=== PATIENT | male | born 1945 | race Caucasian/White ===

== ENCOUNTER → 2016-09-25 | Outpatient (CLI) | payer OTHER ==
[2016-09-25 09:52] LABS: Basophils # (A) 0.1 k/uL (0-0.2); Basophils % (A) 1 %; CH 31.7; CHCM 34.5; Eosinophils # (A) 0.3 k/uL (0-0.7); Eosinophils % (A) 3 %; HCT 48.5 % (39.0-53.0); HDW 2.46; HGB 15.9 gm/dL (13.0-17.5); Luc # (Auto) 0.17; Luc % (Auto) 2; Lymphocytes # (A) 1.8 k/uL (1.0-4.8); Lymphocytes % (A) 19 %; MCH 30.2 pg (25.0-35.0); MCHC 32.8 g/dL (31.0-37.0); MCV 92.1 fL (80.0-100.0); Mean Platelet Volume 7.5; Monocytes # (A) 0.6 k/uL (0-1.0); Monocytes % (A) 6 %; Neutrophils # (A) 6.3 k/uL (1.3-7.7); Neutrophils % (A) 69 %; RBC 5.27 m/uL (4.30-5.90); RDW 13.2 % (11.5-15.5); WBC 9.1 k/uL (3.8-10.6); WBC (Perox) 8.67
[2016-09-25 12:16] LABS: Hemoglobin A1C 6.9 % (4.2-6.1)
== END | disposition home or self-care (01) ==
LOC: LABWHC1 09:22
PROVIDERS: ATTEND Ophthalmology
DX: H20.9 Unspecified iridocyclitis (principal)
CPT/HCPCS: 36415; 83036; 85025

== ENCOUNTER 2018-03-26 14:45 | Inpatient (IN) | payer OTHER, MEDICARE ==
[2018-03-26] MEDS ORDERED: ALPRAZolam 0.5 MG TAB PO PRN (15:12)
[2018-03-26] MEDS ORDERED: ALPRAZolam 0.25 MG TAB PO PRN (15:12)
[2018-03-26] MEDS ORDERED: NITROGLYCERIN SL TABS 0.4 MG TAB SUBLINGUAL PRN ×2 (15:12→15:48)
[2018-03-26] MEDS ORDERED: NITROGLYCERIN OINT 1 INCH/GM PACKET TOPICAL STA (15:31)
--- NOTE | 2018-03-26 15:40 | CONS ---
CONSULTATION Mr. Jeffers is a 72-year-old male with known history of coronary artery disease, who is followed on a regular basis by Dr. Trevor Lemons, who presented to [facility] with symptoms of chest discomfort. The patient has underwent multiple stenting, most recently in 1996. He has done well and has been active. This morning while in [place], had an episode of chest discomfort that persisted. Took nitroglycerin without significant change. Because of the persistent symptoms, he drove back to [place] and went to [facility] and subsequently transferred to [facility]. At the time of my evaluation, he is pain free. The patient denies any change in his breathing. Denies any dizziness or palpitation. No syncope. No PND, orthopnea. Nor peripheral edema. His coronary risk factors are remarkable for hypertension, hyperlipidemia. He is a smoker about a pack a day. Nondiabetic according to him. REVIEW OF SYSTEMS: Respiratory system: He has cough and occasional wheezing. GI system: No recent GI bleed. No peptic ulcer disease. system: No dysuria or hematuria. Nervous system: No history of stroke or seizure. PHYSICAL EXAMINATION: He is a 72-year-old male, alert, oriented, in no apparent distress. Heart rate in the 60s. Blood pressure 130/70. HEAD: Normocephalic. Eyes: Sclerae anicteric. Neck good upstroke. No bruit. No jugular venous distention. Lungs with decreased air exchange. Heart: Regular rate and rhythm S1, S2. No S3. No rub. ABDOMEN: Soft, nontender. Positive bowel sounds. No megaly. EXTREMITIES: No edema. Intact distal pulses. EKG reveals sinus mechanism with evidence of inferior myocardial infarction that appears to be old with initial EKG in [place] revealed ST-segment depression laterally that resolved on the subsequent EKG done here. LAB DATA: From [place] revealed a BUN and creatinine 16, 1.1 potassium 4.9. CK of 121. NT proBNP of 60. Hemoglobin of 14.5. IMPRESSION: 1. Symptoms of chest discomfort with evidence of acute coronary syndrome with ST- segment depression laterally. 2. History of coronary artery disease status post percutaneous revascularization. 3. History of chronic tobacco use. 4. History of hypertension. RECOMMENDATIONS: I would recommend to initiate treatment with IV heparin. The patient will undergo cardiac catheterization by Dr. Trevor Lemons. The rationale behind the procedures risks and complications were discussed with the patient who is in full understanding and agreement. We will continue on aspirin, beta wang, and statin. If he has any further pain, then that the cardiac catheterization will be done today. Otherwise, it will be done tomorrow. Thank you for this consult. We will follow with you. PAT / HERBIEN: [id number] /
[2018-03-26] MEDS ORDERED: HEPARIN SODIUM,PORCINE 5,000 UNIT/ML 1 ML VIAL IV PRN (15:48)
--- NOTE | 2018-03-26 15:53 | ED ---
Chest Pain HPI - General Chief Complaint: Chest Pain Stated Complaint: Poss stemi Time Seen by Provider: 03/26/18 14:48 Source: patient, EMS, RN notes reviewed, old records reviewed Mode of arrival: EMS Limitations: no limitations - History of Present Illness Initial Comments: This is a 72-year-old male the ER for evaluation, patient is accepted in transfer for evaluation of elevated troponin. A presented with chest pain. Acute coronary syndrome. Patient is accepted in transfer. This hospital. Patient currently is chest pain-free MD Complaint: chest pain (Now resolved) -: hour(s) Onset: during rest Pain Location: left chest Pain Radiation: none Severity: mild Quality: tightness, heaviness Consistency: now resolved Improves With: nitroglycerin Worsens With: nothing Anginal Symptoms: diaphoresis Other Symptoms: palpitations Treatments Prior to Arrival: none - Related Data Home Medications Medication Instructions Recorded Confirmed Atenolol [Tenormin] 25 mg PO DAILY 03/26/18 03/26/18 Atorvastatin [Lipitor] 80 mg PO DAILY 03/26/18 03/26/18 Lisinopril [Zestril] 10 mg PO BID 03/26/18 03/26/18 Tiotropium [place] [Spiriva] 1 cap INHALATION RT-DAILY 03/26/18 03/26/18 metFORMIN HCL 1,000 mg PO BID 03/26/18 03/26/18 Allergies Allergy/AdvReac Type Severity Reaction Status Date / Time codeine Allergy Rash/Hives Verified 03/26/18 16:35 acetaminophen [From [place]] AdvReac Hallucinati Verified 03/26/18 16:35 ons hydrocodone [From [place]] AdvReac Hallucinati Verified 03/26/18 16:35 ons Review of Systems ROS Statement: Those systems with pertinent positive or pertinent negative responses have been documented in the HPI. ROS Other: All systems not noted in ROS Statement are negative. Past Medical History Past Medical History: COPD, Diabetes Mellitus, Hypertension History of Any Multi-Drug Resistant Organisms: None Reported Past Surgical History: Cholecystectomy, Heart Catheterization With Stent, Orthopedic Surgery Additional Past Surgical History / Comment(s): rt knee Past Psychological History: No Psychological Hx Reported Smoking Status: Never smoker Past Alcohol Use History: None Reported Past Drug Use History: None Reported General Exam Limitations: no limitations General appearance: alert, in no apparent distress Head exam: Present: atraumatic, normocephalic, normal inspection Eye exam: Present: normal appearance, PERRL, EOMI. Absent: scleral icterus, conjunctival injection, periorbital swelling ENT exam: Present: normal exam, mucous membranes moist Neck exam: Present: normal inspection. Absent: tenderness, meningismus, lymphadenopathy Respiratory exam: Present: normal lung sounds bilaterally. Absent: respiratory distress, wheezes, rales, rhonchi, stridor Cardiovascular Exam: Present: regular rate, normal rhythm, normal heart sounds. Absent: systolic murmur, diastolic murmur, rubs, gallop, clicks GI/Abdominal exam: Present: soft, normal bowel sounds. Absent: distended, tenderness, guarding, rebound, rigid Extremities exam: Present: normal inspection, full ROM, normal capillary refill. Absent: tenderness, pedal edema, joint swelling, calf tenderness Back exam: Present: normal inspection Neurological exam: Present: alert, oriented X3, CN II-XII intact Psychiatric exam: Present: normal affect, normal mood Skin exam: Present: warm, dry, intact, normal color. Absent: rash Course Vital Signs 03/26/18 14:52 Temperature 98.3 F Pulse Rate 50 L Respiratory 21 Rate Blood Pressure 146/64 O2 Sat by Pulse 96 Oximetry - Reevaluation(s) Reevaluation #1: Transfer paperwork is reviewed Dr. Pal was paged and came to evaluate patient in ER upon arrival Patient continues to be without chest pain Chest Pain MDM - MDM 72 male the ER for evaluation, patient does have positive chest pain positive troponin, will admit for anticoagulation and continued cardiology cardiopulmonary monitoring, evaluation and treatment Disposition Clinical Impression: Chest pain, ACS (acute coronary syndrome), NSTEMI (non-ST elevated myocardial infarction) Disposition: ADMITTED IP TO THIS HOSP Condition: Fair Is patient prescribed a controlled substance at d/c from ED?: No
[2018-03-26] MEDS ORDERED: HEPARIN SOD,PORK IN 0.45% NACL 25,000 UNIT in 0.45% NACL 1 250ML.BAG IV SCH (16:00)
[2018-03-26] MEDS: SODIUM CHLORIDE 0.9% 1,000 ML IV SCH (16:46)
[2018-03-26 16:59] LABS: Basophils # (A) 0.1 k/uL (0-0.2); Basophils % (A) 0 %; Eosinophils # (A) 0.4 k/uL (0-0.7); Eosinophils % (A) 3 %; HGB 14.4 gm/dL (13.0-17.5); Lymphocytes # (A) 2.1 k/uL (1.0-4.8); Lymphocytes % (A) 16 %; MCH 30.2 pg (25.0-35.0); MCHC 33.5 g/dL (31.0-37.0); MCV 90.1 fL (80.0-100.0); Mean Platelet Volume 6.2; Monocytes # (A) 0.6 k/uL (0-1.0); Monocytes % (A) 5 %; Neutrophils # (A) 9.3 k/uL (1.3-7.7); Neutrophils % (A) 74 %; Platelet Count 233 k/uL (150-450); RBC 4.77 m/uL (4.30-5.90); RDW 12.8 % (11.5-15.5); WBC 12.6 k/uL (3.8-10.6)
[2018-03-26 17:06] LABS: INR 0.9 (<1.2)
[2018-03-26 17:07] LABS: ALT 56 U/L (21-72); AST 87 U/L (17-59); Albumin 4.4 g/dL (3.5-5.0); Alkaline Phosphatase 70 U/L (38-126); Anion Gap 9 mmol/L; Blood Urea Nitrogen 14 mg/dL (9-20); Calcium 9.4 mg/dL (8.4-10.2); Carbon Dioxide 23 mmol/L (22-30); Chloride 105 mmol/L (98-107); Glucose 107 mg/dL (74-99); Magnesium 1.9 mg/dL (1.6-2.3); Potassium 4.4 mmol/L (3.5-5.1); Sodium 137 mmol/L (137-145); Total Bilirubin 0.7 mg/dL (0.2-1.3)
--- NOTE | 2018-03-26 17:12 | P.HPIM ---
History of Present Illness 72-year-old pleasant gentleman with known history of coronary artery disease and stents in the past follows with Dr. LEBRON per week as an outpatient came in with complaints of chest pressure like sensation which started today when he was driving from [place] which resolved associated blurry vision lightheadedness denied any diaphoresis his chest pain is severe 7/10 in severity radiating to the left arm and the jaw area pressure-like sensation not associated with food or deep breathing. Patient denied any short of breath associated with that patient had a cough. Patient did grow from [place] to to home with on and off symptoms and at home his symptoms are worse and went to the local ER subsequently transferred to [facility] found to have some new ST-T wave changes in the lateral leads along with mildly elevated troponin of 0.4 patient of the has elevated white blood cell count of 12.6 patient can use to smoke trying to quit smoking. Patient is being admitted for non-ST elevation microinfarction patient is on IV heparin, beta blockers statin. Review of Systems REVIEW OF SYSTEMS: CONSTITUTIONAL: No fever, no malaise, no fatigue. HEENT: No recent visual problems or hearing problems. Denied any sore throat. CARDIOVASCULAR: No orthopnea, PND, no palpitations, no syncope. PULMONARY: No shortness of breath, no cough, no hemoptysis. GASTROINTESTINAL: No diarrhea, no nausea, no vomiting, no abdominal pain. NEUROLOGICAL: No headaches, no weakness, no numbness. HEMATOLOGICAL: Denies any bleeding or petechiae. GENITOURINARY: Denies any burning micturition, frequency, or urgency. MUSCULOSKELETAL/RHEUMATOLOGICAL: Denies any joint pain, swelling, or any muscle pain. ENDOCRINE: Denies any polyuria or polydipsia. The rest of the 14-point review of systems is negative. Past Medical History Past Medical History: COPD, Diabetes Mellitus, Hypertension History of Any Multi-Drug Resistant Organisms: None Reported Past Surgical History: Cholecystectomy, Heart Catheterization With Stent, Orthopedic Surgery Additional Past Surgical History / Comment(s): rt knee Past Psychological History: No Psychological Hx Reported Smoking Status: Never smoker Past Alcohol Use History: None Reported Past Drug Use History: None Reported Medications and Allergies Home Medications Medication Instructions Recorded Confirmed Type Atenolol [Tenormin] 25 mg PO DAILY 03/26/18 03/26/18 History Atorvastatin [Lipitor] 80 mg PO DAILY 03/26/18 03/26/18 History Lisinopril [Zestril] 10 mg PO BID 03/26/18 03/26/18 History Tiotropium [place] [Spiriva] 1 cap INHALATION RT-DAILY 03/26/18 03/26/18 History metFORMIN HCL 1,000 mg PO BID 03/26/18 03/26/18 History Allergies Allergy/AdvReac Type Severity Reaction Status Date / Time codeine Allergy Rash/Hives Verified 03/26/18 16:35 acetaminophen [From [place]] AdvReac Hallucinati Verified 03/26/18 16:35 ons hydrocodone [From [place]] AdvReac Hallucinati Verified 03/26/18 16:35 ons Physical Exam Vitals: Vital Signs Temp Pulse Resp BP Pulse Ox 03/26/18 14:52 98.3 F 50 L 21 146/64 96 Intake and Output 03/26/18 03/26/18 03/26/18 06:59 14:59 22:59 Other: Weight 94.347 kg PHYSICAL EXAMINATION: GENERAL: The patient is alert and oriented x3, not in any acute distress. Well developed, well nourished. HEENT: Pupils are round and equally reacting to light. EOMI. No scleral icterus. No conjunctival pallor. Normocephalic, atraumatic. No pharyngeal erythema. No thyromegaly. CARDIOVASCULAR: S1 and S2 present. No murmurs, rubs, or gallops. PULMONARY: Chest is clear to auscultation, no wheezing or crackles. ABDOMEN: Soft, nontender, nondistended, normoactive bowel sounds. No palpable organomegaly. MUSCULOSKELETAL: No joint swelling or deformity. EXTREMITIES: No cyanosis, clubbing, or pedal edema. NEUROLOGICAL: Gross neurological examination did not reveal any focal deficits. SKIN: No rashes. Results CBC & Chem 7: 03/26/18 16:34 Labs: Abnormal Lab Results - Last 24 Hours (Table) 03/26/18 03/26/18 Range/Units 16:34 16:34 WBC 12.6 H (3.8-10.6) k/uL Neutrophils # 9.3 H (1.3-7.7) k/uL APTT 36.0 H (22.0-30.0) sec Assessment and Plan Plan: -Possible non-ST elevation myocardial infarction: Patient will be continued on IV heparin beta wang, statin and aspirin. Patient will undergo carotid catheterization tomorrow morning. Echo cardiac exam will be obtained -Hyperlipidemia -Hypertension -Previous history of coronary artery disease -Type 2 diabetes mellitus: 1 hold off metformin's sliding scale insulin will be started -COPD without any acute exacerbation -Leukocytosis reactive secondary to myocardial infarction
[2018-03-26 17:25] LABS: Creatine Kinase MB 56.3 ng/mL (0.0-2.4)
[2018-03-26 17:39] LABS: Troponin I 6.6 ng/mL (0.000-0.034)
[2018-03-26 19:21] LABS: Glucose,Whole Blood 160 mg/dL (75-99)
--- NOTE | 2018-03-26 19:38 | P.CNPUL ---
History of Present Illness Consult date: 03/26/18 Reason for consult: chest pain History of present illness: 72-year-old male patient with known history of coronary artery disease was undergone previous cardiac interventions and stenting, who experienced a sudden onset chest pain while driving from [place] back to [employer]. The pain was on and off, sternal, sometimes as bad as 7 out of 10 in severity with some radiation to the jaw and the left upper extremity. In addition the patient was having some increased shortness of breath. Noted the patient has known history of COPD and addition vitamin D on a combination of Spiriva and Proventil rescue inhaler on as needed basis. He initially presented himself to [facility] with the troponin was mildly elevated at 0.4. The patient was suspected of an acute non-ST segment elevation myocardial infarction. He was started on IV heparin and he was transferred to [facility]. Subsequent troponins were up to 6.6. The patient was seen by cardiology and the tentative plan is to proceed with a cardiac catheterization tomorrow. Currently free of any chest pain. He is on aspirin. He is on IV heparin. He is on metoprolol. He is also on nitroglycerin patch. The EKG showing sinus bradycardia. An old inferior wall infarction. No significant ST segment elevation or depressions. Review of Systems CONSTITUTIONAL: No fever, no malaise, no fatigue. HEENT: No recent visual problems or hearing problems. Denied any sore throat. CARDIOVASCULAR: No orthopnea, PND, no palpitations, no syncope. The patient is having increased chest pain. No palpitations. No syncope. PULMONARY: No shortness of breath, no cough, no hemoptysis. GASTROINTESTINAL: No diarrhea, no nausea, no vomiting, no abdominal pain. NEUROLOGICAL: No headaches, no weakness, no numbness. HEMATOLOGICAL: Denies any bleeding or petechiae. GENITOURINARY: Denies any burning micturition, frequency, or urgency. MUSCULOSKELETAL/RHEUMATOLOGICAL: Denies any joint pain, swelling, or any muscle pain. ENDOCRINE: Denies any polyuria or polydipsia. Past Medical History Past Medical History: COPD, Diabetes Mellitus, Hypertension Additional Past Medical History / Comment(s): Known history of coronary artery disease with previous cardiac intervention and stenting back in the , COPD , diabetes mellitus, hypertension, chronic smoker History of Any Multi-Drug Resistant Organisms: None Reported Past Surgical History: Cholecystectomy, Heart Catheterization With Stent, Orthopedic Surgery Additional Past Surgical History / Comment(s): rt knee Past Psychological History: No Psychological Hx Reported Smoking Status: Never smoker Past Alcohol Use History: None Reported Past Drug Use History: None Reported Medications and Allergies Home Medications Medication Instructions Recorded Confirmed Type Aspirin [Adult Low Dose Aspirin EC] 81 mg PO DAILY 03/26/18 03/26/18 History Atenolol [Tenormin] 25 mg PO DAILY 03/26/18 03/26/18 History Atorvastatin [Lipitor] 80 mg PO DAILY 03/26/18 03/26/18 History Lisinopril [Zestril] 10 mg PO BID 03/26/18 03/26/18 History Tiotropium [place] [Spiriva] 1 cap INHALATION RT-DAILY 03/26/18 03/26/18 History metFORMIN HCL 1,000 mg PO BID 03/26/18 03/26/18 History Allergies Allergy/AdvReac Type Severity Reaction Status Date / Time codeine Allergy Rash/Hives Verified 03/26/18 16:35 acetaminophen [From [place]] AdvReac Hallucinati Verified 03/26/18 16:35 ons hydrocodone [From [place]] AdvReac Hallucinati Verified 03/26/18 16:35 ons Physical Exam Vitals: Vital Signs Temp Pulse Resp BP Pulse Ox 03/26/18 18:16 97.5 F L 56 L 18 148/72 98 03/26/18 17:00 54 L 18 161/81 98 03/26/18 16:00 66 18 159/83 99 03/26/18 15:10 58 L 16 168/88 03/26/18 14:52 98.3 F 50 L 21 146/64 96 Intake and Output 03/26/18 03/26/18 03/26/18 06:59 14:59 22:59 Other: Weight 94.347 kg The patient appeared well nourished and normally developed. Vital signs as documented. Head exam is unremarkable. No scleral icterus or corneal arcus noted. Neck is without jugular venous distension, thyromegaly, or carotid bruits. Carotid upstrokes are brisk bilaterally. Lungs are mesh breath sounds along with scattered expiratory wheezes throughout the lung his bilaterally. There is also prolongation of the expiratory phase of breathing. Cardiac exam reveals the PMI to be normally sized and situated. Rhythm is regular. First and second heart sounds normal. No murmurs, rubs or gallops. Abdominal exam reveals normal bowel sounds, no masses, no organomegaly and no aortic enlargement. Extremities are nonedematous and both femoral and pedal pulses are normal. Neurologically awake and alert and there is no focal neurological deficits.Examination of the skin revealed no evidence of significant rashes, suspicious appearing nevi or other concerning lesions. Psychiatric no anxiety or depression. Results - Laboratory Findings CBC and BMP: 03/26/18 16:34 03/26/18 16:34 PT/INR, D-dimer PT 10.0 sec (9.0-12.0) 03/26/18 16:34 INR 0.9 (<1.2) 03/26/18 16:34 Abnormal lab findings: Abnormal Labs 03/26/18 03/26/18 03/26/18 16:34 16:34 16:34 WBC 12.6 H Neutrophils # 9.3 H APTT Glucose 107 H POC Glucose (mg/dL) AST 87 H Total Creatine Kinase 723 H CK-MB (CK-2) 56.3 H Troponin I 6.600 H* 03/26/18 03/26/18 16:34 19:09 WBC Neutrophils # APTT 36.0 H Glucose POC Glucose (mg/dL) 160 H AST Total Creatine Kinase CK-MB (CK-2) Troponin I Assessment and Plan Plan: Impression 1 acute non-ST segment elevation myocardial infarction 2 chest pain secondary to above 3 known history of coronary artery disease with previous coronary intervention and stenting 4 COPD currently inactive in stable 5 diabetes mellitus type 2 6 hypertension 7 hyperlipidemia 8 smoker Plan Continue aspirin. Continue IV heparin. Continue metoprolol. Continue statins. Monitor hemodynamics. Consider nitroglycerin drip if the patient starts having chest pain. Tentative plan is to proceed with a cardiac catheterization by cardiology first thing in the morning to assess the patient' s coronary anatomy. We'll continue to follow and keep the patient ICU for now.
[2018-03-26] MEDS ORDERED: INSULIN ASPART 100 UNIT/ML 1 ML 10 ML VIAL SQ SCH (21:00)
[2018-03-26] MEDS ORDERED: NITROGLYCERIN-D5W PMX 50 MG in DEXTROSE/WATER 1 250ML.BAG IV SCH (21:15)
[2018-03-26] MEDS: INSULIN ASPART 100 UNIT/ML 1 ML 10 ML VIAL SQ SCH (21:19)
[2018-03-26 21:21] LABS: Glucose,Whole Blood 106 mg/dL (75-99)
[2018-03-26] MEDS: METOPROLOL TARTRATE 25 MG TAB PO SCH (21:21)
[2018-03-26] MEDS: FAMOTIDINE 20 MG TAB PO SCH (21:22)
[2018-03-26] MEDS: LISINOPRIL 5 MG TAB PO SCH (21:22)
[2018-03-26] MEDS: IPRATROPIUM-ALBUTEROL 3 ML NEB INHALATION PRN (21:50)
[2018-03-26 23:30] LABS: Troponin I 24.1 ng/mL (0.000-0.034)
[2018-03-27] MEDS ORDERED: NITROGLYCERIN OINT 1 INCH/GM PACKET TOPICAL SCH
[2018-03-27] MEDS: SODIUM CHLORIDE 0.9% 1,000 ML IV SCH ×3 (02:12→20:18)
[2018-03-27] MEDS: INSULIN ASPART 100 UNIT/ML 1 ML 10 ML VIAL SQ SCH ×4 (05:06→20:07)
[2018-03-27 05:28] LABS: Anion Gap 4 mmol/L; Blood Urea Nitrogen 14 mg/dL (9-20); Calcium 8.8 mg/dL (8.4-10.2); Carbon Dioxide 22 mmol/L (22-30); Chloride 114 mmol/L (98-107); Cholesterol 89 mg/dL (<200); Glucose 126 mg/dL (74-99); HDL Cholesterol 38 mg/dL (40-60); LDL Cholesterol,Calculated 39 mg/dL (0-99); Sodium 140 mmol/L (137-145); Triglycerides 60 mg/dL (<150)
[2018-03-27 05:37] LABS: Potassium 4.9 mmol/L (3.5-5.1)
[2018-03-27 05:39] LABS: Creatine Kinase MB 93.4 ng/mL (0.0-2.4)
[2018-03-27 05:45] LABS: Troponin I 32.3 ng/mL (0.000-0.034)
[2018-03-27 05:49] LABS: HCT 38.1 % (39.0-53.0); HGB 12.2 gm/dL (13.0-17.5); MCH 30.1 pg (25.0-35.0); MCHC 32.1 g/dL (31.0-37.0); MCV 93.8 fL (80.0-100.0); Mean Platelet Volume 6.6; Platelet Count 196 k/uL (150-450); RBC 4.06 m/uL (4.30-5.90); RDW 12.9 % (11.5-15.5); WBC 9.1 k/uL (3.8-10.6)
[2018-03-27] MEDS ORDERED: ATORVASTATIN 80 MG TAB PO ONE (06:00)
[2018-03-27] MEDS ORDERED: ASPIRIN 325 MG TAB PO ONE (06:00)
[2018-03-27] MEDS: IPRATROPIUM-ALBUTEROL 3 ML NEB INHALATION PRN ×2 (07:30→23:31)
[2018-03-27] MEDS ORDERED: fentaNYL (PF) 50 MCG/ML 2 ML AMP ONE (08:22)
[2018-03-27] MEDS ORDERED: LIDOCAINE 1% INJ 10MG/ML (20 ML MDV) ONE (08:22)
[2018-03-27] MEDS ORDERED: fentaNYL (PF) 50 MCG/ML 2 ML AMP IVP ONE (08:31)
[2018-03-27] MEDS ORDERED: IV FLUID CONTINUATION 250 ML IV ONE (08:31)
[2018-03-27] MEDS: MIDAZOLAM 2 MG/2 ML VIAL IVP ONE ×2 (08:31→08:42)
[2018-03-27] MEDS ORDERED: LIDOCAINE 1% (PF) 10 MG/ML (30 ML SDV) SQ ONE (08:35)
[2018-03-27] MEDS ORDERED: IOPAMIDOL-370 100ML BTL INJ ONE ×4 (08:58→10:47)
[2018-03-27] MEDS ORDERED: TICAGRELOR 90 MG TAB ONE (09:12)
[2018-03-27] MEDS ORDERED: TICAGRELOR 90 MG TAB PO ONE (09:15)
[2018-03-27] MEDS ORDERED: BIVALIRUDIN BOLUS 250 MG/50 ML IV ONE (09:18)
[2018-03-27] MEDS ORDERED: BIVALIRUDIN 250 MG in SODIUM CHLORIDE 0.9% 37 ML IV ONE (09:18)
[2018-03-27] MEDS ORDERED: NITROGLYCERIN 1000MCG/10ML SYRINGE INTRACORON ONE (09:25)
--- NOTE | 2018-03-27 09:38 | CC ---
CARDIAC CATHETERIZATION REPORT Mr. Jeffers is a 72-year-old gentleman who came with symptoms of non ST-segment elevation myocardial infarction. The patient has a past history of multiple stent to the right coronary artery with a history of old inferior wall myocardial infarction. In view of the non ST-segment elevation myocardial infarction, patient was recommended to have a cardiac catheterization for definitive diagnosis. PROCEDURE: The right groin was prepped and draped in the usual manner and the right femoral artery was entered using Seldinger technique and micropuncture needle. Subsequently, right coronary angiography was performed and the left ventricular pressures were obtained. Patient tolerated the procedure well. HEMODYNAMICS: Left ventricular end-diastolic pressure is 24 mmHg prior to angiography. No gradient is noted across the aortic valve. SELECTIVE CORONARY ANGIOGRAPHY: Left main coronary artery is normal and patent. LAD is a good caliber blood vessel. There is a diffuse disease in the mid and distal LAD is noted with nonobstructive disease. Circumflex coronary artery is small and non dominant. The ostium of the circumflex coronary artery has a 40% to 50% stenosis. Obtuse marginal branch is mildly diseased. The right coronary artery is a large caliber blood vessel. In its proximal portion, it is an eccentric 95% stenosis. There is evidence of in-stent restenosis and the distal RCA prior to bifurcation has about 70% to 80% stenosis. FINAL IMPRESSION: 1. This study reveals a 90% stenosis in proximal RCA with 80% to 90% in-stent restenosis in proximal RCA. 2. The distal RCA another lesion of about 70% to 80%. 3. The LAD is diffusely diseased with evidence of nonobstructive disease. 4. The ostium of the circumflex coronary artery has a 40% to 50% stenosis. RECOMMENDATIONS: We will review the film with Dr. Chu and consider stent to the RCA. MMODL / IJN: [id number] /
[2018-03-27] MEDS ORDERED: MIDAZOLAM 2 MG/2 ML VIAL IVP ONE (10:11)
[2018-03-27] MEDS ORDERED: BIVALIRUDIN 250 MG in SODIUM CHLORIDE 0.9% 50 ML IV ONE (10:14)
[2018-03-27] MEDS ORDERED: ZOLPIDEM 5 MG TAB PO PRN (10:36)
[2018-03-27] MEDS ORDERED: MAG HYDROX/AL HYDROX/SIMETH 30 ML CUP PO PRN (10:36)
[2018-03-27] MEDS ORDERED: RX INFO: IV CONTRAST WAS GIVEN 1 EACH MISC MISCELLANE PRN (10:36)
[2018-03-27] MEDS ORDERED: NITROGLYCERIN SL TABS 0.4 MG TAB SUBLINGUAL PRN (10:36)
[2018-03-27] MEDS ORDERED: ATROPINE SULFATE 0.1 MG/ML 10ML SYRINGE IV PRN (10:36)
--- NOTE | 2018-03-27 10:42 | ECHOF ---
Referral Reason:cad MEASUREMENTS -------- HEIGHT: 182.9 cm WEIGHT: 94.3 kg BP: 142/79 RVIDd: 3.4 cm (< 3.3) IVSd: 1.1 cm (0.6 - 1.1) LVIDd: 4.6 cm (3.9 - 5.3) LVPWd: 1.1 cm (0.6 - 1.1) IVSs: 1.3 cm LVIDs: 3.6 cm LVPWs: 1.3 cm LAESV Index (A-L): 17.02 ml/m Ao Diam: 3.8 cm (2.0 - 3.7) AV Cusp: 2.0 cm (1.5 - 2.6) LA Diam: 2.5 cm (2.7 - 3.8) MV EXCURSION: 21.757 mm (> 18.000) MV EF SLOPE: 97 mm/s (70 - 150) EPSS: 1.1 cm MV E Kirill: 0.64 m/s MV DecT: 268 ms MV A Kirill: 0.75 m/s MV E/A Ratio: 0.86 RAP: 5.00 mmHg RVSP: 31.21 mmHg FINDINGS -------- Resting bradycardia (HR<60bpm). This was a technically adequate study. The left ventricular size is normal. There is borderline concentric left ventricular hypertrophy. Overall left ventricular systolic function is mild-moderately impaired with, an EF between 40 - 45 % . Infero septal Hypokinesis Inferior Hypokinesis The right ventricle is mildly enlarged. Normal LA size by volume 22+/-6 ml/m2. The right atrium is normal in size. There is mild aortic valve sclerosis. There is no evidence of aortic regurgitation. There is no e vidence of aortic stenosis. The mitral valve leaflets are mildly thickened. There is trace to mild mitral regurgitation. Trace tricuspid regurgitation present. Right ventricular systolic pressure is normal at < 35 mmHg. There is no evidence of pulmonary hypertension. The pulmonic valve was not well visualized. The aortic root size is normal. Normal inferior vena cava with normal inspiratory collapse consistent with estimated right atrial pre ssure of 5 mmHg. There is no pericardial effusion. CONCLUSIONS -------- 1. Resting bradycardia (HR<60bpm). 2. This was a technically adequate study. 3. The left ventricular size is normal. 4. There is borderline concentric left ventricular hypertrophy. 5. Overall left ventricular systolic function is mild-moderately impaired with, an EF between 40 - 45 %. 6. Inferoseptal Hypokinesis 7. Inferior Hypokinesis 8. The right ventricle is mildly enlarged. 9. Normal LA size by volume 22+/-6 ml/m2. 10. There is mild aortic valve sclerosis. 11. The mitral valve leaflets are mildly thickened. 12. There is trace to mild mitral regurgitation. 13. Trace tricuspid regurgitation present. 14. Right ventricular systolic pressure is normal at < 35 mmHg. 15. There is no evidence of pulmonary hypertension. 16. The pulmonic valve was not well visualized. 17. The aortic root size is normal. 18. There is no pericardial effusion. CHILD CARE EDUCATION COORDINATOR: Omer Strauss RDCS
[2018-03-27] MEDS ORDERED: SODIUM CHLORIDE 0.9% 1,000 ML IV SCH (10:45)
--- NOTE | 2018-03-27 11:17 | PTCA ---
PERCUTANEOUSTRANS CORORONARY ANGIOGRAPHY Mr. Jeffers is a 72-year-old male with a known history of coronary artery disease, status post multiple stenting of the right coronary artery, most recently in 2003, who presented with symptoms of chest discomfort and non ST-segment elevation myocardial infarction. In view of that, he underwent cardiac catheterization by Dr. Lemons and was found to have long segment of diffuse severe disease involving the right coronary artery up to 99%. In view of that, recommendation was made regarding angioplasty and stenting. The procedure as well as the risks and the complications were discussed with the patient who is in full understanding and agreement. PROCEDURE: A 6-Syriac FR4 guiding catheter introduced in the system after cannulating the right coronary ostium a 0.014 balanced medium weight J-wire was advanced across the lesion and positioned distally. Then a 2.5 x 15 mm Trek balloon was advanced and multiple inflations were done at a maximum of 10 atmospheres. Following that, the balloon was removed and attempt to advance a. 2.75 x 23 mm Xience Funmi stent were unsuccessful. At that point, the stent was removed and another 0.014 balanced medium weight J- wire was introduced into system in a jerica fashion, positioned distally. Following that, the stent was advanced to the mid segment, it was deployed and postdilated at 16 atmospheres. Following that the balloon was removed and the second balanced medium weight J-wire was reintroduced and positioned distally. After dilating the mid lesion with a 2.75 x 12 mm NC Trek at a maximum of 12 atmospheres, a 2.75 x 15 mm Xience Funmi stent was deployed in distal segment, postdilated at 16 atmosphere. That balloon was removed and proximal to it, a 2.75 x 15 mm Xience Funmi stent was deployed postdilated at 16 atmospheres. After removing the balloon, another 2.75 x 18 mm Xience Funmi stent was deployed postdilated at 16 atmospheres and after removing that balloon, a 2.75 x 8 mm Xience Funmi was deployed and postdilated at 16 atmospheres in the overlapping segment. After that, a 2.75 x 20 mm NC Trek balloon was advanced and multiple inflations in the stented segment were done at a maximum of 14 atmospheres. Following that, the balloon was removed and a 3.0 x 15 mm Xience Funmi stent was deployed proximally and postdilated at 16 atmospheres. Following that the balloon was removed and a 3.25 x 15 mm NC Trek balloon was balloon was advanced and one inflation at 14 atmospheres was done. After the last inflation, after appropriate wait, the balloon and guidewire were withdrawn back in the guiding catheter. Images were obtained, repeated. Those images revealed stable successful stenting. At that point, the guiding catheter, the balloon and the guidewire were removed. The sheath was sutured in place. There was no immediate complication. The patient was returned to his room in stable condition. Of note, the patient had no chest discomfort or significant EKG changes with the inflations. He received Angiomax per protocol as well as oral loading dose of Brilinta. RESULTS: Successful stenting of a long segment of the right coronary artery extending from the proximal to the distal segment with reduction of stenosis from 99% to less than 5%. RECOMMENDATION: Patient will be continued on aspirin, Brilinta, beta wang, BUD inhibitor and statin. The importance of dual antiplatelet treatment as well as smoking cessation was discussed with the patient who is in full understanding and agreement. Duration of procedure is 76 minutes. MMODL / IJN: [id number] / CJ
[2018-03-27 11:46] LABS: Glucose,Whole Blood 99 mg/dL (75-99)
[2018-03-27] MEDS: FAMOTIDINE 20 MG TAB PO SCH ×3 (11:54→20:16)
[2018-03-27] MEDS: METOPROLOL TARTRATE 25 MG TAB PO SCH ×3 (11:54→20:16)
[2018-03-27] MEDS: LISINOPRIL 5 MG TAB PO SCH ×3 (11:54→20:16)
[2018-03-27 13:44] LABS: Hemoglobin A1C 6.6 % (4.0-6.0)
[2018-03-27 13:53] VITALS: BMI 26.3
--- NOTE | 2018-03-27 14:32 | P.PN ---
Subjective 72-year-old admitted with a non-ST elevation myocardial infarction patient is found to have stenosis of RCA proximal to distal received multiple stents to RCA and patient's EF is around 45% is not in CHF exacerbation patient is chest pain-free doing well at this time. Constitutional: Denied any fatigue denied any fever. Cardio vascular: denied any chest pain, palpitations Gastrointestinal denied any nausea vomiting Pulmonary: Denied any shortness of breath cough Neurologic denied any new focal deficits All inpatient medications were reviewed and appropriate changes in these medications as dictated in the interval history and assessment and plan. Objective - Vital Signs Vital signs: Vital Signs Temp 98.1 F 03/27/18 12:00 Pulse 67 03/27/18 14:21 Resp 12 03/27/18 14:21 BP 148/66 03/27/18 14:21 Pulse Ox 97 03/27/18 14:21 Intake & Output 03/26/18 03/27/18 03/27/18 18:59 06:59 18:59 Intake Total 100 1270.167 897 Output Total 0 900 Balance 100 1270.167 -3 Weight 94.347 kg 88.1 kg 88.1 kg Intake: IV 100 1200 797 Sodium Chloride 0.9% 1, 100 1200 500 000 ml @ 100 mls/hr IV . Q10H [facility] Rx#:[id number] Intake, IV Titration 70.167 Amount Heparin Sod,Pork in 0.45% 70.167 NaCl 25,000 unit In 0.45 % NaCl 1 250ml.bag @ 10.6 UNITS/KG/HR 10 mls/hr IV .Q24H [facility] Rx#:[id number] Oral 100 Output: Urine 0 900 Other: Voiding Method Toilet Urinal # Voids 1 1 - Exam PHYSICAL EXAMINATION: GENERAL: The patient is alert and oriented x3, not in any acute distress. Well developed, well nourished. HEENT: Pupils are round and equally reacting to light. EOMI. No scleral icterus. No conjunctival pallor. Normocephalic, atraumatic. No pharyngeal erythema. No thyromegaly. CARDIOVASCULAR: S1 and S2 present. No murmurs, rubs, or gallops. PULMONARY: Chest is clear to auscultation, no wheezing or crackles. ABDOMEN: Soft, nontender, nondistended, normoactive bowel sounds. No palpable organomegaly. MUSCULOSKELETAL: No joint swelling or deformity. EXTREMITIES: No cyanosis, clubbing, or pedal edema. NEUROLOGICAL: Gross neurological examination did not reveal any focal deficits. SKIN: No rashes. - Labs CBC & Chem 7: 03/27/18 04:28 03/27/18 04:27 Labs: Abnormal Lab Results - Last 24 Hours (Table) 03/26/18 03/26/18 03/26/18 Range/Units 16:34 16:34 16:34 WBC 12.6 H (3.8-10.6) k/uL RBC (4.30-5.90) m/uL Hgb (13.0-17.5) gm/dL Hct (39.0-53.0) % Neutrophils # 9.3 H (1.3-7.7) k/uL APTT (22.0-30.0) sec Chloride (98-107) mmol/L Glucose 107 H (74-99) mg/dL POC Glucose (mg/dL) (75-99) mg/dL Hemoglobin A1c (4.0-6.0) % AST 87 H (17-59) U/L Total Creatine Kinase 723 H (55-170) U/L CK-MB (CK-2) 56.3 H (0.0-2.4) ng/mL Troponin I 6.600 H* (0.000-0.034) ng/mL HDL Cholesterol (40-60) mg/dL 03/26/18 03/26/18 03/26/18 Range/Units 16:34 19:09 21:10 WBC (3.8-10.6) k/uL RBC (4.30-5.90) m/uL Hgb (13.0-17.5) gm/dL Hct (39.0-53.0) % Neutrophils # (1.3-7.7) k/uL APTT 36.0 H (22.0-30.0) sec Chloride (98-107) mmol/L Glucose (74-99) mg/dL POC Glucose (mg/dL) 160 H 106 H (75-99) mg/dL Hemoglobin A1c (4.0-6.0) % AST (17-59) U/L Total Creatine Kinase (55-170) U/L CK-MB (CK-2) (0.0-2.4) ng/mL Troponin I (0.000-0.034) ng/mL HDL Cholesterol (40-60) mg/dL 03/26/18 03/26/18 03/26/18 Range/Units 22:18 22:18 22:18 WBC (3.8-10.6) k/uL RBC (4.30-5.90) m/uL Hgb (13.0-17.5) gm/dL Hct (39.0-53.0) % Neutrophils # (1.3-7.7) k/uL APTT 40.6 H (22.0-30.0) sec Chloride (98-107) mmol/L Glucose (74-99) mg/dL POC Glucose (mg/dL) (75-99) mg/dL Hemoglobin A1c 6.6 H (4.0-6.0) % AST (17-59) U/L Total Creatine Kinase 1161 H* (55-170) U/L CK-MB (CK-2) 100.0 H (0.0-2.4) ng/mL Troponin I 24.100 H* (0.000-0.034) ng/mL HDL Cholesterol (40-60) mg/dL 03/27/18 03/27/18 03/27/18 Range/Units 04:27 04:27 04:28 WBC (3.8-10.6) k/uL RBC 4.06 L (4.30-5.90) m/uL Hgb 12.2 L (13.0-17.5) gm/dL Hct 38.1 L (39.0-53.0) % Neutrophils # (1.3-7.7) k/uL APTT (22.0-30.0) sec Chloride 114 H (98-107) mmol/L Glucose 126 H (74-99) mg/dL POC Glucose (mg/dL) (75-99) mg/dL Hemoglobin A1c (4.0-6.0) % AST (17-59) U/L Total Creatine Kinase 1236 H* (55-170) U/L CK-MB (CK-2) 93.4 H (0.0-2.4) ng/mL Troponin I 32.300 H* (0.000-0.034) ng/mL HDL Cholesterol 38 L (40-60) mg/dL 03/27/18 Range/Units 04:28 WBC (3.8-10.6) k/uL RBC (4.30-5.90) m/uL Hgb (13.0-17.5) gm/dL Hct (39.0-53.0) % Neutrophils # (1.3-7.7) k/uL APTT 71.5 H (22.0-30.0) sec Chloride (98-107) mmol/L Glucose (74-99) mg/dL POC Glucose (mg/dL) (75-99) mg/dL Hemoglobin A1c (4.0-6.0) % AST (17-59) U/L Total Creatine Kinase (55-170) U/L CK-MB (CK-2) (0.0-2.4) ng/mL Troponin I (0.000-0.034) ng/mL HDL Cholesterol (40-60) mg/dL Assessment and Plan Plan: -non-ST elevation myocardial infarction patient is status post stenting of RCA multiple stents to RCA because of long segment stenosis. Patient is on 9 dual antiplatelet therapy beta wang and statin and lisinopril -Congestive heart failure probably acute systolic dysfunction from acute myocardial infarction doesn't have any pulmonary edema not in acute exacerbation. EF is expected to improve -Hyperlipidemia -Hypertension -Previous history of coronary artery disease -Type 2 diabetes mellitus: 1 hold off metformin's sliding scale insulin will be started -COPD without any acute exacerbation -Leukocytosis reactive secondary to myocardial infarction
[2018-03-27 17:03] LABS: Glucose,Whole Blood 129 mg/dL (75-99)
--- NOTE | 2018-03-27 17:50 | P.PN ---
Subjective Progress Note Date: 03/27/18 This morning, this 72-year-old male patient is chest pain-free. Note that he was admitted yesterday for an acute non-ST segment elevation myocardial infarction. Cardiac a physician was done earlier this morning by cardiology and the patient was found to have a long segment of diffuse severe disease involving the right coronary artery of 99% occlusion. Based on this, the patient underwent angioplasty and stenting of the RCA. The patient had good angiographic results. The patient was kept on a combination of aspirin, Brillinta, beta wang and BUD inhibitor and statins. The patient is currently back to the intensive care unit. The patient is hemodynamically stable. No chest pain. No fever or chills. No significant cough or sputum production. No other significant events such as cardiac arrhythmias. His echocardiogram showed an ejection fraction of 45%. No signs of any overt heart failure. The patient has mild aortic sclerosis. Right ventricular systolic pressure is normal. No other significant abnormalities as noted in the echocardiogram other than some inferior wall hypokinesis which is consistent with RCA disease. Objective - Vital Signs Vital signs: Vital Signs Temp 98.1 F 03/27/18 16:00 Pulse 72 03/27/18 17:00 Resp 22 03/27/18 17:00 BP 141/68 03/27/18 17:00 Pulse Ox 96 03/27/18 17:00 Intake & Output 03/26/18 03/27/18 03/27/18 18:59 06:59 18:59 Intake Total 100 5459.657 1952 Output Total 0 1400 Balance 100 1270.167 -203 Weight 94.347 kg 88.1 kg 88.1 kg Intake: IV 100 1200 1097 Sodium Chloride 0.9% 1, 100 1200 800 000 ml @ 100 mls/hr IV . Q10H [facility] Rx#:[id number] Intake, IV Titration 70.167 Amount Heparin Sod,Pork in 0.45% 70.167 NaCl 25,000 unit In 0.45 % NaCl 1 250ml.bag @ 10.6 UNITS/KG/HR 10 mls/hr IV .Q24H [facility] Rx#:[id number] Oral 100 Output: Urine 0 1400 Other: Voiding Method Toilet Urinal # Voids 1 1 - Exam The patient appeared well nourished and normally developed. Vital signs as documented. Head exam is unremarkable. No scleral icterus or corneal arcus noted. Neck is without jugular venous distension, thyromegaly, or carotid bruits. Carotid upstrokes are brisk bilaterally. Lungs are mesh breath sounds along with scattered expiratory wheezes throughout the lung his bilaterally. There is also prolongation of the expiratory phase of breathing. Cardiac exam reveals the PMI to be normally sized and situated. Rhythm is regular. First and second heart sounds normal. No murmurs, rubs or gallops. Abdominal exam reveals normal bowel sounds, no masses, no organomegaly and no aortic enlargement. Extremities are nonedematous and both femoral and pedal pulses are normal. Neurologically awake and alert and there is no focal neurological deficits.Examination of the skin revealed no evidence of significant rashes, suspicious appearing nevi or other concerning lesions. Psychiatric no anxiety or depression. - Labs CBC & Chem 7: 03/27/18 04:28 03/27/18 04:27 Labs: Abnormal Lab Results - Last 24 Hours (Table) 03/26/18 03/26/18 03/26/18 Range/Units 19:09 21:10 22:18 RBC (4.30-5.90) m/uL Hgb (13.0-17.5) gm/dL Hct (39.0-53.0) % APTT 40.6 H (22.0-30.0) sec Chloride (98-107) mmol/L Glucose (74-99) mg/dL POC Glucose (mg/dL) 160 H 106 H (75-99) mg/dL Hemoglobin A1c (4.0-6.0) % Total Creatine Kinase (55-170) U/L CK-MB (CK-2) (0.0-2.4) ng/mL Troponin I (0.000-0.034) ng/mL HDL Cholesterol (40-60) mg/dL 03/26/18 03/26/18 03/27/18 Range/Units 22:18 22:18 04:27 RBC (4.30-5.90) m/uL Hgb (13.0-17.5) gm/dL Hct (39.0-53.0) % APTT (22.0-30.0) sec Chloride (98-107) mmol/L Glucose (74-99) mg/dL POC Glucose (mg/dL) (75-99) mg/dL Hemoglobin A1c 6.6 H (4.0-6.0) % Total Creatine Kinase 1161 H* 1236 H* (55-170) U/L CK-MB (CK-2) 100.0 H 93.4 H (0.0-2.4) ng/mL Troponin I 24.100 H* 32.300 H* (0.000-0.034) ng/mL HDL Cholesterol (40-60) mg/dL 03/27/18 03/27/18 03/27/18 Range/Units 04:27 04:28 04:28 RBC 4.06 L (4.30-5.90) m/uL Hgb 12.2 L (13.0-17.5) gm/dL Hct 38.1 L (39.0-53.0) % APTT 71.5 H (22.0-30.0) sec Chloride 114 H (98-107) mmol/L Glucose 126 H (74-99) mg/dL POC Glucose (mg/dL) (75-99) mg/dL Hemoglobin A1c (4.0-6.0) % Total Creatine Kinase (55-170) U/L CK-MB (CK-2) (0.0-2.4) ng/mL Troponin I (0.000-0.034) ng/mL HDL Cholesterol 38 L (40-60) mg/dL 03/27/18 Range/Units 16:38 RBC (4.30-5.90) m/uL Hgb (13.0-17.5) gm/dL Hct (39.0-53.0) % APTT (22.0-30.0) sec Chloride (98-107) mmol/L Glucose (74-99) mg/dL POC Glucose (mg/dL) 129 H (75-99) mg/dL Hemoglobin A1c (4.0-6.0) % Total Creatine Kinase (55-170) U/L CK-MB (CK-2) (0.0-2.4) ng/mL Troponin I (0.000-0.034) ng/mL HDL Cholesterol (40-60) mg/dL Assessment and Plan Plan: Impression 1 acute non-ST segment elevation myocardial infarction, status post cardiac catheterization and RCA disease was found which was diffuse and the patient underwent and depressed and stenting of the RCA with successful angiographic results. Currently free of any chest pain. Echocardiogram shows an ejection fraction of 40-45%. There is inferior wall hypokinesis. The rest of the cardiac structures and the valves are all within normal limits. 2 chest pain secondary to above 3 known history of coronary artery disease with previous coronary intervention and stenting 4 COPD currently inactive in stable 5 diabetes mellitus type 2 6 hypertension 7 hyperlipidemia 8 smoker Plan Continue aspirin and Brillinta. Continue metoprolol. Continue Zestril. Continue IV fluids. Keep the patient ICU for another 24 hours for monitoring. We'll continue to follow.
[2018-03-27 20:08] LABS: Glucose,Whole Blood 130 mg/dL (75-99)
[2018-03-27] MEDS: TICAGRELOR 90 MG TAB PO SCH (20:16)
[2018-03-28 06:03] LABS: Glucose,Whole Blood 114 mg/dL (75-99)
[2018-03-28 07:43] LABS: HCT 38.1 % (39.0-53.0); HGB 12.2 gm/dL (13.0-17.5); MCH 29.8 pg (25.0-35.0); MCHC 32.1 g/dL (31.0-37.0); MCV 92.8 fL (80.0-100.0); Mean Platelet Volume 7.2; Platelet Count 184 k/uL (150-450); RBC 4.11 m/uL (4.30-5.90); RDW 13.2 % (11.5-15.5); WBC 7.9 k/uL (3.8-10.6)
[2018-03-28] MEDS: SODIUM CHLORIDE 0.9% 1,000 ML IV SCH ×2 (07:53→20:28)
[2018-03-28] MEDS: INSULIN ASPART 100 UNIT/ML 1 ML 10 ML VIAL SQ SCH ×4 (07:53→20:27)
[2018-03-28 08:12] LABS: Anion Gap 6 mmol/L; Blood Urea Nitrogen 11 mg/dL (9-20); Calcium 9.1 mg/dL (8.4-10.2); Carbon Dioxide 23 mmol/L (22-30); Chloride 111 mmol/L (98-107); Glucose 110 mg/dL (74-99); Potassium 4.3 mmol/L (3.5-5.1); Sodium 140 mmol/L (137-145)
[2018-03-28] MEDS: METOPROLOL TARTRATE 25 MG TAB PO SCH ×2 (08:37→21:05)
[2018-03-28] MEDS: ASPIRIN 81 MG PO SCH (08:37)
[2018-03-28] MEDS: ATORVASTATIN 80 MG TAB PO SCH (08:37)
[2018-03-28] MEDS: TICAGRELOR 90 MG TAB PO SCH ×2 (08:37→21:05)
[2018-03-28] MEDS: FAMOTIDINE 20 MG TAB PO SCH ×2 (08:37→21:05)
[2018-03-28] MEDS: LISINOPRIL 5 MG TAB PO SCH (08:37)
[2018-03-28] MEDS ORDERED: ASPIRIN 81 MG PO SCH (09:00)
[2018-03-28] MEDS ORDERED: ASPIRIN 325 MG TAB PO SCH (09:00)
--- NOTE | 2018-03-28 09:03 | PN ---
PROGRESS NOTE Mr. Jeffers is a 72-year-old male with a history of coronary artery disease who presented with non ST-segment elevation myocardial infarction, underwent cardiac catheterization and stenting of a long segment of the right coronary artery. He is doing well this morning. He denies symptoms of chest pain. He denies any dizziness, palpitation. He denies any nausea. He continues to be on aspirin once a day, Lipitor 80 mg daily, lisinopril 5 mg twice a day, metoprolol tartrate 25 mg twice a day, and Brilinta 90 mg twice a day. PHYSICAL EXAMINATION: Blood pressure 147/69 with a heart rate in the 60s. LUNGS: Clear. HEART: Regular rate and rhythm, S1, S2. No S3. No rub appreciated. Abdomen with a systolic murmur. ABDOMEN: Soft, nontender. EXTREMITIES: No edema, right groin no hematoma. LAB DATA: Revealed BUN and creatinine of 11 and 0.89, potassium of 12.2. He had an echocardiogram on presentation that revealed an ejection fraction of 40% to 45%. with inferior wall hypokinesis. IMPRESSION: 1. Status post non STEMI in the inferior wall. 2. History of coronary artery disease with prior stenting of the right coronary artery. 3. Hypertension. 4. Hyperlipidemia. 5. Chronic tobacco use. RECOMMENDATION: From the cardiac standpoint, I will increase the dose of the lisinopril, continue the rest of his medical regimen. He should be able to be discharged home tomorrow and follow up with Dr. Lemons. The importance of smoking cessation was discussed with him. MMODL / IJN: [id number] /
[2018-03-28] MEDS: LISINOPRIL 10 MG TAB PO SCH ×2 (10:38→21:05)
[2018-03-28] MEDS ORDERED: LISINOPRIL 5 MG TAB PO STA (10:39)
[2018-03-28 11:39] LABS: Glucose,Whole Blood 77 mg/dL (75-99)
--- NOTE | 2018-03-28 12:21 | P.PN ---
Subjective Progress Note Date: 03/28/18 Hospital course:72-year-old admitted with a non-ST elevation myocardial infarction patient is found to have stenosis of RCA proximal to distal received multiple stents to RCA and patient's EF is around 45% is not in CHF exacerbation patient is chest pain-free doing well at this time. 03/28/2018 ambulating in hallway, tolerating exertion well. Denies lightheadedness dizziness or any focal deficits. Good diet intake. Constitutional: Denied any fatigue denied any fever. Cardio vascular: denied any chest pain, palpitations Gastrointestinal denied any nausea vomiting Pulmonary: Denied any shortness of breath cough Neurologic denied any new focal deficits All inpatient medications were reviewed and appropriate changes in these medications as dictated in the interval history and assessment and plan. Objective - Vital Signs Vital signs: Vital Signs Temp 98 F 03/28/18 08:30 Pulse 72 03/28/18 08:30 Resp 16 03/28/18 08:30 BP 146/66 03/28/18 08:30 Pulse Ox 96 03/28/18 08:30 Intake & Output 03/27/18 03/28/18 03/28/18 18:59 06:59 18:59 Intake Total 1497 100 360 Output Total 2300 650 Balance -803 -550 360 Weight 88.1 kg 89.4 kg Intake: IV 1397 100 Sodium Chloride 0.9% 1, 1100 100 000 ml @ 100 mls/hr IV . Q10H [facility] Rx#:[id number] Oral 100 360 Output: Urine 2300 650 Other: Voiding Method Urinal Urinal Urinal # Voids 1 1 1 # Bowel Movements 0 - Exam EXAMINATION: GENERAL: The patient is alert and oriented x3, not in any acute distress. Well developed, well nourished. HEENT: Pupils are round and equally reacting to light. EOMI. No scleral icterus. No conjunctival pallor. Normocephalic, atraumatic. No pharyngeal erythema. No thyromegaly. CARDIOVASCULAR: S1 and S2 present. No murmurs, rubs, or gallops. PULMONARY: Chest is clear to auscultation, no wheezing or crackles. ABDOMEN: Soft, nontender, nondistended, normoactive bowel sounds. No palpable organomegaly. MUSCULOSKELETAL: No joint swelling or deformity. EXTREMITIES: No cyanosis, clubbing, or pedal edema. NEUROLOGICAL: Gross neurological examination did not reveal any focal deficits. SKIN: No rashes. - Labs CBC & Chem 7: 03/28/18 06:46 03/28/18 06:46 Labs: Abnormal Lab Results - Last 24 Hours (Table) 03/26/18 03/27/18 03/27/18 Range/Units 22:18 16:38 20:05 RBC (4.30-5.90) m/uL Hgb (13.0-17.5) gm/dL Hct (39.0-53.0) % Chloride (98-107) mmol/L Glucose (74-99) mg/dL POC Glucose (mg/dL) 129 H 130 H (75-99) mg/dL Hemoglobin A1c 6.6 H (4.0-6.0) % 03/28/18 03/28/18 03/28/18 Range/Units 06:02 06:46 06:46 RBC 4.11 L (4.30-5.90) m/uL Hgb 12.2 L (13.0-17.5) gm/dL Hct 38.1 L (39.0-53.0) % Chloride 111 H (98-107) mmol/L Glucose 110 H (74-99) mg/dL POC Glucose (mg/dL) 114 H (75-99) mg/dL Hemoglobin A1c (4.0-6.0) % Assessment and Plan Assessment: -non-ST elevation myocardial infarction patient is status post stenting of RCA multiple stents to RCA because of long segment stenosis. Patient is on 9 dual antiplatelet therapy beta wang and statin and lisinopril -Congestive heart failure probably acute systolic dysfunction, EF 40-45% with inferior wall hypokinesis, from acute myocardial infarction, no pulmonary edema not in acute exacerbation. EF is expected to improve. -Hyperlipidemia -Hypertension -Previous history of coronary artery disease -Type 2 diabetes mellitus: 1 hold off metformin's sliding scale insulin will be started -COPD without any acute exacerbation -Leukocytosis reactive secondary to myocardial infarction -Nicotine dependence Plan: Continue on current medication regime ,monitoring and symptomatic treatment. Continue on Dual antiplatelet therapy, beta wang, increased BUD inhibitor, statin. Smoking cessation readdressed. Increase ambulation as tolerated. Close monitoring of renal function, electrolytes, with repeat labs ordered for a.m. Discharge planning in progress for tomorrow pending cardiology clearance. The impression and plan of care has been dictated as directed. : I performed a history and examination of this patient, discussed the same with the dictator. I agree with the dictator's note ,documented as a scribe. Any additional findings or plans will be noted.
--- NOTE | 2018-03-28 16:12 | P.PN ---
Subjective Progress Note Date: 03/28/18 Principal diagnosis: Acute non-ST elevated [place], status post PCI and stenting to the RCA This morning, this 72-year-old male patient is chest pain-free. Note that he was admitted yesterday for an acute non-ST segment elevation myocardial infarction. Cardiac a physician was done earlier this morning by cardiology and the patient was found to have a long segment of diffuse severe disease involving the right coronary artery of 99% occlusion. Based on this, the patient underwent angioplasty and stenting of the RCA. The patient had good angiographic results. The patient was kept on a combination of aspirin, Brillinta, beta wang and BUD inhibitor and statins. The patient is currently back to the intensive care unit. The patient is hemodynamically stable. No chest pain. No fever or chills. No significant cough or sputum production. No other significant events such as cardiac arrhythmias. His echocardiogram showed an ejection fraction of 45%. No signs of any overt heart failure. The patient has mild aortic sclerosis. Right ventricular systolic pressure is normal. No other significant abnormalities as noted in the echocardiogram other than some inferior wall hypokinesis which is consistent with RCA disease. On 03/28/2018 patient seen in follow-up on selective care unit, he is resting comfortably in bed, no acute distress, pulse ox is 97%, patient is afebrile, no complaints of dyspnea or chest pain. Patient has been periodically asking for some breathing treatments. Lung sounds are positive for some scattered wheezes , no significant chest congestion. No fever or chills. Patient has been tolerating ambulation. Today's labs have been noted, white blood cell count is 7.9, hemoglobin is 12.2, sodium is 140, potassium is 4.3, chloride is 111, BUN is 11 and creatinine 0.89. Objective - Vital Signs Vital signs: Vital Signs Temp 98 F 03/28/18 08:30 Pulse 60 03/28/18 12:20 Resp 16 03/28/18 12:20 BP 152/70 03/28/18 12:20 Pulse Ox 97 03/28/18 12:20 Intake & Output 03/27/18 03/28/18 03/28/18 18:59 06:59 18:59 Intake Total 1497 100 360 Output Total 2300 650 Balance -803 -550 360 Weight 88.1 kg 89.4 kg Intake: IV 1397 100 Sodium Chloride 0.9% 1, 1100 100 000 ml @ 100 mls/hr IV . Q10H [facility] Rx#:[id number] Oral 100 360 Output: Urine 2300 650 Other: Voiding Method Urinal Urinal Urinal # Voids 1 1 1 # Bowel Movements 0 - Exam GENERAL EXAM: Alert, pleasant, 72-year-old white male comfortable in no apparent distress. HEAD: Normocephalic/atraumatic. EYES: Normal reaction of pupils, equal size. Conjunctiva pink, sclera white. NOSE: Clear with pink turbinates. THROAT: No erythema or exudates. NECK: No masses, no JVD, no thyroid enlargement, no adenopathy. CHEST: No chest wall deformity. Symmetrical expansion. LUNGS: Equal air entry with scattered wheezes CVS: Regular rate and rhythm, normal S1 and S2, no gallops, no murmurs, no rubs ABDOMEN: Soft, nontender. No hepatosplenomegaly, normal bowel sounds, no guarding or rigidity. EXTREMITIES: No clubbing, no edema, no cyanosis, 2+ pulses and upper and lower extremities. MUSCULOSKELETAL: Muscle strength and tone normal. SPINE: No scoliosis or deformity SKIN: No rashes CENTRAL NERVOUS SYSTEM: Alert and oriented -3. No focal deficits, tone is normal in all 4 extremities. PSYCHIATRIC: Alert and oriented -3. Appropriate affect. Intact judgment and insight. - Labs CBC & Chem 7: 03/28/18 06:46 03/28/18 06:46 Labs: Abnormal Lab Results - Last 24 Hours (Table) 03/27/18 03/27/18 03/28/18 Range/Units 16:38 20:05 06:02 RBC (4.30-5.90) m/uL Hgb (13.0-17.5) gm/dL Hct (39.0-53.0) % Chloride (98-107) mmol/L Glucose (74-99) mg/dL POC Glucose (mg/dL) 129 H 130 H 114 H (75-99) mg/dL 03/28/18 03/28/18 Range/Units 06:46 06:46 RBC 4.11 L (4.30-5.90) m/uL Hgb 12.2 L (13.0-17.5) gm/dL Hct 38.1 L (39.0-53.0) % Chloride 111 H (98-107) mmol/L Glucose 110 H (74-99) mg/dL POC Glucose (mg/dL) (75-99) mg/dL Assessment and Plan Plan: Assessment: 1 acute non-ST segment elevation myocardial infarction, status post cardiac catheterization and RCA disease was found which was diffuse and the patient underwent and depressed and stenting of the RCA with successful angiographic results. Currently free of any chest pain. Echocardiogram shows an ejection fraction of 40-45%. There is inferior wall hypokinesis. The rest of the cardiac structures and the valves are all within normal limits. 2 chest pain secondary to above 3 known history of coronary artery disease with previous coronary intervention and stenting 4 COPD currently inactive in stable 5 diabetes mellitus type 2 6 hypertension 7 hyperlipidemia 8 smoker Plan: Continue breathing treatments on an as-needed basis. No complaints of chest pain, palpitations, no worsening dyspnea. Vital signs are stable. Patient is doing well, anticipate discharge in another 24 hours. Patient is not interested in outpatient follow-up in the pulmonary clinic. We will continue on as-needed basis. I performed a history & physical examination of the patient and discussed their management with my nurse practitioner, Kristina Macias. I reviewed the nurse practitioner's note and agree with the documented findings and plan of care. Lung sounds are positive for scattered wheezes. The findings and the impression was discussed with the patient. I attest to the documentation by the nurse practitioner. Time with Patient: Less than 30
[2018-03-28 17:12] LABS: Glucose,Whole Blood 127 mg/dL (75-99)
[2018-03-28 20:20] LABS: Glucose,Whole Blood 104 mg/dL (75-99)
[2018-03-28] MEDS: IPRATROPIUM-ALBUTEROL 3 ML NEB INHALATION PRN (20:53)
[2018-03-29] MEDS: SODIUM CHLORIDE 0.9% 1,000 ML IV SCH (05:42)
[2018-03-29 05:45] VITALS: TEMP 97.2
[2018-03-29 06:06] LABS: Glucose,Whole Blood 121 mg/dL (75-99)
[2018-03-29 06:40] LABS: HCT 39.2 % (39.0-53.0); HGB 12.7 gm/dL (13.0-17.5); MCH 29.7 pg (25.0-35.0); MCHC 32.4 g/dL (31.0-37.0); MCV 91.5 fL (80.0-100.0); Mean Platelet Volume 6.1; Platelet Count 219 k/uL (150-450); RBC 4.28 m/uL (4.30-5.90); RDW 12.8 % (11.5-15.5); WBC 9.2 k/uL (3.8-10.6)
[2018-03-29] MEDS: INSULIN ASPART 100 UNIT/ML 1 ML 10 ML VIAL SQ SCH ×2 (06:41→11:07)
[2018-03-29] MEDS: ASPIRIN 81 MG PO SCH (09:16)
[2018-03-29] MEDS: METOPROLOL TARTRATE 25 MG TAB PO SCH (09:16)
[2018-03-29] MEDS: FAMOTIDINE 20 MG TAB PO SCH (09:16)
[2018-03-29] MEDS: ATORVASTATIN 80 MG TAB PO SCH (09:16)
[2018-03-29] MEDS: LISINOPRIL 10 MG TAB PO SCH (09:16)
[2018-03-29] MEDS: TICAGRELOR 90 MG TAB PO SCH (09:16)
--- NOTE | 2018-03-29 10:16 | PN ---
PROGRESS NOTE Mr. Jeffers is a 72-year-old male with known history of coronary artery disease who presented with non ST-segment elevation myocardial infarction, underwent a cardiac catheterization and stenting of the right coronary artery in a long segment. He is doing well this morning, ambulating without difficulty. Denying any chest pain or tightness. Denies any dizziness or palpitation. Denies any nausea. He continues on aspirin 81 mg daily, Lipitor 80 mg daily, lisinopril 10 mg twice a day, metoprolol tartrate 25 mg twice a day, Brilinta 90 mg twice a day. PHYSICAL EXAMINATION: Blood pressure 147/60 with a heart rate in the 70s. LUNGS: Clear. HEART: Regular rate and rhythm, S1, S2. No S3. No rub. ABDOMEN: Soft, nontender. EXTREMITIES: No edema. LAB DATA: Revealed a hemoglobin of 12.7. IMPRESSION: 1. Status post non ST-segment elevation myocardial infarction. 2. Status post stenting of the right coronary artery. 3. Chronic tobacco use. 4. Hyperlipidemia. 5. Diabetes mellitus. RECOMMENDATION: Patient should be able to be discharged home today and followed as an outpatient. MMODL / HERBIEN: [id number] /
[2018-03-29 11:04] LABS: Glucose,Whole Blood 104 mg/dL (75-99)
[2018-03-29 11:49] VITALS: BP 158/74; PULSE 52; RESP 16
--- NOTE | 2018-03-29 19:59 | P.DS ---
Providers Date of admission: 03/26/18 15:48 Expected date of discharge: 03/29/18 Attending physician: Yunier Lobato Consults: 03/26/18 15:48 Consult Physician Urgent Consulting Provider: Modesto Chu Consult Reason/Comments: nstemi Do you want consulting provider notified?: Yes 03/26/18 16:06 Consult Physician Urgent Consulting Provider: Amauri Dominguez Consult Reason/Comments: icu Do you want consulting provider notified?: Yes 03/27/18 10:36 Consult Physician Routine Consulting Provider: [facility] Consult Reason/Comments: Post Interventional patient Do you want consulting provider notified?: Already Contacted [facility] Course: Final Diagnoses: -non-ST elevation myocardial infarction patient is status post stenting of RCA multiple stents to RCA because of long segment stenosis. -Congestive heart failure systolic dysfunction, EF 40-45% with inferior wall hypokinesis, from acute myocardial infarction, no pulmonary edema not in acute exacerbation. EF is expected to improve. -Hyperlipidemia -Hypertension -Previous history of coronary artery disease -Type 2 diabetes mellitus: 1 hold off metformin's sliding scale insulin will be started -COPD without any acute exacerbation -Leukocytosis reactive secondary to myocardial infarction -Nicotine dependence Hospital course: This is a 72-year-old admitted with a non-ST elevation myocardial infarction patient is found to have stenosis of RCA proximal to distal received multiple stents to RCA and patient's EF is around 45% is not in CHF exacerbation patient is chest pain-free. Significant clinical improvement. Cleared by pulmonary and cardiology. Patient is being discharged home in a stable condition with guarded prognosis. EXAMINATION: GENERAL: The patient is alert and oriented x3, not in any acute distress. Well developed, well nourished. CARDIOVASCULAR: S1 and S2 present. No murmurs, rubs, or gallops. PULMONARY: Chest is clear to auscultation, occasional scattered fine expiratory wheezing ABDOMEN: Soft, nontender, nondistended, normoactive bowel sounds. No palpable organomegaly. NEUROLOGICAL: Gross neurological examination did not reveal any focal deficits. The impression and plan of care has been dictated as directed. : I performed a history and examination of this patient, discussed the same with the dictator. I agree with the dictator's note ,documented as a scribe. Any additional findings or plans will be noted. Time taken: 35 minutes Patient Condition at Discharge: Stable Plan - Discharge Summary Discharge Rx Participant: Yes New Discharge Prescriptions: New Metoprolol Tartrate [Lopressor] 25 mg PO BID #60 tab Nitroglycerin Sl Tabs [Nitrostat] 0.4 mg SUBLINGUAL Q5M PRN #25 tab PRN Reason: Chest Pain Ticagrelor [Brilinta] 90 mg PO BID #60 tab Continue Lisinopril [Zestril] 10 mg PO BID Tiotropium [place] [Spiriva] 1 cap INHALATION RT-DAILY Atorvastatin [Lipitor] 80 mg PO DAILY Aspirin [Adult Low Dose Aspirin EC] 81 mg PO DAILY metFORMIN HCL 1,000 mg PO BID #0 Discontinued Atenolol [Tenormin] 25 mg PO DAILY Discharge Medication List Aspirin [Adult Low Dose Aspirin EC] 81 mg PO DAILY 03/26/18 [History] Atorvastatin [Lipitor] 80 mg PO DAILY 03/26/18 [History] Lisinopril [Zestril] 10 mg PO BID 03/26/18 [History] Tiotropium [place] [Spiriva] 1 cap INHALATION RT-DAILY 03/26/18 [History] Metoprolol Tartrate [Lopressor] 25 mg PO BID #60 tab 03/28/18 [Rx] Nitroglycerin Sl Tabs [Nitrostat] 0.4 mg SUBLINGUAL Q5M PRN #25 tab 03/28/18 [Rx ] Ticagrelor [Brilinta] 90 mg PO BID #60 tab 03/28/18 [Rx] metFORMIN HCL 1,000 mg PO BID #0 03/28/18 [Rx] Follow up Appointment(s)/Referral(s): Jemima Yusuf NPC [Primary Care Provider] - 04/04/18 10:00 am () Wendy Lemons MD [Family Provider] - 04/02/18 9:45 am (Sunday) Ambulatory/Diagnostic Orders: Complete Blood Count w/diff [LAB.AMB] Time Frame: 3 Days, Location: None Selected Patient Instructions/Handouts: *Surgery [facility] - After Heart Catheterization - Residential Door Installer Instructions Discharge Disposition: HOME SELF-CARE
== END 2018-03-29 14:37 | disposition home or self-care (01) | DRG 246 ==
LOC: EC 14:45 → 2SICU 15:48 → 3SCARD 03-27 21:28
PROVIDERS: ADMIT Hospitalist; ATTEND Hospitalist
PROC: B2111ZZ Fluoroscopy of Multiple Coronary Arteries using Low Osmolar Contrast (ICD-10-PCS; 2018-03-27)
PROC: 027037Z Dilation of Coronary Artery, One Artery with Four or More Drug-eluting Intraluminal Devices, Percutaneous Approach (ICD-10-PCS; principal; 2018-03-27 07:30)
PROC: 4A023N7 Measurement of Cardiac Sampling and Pressure, Left Heart, Percutaneous Approach (ICD-10-PCS; 2018-03-27 07:30)
DX: I21.4 Non-ST elevation (NSTEMI) myocardial infarction (principal); I50.22 Chronic systolic (congestive) heart failure; T82.855A Stenosis of coronary artery stent, initial encounter; I11.0 Hypertensive heart disease with heart failure; J44.9 Chronic obstructive pulmonary disease, unspecified; R00.1 Bradycardia, unspecified; E11.9 Type 2 diabetes mellitus without complications; D72.829 Elevated white blood cell count, unspecified; E78.5 Hyperlipidemia, unspecified; F17.210 Nicotine dependence, cigarettes, uncomplicated; I25.10 Atherosclerotic heart disease of native coronary artery without angina pectoris; I70.0 Atherosclerosis of aorta; Z79.84 Long term (current) use of oral hypoglycemic drugs; Z79.899 Other long term (current) drug therapy; Z90.49 Acquired absence of other specified parts of digestive tract; Z88.6 Allergy status to analgesic agent; Z88.5 Allergy status to narcotic agent; Y83.1 Surgical operation with implant of artificial internal device as the cause of abnormal reaction of the patient, or of later complication, without mention of misadventure at the time of the procedure
CPT/HCPCS: 80048; 80053; 80061; 82550; 82553; 83036; 83735; 84484; 85025; 85027; 85049; 85610; 85730; 93005; 93306; 93458; 94640; 94760; 96365; 99285; C1874

== ENCOUNTER → 2018-04-25 | Outpatient (CLI) | payer OTHER, MEDICARE | END | disposition home or self-care (01) | LOC: LABWHC1 10:31 | PROVIDERS: ATTEND Internal Medicine Cardiovascular Disease | DX: I25.10 Atherosclerotic heart disease of native coronary artery without angina pectoris (principal) | CPT/HCPCS: 36415; 83704 ==

== ENCOUNTER 2019-06-30 18:47 | Inpatient (IN) | payer MEDICARE, OTHER ==
[2019-06-30] MEDS ORDERED: PNEUMONIA PROTOCOL UTILIZED 1 EACH MISC PO PRN (19:01)
--- NOTE | 2019-06-30 19:01 | ED ---
General Adult HPI - General Chief complaint: Upper Respiratory Infection Stated complaint: rule out covid Time Seen by Provider: 06/30/19 18:50 Source: patient, EMS, RN notes reviewed Mode of arrival: EMS Limitations: no limitations - History of Present Illness Initial comments: This is a 73-year-old male with a history of COPD history of heart disease who presented to [facility] complains of fever cough with phlegm production for several days he was found have a right lower lobe infiltrate he was tested for covid 2 days ago with the results are pending. He was treated and sent here for further evaluation. He did have a mildly elevated troponin 0.034 BMP was 700. - Related Data Home Medications Medication Instructions Recorded Confirmed Aspirin [Adult Low Dose Aspirin EC] 81 mg PO DAILY 03/26/18 03/26/18 Atorvastatin [Lipitor] 80 mg PO DAILY 03/26/18 03/26/18 Lisinopril [Zestril] 10 mg PO BID 03/26/18 03/26/18 Tiotropium [place] [Spiriva] 1 cap INHALATION RT-DAILY 03/26/18 03/26/18 Previous Rx's Medication Instructions Recorded Metoprolol Tartrate [Lopressor] 25 mg PO BID #60 tab 03/28/18 Nitroglycerin Sl Tabs [Nitrostat] 0.4 mg SUBLINGUAL Q5M PRN #25 tab 03/28/18 Ticagrelor [Brilinta] 90 mg PO BID #60 tab 03/28/18 metFORMIN HCL 1,000 mg PO BID #0 03/28/18 Allergies Allergy/AdvReac Type Severity Reaction Status Date / Time codeine Allergy Rash/Hives Verified 03/26/18 16:35 acetaminophen [From [place]] AdvReac Hallucinati Verified 03/26/18 16:35 ons hydrocodone [From [place]] AdvReac Hallucinati Verified 03/26/18 16:35 ons Review of Systems ROS Statement: Those systems with pertinent positive or pertinent negative responses have been documented in the HPI. ROS Other: All systems not noted in ROS Statement are negative. Past Medical History Past Medical History: COPD, Diabetes Mellitus, Hypertension Additional Past Medical History / Comment(s): Known history of coronary artery disease with previous cardiac intervention and stenting back in the , COPD, diabetes mellitus, hypertension, chronic smoker History of Any Multi-Drug Resistant Organisms: None Reported Past Surgical History: Cholecystectomy, Heart Catheterization With Stent, Orthopedic Surgery Additional Past Surgical History / Comment(s): rt knee Past Anesthesia/Blood Transfusion Reactions: No Reported Reaction Date of Last Stent Placement:: 1996 Past Psychological History: No Psychological Hx Reported Smoking Status: Never smoker Past Alcohol Use History: None Reported Past Drug Use History: None Reported - Past Family History Mother Family Medical History: Coronary Artery Disease (CAD), Diabetes Mellitus, Myocardial Infarction ([place]) General Exam - General Exam Comments Initial Comments: This is a well-developed well-nourished awake alert oriented 3 male Limitations: no limitations General appearance: alert, in no apparent distress Head exam: Present: atraumatic, normocephalic, normal inspection Eye exam: Present: normal appearance, PERRL, EOMI. Absent: scleral icterus, conjunctival injection, periorbital swelling ENT exam: Present: normal exam, mucous membranes moist Neck exam: Present: normal inspection. Absent: tenderness, meningismus, lymphadenopathy Respiratory exam: Present: decreased breath sounds. Absent: respiratory distress, wheezes, rales, rhonchi (Right lower lobe), stridor Cardiovascular Exam: Present: regular rate, normal rhythm, normal heart sounds. Absent: systolic murmur, diastolic murmur, rubs, gallop, clicks GI/Abdominal exam: Present: soft, normal bowel sounds. Absent: distended, tenderness, guarding, rebound, rigid Extremities exam: Present: normal inspection, full ROM, normal capillary refill. Absent: tenderness, pedal edema, joint swelling, calf tenderness Back exam: Present: normal inspection Neurological exam: Present: alert, oriented X3, CN II-XII intact Psychiatric exam: Present: normal affect, normal mood Skin exam: Present: warm, dry, intact, normal color. Absent: rash Course Vital Signs 06/30/19 18:50 Temperature 98.9 F Pulse Rate 69 Respiratory 18 Rate Blood Pressure 162/74 O2 Sat by Pulse 97 Oximetry Medical Decision Making - Medical Decision Making I did review the materials presented with the patient. Patient will be admitted case is discussed with Dr. Rodriguez's group. Disposition Clinical Impression: Right lower lobe pneumonia, COPD (chronic obstructive pulmonary disease) Disposition: ADMITTED IP TO THIS [facility] Condition: Fair Referrals: Jono Burciaga MD [Primary Care Provider] - 1-2 days
[2019-06-30] MEDS ORDERED: NITROGLYCERIN SL TABS 0.4 MG TAB SUBLINGUAL PRN (19:03)
[2019-06-30] MEDS ORDERED: IPRATROPIUM-ALBUTEROL 3 ML NEB INHALATION SCH (20:00)
[2019-06-30] MEDS ORDERED: IPRATROPIUM-ALBUTEROL 3 ML NEB INHALATION PRN (20:47)
[2019-06-30] MEDS ORDERED: TICAGRELOR 90 MG TAB PO SCH (21:00)
[2019-06-30] MEDS: LISINOPRIL 10 MG TAB PO SCH (21:39)
[2019-06-30] MEDS: AZITHROMYCIN 500 MG TAB PO SCH (21:39)
[2019-06-30] MEDS: METOPROLOL TARTRATE 25 MG TAB PO SCH (21:39)
[2019-06-30] MEDS: INSULIN ASPART (NovoLOG) 100 UNIT/ML VIAL SQ SCH (21:41)
[2019-06-30 21:42] LABS: Glucose,Whole Blood 340 mg/dL (75-99)
[2019-07-01 06:10] LABS: Glucose,Whole Blood 203 mg/dL (75-99)
[2019-07-01] MEDS: INSULIN ASPART (NovoLOG) 100 UNIT/ML VIAL SQ SCH ×4 (06:15→21:02)
[2019-07-01] MEDS: metFORMIN 500 MG TAB PO SCH ×2 (06:20→16:43)
[2019-07-01 06:40] LABS: HCT 36.5 % (39.0-53.0); HGB 12.3 gm/dL (13.0-17.5); MCH 30.5 pg (25.0-35.0); MCHC 33.7 g/dL (31.0-37.0); MCV 90.4 fL (80.0-100.0); Mean Platelet Volume 8.1; Platelet Count 214 k/uL (150-450); RBC 4.04 m/uL (4.30-5.90); RDW 12.4 % (11.5-15.5); WBC 10.9 k/uL (3.8-10.6)
[2019-07-01 06:52] LABS: African American GFR (CKD) >90 (>60 ml/min/1.73 sqM); Anion Gap 12 mmol/L; Blood Urea Nitrogen 20 mg/dL (9-20); Calcium 9.1 mg/dL (8.4-10.2); Carbon Dioxide 22 mmol/L (22-30); Chloride 104 mmol/L (98-107); Glucose 208 mg/dL (74-99); Non-African American GFR(CKD) 87 (>60 ml/min/1.73 sqM); Potassium 3.9 mmol/L (3.5-5.1); Sodium 138 mmol/L (137-145)
[2019-07-01] MEDS ORDERED: NON FORMULARY DRUG (Tiotropium Bromide [Spiriva] 1 CAP) INHALATION SCH (08:00)
[2019-07-01] MEDS: IPRATROPIUM-ALBUTEROL 3 ML NEB INHALATION SCH ×3 (08:03→21:13)
--- NOTE | 2019-07-01 08:17 | XR ---
EXAMINATION TYPE: XR chest 1V portable DATE OF EXAM: 07/01/2019 CLINICAL HISTORY: Pneumonia progress study. TECHNIQUE: Single AP portable upright view of the chest is obtained. COMPARISON: Outside Chest x-ray from one day earlier and March 26, 2018. Low-dose lung screening CT July 21, 2015 FINDINGS: Background chronic emphysematous change with persistent patchy right greater than left bib asilar opacities. No pleural effusion or pneumothorax seen bilaterally. Cardiac silhouette size stabl e and upper limits of normal with atherosclerotic change in the aortic knob. Osseous structures are i ntact. IMPRESSION: Persistent right greater than left bibasilar acute infiltrates. No significant change fro m one day earlier.
[2019-07-01] MEDS: LISINOPRIL 10 MG TAB PO SCH ×2 (10:15→21:08)
[2019-07-01] MEDS: METOPROLOL TARTRATE 25 MG TAB PO SCH ×2 (10:15→21:08)
[2019-07-01] MEDS: ATORVASTATIN 80 MG TAB PO SCH (10:15)
[2019-07-01] MEDS: ASPIRIN 81 MG PO SCH (10:15)
[2019-07-01 11:47] LABS: Glucose,Whole Blood 177 mg/dL (75-99)
--- NOTE | 2019-07-01 14:20 | P.CNPUL ---
History of Present Illness Consult date: 07/01/19 Reason for consult: pneumonia History of present illness: A 71-year-old male patient with known history of COPD, chronic smoker also with known history of coronary artery disease, came into the hospital as a direct transfer from [facility] because of fever and cough and sputum production. He tested negative for COVID 19, his chest x-ray showed limited right lower lobe pulmonary infiltration and for that reason the patient was started on Rocephin and Zithromax admitted to the floor for further treatment. He is currently on room air oxygen with a pulse ox of 94%. He is on no oxygen at home. Utilizes Spiriva 1 ablation today on a regular basis regarding his COPD. He also has Benadryl rescue inhaler uses it when necessary. No significant leukocytosis. Currently is afebrile. No previous hospitalization for COPD exacerbation. No recurrent bouts of pneumonias. No aspiration. No pleurisy. No hemoptysis. Chest x-ray from today is showing some improvement in the right lower lobe pulmonary infiltration. Review of Systems Constitutional: Reports fatigue, Reports fever Eyes: denies as per HPI, denies blurred vision, denies bulging eye, denies decreased vision, denies diplopia, denies discharge, denies dry eye, denies irritation, denies itching, denies pain, denies photophobia, denies loss of peripheral vision, denies loss of vision, denies tunnel vision/blind spots Ears: deny: decreased hearing, ear discharge, earache, tinnitus Ears, nose, mouth and throat: Reports as per HPI Breasts: absent: as per HPI, gynecomastia Cardiovascular: Reports as per HPI Respiratory: Reports congestion, Reports cough Genitourinary: Reports as per HPI Musculoskeletal: Reports as per HPI Musculoskeletal: absent: ankle pain, ankle stiffness, ankle swelling Integumentary: Denies pruritus, Denies rash Neurological: Reports as per HPI Psychiatric: Reports as per HPI Endocrine: Reports as per HPI Hematologic/Lymphatic: Reports as per HPI Allergic/Immunologic: Reports as per HPI Past Medical History Past Medical History: COPD, Diabetes Mellitus, Hypertension Additional Past Medical History / Comment(s): Known history of coronary artery disease with previous cardiac intervention and stenting back in the , COPD, diabetes mellitus, hypertension, chronic smoker History of Any Multi-Drug Resistant Organisms: None Reported Past Surgical History: Cholecystectomy, Heart Catheterization With Stent, Orthopedic Surgery Additional Past Surgical History / Comment(s): rt knee Past Anesthesia/Blood Transfusion Reactions: No Reported Reaction Date of Last Stent Placement:: 1996 Past Psychological History: No Psychological Hx Reported Smoking Status: Never smoker Past Alcohol Use History: None Reported Additional Past Alcohol Use History / Comment(s): once a week sometimes and sometimes once a month Past Drug Use History: None Reported - Past Family History Mother Family Medical History: Coronary Artery Disease (CAD), Diabetes Mellitus, M yocardial Infarction ([place]) Medications and Allergies Home Medications Medication Instructions Recorded Confirmed Type Aspirin [Adult Low Dose Aspirin EC] 81 mg PO DAILY 03/26/18 06/30/19 History Atorvastatin [Lipitor] 80 mg PO HS 03/26/18 06/30/19 History Metoprolol Tartrate [Lopressor] 25 mg PO BID #60 tab 03/28/18 06/30/19 Rx Nitroglycerin Sl Tabs [Nitrostat] 0.4 mg SUBLINGUAL Q5M PRN #25 tab 03/28/18 06/30/19 Rx metFORMIN HCL 1,000 mg PO BID #0 03/28/18 06/30/19 Rx Albuterol Inhaler [Ventolin Hfa 2 puff INHALATION RT-Q6H PRN 06/30/19 06/30/19 History Inhaler] Ezetimibe [Zetia] 10 mg PO DAILY 06/30/19 06/30/19 History Lisinopril 10 mg PO BID 06/30/19 06/30/19 History Allergies Allergy/AdvReac Type Severity Reaction Status Date / Time codeine Allergy Rash/Hives Verified 06/30/19 19:31 acetaminophen [From [place]] AdvReac Hallucinati Verified 06/30/19 19:31 ons hydrocodone [From [place]] AdvReac Hallucinati Verified 06/30/19 19:31 ons Physical Exam Vitals: Vital Signs Temp Pulse Pulse Resp BP BP Pulse Ox 07/01/19 11:55 98 F 60 20 136/64 96 07/01/19 11:36 72 07/01/19 11:23 68 07/01/19 08:15 72 07/01/19 08:03 72 07/01/19 08:00 97.5 F L 68 20 157/67 97 07/01/19 04:00 97.6 F 57 L 17 142/66 97 07/01/19 00:00 67 16 142/61 98 06/30/19 21:15 97.5 F L 67 16 149/73 97 06/30/19 20:48 66 99 06/30/19 20:00 97.5 F L 69 16 149/73 97 06/30/19 18:50 98.9 F 69 18 162/74 97 Intake and Output 06/30/19 07/01/19 07/01/19 22:59 06:59 14:59 Intake Total 720 Output Total 360 Balance -360 720 Intake: Oral 720 Output: Urine 360 Other: # Voids 1 2 Weight 97.069 kg 90.6 kg l signs as documented. Head exam is unremarkable. No scleral icterus or corneal arcus noted. Neck is without jugular venous distension, thyromegaly, or carotid bruits. Carotid upstrokes are brisk bilaterally. Lungs are mesh breath sounds along with scattered expiratory wheezes throughout the lung his bilaterally. There is also prolongation of the expiratory phase of breathing. Cardiac exam reveals the PMI to be normally sized and situated. Rhythm is regular. First and second heart sounds normal. No murmurs, rubs or gallops. Abdominal exam reveals normal bowel sounds, no masses, no organomegaly and no aortic enlargement. Extremities are nonedematous and both femoral and pedal pulses are normal. Neurologically awake and alert and there is no focal neurological deficits.Examination of the skin revealed no evidence of significant rashes, suspicious appearing nevi or other concerning lesions. Psychiatric no anxiety or depression. Results - Laboratory Findings CBC and BMP: 07/01/19 05:39 07/01/19 05:39 Abnormal lab findings: Abnormal Labs 06/30/19 07/01/19 07/01/19 21:40 05:39 05:39 WBC 10.9 H RBC 4.04 L Hgb 12.3 L Hct 36.5 L Glucose 208 H POC Glucose (mg/dL) 340 H 07/01/19 07/01/19 06:09 11:26 WBC RBC Hgb Hct Glucose POC Glucose (mg/dL) 203 H 177 H - Diagnostic Findings Chest x-ray: image reviewed Assessment and Plan Plan: 1 community-acquired right lower lobe pneumonia with limited pulmonary infiltration the right lung base 2 COPD maintained on Spiriva and Ventolin rescue inhaler less than basis 3 coronary artery disease with previous non-STEMI requiring coronary interventi on and stenting 4 diabetes mellitus type 2 5 hypertension 6 hyperlipidemia 7 smoker Plan Patient is seen and evaluated. Condition is stable. Cultures of been sent. Currently is on room air oxygen. Continue Rocephin and Zithromax. Chest x-ray is improving. Smoking cessation counseling was done. This is essentially a soft admission. Outpatient medication will be resumed. Possible discharge within next 24 hours.
[2019-07-01 16:47] LABS: Hemoglobin A1C 6.4 % (4.0-6.0)
[2019-07-01 17:08] LABS: Glucose,Whole Blood 257 mg/dL (75-99)
[2019-07-01 20:48] LABS: Glucose,Whole Blood 131 mg/dL (75-99)
[2019-07-01] MEDS: AZITHROMYCIN 500 MG TAB PO SCH (21:08)
--- NOTE | 2019-07-01 22:04 | P.HPIM ---
History of Present Illness H&P Date: 07/01/19 Chief Complaint: Shortness of breath Patient is [id number] male with a known history of hypertension, diabetes type 2, COPD presents to [facility] initially with the complaints of shortness of breath, cough with sputum production for the past few days. Patient was afebrile on admission. Blood pressure was 162/75 and was oxygenating upper 90s on 2 L nasal cannula. Chest x-ray showed right lower lobe pulmonary infiltrate Repeat chest x-ray today showed persistent right greater than left bibasilar acute infiltrates. No significant change from 1 day earlier. COVID-19 test was negative. Patient was eventually sent to her [facility] for further management and pulmonary evaluation. Patient was also found to have mildly elevated troponin level 0.034 and BNP was 700. Patient denied any complaints of chest pain. No nausea vomiting or diarrhea or abdominal pain. No dysuria or hematuria. Review of Systems Constitutional: Patient denies any fever or chills . No generalized weakness or weight loss. Abdomen: Patient denied nausea vomiting and diarrhea and abdominal pain. Cardiovascular: Patient denies any chest pain . +r short of breath no palpitations. Respiratory: patient denied any cough is from production. + shortness of breath Neurologic: Patient denied any numbness or tingling.. Musculoskeletal: Patient denies any complaints of joint swelling or deformity. Skin: Negative Psychiatric: Negative Endocrine: No heat or cold intolerance. No recent weight gain. Genitourinary: No dysuria or hematuria. All other 14 point ROS negative except the above Past Medical History Past Medical History: COPD, Diabetes Mellitus, Hypertension Additional Past Medical History / Comment(s): Known history of coronary artery d isease with previous cardiac intervention and stenting back in the , COPD, diabetes mellitus, hypertension, chronic smoker History of Any Multi-Drug Resistant Organisms: None Reported Past Surgical History: Cholecystectomy, Heart Catheterization With Stent, Orthopedic Surgery Additional Past Surgical History / Comment(s): rt knee Past Anesthesia/Blood Transfusion Reactions: No Reported Reaction Date of Last Stent Placement:: 1996 Past Psychological History: No Psychological Hx Reported Smoking Status: Never smoker Past Alcohol Use History: None Reported Additional Past Alcohol Use History / Comment(s): once a week sometimes and sometimes once a month Past Drug Use History: None Reported - Past Family History Mother Family Medical History: Coronary Artery Disease (CAD), Diabetes Mellitus, Myocardial Infarction (UT) Medications and Allergies Home Medications Medication Instructions Recorded Confirmed Type Aspirin [Adult Low Dose Aspirin EC] 81 mg PO DAILY 03/26/18 06/30/19 History Atorvastatin [Lipitor] 80 mg PO HS 03/26/18 06/30/19 History Metoprolol Tartrate [Lopressor] 25 mg PO BID #60 tab 03/28/18 06/30/19 Rx Nitroglycerin Sl Tabs [Nitrostat] 0.4 mg SUBLINGUAL Q5M PRN #25 tab 03/28/18 06/30/19 Rx metFORMIN HCL 1,000 mg PO BID #0 03/28/18 06/30/19 Rx Albuterol Inhaler [Ventolin Hfa 2 puff INHALATION RT-Q6H PRN 06/30/19 06/30/19 History Inhaler] Ezetimibe [Zetia] 10 mg PO DAILY 06/30/19 06/30/19 History Lisinopril 10 mg PO BID 06/30/19 06/30/19 History Allergies Allergy/AdvReac Type Severity Reaction Status Date / Time codeine Allergy Rash/Hives Verified 06/30/19 19:31 acetaminophen [From [place]] AdvReac Hallucinati Verified 06/30/19 19:31 ons hydrocodone [From [place]] AdvReac Hallucinati Verified 06/30/19 19:31 ons Physical Exam Vitals: Vital Signs Temp Pulse Pulse Resp BP BP Pulse Ox 07/01/19 08:15 72 07/01/19 08:03 72 07/01/19 08:00 97.5 F L 68 20 157/67 97 07/01/19 04:00 97.6 F 57 L 17 142/66 97 07/01/19 00:00 67 16 142/61 98 06/30/19 21:15 97.5 F L 67 16 149/73 97 06/30/19 20:48 66 99 06/30/19 20:00 97.5 F L 69 16 149/73 97 06/30/19 18:50 98.9 F 69 18 162/74 97 Intake and Output 06/30/19 07/01/19 07/01/19 22:59 06:59 14:59 Intake Total 480 Output Total 360 Balance -360 480 Intake: Oral 480 Output: Urine 360 Other: # Voids 1 Weight 97.069 kg 90.6 kg PHYSICAL EXAMINATION: Patient is lying in the bed comfortably, no acute distress, awake alert and oriented.. HEENT: Normocephalic. Neck is supple. Pupils reactive. Nostrils clear. Oral cavity is moist. Ears reveal no drainage. Neck reveals no JVD, carotid bruits, or thyromegaly. CHEST EXAMINATION: Trachea is central. Symmetrical expansion. Bilateral prolonged expiration and scattered rhonchi and minimal wheezing. Nonlabored breathing. CARDIAC: Normal S1, S2 with no gallops. No murmurs ABDOMEN: Soft. Bowel sounds normal. No organomegaly. No abdominal bruits. Extremities: reveal no edema. No clubbing or cyanosis Neurologically awake, alert, oriented x3 with well-coordinated movements. No focal deficits noted Skin: No rash or skin lesions. Psychiatric: Coperative. Nonsuicidal Musculoskeletal: No joint swelling or deformity. Normal range of motion. Results CBC & Chem 7: 07/01/19 05:39 07/01/19 05:39 Labs: Abnormal Lab Results - Last 24 Hours (Table) 06/30/19 07/01/19 07/01/19 Range/Units 21:40 05:39 05:39 WBC 10.9 H (3.8-10.6) k/uL RBC 4.04 L (4.30-5.90) m/uL Hgb 12.3 L (13.0-17.5) gm/dL Hct 36.5 L (39.0-53.0) % Glucose 208 H (74-99) mg/dL POC Glucose (mg/dL) 340 H (75-99) mg/dL 07/01/19 Range/Units 06:09 WBC (3.8-10.6) k/uL RBC (4.30-5.90) m/uL Hgb (13.0-17.5) gm/dL Hct (39.0-53.0) % Glucose (74-99) mg/dL POC Glucose (mg/dL) 203 H (75-99) mg/dL Thrombosis Risk Factor Assmnt - Choose All That Apply Each Factor Represents 1 point: Abnormal pulmonary function (COPD) Each Risk Factor Represents 2 Points: Age 61-74 years Other congenital or acquired thrombophilia - If yes, enter type in comment: No Thrombosis Risk Factor Assessment Total Risk Factor Score: 3 Thrombosis Risk Factor Assessment Level: Moderate Risk Assessment and Plan Assessment: Shortness of breath secondary to right lower lobe pneumonia. COVID-19 negative. COPD not in exacerbation Diabetes type 2 [id number] Hypertension Hyperlipidemia Coronary artery disease previous history of stent several years ago. Last stent placement in 1996 Mildly elevated troponin level at [facility]. Previous history of smoking DVT prophylaxis with heparin subcu Plan: Patient will be continued on antibiotics in the form of ceftriaxone and azithrom ycin. Continue with breathing treatments. Current with insulin dosing and home blood pressure medications. Follow-up serial troponins and telemetry monitoring. Pulmonary is on board. Further recommendations based on the clinical course.
[2019-07-02 06:06] LABS: Glucose,Whole Blood 150 mg/dL (75-99)
[2019-07-02] MEDS: INSULIN ASPART (NovoLOG) 100 UNIT/ML VIAL SQ SCH ×4 (06:21→19:34)
[2019-07-02 06:24] LABS: Basophils % (A) 0 %; Eosinophils % (A) 0 %; HCT 33.8 % (39.0-53.0); Lymphocytes # (A) 0.9 k/uL (1.0-4.8); Lymphocytes % (A) 10 %; MCH 29.6 pg (25.0-35.0); MCHC 32.4 g/dL (31.0-37.0); MCV 91.2 fL (80.0-100.0); Mean Platelet Volume 7.6; Monocytes # (A) 0.8 k/uL (0-1.0); Monocytes % (A) 9 %; Neutrophils # (A) 7.5 k/uL (1.3-7.7); Neutrophils % (A) 78 %; Platelet Count 188 k/uL (150-450); RBC 3.71 m/uL (4.30-5.90); RDW 12.4 % (11.5-15.5); WBC 9.6 k/uL (3.8-10.6)
[2019-07-02] MEDS: metFORMIN 500 MG TAB PO SCH ×2 (06:28→17:17)
[2019-07-02 06:40] LABS: African American GFR (CKD) >90 (>60 ml/min/1.73 sqM); Anion Gap 9 mmol/L; Blood Urea Nitrogen 22 mg/dL (9-20); Calcium 8.6 mg/dL (8.4-10.2); Carbon Dioxide 23 mmol/L (22-30); Chloride 103 mmol/L (98-107); Glucose 150 mg/dL (74-99); Non-African American GFR(CKD) 80 (>60 ml/min/1.73 sqM); Potassium 4.3 mmol/L (3.5-5.1); Sodium 135 mmol/L (137-145)
[2019-07-02] MEDS: IPRATROPIUM-ALBUTEROL 3 ML NEB INHALATION SCH ×3 (07:25→20:11)
[2019-07-02] MEDS ORDERED: ACETAMINOPHEN TAB 325 MG TAB PO PRN (07:53)
[2019-07-02] MEDS: METOPROLOL TARTRATE 25 MG TAB PO SCH ×2 (08:07→19:33)
[2019-07-02] MEDS: LISINOPRIL 10 MG TAB PO SCH ×2 (08:08→19:33)
[2019-07-02] MEDS: ATORVASTATIN 80 MG TAB PO SCH (08:08)
[2019-07-02] MEDS: ASPIRIN 81 MG PO SCH (08:08)
[2019-07-02] MEDS ORDERED: guaiFENesin SYRUP 100MG/5ML 200 MG/10 ML CUP PO PRN (08:09)
[2019-07-02 11:26] LABS: Glucose,Whole Blood 151 mg/dL (75-99)
--- NOTE | 2019-07-02 12:44 | P.PN ---
Subjective Progress Note Date: 07/02/19 Principal diagnosis: Community-acquired right lower lobe pneumonia with limited pulmonary infiltration of the right lung base A 71-year-old male patient with known history of COPD, chronic smoker also with known history of coronary artery disease, came into the hospital as a direct transfer from [facility] because of fever and cough and sputum production. He tested negative for COVID 19, his chest x-ray showed limited right lower lobe pulmonary infiltration and for that reason the patient was started on Rocephin and Zithromax admitted to the floor for further treatment. He is currently on room air oxygen with a pulse ox of 94%. He is on no oxygen at home. Utilizes Spiriva 1 ablation today on a regular basis regarding his COPD. He also has Benadryl rescue inhaler uses it when necessary. No significant leukocytosis. Currently is afebrile. No previous hospitalization for COPD exacerbation. No recurrent bouts of pneumonias. No aspiration. No pleurisy. No hemoptysis. Chest x-ray from today is showing some improvement in the right lower lobe pulmonary infiltration. On 07/02/2019 patient seen in follow-up on selective care unit, he stated he had a lot of coughing spells last night, had a headache this morning, and shivering. He remains on accommodation of Rocephin and Zithromax for community-acquired pneumonia, his been afebrile, lung sounds reveal some basilar crackles at bilateral bases, no major rhonchi or wheezing, no major congestion, room air pulse ox is 97%, hemodynamically stable, no altered mentation. His lites have been reviewed showing white blood cell, 9.6, hemoglobin of 11.0, electrolytes and renal profile were unremarkable. Troponin was negative at less than 0.012. Vitals are stable. We'll continue current medical treatments, patient is given cough syrup on as-needed basis, he remains on nebulized bronchodilators, T monitoring for another 24 hours. Follow-up chest x-ray in the morning Objective - Vital Signs Vital signs: Vital Signs Temp 98.2 F 07/02/19 07:57 Pulse 72 07/02/19 11:09 Resp 24 07/02/19 08:00 BP 167/74 07/02/19 07:57 Pulse Ox 97 07/02/19 07:57 Intake & Output 0507/02/19 07/02/19 18:59 06:59 18:59 Intake Total 1460 240 Balance 1460 240 Weight 90.5 kg Intake: Oral 1460 240 Other: # Voids 2 1 - Exam GENERAL EXAM: Alert, very pleasant 73-year-old on room air, with a pulse ox of 97% comfortable in no apparent distress. HEAD: Normocephalic/atraumatic. EYES: Normal reaction of pupils, equal size. Conjunctiva pink, sclera white. NOSE: Clear with pink turbinates. THROAT: No erythema or exudates. NECK: No masses, no JVD, no thyroid enlargement, no adenopathy. CHEST: No chest wall deformity. Symmetrical expansion. LUNGS: Equal air entry with bibasilar crackles, wheeze, rhonchi or dullness. CVS: Regular rate and rhythm, normal S1 and S2, no gallops, no murmurs, no rubs ABDOMEN: Soft, nontender. No hepatosplenomegaly, normal bowel sounds, no guarding or rigidity. EXTREMITIES: No clubbing, no edema, no cyanosis, 2+ pulses and upper and lower extremities. MUSCULOSKELETAL: Muscle strength and tone normal. SPINE: No scoliosis or deformity SKIN: No rashes CENTRAL NERVOUS SYSTEM: Alert and oriented -3. No focal deficits, tone is normal in all 4 extremities. PSYCHIATRIC: Alert and oriented -3. Appropriate affect. Intact judgment and insight. - Labs CBC & Chem 7: 07/02/19 05:23 07/02/19 05:23 Labs: Abnormal Lab Results - Last 24 Hours (Table) 07/01/19 07/01/19 07/01/19 Range/Units 05:39 16:57 20:47 RBC (4.30-5.90) m/uL Hgb (13.0-17.5) gm/dL Hct (39.0-53.0) % Lymphocytes # (1.0-4.8) k/uL Sodium (137-145) mmol/L BUN (9-20) mg/dL Glucose (74-99) mg/dL POC Glucose (mg/dL) 257 H 131 H (75-99) mg/dL Hemoglobin A1c 6.4 H (4.0-6.0) % 07/02/19 07/02/19 07/02/19 Range/Units 05:23 05:23 06:05 RBC 3.71 L (4.30-5.90) m/uL Hgb 11.0 L (13.0-17.5) gm/dL Hct 33.8 L (39.0-53.0) % Lymphocytes # 0.9 L (1.0-4.8) k/uL Sodium 135 L (137-145) mmol/L BUN 22 H (9-20) mg/dL Glucose 150 H (74-99) mg/dL POC Glucose (mg/dL) 150 H (75-99) mg/dL Hemoglobin A1c (4.0-6.0) % 07/02/19 Range/Units 11:25 RBC (4.30-5.90) m/uL Hgb (13.0-17.5) gm/dL Hct (39.0-53.0) % Lymphocytes # (1.0-4.8) k/uL Sodium (137-145) mmol/L BUN (9-20) mg/dL Glucose (74-99) mg/dL POC Glucose (mg/dL) 151 H (75-99) mg/dL Hemoglobin A1c (4.0-6.0) % Microbiology - Last 24 Hours (Table) 06/30/19 22:13 Blood Culture - Preliminary Blood No Growth after 24 hours 06/30/19 22:06 Blood Culture - Preliminary Blood No Growth after 24 hours Assessment and Plan Plan: Assessment: 1 community-acquired right lower lobe pneumonia with limited pulmonary infiltration the right lung base 2 COPD maintained on Spiriva and Ventolin rescue inhaler less than basis 3 coronary artery disease with previous non-STEMI requiring coronary intervention and stenting 4 diabetes mellitus type 2 5 hypertension 6 hyperlipidemia 7 smoker Plan: Follow-up chest x-ray in the morning, she has not been able to produce a sputum specimen for us, continues on a combination of Rocephin and Zithromax, patient has been afebrile, she is on room air, we'll continue monitoring for another 24 hours, possible discharge in next 24 hours. I performed a history & physical examination of the patient and discussed their management with my nurse practitioner, Kristina Macias. I reviewed the nurse practitioner's note and agree with the documented findings and plan of care. Lung sounds are positive for left basilar crackles. The findings and the impression was discussed with the patient. I attest to the documentation by the nurse practitioner. Time with Patient: Less than 30
[2019-07-02 16:22] LABS: Glucose,Whole Blood 140 mg/dL (75-99)
[2019-07-02] MEDS: AZITHROMYCIN 500 MG TAB PO SCH (19:33)
[2019-07-02 21:10] LABS: Glucose,Whole Blood 119 mg/dL (75-99)
[2019-07-02 23:31] VITALS: RESP 18
[2019-07-03 06:16] LABS: Glucose,Whole Blood 127 mg/dL (75-99)
[2019-07-03] MEDS: INSULIN ASPART (NovoLOG) 100 UNIT/ML VIAL SQ SCH ×2 (06:16→12:18)
[2019-07-03] MEDS: metFORMIN 500 MG TAB PO SCH (06:33)
[2019-07-03] MEDS: IPRATROPIUM-ALBUTEROL 3 ML NEB INHALATION SCH ×2 (07:37→13:18)
[2019-07-03] MEDS: LISINOPRIL 10 MG TAB PO SCH (08:48)
[2019-07-03] MEDS: ASPIRIN 81 MG PO SCH (08:48)
[2019-07-03] MEDS: ATORVASTATIN 80 MG TAB PO SCH (08:48)
[2019-07-03] MEDS: METOPROLOL TARTRATE 25 MG TAB PO SCH (08:49)
--- NOTE | 2019-07-03 09:42 | P.PN ---
Subjective Progress Note Date: 07/02/19 Principal diagnosis: right lower lobe pneumonia Patient is [id number] male with a known history of hypertension, diabetes type 2, COPD presents to [facility] initially with the complaints of shortness of breath, cough with sputum production for the past few days. Kassandra lui was afebrile on admission. Blood pressure was 162/75 and was oxygenating upper 90s on 2 L nasal cannula. Chest x-ray showed right lower lobe pulmonary infiltrate Repeat chest x-ray today showed persistent right greater than left bibasilar acute infiltrates. No significant change from 1 day earlier. COVID-19 test was negative. Patient was eventually sent to her [facility] for further management and pulmonary evaluation. Patient was also found to have mildly elevated troponin level 0.034 and BNP was 700. Patient denied any complaints of chest pain. No nausea vomiting or diarrhea or abdominal pain. No dysuria or hematuria. 07/02/2019 Patient is currently lying in the bed comfortably. Patient has been afebrile. Current antibiotics in the form of ceftriaxone and azithromycin for Commit acquired pneumonia. Pulse ox is 97% on room air. Mentation is much improved today. The RBC 9.6 and hemoglobin 11.0. Patient does have some exertional short of breath but improving. Pulmonary is following. Patient has been afebrile. Current medications reviewed. Objective - Vital Signs Vital signs: Vital Signs Temp 98.8 F 07/02/19 20:00 Pulse 74 07/02/19 20:19 Resp 22 07/02/19 20:00 BP 183/76 07/02/19 20:00 Pulse Ox 95 07/02/19 20:00 Intake & Output 07/02/19 07/02/19 07/03/19 06:59 18:59 06:59 Intake Total 960 Balance 960 Weight 90.5 kg Intake: Oral 960 Other: # Voids 1 3 - Exam PHYSICAL EXAMINATION: Patient is lying in the bed comfortably, no acute distress, awake alert and oriented.. HEENT: Normocephalic. Neck is supple. Pupils reactive. Nostrils clear. Oral cavity is moist. Ears reveal no drainage. Neck reveals no JVD, carotid bruits, or thyromegaly. CHEST EXAMINATION: Trachea is central. Symmetrical expansion. bibasilar minimal crackles. no wheezing or rhonchi. Nonlabored breathing. CARDIAC: Normal S1, S2 with no gallops. No murmurs ABDOMEN: Soft. Bowel sounds normal. No organomegaly. No abdominal bruits. Extremities: reveal no edema. No clubbing or cyanosis Neurologically awake, alert, oriented x3 with well-coordinated movements. No focal deficits noted Skin: No rash or skin lesions. Psychiatric: Coperative. Nonsuicidal Musculoskeletal: No joint swelling or deformity. Normal range of motion. - Labs CBC & Chem 7: 07/02/19 05:23 07/02/19 05:23 Labs: Abnormal Lab Results - Last 24 Hours (Table) 07/02/19 07/02/19 07/02/19 Range/Units 05:23 05:23 06:05 RBC 3.71 L (4.30-5.90) m/uL Hgb 11.0 L (13.0-17.5) gm/dL Hct 33.8 L (39.0-53.0) % Lymphocytes # 0.9 L (1.0-4.8) k/uL Sodium 135 L (137-145) mmol/L BUN 22 H (9-20) mg/dL Glucose 150 H (74-99) mg/dL POC Glucose (mg/dL) 150 H (75-99) mg/dL 07/02/19 07/02/19 07/02/19 Range/Units 11:25 16:17 21:08 RBC (4.30-5.90) m/uL Hgb (13.0-17.5) gm/dL Hct (39.0-53.0) % Lymphocytes # (1.0-4.8) k/uL Sodium (137-145) mmol/L BUN (9-20) mg/dL Glucose (74-99) mg/dL POC Glucose (mg/dL) 151 H 140 H 119 H (75-99) mg/dL Microbiology - Last 24 Hours (Table) 06/30/19 22:13 Blood Culture - Preliminary Blood No Growth after 24 hours 06/30/19 22:06 Blood Culture - Preliminary Blood No Growth after 24 hours Assessment and Plan Assessment: Shortness of breath secondary to right lower lobe pneumonia. COVID-19 negative. COPD not in exacerbation Diabetes type 2 cod-[id number] Hypertension Hyperlipidemia Coronary artery disease previous history of stent several years ago. Last stent placement in 1996 Mildly elevated troponin level at [facility]. Previous history of smoking DVT prophylaxis with heparin subcu Plan: Patient will be continued on antibiotics in the form of ceftriaxone and azithromycin. Continue with breathing treatments. Current with insulin dosing and home blood pressure medications. Follow-up serial troponins and telemetry monitoring. Pulmonary is on board. Further recommendations based on the clinical course. Time with Patient: Greater than 30
--- NOTE | 2019-07-03 11:14 | P.PN ---
Subjective Progress Note Date: 07/03/19 Principal diagnosis: Community-acquired right lower lobe pneumonia with limited pulmonary infiltration of the right lung base A 71-year-old male patient with known history of COPD, chronic smoker also with known history of coronary artery disease, came into the hospital as a direct transfer from [facility] because of fever and cough and sputum production. He tested negative for COVID 19, his chest x-ray showed limited right lower lobe pulmonary infiltration and for that reason the patient was started on Rocephin and Zithromax admitted to the floor for further treatment. He is currently on room air oxygen with a pulse ox of 94%. He is on no oxygen at home. Utilizes Spiriva 1 ablation today on a regular basis regarding his COPD. He also has Benadryl rescue inhaler uses it when necessary. No significant leukocytosis. Currently is afebrile. No previous hospitalization for COPD exacerbation. No recurrent bouts of pneumonias. No aspiration. No pleurisy. No hemoptysis. Chest x-ray from today is showing some improvement in the right lower lobe pulmonary infiltration. On 07/02/2019 patient seen in follow-up on selective care unit, he stated he had a lot of coughing spells last night, had a headache this morning, and shivering. He remains on accommodation of Rocephin and Zithromax for community-acquired pneumonia, his been afebrile, lung sounds reveal some basilar crackles at bilateral bases, no major rhonchi or wheezing, no major congestion, room air pulse ox is 97%, hemodynamically stable, no altered mentation. His lites have been reviewed showing white blood cell, 9.6, hemoglobin of 11.0, electrolytes and renal profile were unremarkable. Troponin was negative at less than 0.012. Vitals are stable. We'll continue current medical treatments, patient is given cough syrup on as-needed basis, he remains on nebulized bronchodilators, T monitoring for another 24 hours. Follow-up chest x-ray in the morning On 07/03/2019 patient seen in follow-up on selective care unit, he is awake and alert, in no acute distress. He is feeling much better today, the cough has subsided, patient had a restful night last night, she is on room air, lung sounds reveal only minimal crackles at bilateral bases, no significant rhonchi or wheezing, vital signs are stable, patient is afebrile, his blood cultures have been negative. Patient has been treated with combination of Zithromax and Rocephin, breathing treatments, cough syrup and responded well to treatments, he is being considered for discharge home today Objective - Vital Signs Vital signs: Vital Signs Temp 98.3 F 07/03/19 08:45 Pulse 80 07/03/19 08:45 Resp 18 07/03/19 08:45 BP 159/80 07/03/19 08:45 Pulse Ox 92 L 07/03/19 08:45 Intake & Output 07/02/19 07/03/19 07/03/19 18:59 06:59 18:59 Intake Total 960 120 Balance 960 120 Weight 90.5 kg Intake: Oral 960 120 Other: # Voids 3 3 2 - Exam GENERAL EXAM: Alert, very pleasant 73-year-old on room air, with a pulse ox of 92% comfortable in no apparent distress. HEAD: Normocephalic/atraumatic. EYES: Normal reaction of pupils, equal size. Conjunctiva pink, sclera white. NOSE: Clear with pink turbinates. THROAT: No erythema or exudates. NECK: No masses, no JVD, no thyroid enlargement, no adenopathy. CHEST: No chest wall deformity. Symmetrical expansion. LUNGS: Equal air entry with bibasilar crackles, wheeze, rhonchi or dullness. CVS: Regular rate and rhythm, normal S1 and S2, no gallops, no murmurs, no rubs ABDOMEN: Soft, nontender. No hepatosplenomegaly, normal bowel sounds, no guarding or rigidity. EXTREMITIES: No clubbing, no edema, no cyanosis, 2+ pulses and upper and lower extremities. MUSCULOSKELETAL: Muscle strength and tone normal. SPINE: No scoliosis or deformity SKIN: No rashes CENTRAL NERVOUS SYSTEM: Alert and oriented -3. No focal deficits, tone is normal in all 4 extremities. PSYCHIATRIC: Alert and oriented -3. Appropriate affect. Intact judgment and insight. - Labs CBC & Chem 7: 07/02/19 05:23 07/02/19 05:23 Labs: Abnormal Lab Results - Last 24 Hours (Table) 07/02/19 07/02/19 07/02/19 Range/Units 11:25 16:17 21:08 POC Glucose (mg/dL) 151 H 140 H 119 H (75-99) mg/dL 07/03/19 Range/Units 06:14 POC Glucose (mg/dL) 127 H (75-99) mg/dL Microbiology - Last 24 Hours (Table) 06/30/19 22:13 Blood Culture - Preliminary Blood No Growth after 48 hours 06/30/19 22:06 Blood Culture - Preliminary Blood No Growth after 48 hours Assessment and Plan Plan: Assessment: 1 community-acquired right lower lobe pneumonia with limited pulmonary infiltration the right lung base 2 COPD maintained on Spiriva and Ventolin rescue inhaler less than basis 3 coronary artery disease with previous non-STEMI requiring coronary intervention and stenting 4 diabetes mellitus type 2 5 hypertension 6 hyperlipidemia 7 smoker Plan: Vital signs are stable, patient is improving, no acute events overnight, the coughing has subsided, no complaints of chest pain, no significant congestion, increase activity as tolerated, patient is stable for discharge home from pulmonary perspective, he can follow up with Dr. Dominguez in the office in 2 weeks I performed a history & physical examination of the patient and discussed their management with my nurse practitioner, Kristina Macias. I reviewed the nurse practitioner's note and agree with the documented findings and plan of care. Lung sounds are positive for left basilar crackles. The findings and the impr ession was discussed with the patient. I attest to the documentation by the nurse practitioner. Time with Patient: Less than 30
[2019-07-03 11:34] LABS: Glucose,Whole Blood 91 mg/dL (75-99)
[2019-07-03 15:38] VITALS: BP 177/78; PULSE 69; TEMP 98.2
--- NOTE | 2019-07-03 23:10 | DS ---
DISCHARGE SUMMARY DATE OF ADMISSION: 06/30/2019 DATE OF DISCHARGE: 07/03/2019 FINAL DIAGNOSES: 1. Right lower lobe pneumonia. Suspect Gram-negative organism, POA. 2. Acute chronic obstructive pulmonary disease exacerbation. 3. Coronary artery disease with a prior history of coronary stent. 4. Diabetes mellitus, type 2. 5. Essential hypertension. 6. Hyperlipidemia. HOSPITAL COURSE: This pleasant 73-year-old patient initially presented to [facility] complaining of fever, cough, phlegm production, and was found to have right lobe pneumonia. The patient's COVID-19 PCR test came back negative. Chest x-ray done here did show infiltrates. The patient was treated with ceftriaxone and azithromycin, to which he responded well. Today -- patient doing much better. Tolerating a diet. Very keen to go home. Only has a very slight cough. CONSULTATION: Dr. Dominguez from Pulmonary. PHYSICAL EXAMINATION: Temperature 98.2, pulse 69, respiration 16, blood pressure 159/80, pulse ox 92% on room air. LUNGS: Decreased breath sounds. CARDIOVASCULAR: First and second sounds normal. No edema. INVESTIGATIONS: White count 9.6, hemoglobin 11, potassium 4.3, creatinine 0.95. DISCHARGE MEDICATIONS: 1. Aspirin 81 mg a day. 2. Lipitor 80 mg at bedtime. 3. Lopressor 25 mg b.i.d. 4. Nitrostat 0.4 sublingually q.5 p.r.n. 5. Metformin 1000 mg b.i.d. 6. Ventolin HFA 2 puffs q.6 p.r.n. 7. Zetia 10 mg p.o. daily. 8. Lisinopril 10 mg p.o. b.i.d. 9. Ceftin 500 mg b.i.d. for 3 days. FOLLOWUP: Follow up with Dr. Burciaga on 07/07/2019. Follow up with Dr. Dominguez on 07/15/2019. MMODL / IJN: [id number] /
== END 2019-07-03 15:31 | disposition home or self-care (01) | DRG 178 ==
LOC: EC 18:47 → SUPCPDRO 18:47 → 3SCARD 19:01
PROVIDERS: ADMIT Hospitalist; ATTEND Hospitalist
DX: J15.6 Pneumonia due to other Gram-negative bacteria (principal); J44.0 Chronic obstructive pulmonary disease with (acute) lower respiratory infection; J44.1 Chronic obstructive pulmonary disease with (acute) exacerbation; E11.9 Type 2 diabetes mellitus without complications; E78.5 Hyperlipidemia, unspecified; F17.200 Nicotine dependence, unspecified, uncomplicated; I10 Essential (primary) hypertension; I25.10 Atherosclerotic heart disease of native coronary artery without angina pectoris; I25.2 Old myocardial infarction; Z20.828 Contact with and (suspected) exposure to other viral communicable diseases; Z79.02 Long term (current) use of antithrombotics/antiplatelets; Z79.82 Long term (current) use of aspirin; Z79.84 Long term (current) use of oral hypoglycemic drugs; Z79.899 Other long term (current) drug therapy; Z95.5 Presence of coronary angioplasty implant and graft; Z90.49 Acquired absence of other specified parts of digestive tract; Z88.6 Allergy status to analgesic agent; Z88.5 Allergy status to narcotic agent; Z82.49 Family history of ischemic heart disease and other diseases of the circulatory system; Z83.3 Family history of diabetes mellitus
CPT/HCPCS: 71045; 80048; 83036; 84484; 85025; 85027; 87040; 87635; 94640; 99284

== ENCOUNTER 2021-03-31 05:53 | Day surgery (SDC) | payer MEDICARE ==
[2021-03-29 11:37] VITALS: BMI 29.7
[2021-03-31] MEDS ORDERED: ASPIRIN 325 MG TAB PO STA (05:59)
[2021-03-31] MEDS ORDERED: ATORVASTATIN 80 MG TAB PO STA (05:59)
[2021-03-31] MEDS ORDERED: HEPARIN SODIUM,PORCINE 10,000 UNIT in SODIUM CHLORIDE 0.9% 1,000 ML IRRIGATION PRN (05:59)
[2021-03-31] MEDS ORDERED: SODIUM CHLORIDE 0.9% 1,000 ML in EMPTY BAG 1 BAG IV SCH (05:59)
[2021-03-31] MEDS ORDERED: ALPRAZolam 0.25 MG TAB PO PRN (05:59)
[2021-03-31] MEDS ORDERED: ALPRAZolam 0.5 MG TAB PO PRN (05:59)
[2021-03-31] MEDS ORDERED: NITROGLYCERIN SL TABS 0.4 MG TAB SUBLINGUAL PRN ×2 (05:59→08:08)
[2021-03-31] MEDS ORDERED: HEPARIN SODIUM,PORCINE 2,500 UNIT in SODIUM CHLORIDE 0.9% 250 ML IRRIGATION PRN (05:59)
[2021-03-31 06:23] LABS: Glucose,Whole Blood 134 mg/dL (75-99)
[2021-03-31 06:34] VITALS: TEMP 97.6
[2021-03-31] MEDS ORDERED: LIDOCAINE 1% INJ 10MG/ML (20 ML MDV) ONE (07:16)
[2021-03-31] MEDS ORDERED: VERAPAMIL 2.5 MG/ML 2 ML AMP ONE (07:16)
[2021-03-31] MEDS ORDERED: fentaNYL (PF) 50 MCG/ML 2 ML AMP ONE (07:28)
[2021-03-31] MEDS ORDERED: HEPARIN SODIUM 1,000 UN/ML (10ML VL) ONE (07:29)
[2021-03-31] MEDS ORDERED: fentaNYL (PF) 50 MCG/ML 2 ML AMP IVP ONE (07:35)
[2021-03-31] MEDS ORDERED: LIDOCAINE 1% INJ 10MG/ML (20 ML MDV) SQ ONE (07:37)
[2021-03-31] MEDS ORDERED: MIDAZOLAM 2 MG/2 ML VIAL IVP ONE (07:37)
[2021-03-31] MEDS ORDERED: VERAPAMIL SYRINGE (5 MG/10 ML) INTRAARTER ONE (07:39)
[2021-03-31] MEDS ORDERED: HEPARIN SODIUM 1,000 UN/ML (10ML VL) IV ONE (07:45)
[2021-03-31] MEDS ORDERED: IOPAMIDOL-370 125ML BTL INJ ONE (07:56)
[2021-03-31] MEDS ORDERED: RX INFO: IV CONTRAST WAS GIVEN 1 EACH MISC MISCELLANE PRN (08:07)
[2021-03-31] MEDS ORDERED: SODIUM CHLORIDE 0.9% 1,000 ML IV SCH (08:15)
--- NOTE | 2021-03-31 08:16 | P.CARDCATH ---
Date of Procedure: 03/31/21 Description of Procedure: Cardiac Catheterization: The patient is a 75-year-old male with a known history of CAD, stenting of the RCA in 2003 and 2019 was been complaining of progressive dyspnea on exertion. He underwent an MPI that showed a drop ejection fraction with an inferior wall defect. The patient has a history of hypertension, hyperlipidemia, diabetes mellitus and chronic tobacco use. Recommendations were made regarding cardiac catheterization, the risks and the complications were discussed with the patient who is in full understanding and agreement. Procedure Description: Patient was brought to labor commissioner in fasting semi-sedated state after receiving Fentanyl and Benadryl achieiving moderate conscious sedated state. Using Xylocaine Anesthesia and Seldinger technique, a 6-[place] sheath was introduced in the right radial artery . Subsequently, selective coronary angiography performed using a 5-[place] feet 3.5 bend Natalie catheter. Multiple views of the coronary artery including hemiaxial views were obtained. The 5-[place] Pigtail catheter was used to cross the aortic valve and left ventriculogram was performed, LVEDP was calculated. Following that, catheter and sheath were removed. Hemostasis was obtained with deployment of TR band . There was no immediate complication. Patient was returned to room in stable condition. Of note, the patient received a total of 5000 units of intravenous heparin as well as intra-arterial verapamil. There was no immediate complications. Findings: Fluoroscopy there is severe calcification involving the LAD and left circumflex Left main: This is a large-size vessel, bifurcating into LAD and left circumflex, left main has no evidence of high-grade stenosis LAD: This is a large-size vessel, reaching the apex, heavily calcified, giving rise to 2 diagonal branch. The proximal LAD has 20-30% by the mid LAD has areas of stenosis up to 70% at the takeoff the back branch Left circumflex: This is a nondominant vessel, has a 70-80% stenosis at the ostium and gives rise to one obtuse marginal branch of moderate caliber. RCA: This is a dominant vessel, the right coronary artery has multiple stents throughout its course. Its 99 percents stenosis proximally and another 99% closure in the mid segment there is minimal antegrade flow in the distal segment. Collaterals: There is collaterals from the left system to the PDA and the PLV [Left] Ventriculogram: There is evidence of inferior wall hypokinesis, ejection fraction is 45% Hemodynamics: There was no gradient across the aortic valve, LVEDP 16-20 mmHg Conclusion: 1. Calcified coronary arteries 2. Totally occluded RCA with diffuse in-stent restenosis 3. Severe stenosis in the mid LAD 4. Severe stenosis in the proximal ostial left circumflex 5. Mildly impaired systolic function Recommendations: In view of the anatomy, the multiple procedures on the RCA, and the progression of disease in the LAD and left circumflex as well as the history of diabetes I have recommended to proceed with evaluation for coronary artery bypass grafting. The findings were discussed with the patient and his family. They are in full agreement and understanding. Duration of sedation is 21 minutes.
[2021-03-31] MEDS ORDERED: EZETIMIBE 10 MG TAB PO SCH (09:00)
--- NOTE | 2021-03-31 09:10 | P.GSCN ---
History of Present Illness Consult date: 03/31/21 Reason for Consult: Triple-vessel coronary artery disease Requesting physician: Modesto Chu History of present illness: This is a 75-year-old active gentleman who follows on an outpatient basis with nurse practitioner Jemima Yusuf for primary care and Dr. Chu for cardiology. He has a previous medical history of coronary artery disease with previous myocardial infarction and multiple stents to the right coronary artery, hypertension, hyperlipidemia, [id number]-[id number] diabetes, ischemic cardiomyopathy, and current tobacco dependence. He presented to Dr. Chu with complaints of increasing dyspnea on exertion and paroxysmal nocturnal dyspnea. He denies any chest pain. According to the patient and his for approximately the last year and a half he has noticed increasing shortness of breath mostly at night requiring him to get out of bed and sit up in a recliner to sleep. The gentleman underwent stress testing in January 2021 demonstrating a fixed inferior and inferior lateral defect with minimal cheryl-infarct ischemia and reduced ejection fraction. There was concern for progression of his coronary artery disease and he was recommended to undergo heart catheterization which was completed today and which demonstrated 100% stenosis to the right coronary artery, circumflex stenosis 85%, mid LAD stenosis 75%. Due to these findings consultation was placed to cardiothoracic surgery for revascularization recommendations. Review of Systems Review of systems was completed and was negative except as noted - Cardiovascular Reports as per HPI, Reports dyspnea on exertion, Reports paroxysmal nocturnal dyspnea - Respiratory Reports cough Past Medical History Past Medical History: Coronary Artery Disease (CAD), COPD, Diabetes Mellitus, Hyperlipidemia, Hypertension, Myocardial Infarction ([place]) Additional Past Medical History / Comment(s): Known history of coronary artery disease with previous multiple stents to the RCA; ischemic cardiomyopathy Last Myocardial Infarction Date:: unknown History of Any Multi-Drug Resistant Organisms: None Reported Past Surgical History: Cholecystectomy, Heart Catheterization With Stent, Orthopedic Surgery Additional Past Surgical History / Comment(s): rt knee, Past Anesthesia/Blood Transfusion Reactions: No Reported Reaction Date of Last Stent Placement:: 2018 Past Psychological History: No Psychological Hx Reported Smoking Status: Current every day smoker Past Alcohol Use History: None Reported Past Drug Use History: None Reported Additional History: Reports down to 5 cigarettes a day, previously smoked up to 2 packs a day, has smoked for 61 years - Past Family History Mother Family Medical History: Coronary Artery Disease (CAD), Diabetes Mellitus, Myocardial Infarction ([place]) Father Additional Family Medical History / Comment(s): Multiple sclerosis Medications and Allergies Home Medications Medication Instructions Recorded Confirmed Type Aspirin [Adult Low Dose Aspirin EC] 81 mg PO DAILY 03/26/18 03/31/21 History Atorvastatin [Lipitor] 80 mg PO HS 03/26/18 03/31/21 History Metoprolol Tartrate [Lopressor] 25 mg PO BID #60 tab 03/28/18 03/31/21 Rx Nitroglycerin Sl Tabs [Nitrostat] 0.4 mg SUBLINGUAL Q5M PRN #25 tab 03/28/18 03/29/21 Rx metFORMIN HCL [Glucophage] 1,000 mg PO BID #0 03/28/18 03/31/21 Rx Albuterol Inhaler [Ventolin Hfa 2 puff INHALATION RT-Q6H PRN 06/30/19 03/31/21 History Inhaler] Ezetimibe [Zetia] 10 mg PO DAILY 06/30/19 03/31/21 History lisinopriL 20 mg PO BID 06/30/19 03/31/21 History Ipratropium Nebulized [Atrovent 0.5 mg INHALATION QID 03/29/21 03/31/21 History Nebulized 0.2 MG/ML] Allergies Allergy/AdvReac Type Severity Reaction Status Date / Time codeine Allergy Rash/Hives Verified 03/29/21 11:11 hydrocodone [From [place]] AdvReac Hallucinati Verified 03/29/21 11:11 ons Surgical - Exam Vital Signs Temp Pulse Resp BP 97.6 F 55 L 16 191/89 03/31/21 06:23 03/31/21 06:23 03/31/21 06:23 03/31/21 06:23 CONSTITUTIONAL: Awake and alert, appears comfortable, cooperative, well- developed, well-nourished, no pain, no acute distress EYES: Pupils equal, round, reactive to light, normal ocular movement ENT: Moist mucous membranes without oral lesions present NECK: No masses, no bruits, trachea midline RESPIRATORY: Lungs sounds clear to auscultation bilaterally. Respirations even, nonlabored. Currently on room air. Strong cough. No chest wall deformities. No clubbing or cyanosis present CARDIOVASCULAR: S1, S2 present. Regular rate and rhythm, sinus rhythm on telemetry. Palpable peripheral pulses bilaterally. No edema present. No calf pain or tenderness noted. No significant lower extremity varicosities noted. GASTROINTESTINAL: Abdomen soft, nontender, nondistended without masses or organomegaly noted. There is no rebound or guarding present. Active bowel sounds present 4 quadrants. GENITOURINARY: Deferred INTEGUMENTARY: Skin is warm and dry with evidence of good perfusion. Right radial heart catheterization site without drainage, T Band in place NEUROLOGIC: Cranial nerves II through XII intact, normal coordination, no obvious motor or sensory deficits, speech is normal MUSKULOSKELETAL: Able to move all extremities, strength equal bilaterally, normal posture PSYCHIATRIC: Alert and oriented to person place and time, appropriate affect, intact judgment and insight Results - Labs Abnormal Lab Results - Last 24 Hours (Table) 03/31/21 Range/Units 06:20 POC Glucose (mg/dL) 134 H (75-99) mg/dL - Imaging Additional studies: Heart catheterization films reviewed Assessment and Plan Assessment: 1. Triple vessel coronary artery disease with previous myocardial infarction and multiple stents to the right coronary artery 2. Hypertension 3. Hyperlipidemia 4. Rbz-xhoyuhj-eblgwppql diabetes 5. Ischemic cardiomyopathy 6. Current tobacco dependence Plan: The patient was seen and examined in the extended stay area with his present. Chart/diagnostics were reviewed. The case will be discussed in detail with Dr. Valdes. The usual perioperative course of open heart surgery was discussed in detail with the patient and his , risks and benefits were reviewed, all questions were answered. The patient does consent to surgery. Preoperative testing initiated. Recommend to continue with aspirin, statin, beta wang therapy. Patient was counseled to quit smoking as he has been counseled by Dr. Chu several times in the past. Once all testing has been completed we will calculate STS risk score and discuss with the patient. Will make further recommendations regarding timing of surgery. Thank you Dr. Chu for this consult. Time with Patient: Greater than 30
--- NOTE | 2021-03-31 09:45 | XR ---
EXAMINATION TYPE: XR chest 2V DATE OF EXAM: 03/31/2021 COMPARISON: Chest x-ray 07/01/2019 HISTORY: Preop coronary artery bypass graft TECHNIQUE: Frontal and lateral views of the chest are obtained. FINDINGS: There is no focal air space opacity, pleural effusion, or pneumothorax seen. The cardiac silhouette size is within normal limits, stable. There are coronary artery calcifications. Surgical clips are present in the upper abdomen. The osseous structures are intact. There are overlying leads . Patient is rotated. IMPRESSION: No acute cardiopulmonary process. Coronary artery disease.
[2021-03-31 10:24] LABS: Appearance,Urine Clear (Clear); Bilirubin,Urine Negative (Negative); Blood,Urine Negative (Negative); Color,Urine Light Yellow; Glucose,Urine (UA) 1+ (Negative); Ketones,Urine Negative (Negative); Leukocyte Esterase,Urine Negative (Negative); Nitrite,Urine Negative (Negative); Protein,Urine Negative (Negative); Specific Gravity,Urine 1.043 (1.001-1.035); Urobilinogen,Urine <2.0 mg/dL (<2.0)
--- NOTE | 2021-03-31 10:57 | US ---
EXAMINATION TYPE: US carotid duplex BILAT DATE OF EXAM: 03/31/2021 COMPARISON: NONE CLINICAL HISTORY: preop cardiac surgery. EXAM MEASUREMENTS: RIGHT: Peak Systolic Velocity (PSV) cm/sec ----- Right CCA: 66.8 ----- Right ICA: 112.0 ----- Right ECA: 133.0 ICA/CCA ratio: 1.7 RIGHT: End Diastole cm/sec ----- Right CCA: 14.5 ----- Right ICA: 11.6 ----- Right ECA: 0.0 LEFT: Peak Systolic Velocity (PSV) cm/sec ----- Left CCA: 66.0 ----- Left ICA: 113.0 ----- Left ECA: 166.0 ICA/CCA ratio: 1.7 LEFT: End Diastole cm/sec ----- Left CCA: 13.5 ----- Left ICA: 20.2 ----- Left ECA: 8.7 VERTEBRALS (direction of flow): Right Vertebral: Antegrade Left Vertebral: Antegrade Rhythm: Normal Moderate peripheral plaque bilateral carotid bulb levels. Velocity measurements and ratios remain wit hin normal limits in both internal carotid arteries. IMPRESSION: Moderate atherosclerotic changes without hemodynamically significant stenosis clearly seen bilaterally. Criteria for Assigning % of Stenosis / Diameter reduction (Estimation based on the indirect measurements of the internal carotid artery velocities (ICA PSV). 1. Normal (no stenosis)=ICA PSV < 125 cm/s: ratio < 2.0: ICA EDV<40 cm/s. 2. Less than 50% stenosis=ICA PSV < 125 cm/s: ratio < 2.0: ICA EDV<40 cm/s. 3. 50 to 69% stenosis=ICA PSV of 125 to 230 cm/s: ration 2.0 ? 4.0: ICA EDV 40-100 cm/s. 4. Greater than 70% stenosis to near occlusion= ICA PSV > 230 cm/s: ratio > 4.0: ICA EDV > 100 cm/s. 5. Near occlusion= ICA PSV velocities may be low or undetectable: variable ratio and ICA EDV. 6. Total occlusion=unable to detect flow.
[2021-03-31 12:04] VITALS: BP 163/77; PULSE 54; RESP 16
[2021-03-31] MEDS ORDERED: lisinopriL 20 MG TAB PO SCH (21:00)
[2021-03-31] MEDS ORDERED: ATORVASTATIN 80 MG TAB PO SCH (21:00)
[2021-03-31] MEDS ORDERED: METOPROLOL TARTRATE 25 MG TAB PO SCH (21:00)
[2021-04-01] MEDS ORDERED: ASPIRIN 81 MG PO SCH (09:00)
== END 2021-03-31 11:30 | disposition home or self-care (01) ==
LOC: CATHCVL 05:53
PROVIDERS: ATTEND Internal Medicine Interventional Cardiology
DX: I25.10 Atherosclerotic heart disease of native coronary artery without angina pectoris (principal); T82.855A Stenosis of coronary artery stent, initial encounter; I25.84 Coronary atherosclerosis due to calcified coronary lesion; I25.82 Chronic total occlusion of coronary artery; I10 Essential (primary) hypertension; I25.5 Ischemic cardiomyopathy; I07.1 Rheumatic tricuspid insufficiency; I25.2 Old myocardial infarction; I27.20 Pulmonary hypertension, unspecified; Z20.822 Contact with and (suspected) exposure to COVID-19; Z88.5 Allergy status to narcotic agent; E11.9 Type 2 diabetes mellitus without complications; E78.2 Mixed hyperlipidemia; R94.39 Abnormal result of other cardiovascular function study; E78.00 Pure hypercholesterolemia, unspecified; F17.200 Nicotine dependence, unspecified, uncomplicated; Z79.84 Long term (current) use of oral hypoglycemic drugs; Z79.82 Long term (current) use of aspirin; Z79.899 Other long term (current) drug therapy
CPT/HCPCS: 94150; 93458; 81003; 87635; 71046; 93931; 93970; 93880; C1894; C1769; J2250; J2001; J3010; J1644; Q9967

== ENCOUNTER 2021-04-07 05:35 | Inpatient (IN) | payer MEDICARE ==
[2021-03-31 11:12] LABS: Basophils % (A) 0 %; Eosinophils # (A) 0.3 k/uL (0-0.7); Eosinophils % (A) 5 %; HCT 40.4 % (39.0-53.0); HGB 13.6 gm/dL (13.0-17.5); Lymphocytes # (A) 1.5 k/uL (1.0-4.8); Lymphocytes % (A) 25 %; MCHC 33.7 g/dL (31.0-37.0); MCV 91.9 fL (80.0-100.0); Mean Platelet Volume 7.1; Monocytes # (A) 0.4 k/uL (0-1.0); Monocytes % (A) 6 %; Neutrophils # (A) 3.7 k/uL (1.3-7.7); Neutrophils % (A) 62 %; Platelet Count 193 k/uL (150-450); RDW 12.7 % (11.5-15.5)
[2021-03-31 11:27] LABS: ALT 35 U/L (4-49); AST 23 U/L (17-59); African American GFR (CKD) 85 (>60 ml/min/1.73 sqM); Albumin 3.8 g/dL (3.5-5.0); Alkaline Phosphatase 58 U/L (38-126); Anion Gap 9 mmol/L; Blood Urea Nitrogen 12 mg/dL (9-20); Calcium 9.3 mg/dL (8.4-10.2); Carbon Dioxide 25 mmol/L (22-30); Chloride 107 mmol/L (98-107); Glucose 135 mg/dL (74-99); Non-African American GFR(CKD) 73 (>60 ml/min/1.73 sqM); Potassium 4.4 mmol/L (3.5-5.1); Sodium 141 mmol/L (137-145); Total Bilirubin 0.5 mg/dL (0.2-1.3); Total Protein 6.2 g/dL (6.3-8.2)
[2021-03-31 11:29] LABS: INR 0.9 (<1.2); Partial Thromboplastin Time 29.5 sec (22.0-30.0); Prothrombin Time 10.3 sec (9.0-12.0)
[2021-04-01 00:07] LABS: Hepatitis A Antibody IgM Nonreactive (Nonreactive); Hepatitis B Core IgM Nonreactive (Nonreactive); Hepatitis B Surface Antigen Nonreactive (Nonreactive); Hepatitis C IgG Antibody Nonreactive (Nonreactive)
[2021-04-01 03:42] LABS: Chol/HDL Ratio 2.29 Ratio; LDL Cholesterol,Calculated 33.4 mg/dL (0.0-131.0)
[~2021-04-07 05:35] MED LIST: ALBUMIN HUMAN 25% 50 ML IV ONE; ALBUMIN HUMAN 5% 500 ML IVPB ONE; ASPIRIN 325 MG TAB PO ONE; ATORVASTATIN 10 MG TAB PO ONE; CALCIUM CHLORIDE 100 MG/ML 10 ML SYRINGE IV ONE; CHLORHEXIDINE GLUCONATE 15 ML CUP MUCOUS MEM ONE; CLEVIDIPINE BUTYRATE 25 MG in EMPTY BAG 1 BAG IV ONE; DILTIAZEM 125 MG in SODIUM CHLORIDE 0.9% 100 ML IV ONE; ELECTROLYTE-A SOLUTION 1,000 ML with POTASSIUM CHLORIDE 100 MEQ, MAGNESIUM SULFATE 16 M... IV ONE; ELECTROLYTE-A SOLUTION 1,000 ML with POTASSIUM CHLORIDE 40 MEQ, MAGNESIUM SULFATE 16 ME... IV ONE; HEPARIN SODIUM 1,000 UN/ML (10ML VL) IV ONE; HEPARIN SODIUM,PORCINE 5,000 UNIT in SODIUM CHLORIDE 0.9% 500 ML 500 ML IV ONE; INSULIN REGULAR 100 UNIT in SODIUM CHLORIDE 0.9% 100 ML IV ONE; LACTATED RINGERS 1,000 ML IV ONE; MAGNESIUM SULFATE 16.24 MEQ in EMPTY SYRINGE 1 SYR IV ONE; MANNITOL 25% 12.5 GM/50 ML VIAL IV ONE; METOPROLOL TARTRATE 12.5 MG TAB PO ONE; NITROGLYCERIN SL TABS 0.4 MG TAB SUBLINGUAL ONE; NITROGLYCERIN-D5W PMX 25 MG/250 ML BTL IV ONE; NITROGLYCERIN-D5W PMX 50 MG in DEXTROSE/WATER 1 250ML.BAG IV ONE; NOREPINEPHRINE 4 MG in SODIUM CHLORIDE 0.9% 250 ML IV ONE; PAPAVERINE 360 MG in SODIUM CHLORIDE 0.9% 90 ML IV ONE; PHENYLEPHRINE 10 MG/ML VIAL IV ONE; PHENYLEPHRINE 40 MG in SODIUM CHLORIDE 0.9% 250 ML IV ONE; PROTAMINE SULFATE 10 MG/ML 25 ML VIAL IV ONE; PROTAMINE SULFATE 250 MG in EMPTY BAG 1 BAG IV ONE; SODIUM BICARB 8.4% 50 ML SYR (1 MEQ/ML) IV ONE; SODIUM CHLORIDE 0.9% 1,000 ML IV ONE; TRANEXAMIC ACID 2,000 MG in SODIUM CHLORIDE 0.9% 80 ML IV ONE; ceFAZolin 1,000 MG in SODIUM CHLORIDE 0.9% IRRIGATIO 1,000 ML IRRIGATION ONE; propofoL 1,000 MG/100 ML VIAL IV ONE
[2021-04-07] MEDS ORDERED: hydrALAZINE HCL 20 MG/ML 1 ML VIAL IVP STA (06:36)
[2021-04-07 06:44] LABS: Glucose,Whole Blood 130 mg/dL (75-99)
[2021-04-07] MEDS ORDERED: METOPROLOL TARTRATE 12.5 MG TAB PO ONE (07:00)
--- NOTE | 2021-04-07 07:10 | P.PN ---
Progress Note - Text Progress Note Date: 04/07/21 5 meter walk completed without difficulty: #1 4.07 sec #2 4.38 sec #3 4.23 sec
[2021-04-07] MEDS ORDERED: VECURONIUM 10 MG VIAL IV ONE (07:40)
[2021-04-07] MEDS ORDERED: HEPARIN SODIUM,PORCINE 10,000 UNIT/ML 1 ML VIAL ONE (07:40)
[2021-04-07] MEDS ORDERED: PROTAMINE SULFATE 10 MG/ML 5 ML VIAL IV ONE (07:40)
[2021-04-07] MEDS ORDERED: MIDAZOLAM 2 MG/2 ML VIAL ONE (07:40)
[2021-04-07] MEDS ORDERED: ALBUMIN HUMAN 5% (12.5gm) 250 ML BOTTLE IVPB ONE (07:40)
[2021-04-07] MEDS ORDERED: CALCIUM CHLORIDE 100 MG/ML 10 ML SYRINGE ONE (07:40)
[2021-04-07] MEDS ORDERED: PHENYLEPHRINE-0.9% NACL SYG 1,000 MCG/10 ML SYRINGE ONE (07:40)
[2021-04-07] MEDS ORDERED: fentaNYL (PF) 50 MCG/ML 50 ML VIAL ONE (07:40)
[2021-04-07] MEDS ORDERED: PROTAMINE SULFATE 10 MG/ML 25 ML VIAL IV ONE (07:40)
[2021-04-07] MEDS ORDERED: TRANEXAMIC ACID 1,000 MG/10 ML VIAL ONE (07:40)
[2021-04-07] MEDS ORDERED: MAGNESIUM SULFATE 4 MEQ/ML 10ML VIAL ONE (07:40)
[2021-04-07] MEDS ORDERED: SODIUM CHLORIDE 0.9% IRRIG 1,000 ML BTL IRRIGATION ONE (07:40)
[2021-04-07] MEDS ORDERED: NITROGLYCERIN-D5W PMX 50 MG/250 ML BOTTLE IV ONE (07:40)
[2021-04-07] MEDS ORDERED: SODIUM CHLORIDE 0.9% 250 ML BAG ONE (07:40)
[2021-04-07] MEDS ORDERED: LIDOCAINE 2% SYG (PF) 100 MG/5 ML ONE (07:40)
[2021-04-07] MEDS ORDERED: ELECTROLYTE-R (PH 7.4) 1,000 ML IV.SOLN IV ONE (07:40)
[2021-04-07 08:47] LABS: ABG Base Excess -0.1 mmol/L; ABG Glucose Whole Blood 115 mg/dL (75-99); ABG HCO3 27 mmol/L (21-25); ABG Hematocrit 36 % (34.0-46.0); ABG Ionized Calcium 5.1 mg/dL (4.5-5.3); ABG Lactic Acid Whole Blood 1.5 mmol/L (0.5-1.6); ABG Oxygen Saturation 99.5 % (94-97); ABG PCO2 53 mmHg (35-45); ABG PH 7.31 (7.35-7.45); ABG PO2 198 mmHg (83-108); ABG Potassium Whole Blood 4.6 mmol/L (3.4-4.5); ABG Sodium Whole Blood 140 mmol/L (135-146); ABG TCO2 29 mmol/L (19-24)
[2021-04-07 09:53] LABS: ABG Base Excess -0.6 mmol/L; ABG Glucose Whole Blood 128 mg/dL (75-99); ABG HCO3 26 mmol/L (21-25); ABG Hematocrit 36 % (34.0-46.0); ABG Lactic Acid Whole Blood 1.4 mmol/L (0.5-1.6); ABG Oxygen Saturation 99.3 % (94-97); ABG PCO2 53 mmHg (35-45); ABG PH 7.31 (7.35-7.45); ABG PO2 176 mmHg (83-108); ABG Potassium Whole Blood 4.8 mmol/L (3.4-4.5); ABG Sodium Whole Blood 140 mmol/L (135-146); ABG TCO2 28 mmol/L (19-24)
[2021-04-07 10:49] LABS: ABG Base Excess 0.1 mmol/L; ABG Glucose Whole Blood 123 mg/dL (75-99); ABG HCO3 26 mmol/L (21-25); ABG Hematocrit 26 % (34.0-46.0); ABG Ionized Calcium 4.3 mg/dL (4.5-5.3); ABG Lactic Acid Whole Blood 1.6 mmol/L (0.5-1.6); ABG PCO2 45 mmHg (35-45); ABG PH 7.37 (7.35-7.45); ABG PO2 320 mmHg (83-108); ABG Potassium Whole Blood 5.6 mmol/L (3.4-4.5); ABG Sodium Whole Blood 135 mmol/L (135-146); ABG TCO2 27 mmol/L (19-24)
[2021-04-07 11:24] LABS: ABG Base Excess -0.3 mmol/L; ABG Glucose Whole Blood 135 mg/dL (75-99); ABG HCO3 25 mmol/L (21-25); ABG Hematocrit 27 % (34.0-46.0); ABG Ionized Calcium 4.4 mg/dL (4.5-5.3); ABG Oxygen Saturation 99.9 % (94-97); ABG PCO2 45 mmHg (35-45); ABG PH 7.36 (7.35-7.45); ABG PO2 301 mmHg (83-108); ABG Potassium Whole Blood 5.9 mmol/L (3.4-4.5); ABG Sodium Whole Blood 137 mmol/L (135-146); ABG TCO2 27 mmol/L (19-24)
[2021-04-07 11:59] LABS: ABG Base Excess -0.7 mmol/L; ABG Glucose Whole Blood 144 mg/dL (75-99); ABG HCO3 25 mmol/L (21-25); ABG Hematocrit 26 % (34.0-46.0); ABG Ionized Calcium 4.4 mg/dL (4.5-5.3); ABG Oxygen Saturation 99.8 % (94-97); ABG PCO2 47 mmHg (35-45); ABG PH 7.34 (7.35-7.45); ABG PO2 284 mmHg (83-108); ABG Potassium Whole Blood 5.6 mmol/L (3.4-4.5); ABG Sodium Whole Blood 137 mmol/L (135-146); ABG TCO2 27 mmol/L (19-24)
[2021-04-07] MEDS ORDERED: CLEVIDIPINE BUTYRATE 25 MG in EMPTY BAG 1 BAG IV SCH (13:09)
[2021-04-07] MEDS ORDERED: CALCIUM GLUCONATE 2 GM in SODIUM CHLORIDE 0.9% 100 ML IVPB PRN (13:09)
[2021-04-07] MEDS ORDERED: BENZOCAINE/MENTHOL LOZENG 1 EACH LOZENGE MUCOUS MEM PRN (13:09)
[2021-04-07] MEDS ORDERED: Magnesium Replacement Protocol 1 EACH MISC MISCELLANE PRN (13:09)
[2021-04-07] MEDS ORDERED: AMIODARONE 360 MG in DEXTROSE 5% IN WATER 200 ML IV PRN ×2 (13:09)
[2021-04-07] MEDS ORDERED: IPRATROPIUM-ALBUTEROL 3 ML NEB INHALATION PRN (13:09)
[2021-04-07] MEDS ORDERED: hydrALAZINE HCL 20 MG/ML 1 ML VIAL IVP PRN (13:09)
[2021-04-07] MEDS ORDERED: Phosphorus Replacement Protoco 1 EACH MISC MISCELLANE PRN (13:09)
[2021-04-07] MEDS ORDERED: Potassium Replacement Protocol 1 EACH MISC MISCELLANE PRN (13:09)
[2021-04-07] MEDS ORDERED: METOCLOPRAMIDE 5 MG/ML 2 ML VIAL IVP PRN (13:09)
[2021-04-07] MEDS ORDERED: DEXMEDETOMIDINE/0.9% NACL(PMX) 400 MCG in EMPTY BAG 1 BAG IV SCH (13:09)
[2021-04-07] MEDS ORDERED: DEXTROSE 5% IN WATER 100 ML with AMIODARONE 150 MG IV PRN (13:09)
[2021-04-07] MEDS ORDERED: AMIODARONE 450 MG in DEXTROSE 5% IN WATER 250 ML IV PRN ×2 (13:09)
[2021-04-07] MEDS ORDERED: NITROGLYCERIN-D5W PMX 50 MG in DEXTROSE/WATER 1 250ML.BAG IV SCH (13:09)
[2021-04-07] MEDS ORDERED: MILRINONE-D5W PMX 20 MG in DEXTROSE/WATER 1 100ML.BAG IV SCH ×2 (13:15→22:30)
[2021-04-07] MEDS ORDERED: ALBUMIN HUMAN 5% 250 ML IVPB ONE (13:20)
[2021-04-07 13:24] LABS: ABG Lactic Acid Whole Blood 2.1 mmol/L (0.5-1.6)
[2021-04-07 13:24] LABS: ABG Lactic Acid Whole Blood 2.4 mmol/L (0.5-1.6)
[2021-04-07 14:03] LABS: Glucose,Whole Blood 158 mg/dL (75-99)
[2021-04-07 14:06] LABS: Basophils % (A) 0 %; Eosinophils # (A) 0.1 k/uL (0-0.7); Eosinophils % (A) 2 %; HCT 28.5 % (39.0-53.0); Lymphocytes % (A) 11 %; MCH 31.8 pg (25.0-35.0); MCHC 34.2 g/dL (31.0-37.0); MCV 92.8 fL (80.0-100.0); Mean Platelet Volume 9.5; Monocytes # (A) 0.8 k/uL (0-1.0); Monocytes % (A) 9 %; Neutrophils % (A) 78 %; Platelet Count 121 k/uL (150-450); RBC 3.07 m/uL (4.30-5.90); RDW 12.4 % (11.5-15.5)
[2021-04-07] MEDS: LACTATED RINGERS 1,000 ML IV SCH (14:06)
--- NOTE | 2021-04-07 14:09 | P.CNPUL ---
History of Present Illness Consult date: 04/07/21 Requesting physician: Elmo Valdes Reason for consult: other Chief complaint: ICU management of ventilator. History of present illness: Pulmonary consult dated 04/07/2021. This is a 75-year-old male who was recently evaluated by cardiology, with a known history of coronary disease, previous myocardial infarction, and multiple stents of the right coronary artery. In addition, the patient has a history of hypertension, hyperlipidemia, diabetes, ischemic cardiomyopathy, and ongoing tobacco use. The patient was evaluated by cardiology, and was found have significant coronary disease on catheterization. Today, he underwent a three- vessel bypass grafting. The surgery was done by Dr. Valdes. The patient had a ALFORD to LAD bypass, saphenous vein graft to OM, and saphenous vein graft to PDA. In addition, the patient had intraoperative transesophageal echocardiogram, and ligation of atrial appendage. The patient is seen here in the ICU, and we are seeing the patient postoperatively. The patient's currently on the ventilator, with vent settings of volume assist control, rate of 14, tidal volume 500, FiO2 100%, and PEEP of 5. Blood gases are currently pending. Chest x-ray has not y et been done. The patient's on norepinephrine at 0.02 mcg/kg/m, Primacor 0.3 mcg/kg/m, propofol at 20 g kilogram per minute, and nitroglycerin at 5 mcg/m. Most recent laboratory data shows a blood gas with a pO2 of 284, pCO2 47, pH is 7.34. The blood glucose was 144. Review of Systems REVIEW OF SYSTEMS: No review of systems could be obtained from this patient as the patient's currently on the ventilator, having just gotten back from the operating room. CONSTITUTIONAL: [Negative.] NEUROLOGIC: [ Negative.] HEENT: [ Negative.] CARDIAC: [Negative.] PULMONARY: [Negative.] GI: [Negative.] : [Negative.] RHEUMATOLOGIC: [ Negative.] IMMUNOLOGIC: [ Negative.] ENDOCRINE: [Negative. ] DERMATOLOGIC: [Negative.] Past Medical History Past Medical History: Coronary Artery Disease (CAD), COPD, Diabetes Mellitus, Hyperlipidemia, Hypertension, Myocardial Infarction ([place]) Additional Past Medical History / Comment(s): Known history of coronary artery disease with previous multiple stents to the RCA; ischemic cardiomyopathy Last Myocardial Infarction Date:: unknown History of Any Multi-Drug Resistant Organisms: None Reported Past Surgical History: Cholecystectomy, Heart Catheterization With Stent, Orthopedic Surgery Additional Past Surgical History / Comment(s): rt knee, recent cardiac cath. Past Anesthesia/Blood Transfusion Reactions: No Reported Reaction Date of Last Stent Placement:: 2018 Smoking Status: Former smoker - Past Family History Mother Family Medical History: Coronary Artery Disease (CAD), Diabetes Mellitus, Myocardial Infarction ([place]) Father Additional Family Medical History / Comment(s): Multiple sclerosis Medications and Allergies Home Medications Medication Instructions Recorded Confirmed Type Aspirin [Adult Low Dose Aspirin EC] 81 mg PO DAILY 03/26/18 04/07/21 History Atorvastatin [Lipitor] 80 mg PO HS 03/26/18 04/07/21 History Metoprolol Tartrate [Lopressor] 25 mg PO BID #60 tab 03/28/18 04/07/21 Rx Nitroglycerin Sl Tabs [Nitrostat] 0.4 mg SUBLINGUAL Q5M PRN #25 tab 03/28/18 04/07/21 Rx metFORMIN HCL [Glucophage] 1,000 mg PO BID #0 03/28/18 04/07/21 Rx Albuterol Inhaler [Ventolin Hfa 2 puff INHALATION RT-Q6H PRN 06/30/19 04/07/21 History Inhaler] Ezetimibe [Zetia] 10 mg PO DAILY 06/30/19 04/07/21 History lisinopriL 20 mg PO BID 06/30/19 04/07/21 History Ipratropium Nebulized [Atrovent 0.5 mg INHALATION QID 03/29/21 04/07/21 History Nebulized 0.2 MG/ML] Mupirocin [Mupirocin 2%] 1 applic NASAL BID #1 tub 03/31/21 04/07/21 Rx Allergies Allergy/AdvReac Type Severity Reaction Status Date / Time codeine Allergy Rash/Hives Verified 04/07/21 06:14 hydrocodone [From [place]] AdvReac Hallucinati Verified 04/07/21 06:14 ons Physical Exam Osteopathic Statement: *. No significant issues noted on an osteopathic structural exam other than those noted in the History and Physical/Consult. Vitals: Vital Signs Temp Pulse Resp BP Pulse Ox 04/07/21 07:00 191/81 04/07/21 06:17 97.7 F 63 17 218/63 96 Intake and Output 04/06/21 04/07/21 04/07/21 22:59 06:59 14:59 Intake Total 200 102 Output Total 1650 Balance 200 -1548 Intake: IV 200 102 Output: Urine 750 Estimated Blood Loss 900 Other: Weight 95.1 kg No acute distress, sedated, currently with an orally placed endotracheal tube. HEENT examination is grossly unremarkable. Neck supple. Full range of motion. No adenopathy thyromegaly or neck vein distention. Cardiovascular examination reveals regular rhythm rate. S1-S2 normal. No S3 or S4. No discernible murmur noted. Heart rate 92 bpm. Lungs reveal clear breath sounds. Breath sounds are equal bilaterally. No adventitious lung sounds including wheezes rhonchi or crackles. Abdomen is soft, without bowel sounds. Extremities are intact. No cyanosis clubbing or edema. Skin is without rash or lesion. Neurologic examination cannot be evaluated as the patient is under the effects of anesthesia, and sedated with propofol. Results - Laboratory Findings CBC and BMP: 03/31/21 10:25 03/31/21 10:25 ABG ABG pH 7.34 (7.35-7.45) L 04/07/21 11:59 ABG pCO2 47 mmHg (35-45) H 04/07/21 11:59 ABG pO2 284 mmHg (83-108) H 04/07/21 11:59 ABG O2 Saturation 99.8 % (94-97) H 04/07/21 11:59 PT/INR, D-dimer PT 10.3 sec (9.0-12.0) 03/31/21 10:25 INR 0.9 (<1.2) 03/31/21 10:25 Abnormal lab findings: Abnormal Labs 03/31/21 03/31/21 04/07/21 10:25 10:25 06:43 ABG pH ABG pCO2 ABG pO2 ABG HCO3 ABG Total CO2 ABG O2 Saturation ABG Hematocrit ABG Potassium ABG Ionized Calcium ABG Glucose ABG Lactic Acid Hemoglobin Glucose 135 H POC Glucose (mg/dL) 130 H Total Protein 6.2 L Arterial Blood Potassium Arterial Blood Glucose Crossmatch See Detail 04/07/21 04/07/21 04/07/21 08:47 09:35 10:49 ABG pH 7.31 L 7.31 L ABG pCO2 53 H 53 H ABG pO2 198 H 176 H 320 H ABG HCO3 27 H 26 H 26 H ABG Total CO2 29 H 28 H 27 H ABG O2 Saturation 99.5 H 99.3 H 100.0 H ABG Hematocrit 26 L ABG Potassium 4.6 H 4.8 H 5.6 H ABG Ionized Calcium 4.3 L ABG Glucose 115 H 128 H 123 H ABG Lactic Acid Hemoglobin 11.6 L 11.6 L 8.4 L Glucose POC Glucose (mg/dL) Total Protein Arterial Blood Potassium 4.6 H 4.8 H 5.6 H Arterial Blood Glucose 115 H 128 H 123 H Crossmatch 04/07/21 04/07/21 11:24 11:59 ABG pH 7.34 L ABG pCO2 47 H ABG pO2 301 H 284 H ABG HCO3 ABG Total CO2 27 H 27 H ABG O2 Saturation 99.9 H 99.8 H ABG Hematocrit 27 L 26 L ABG Potassium 5.9 H 5.6 H ABG Ionized Calcium 4.4 L 4.4 L ABG Glucose 135 H 144 H ABG Lactic Acid 2.1 H 2.4 H* Hemoglobin 8.7 L 8.3 L Glucose POC Glucose (mg/dL) Total Protein Arterial Blood Potassium 5.9 H 5.6 H Arterial Blood Glucose 135 H 144 H Crossmatch Assessment and Plan Assessment: Postop day #0, status post three-vessel bypass grafting, ALFORD to LAD, SVG to OM, and SVG to PDA. In addition, the patient had a ligation of atrial appendage, and intraoperative transesophageal echocardiogram. Routine postoperative ventilator management. Prior history of myocardial infarction. History of CAD, with previous multiple stents. History of hypertension. History of hyperlipidemia. History of [id number]-[id number] diabetes mellitus. History of ischemic cardiomyopathy. History of ongoing tobacco use with nicotine addiction. Plan: Plan dated 04/07/2021. Chest x-ray in the blood gas. That changes will be made. In addition, we will attempt to wean the patient and extubate the patient from the ventilator, as quickly and as safely as possible. Finally, we will continue to follow the patient along his hospitalization and make sure that his lungs remain healthy, and that he does not have a complication such as pneumonia, atelectasis, lobar collapse, pleural effusion. We'll recommend deep breathing, coughing, clearing of secretions, and hourly use of the incentive spirometer. Additional recommendations and suggestions are forthcoming. Time with Patient: Greater than 30
[2021-04-07 14:14] LABS: INR 1.1 (<1.2)
[2021-04-07 14:15] LABS: Partial Thromboplastin Time 25.4 sec (22.0-30.0); Prothrombin Time 11.9 sec (9.0-12.0)
[2021-04-07 14:16] LABS: Ionized Calcium 5.2 mg/dL (4.5-5.3)
[2021-04-07 14:25] LABS: ALT 21 U/L (4-49); AST 33 U/L (17-59); African American GFR (CKD) >90 (>60 ml/min/1.73 sqM); Albumin 2.4 g/dL (3.5-5.0); Alkaline Phosphatase 25 U/L (38-126); Anion Gap 3 mmol/L; Blood Urea Nitrogen 13 mg/dL (9-20); Calcium 8.3 mg/dL (8.4-10.2); Carbon Dioxide 24 mmol/L (22-30); Chloride 109 mmol/L (98-107); Glucose 142 mg/dL (74-99); Magnesium 2.2 mg/dL (1.6-2.3); Non-African American GFR(CKD) 83 (>60 ml/min/1.73 sqM); Potassium 4.7 mmol/L (3.5-5.1); Sodium 136 mmol/L (137-145); Total Bilirubin 0.6 mg/dL (0.2-1.3); Total Protein 4.2 g/dL (6.3-8.2)
[2021-04-07] MEDS: INSULIN REGULAR 100 UNIT in SODIUM CHLORIDE 0.9% 100 ML IV SCH (14:25)
[2021-04-07 14:30] LABS: HGB 9.8 gm/dL (13.0-17.5)
[2021-04-07 14:37] LABS: ABG Base Excess -1.1 mmol/L; ABG HCO3 26 mmol/L (21-25); ABG PCO2 57 mmHg (35-45); ABG PH 7.27 (7.35-7.45); ABG PO2 312 mmHg (83-108); ABG TCO2 28 mmol/L (19-24)
[2021-04-07 14:39] LABS: Allen Test Performed? no
--- NOTE | 2021-04-07 14:42 | XR ---
EXAMINATION TYPE: XR chest 1V portable DATE OF EXAM: 04/07/2021 Comparison: 03/31/2021 Clinical History: 75-year-old male Post Operative Cardiac Surgery Findings: ET and NG tubes are satisfactory. Mediastinal drain. Median sternotomy wires and post-CABG clips in t he mediastinum. Left sided chest tube in place. No appreciable pneumothorax. Right IJ [place] tip at the distal right main pulmonary artery. Interstitial prominence. No pleural effusion seen. Heart upper limits of normal in size. Impression: 1. Borderline heart size and increased interstitial density. Correlate for mild pulmonary vascular co ngestion. 2. Right IJ [place] catheter tip at the distal right main pulmonary artery.
[2021-04-07] MEDS: ALBUMIN HUMAN 5% 250 ML in EMPTY BAG 1 BAG IVPB PRN ×2 (14:50→19:09)
[2021-04-07] MEDS: NOREPINEPHRINE 4 MG in SODIUM CHLORIDE 0.9% 250 ML IV SCH (14:55)
[2021-04-07 15:15] LABS: Glucose,Whole Blood 171 mg/dL (75-99)
[2021-04-07] MEDS ORDERED: MUPIROCIN 2% OINT 22 GM TUBE NASAL ONE (16:00)
[2021-04-07] MEDS ORDERED: IPRATROPIUM-ALBUTEROL 3 ML NEB INHALATION SCH (16:00)
[2021-04-07 16:06] LABS: Glucose,Whole Blood 173 mg/dL (75-99)
[2021-04-07] MEDS: HEPARIN SODIUM,PORCINE/PF 5,000 UNIT/0.5 ML SYRINGE SQ SCH ×2 (16:20→23:37)
[2021-04-07] MEDS: KETOROLAC 30 MG/ML 1 ML VIAL IVP SCH ×2 (16:56→23:36)
[2021-04-07] MEDS: ACETAMINOPHEN IV (For NPO) 1,000 MG in EMPTY BAG 1 BAG IVPB SCH ×2 (16:56→23:38)
[2021-04-07 16:59] LABS: Basophils % (A) 0 %; Eosinophils % (A) 0 %; HCT 29.6 % (39.0-53.0); HGB 10.1 gm/dL (13.0-17.5); Lymphocytes # (A) 0.8 k/uL (1.0-4.8); Lymphocytes % (A) 9 %; MCH 31.7 pg (25.0-35.0); MCHC 34.2 g/dL (31.0-37.0); MCV 92.8 fL (80.0-100.0); Mean Platelet Volume 9.1; Monocytes # (A) 0.6 k/uL (0-1.0); Monocytes % (A) 7 %; Neutrophils # (A) 7.1 k/uL (1.3-7.7); Neutrophils % (A) 82 %; Platelet Count 126 k/uL (150-450); RBC 3.19 m/uL (4.30-5.90); RDW 12.4 % (11.5-15.5); WBC 8.6 k/uL (3.8-10.6)
[2021-04-07 17:22] LABS: Glucose,Whole Blood 167 mg/dL (75-99)
[2021-04-07 18:14] LABS: Glucose,Whole Blood 166 mg/dL (75-99)
[2021-04-07 18:48] LABS: Glucose,Whole Blood 155 mg/dL (75-99)
--- NOTE | 2021-04-07 19:15 | OP ---
OPERATIVE REPORT DATE OF SURGERY: 04/07/2021 PREOPERATIVE DIAGNOSIS: Coronary artery disease. POSTOPERATIVE DIAGNOSIS: Coronary artery disease. PROCEDURES: 1. Coronary artery bypass grafting x3 vessels (left internal mammary artery to left anterior descending artery, saphenous vein graft to obtuse marginal artery, saphenous vein graft to posterior descending artery). 2. Endoscopic harvest of right greater saphenous vein. 3. Ligation of left atrial appendage using a 35 mm AtriClip. 4. Epiaortic ultrasound. 5. Transesophageal echocardiogram. SURGEON: Elmo Valdes M.D. ASSISTANTS: 1. BAMBI gandhi. 2. JOSE Waddell. ANESTHESIA: General. SPECIMEN: None. COMPLICATIONS: None. INDICATION: The patient is a 75-year-old male with a past medical history significant for coronary artery disease, status post multiple coronary stents, COPD, diabetes mellitus, hyperlipidemia, hypertension and tobacco use who reports increasing dyspnea on exertion and paroxysmal nocturnal dyspnea. Workup revealed multivessel coronary artery disease, including in-stent restenosis of the stents in his right coronary artery. Coronary artery bypass was recommended. Risks, benefits and alternatives of the procedure were discussed with the patient. All of his questions were answered. Consent was obtained. FINDINGS: The left internal mammary artery was good conduit with brisk flow. The saphenous vein was a good conduit. The LAD was heavily calcified throughout its course and measured 1.3 mm in diameter. The obtuse marginal artery contained significant calcium and measured 1.3 mm. The posterior descending artery measured 1.3 mm. PROCEDURE IN DETAIL: The patient was taken to the operating room and placed supine on the operating table. After induction of general anesthesia, he was prepped and draped in the usual sterile fashion. Preoperative transesophageal echocardiogram revealed an ejection fraction of approximately 35% to 40% with mild mitral regurgitation. His pulmonary artery pressures upon arrival in the operating room were systolic in the high 50s. A median sternotomy was performed. The left internal mammary artery was harvested in standard fashion, taking care to clip all branches. Intravenous heparin was administered and the vessel was transected distally revealing brisk flow. Simultaneously the greater saphenous vein was harvested from the right lower extremity using endoscopic technique. All branches were tied. Both the mammary artery and saphenous vein were good conduits. A pericardial cradle was created. The ascending aorta was palpated. There was no significant calcific plaque noted. Epiaortic ultrasound was then performed on the ascending aorta. Again no calcific plaque or atheromatous disease was identified. An arterial cannula was placed in the distal ascending aorta. A venous cannula was placed through the right atrial appendage directed into the IVC. Both antegrade and retrograde catheters were placed as well. The patient was then placed on cardiopulmonary bypass with good decompression of the heart. The aortic cross-clamp was applied. Cold blood potassium cardioplegia was delivered in both antegrade and retrograde fashion to achieve arrest of the heart. Of note, cardioplegia was delivered every 15 to 20 minutes with the patient under crossclamp. I began by identifying the left atrial appendage. A 35 mm AtriClip was placed across its base to ensure ligation. Next, attention was turned to the inferior wall. The distal right coronary artery contained a full metal jacket with stents. The posterior descending artery was identified. Proximally it contained heavy calcific disease. Distally I did find a soft spot amenable for bypass. A small arteriotomy was created. This vessel accepted a 1.0 mm probe. Using saphenous vein in reverse fashion, an end- to-side anastomosis was created. This was performed using running 7-0 Prolene suture. The graft was hemostatic and had great flow. Next attention was turned to the . Obtuse marginal was identified. It too contained diffuse calcific disease. A soft spot amenable for bypass was noted. A small arteriotomy was created. This vessel accepted a 1.0 mm probe. Using the saphenous vein in a reverse fashion, an end-to-side anastomosis was created. This was performed using running a 7-0 Prolene suture. The graft was hemostatic and had great flow. Finally attention was turned to the anterior wall. The LAD was identified. Heavy palpable calcific disease was noted throughout its course. A relative soft spot was found in its mid portion. A small arteriotomy was created. This vessel accepted a 1.0 mm probe distally. Using the left internal mammary artery, an end-to-side anastomosis was created. This was performed using a running 8-0 Prolene suture. The graft was hemostatic. The mammary pedicle was then tacked down to the anterior surface of the heart. Attention was then turned to the proximal anastomoses. These were both performed in end-to-side fashion using running 6-0 Prolene suture. One liter of warm blood was delivered in retrograde fashion. Both lidocaine and magnesium were administered as well. Then the crossclamp was removed. The vein grafts were de-aired in the standard fashion. Distal anastomoses were inspected and appeared to be hemostatic. Temporary atrial and ventricular pacing wires were placed and brought through the skin. The patient was then weaned off cardiopulmonary bypass. He with addition of low- dose milrinone and low-dose Levophed. Follow-up transesophageal echocardiogram confirmed no wall motion abnormalities, with an overall ejection fraction of about 45% to 50%. Protamine was administered. There were no adverse reactions. The remaining cannulas were removed. The was copiously irrigated with warm saline solution. Again all surgical sites were inspected and appeared to be hemostatic. Soft tissues were reapproximated over the ascending aorta as well as over the apex of the heart. Chest tubes were placed in both the left pleural space and the mediastinum. These were both secured to the skin using sutures. The sternum was then reapproximated using the [place] cable system. The cables were placed in a [id number] fashion. At the completion of the closure, the sternum was well aligned. The remainder of the wound was closed in layers. A sterile dressing was applied. The patient appeared to tolerate the procedure well. There were no immediate complications. He returned to the ICU in critical but stable condition. Of note, he did not receive any intraoperative blood products. It should be noted that the PA assisted in harvesting vein, opening and closing the chest, cannulation, and performing all anastomoses. The PA was required to expedite the overall procedure and minimize the time that the patient was under anesthesia. PAT / HERBIEN: [id number] /
[2021-04-07 19:30] LABS: Basophils % (A) 0 %; Eosinophils % (A) 0 %; HCT 29.1 % (39.0-53.0); HGB 9.9 gm/dL (13.0-17.5); Lymphocytes # (A) 0.5 k/uL (1.0-4.8); Lymphocytes % (A) 6 %; MCH 31.4 pg (25.0-35.0); MCHC 33.9 g/dL (31.0-37.0); MCV 92.5 fL (80.0-100.0); Mean Platelet Volume 8.7; Monocytes # (A) 0.6 k/uL (0-1.0); Monocytes % (A) 7 %; Neutrophils % (A) 86 %; Platelet Count 128 k/uL (150-450); RBC 3.15 m/uL (4.30-5.90); RDW 12.4 % (11.5-15.5); WBC 8.2 k/uL (3.8-10.6)
[2021-04-07 20:20] LABS: Glucose,Whole Blood 149 mg/dL (75-99)
[2021-04-07 21:05] LABS: Glucose,Whole Blood 134 mg/dL (75-99)
[2021-04-07 22:09] LABS: Glucose,Whole Blood 124 mg/dL (75-99)
[2021-04-07] MEDS: ATORVASTATIN 80 MG TAB PO SCH (22:27)
[2021-04-07 23:07] LABS: Glucose,Whole Blood 116 mg/dL (75-99)
[2021-04-07] MEDS: IPRATROPIUM-ALBUTEROL 3 ML NEB INHALATION SCH (23:30)
[2021-04-08 00:05] LABS: Glucose,Whole Blood 109 mg/dL (75-99)
[2021-04-08 00:19] LABS: ABG HCO3 24 mmol/L (21-25); ABG Oxygen Saturation 98.7 % (94-97); ABG PCO2 48 mmHg (35-45); ABG PO2 160 mmHg (83-108); ABG TCO2 25 mmol/L (19-24)
[2021-04-08 00:36] LABS: Allen Test Performed? no
[2021-04-08 01:03] LABS: Glucose,Whole Blood 142 mg/dL (75-99)
[2021-04-08 02:20] LABS: Glucose,Whole Blood 139 mg/dL (75-99)
[2021-04-08 03:08] LABS: Glucose,Whole Blood 129 mg/dL (75-99)
[2021-04-08 04:11] LABS: Glucose,Whole Blood 113 mg/dL (75-99)
[2021-04-08 04:17] LABS: Basophils % (A) 0 %; Eosinophils % (A) 0 %; HCT 27.4 % (39.0-53.0); HGB 9.3 gm/dL (13.0-17.5); Lymphocytes % (A) 12 %; MCH 31.3 pg (25.0-35.0); MCHC 34.1 g/dL (31.0-37.0); MCV 91.9 fL (80.0-100.0); Mean Platelet Volume 8.7; Monocytes # (A) 0.8 k/uL (0-1.0); Monocytes % (A) 9 %; Neutrophils # (A) 6.7 k/uL (1.3-7.7); Neutrophils % (A) 77 %; Platelet Count 136 k/uL (150-450); RBC 2.98 m/uL (4.30-5.90); RDW 12.3 % (11.5-15.5); WBC 8.7 k/uL (3.8-10.6)
[2021-04-08 04:30] LABS: Albumin 2.7 g/dL (3.5-5.0); Calcium 8.2 mg/dL (8.4-10.2); Magnesium 2.1 mg/dL (1.6-2.3); Potassium 4.3 mmol/L (3.5-5.1); Total Bilirubin 0.5 mg/dL (0.2-1.3); Total Protein 4.6 g/dL (6.3-8.2)
[2021-04-08 05:10] LABS: Glucose,Whole Blood 127 mg/dL (75-99)
[2021-04-08] MEDS: KETOROLAC 30 MG/ML 1 ML VIAL IVP SCH ×4 (05:21→22:54)
[2021-04-08] MEDS: traMADol 50 MG TAB PO PRN ×4 (05:23→20:58)
[2021-04-08] MEDS: ONDANSETRON 4 MG/2 ML VIAL IVP PRN ×2 (05:24→17:20)
[2021-04-08 06:16] LABS: Glucose,Whole Blood 157 mg/dL (75-99)
[2021-04-08] MEDS: ALBUMIN HUMAN 5% 250 ML in EMPTY BAG 1 BAG IVPB PRN (06:28)
[2021-04-08 07:09] LABS: Glucose,Whole Blood 161 mg/dL (75-99)
[2021-04-08] MEDS: IPRATROPIUM-ALBUTEROL 3 ML NEB INHALATION SCH ×4 (07:46→20:47)
[2021-04-08] MEDS: NOREPINEPHRINE 4 MG in SODIUM CHLORIDE 0.9% 250 ML IV SCH (07:48)
[2021-04-08 08:04] LABS: Glucose,Whole Blood 145 mg/dL (75-99)
[2021-04-08] MEDS: EZETIMIBE 10 MG TAB PO SCH (08:07)
[2021-04-08] MEDS: CLOPIDOGREL 75 MG TAB PO SCH (08:07)
[2021-04-08] MEDS: ASPIRIN 325 MG TAB PO SCH (08:07)
[2021-04-08] MEDS: HEPARIN SODIUM,PORCINE/PF 5,000 UNIT/0.5 ML SYRINGE SQ SCH ×2 (08:07→16:27)
--- NOTE | 2021-04-08 08:17 | P.PN ---
Subjective Progress Note Date: 04/08/21 Principal diagnosis: Coronary artery disease. Previous medical history of coronary artery disease with previous myocardial infarction and stenting, hypertension, hyperlipidemia, yqa-leybuqc-zeboizkof diabetes, ischemic cardiomyopathy, moderate COPD, and current tobacco dependence. Vaccinated and boosted against Covid POD #1 coronary artery bypass grafting 3 vessels, left internal mammary artery to the left anterior descending artery, reverse saphenous vein graft to the ob tuse marginal artery, reverse saphenous vein graft to posterior descending artery, endoscopic harvesting of the right greater saphenous vein, ligation of the left atrial appendage using a 35 mm AtriClip, epi-aortic ultrasound and intraoperative transesophageal echocardiogram Postoperative acute blood loss anemia and thrombocytopenia, expected given cardiopulmonary bypass pump and hemodilution The patient was seen and examined this morning sitting up in a recliner in the intensive care unit in no acute distress. He was successfully extubated this morning at 1:28 AM. Had an uneventful night. Remains in sinus rhythm, hemodynamically stable on low-dose Primacor. Does complain of post surgical chest discomfort, denies shortness of breath. Right internal jugular [place]/Cordis, right radial arterial line, mediastinal/left pleural chest tubes all remaining present. No new concerns. Objective - Vital Signs Vital signs: Vital Signs Temp 97.7 F 04/07/21 06:17 Pulse 83 04/08/21 07:00 Resp 26 H 04/08/21 07:00 BP 125/81 04/08/21 07:00 Pulse Ox 96 04/08/21 07:00 Intake & Output 04/07/21 04/08/21 04/08/21 18:59 06:59 18:59 Intake Total 113.915 6790.884 3.064 Output Total 2435 1144 Balance -1540.917 527.884 3.064 Weight 97.6 kg Intake: IV 812 1457.9 .9 NS pressure bag 60 102 ACETAMINOPHEN IV (For NPO 100 100 ) 1,000 mg In Empty Bag 1 bag @ 400 mls/hr IVPB Q6HR [facility] Rx#:[id number] Albumin Human 5% 250 ml 250 250 In Empty Bag 1 bag @ 250 mls/hr IVPB Q1HR PRN Rx#: [id number] CO/CI injectate. 340 Lactated Ringers 1,000 ml 250 600 @ 50 mls/hr IV .Q20H [facility] Rx#:[id number] Nitroglycerine 15.9 ceFAZolin 2 gm In Sodium 50 50 Chloride 0.9% 50 ml @ 100 mls/hr IVPB Q8HR [facility] Rx# :[id number] Intake, IV Titration 82.083 213.984 3.064 Amount Clevidipine Butyrate 25 19.134 mg In Empty Bag 1 bag @ 1 MG/HR 2 mls/hr IV .Q24H [facility] Rx#:[id number] Dexmedetomidine/0.9% NaCl 6.498 61.421 (Pmx) 400 mcg In Empty Bag 1 bag @ Titrate IV . Q0M [facility] Rx#:[id number] Insulin Regular 100 unit 12.044 36.597 3.064 In Sodium Chloride 0.9% 100 ml @ Per Protocol IV .Q0M [facility] Rx#:[id number] Milrinone-D5w Pmx 20 mg 62.338 In Dextrose/Water 1 100ml .bag @ 0.3 MCG/KG/MIN 8. 559 mls/hr IV .[id number] [facility] Rx#:[id number] Norepinephrine 4 mg In 8.696 53.628 Sodium Chloride 0.9% 250 ml @ 0.05 MCG/KG/MIN 18. 117 mls/hr IV .Q14H2M [facility] Rx#:[id number] propofoL 1,000 mg In 35.711 Empty Bag 1 bag @ Titrate IV .Q0M [facility] Rx#: [id number] Output: Chest Tube Drainage 190 400 Left Pleural/Mediastinal 190 400 Gastric Drainage 150 Urine 1345 594 Estimated Blood Loss 900 Other: Voiding Method Indwelling Catheter Indwelling Catheter ABP, PAP, CO, CI - Last Documented Arterial Blood Pressure 139/42 Pulmonary Artery Pressure 38/10 Cardiac Output 7.3 Cardiac Index 3.4 - Exam CONSTITUTIONAL: Appears comfortable, cooperative, no acute distress RESPIRATORY: Lungs sounds diminished bilaterally. Respirations even, nonlabored. Currently on 6 L nasal cannula with oxygen saturation 96%. Able to achieve 750-1000 mL on incentive spirometry. Strong cough. CARDIOVASCULAR: S1, S2 present. Regular rate and rhythm, sinus rhythm on telemetry. Sternum stable. Palpable peripheral pulses bilaterally. Trace bilateral lower extremity edema present. No calf pain or tenderness noted. Heart hugger in place with patient demonstrating appropriate use. Antiembolism stockings, SCDs present. GASTROINTESTINAL: Abdomen soft, nontender, nondistended. Hypoactive bowel sounds present 4 quadrants. Tolerating ice chips. Positive belching, negative flatus GENITOURINARY: Bundy present draining clear, yellow urine. Output overnight 15-90 mL per hour INTEGUMENTARY: Skin is warm and dry with evidence of good perfusion. Anterior chest incision well approximated and covered with dry intact dressing. Right lower extremity EVH site well approximated without redness or drainage. NEUROLOGIC: Cranial nerves II through XII intact MUSKULOSKELETAL: Able to move all extremities, strength equal bilaterally PSYCHIATRIC: Alert and oriented to person place and time, appropriate affect, intact judgment and insight INVASIVE LINES AND TUBES: Mediastinal/left pleural chest tubes present and connected to wall suction, no air leaks present, 300 mL serosanguineous drainage overnight, 600 mL since surgery. A/V epicardial pacemaker wires present, connected to generator, DDD mode with backup rate 50 bpm. Right internal jugular [place]/Cordis, right radial arterial line present. Last CO/CI 7.3/3.4, PA 39/11, CVP 6. - Allied health notes Allied health notes reviewed: nursing - Labs CBC & Chem 7: 04/08/21 04:10 04/08/21 04:10 Labs: Abnormal Lab Results - Last 24 Hours (Table) 03/31/21 04/07/21 04/07/21 Range/Units 10:25 08:47 09:35 RBC (4.30-5.90) m/uL Hgb (13.0-17.5) gm/dL Hct (39.0-53.0) % Plt Count (150-450) k/uL Lymphocytes # (1.0-4.8) k/uL ABG pH 7.31 L 7.31 L (7.35-7.45) ABG pCO2 53 H 53 H (35-45) mmHg ABG pO2 198 H 176 H (83-108) mmHg ABG HCO3 27 H 26 H (21-25) mmol/L ABG Total CO2 29 H 28 H (19-24) mmol/L ABG O2 Saturation 99.5 H 99.3 H (94-97) % ABG Hematocrit (34.0-46.0) % ABG Potassium 4.6 H 4.8 H (3.4-4.5) mmol/L ABG Ionized Calcium (4.5-5.3) mg/dL ABG Glucose 115 H 128 H (75-99) mg/dL ABG Lactic Acid (0.5-1.6) mmol/L Hemoglobin 11.6 L 11.6 L (13.0-17.5) gm/dL Sodium (137-145) mmol/L Chloride (98-107) mmol/L Glucose (74-99) mg/dL POC Glucose (mg/dL) (75-99) mg/dL Calcium (8.4-10.2) mg/dL Alkaline Phosphatase (38-126) U/L Total Protein (6.3-8.2) g/dL Albumin (3.5-5.0) g/dL Arterial Blood Potassium 4.6 H 4.8 H (3.4-4.5) mmol/L Arterial Blood Glucose 115 H 128 H (75-99) mg/dL Crossmatch See Detail 04/07/21 04/07/21 04/07/21 Range/Units 10:49 11:24 11:59 RBC (4.30-5.90) m/uL Hgb (13.0-17.5) gm/dL Hct (39.0-53.0) % Plt Count (150-450) k/uL Lymphocytes # (1.0-4.8) k/uL ABG pH 7.34 L (7.35-7.45) ABG pCO2 47 H (35-45) mmHg ABG pO2 320 H 301 H 284 H (83-108) mmHg ABG HCO3 26 H (21-25) mmol/L ABG Total CO2 27 H 27 H 27 H (19-24) mmol/L ABG O2 Saturation 100.0 H 99.9 H 99.8 H (94-97) % ABG Hematocrit 26 L 27 L 26 L (34.0-46.0) % ABG Potassium 5.6 H 5.9 H 5.6 H (3.4-4.5) mmol/L ABG Ionized Calcium 4.3 L 4.4 L 4.4 L (4.5-5.3) mg/dL ABG Glucose 123 H 135 H 144 H (75-99) mg/dL ABG Lactic Acid 2.1 H 2.4 H* (0.5-1.6) mmol/L Hemoglobin 8.4 L 8.7 L 8.3 L (13.0-17.5) gm/dL Sodium (137-145) mmol/L Chloride (98-107) mmol/L Glucose (74-99) mg/dL POC Glucose (mg/dL) (75-99) mg/dL Calcium (8.4-10.2) mg/dL Alkaline Phosphatase (38-126) U/L Total Protein (6.3-8.2) g/dL Albumin (3.5-5.0) g/dL Arterial Blood Potassium 5.6 H 5.9 H 5.6 H (3.4-4.5) mmol/L Arterial Blood Glucose 123 H 135 H 144 H (75-99) mg/dL Crossmatch 04/07/21 04/07/21 04/07/21 Range/Units 13:58 13:58 14:01 RBC 3.07 L (4.30-5.90) m/uL Hgb 9.8 L D (13.0-17.5) gm/dL Hct 28.5 L (39.0-53.0) % Plt Count 121 L (150-450) k/uL Lymphocytes # (1.0-4.8) k/uL ABG pH (7.35-7.45) ABG pCO2 (35-45) mmHg ABG pO2 (83-108) mmHg ABG HCO3 (21-25) mmol/L ABG Total CO2 (19-24) mmol/L ABG O2 Saturation (94-97) % ABG Hematocrit (34.0-46.0) % ABG Potassium (3.4-4.5) mmol/L ABG Ionized Calcium (4.5-5.3) mg/dL ABG Glucose (75-99) mg/dL ABG Lactic Acid (0.5-1.6) mmol/L Hemoglobin (13.0-17.5) gm/dL Sodium 136 L (137-145) mmol/L Chloride 109 H (98-107) mmol/L Glucose 142 H (74-99) mg/dL POC Glucose (mg/dL) 158 H (75-99) mg/dL Calcium 8.3 L (8.4-10.2) mg/dL Alkaline Phosphatase 25 L (38-126) U/L Total Protein 4.2 L (6.3-8.2) g/dL Albumin 2.4 L (3.5-5.0) g/dL Arterial Blood Potassium (3.4-4.5) mmol/L Arterial Blood Glucose (75-99) mg/dL Crossmatch 04/07/21 04/07/21 04/07/21 Range/Units 14:35 15:13 16:04 RBC (4.30-5.90) m/uL Hgb (13.0-17.5) gm/dL Hct (39.0-53.0) % Plt Count (150-450) k/uL Lymphocytes # (1.0-4.8) k/uL ABG pH 7.27 L (7.35-7.45) ABG pCO2 57 H (35-45) mmHg ABG pO2 312 H (83-108) mmHg ABG HCO3 26 H (21-25) mmol/L ABG Total CO2 28 H (19-24) mmol/L ABG O2 Saturation 99.0 H (94-97) % ABG Hematocrit (34.0-46.0) % ABG Potassium (3.4-4.5) mmol/L ABG Ionized Calcium (4.5-5.3) mg/dL ABG Glucose (75-99) mg/dL ABG Lactic Acid (0.5-1.6) mmol/L Hemoglobin (13.0-17.5) gm/dL Sodium (137-145) mmol/L Chloride (98-107) mmol/L Glucose (74-99) mg/dL POC Glucose (mg/dL) 171 H 173 H (75-99) mg/dL Calcium (8.4-10.2) mg/dL Alkaline Phosphatase (38-126) U/L Total Protein (6.3-8.2) g/dL Albumin (3.5-5.0) g/dL Arterial Blood Potassium (3.4-4.5) mmol/L Arterial Blood Glucose (75-99) mg/dL Crossmatch 04/07/21 04/07/21 04/07/21 Range/Units 16:45 17:21 18:12 RBC 3.19 L (4.30-5.90) m/uL Hgb 10.1 L (13.0-17.5) gm/dL Hct 29.6 L (39.0-53.0) % Plt Count 126 L (150-450) k/uL Lymphocytes # 0.8 L (1.0-4.8) k/uL ABG pH (7.35-7.45) ABG pCO2 (35-45) mmHg ABG pO2 (83-108) mmHg ABG HCO3 (21-25) mmol/L ABG Total CO2 (19-24) mmol/L ABG O2 Saturation (94-97) % ABG Hematocrit (34.0-46.0) % ABG Potassium (3.4-4.5) mmol/L ABG Ionized Calcium (4.5-5.3) mg/dL ABG Glucose (75-99) mg/dL ABG Lactic Acid (0.5-1.6) mmol/L Hemoglobin (13.0-17.5) gm/dL Sodium (137-145) mmol/L Chloride (98-107) mmol/L Glucose (74-99) mg/dL POC Glucose (mg/dL) 167 H 166 H (75-99) mg/dL Calcium (8.4-10.2) mg/dL Alkaline Phosphatase (38-126) U/L Total Protein (6.3-8.2) g/dL Albumin (3.5-5.0) g/dL Arterial Blood Potassium (3.4-4.5) mmol/L Arterial Blood Glucose (75-99) mg/dL Crossmatch 04/07/21 04/07/21 04/07/21 Range/Units 18:47 18:47 20:01 RBC 3.15 L (4.30-5.90) m/uL Hgb 9.9 L (13.0-17.5) gm/dL Hct 29.1 L (39.0-53.0) % Plt Count 128 L (150-450) k/uL Lymphocytes # 0.5 L (1.0-4.8) k/uL ABG pH (7.35-7.45) ABG pCO2 (35-45) mmHg ABG pO2 (83-108) mmHg ABG HCO3 (21-25) mmol/L ABG Total CO2 (19-24) mmol/L ABG O2 Saturation (94-97) % ABG Hematocrit (34.0-46.0) % ABG Potassium (3.4-4.5) mmol/L ABG Ionized Calcium (4.5-5.3) mg/dL ABG Glucose (75-99) mg/dL ABG Lactic Acid (0.5-1.6) mmol/L Hemoglobin (13.0-17.5) gm/dL Sodium (137-145) mmol/L Chloride (98-107) mmol/L Glucose (74-99) mg/dL POC Glucose (mg/dL) 155 H 149 H (75-99) mg/dL Calcium (8.4-10.2) mg/dL Alkaline Phosphatase (38-126) U/L Total Protein (6.3-8.2) g/dL Albumin (3.5-5.0) g/dL Arterial Blood Potassium (3.4-4.5) mmol/L Arterial Blood Glucose (75-99) mg/dL Crossmatch 04/07/21 04/07/21 04/07/21 Range/Units 21:04 22:08 23:04 RBC (4.30-5.90) m/uL Hgb (13.0-17.5) gm/dL Hct (39.0-53.0) % Plt Count (150-450) k/uL Lymphocytes # (1.0-4.8) k/uL ABG pH (7.35-7.45) ABG pCO2 (35-45) mmHg ABG pO2 (83-108) mmHg ABG HCO3 (21-25) mmol/L ABG Total CO2 (19-24) mmol/L ABG O2 Saturation (94-97) % ABG Hematocrit (34.0-46.0) % ABG Potassium (3.4-4.5) mmol/L ABG Ionized Calcium (4.5-5.3) mg/dL ABG Glucose (75-99) mg/dL ABG Lactic Acid (0.5-1.6) mmol/L Hemoglobin (13.0-17.5) gm/dL Sodium (137-145) mmol/L Chloride (98-107) mmol/L Glucose (74-99) mg/dL POC Glucose (mg/dL) 134 H 124 H 116 H (75-99) mg/dL Calcium (8.4-10.2) mg/dL Alkaline Phosphatase (38-126) U/L Total Protein (6.3-8.2) g/dL Albumin (3.5-5.0) g/dL Arterial Blood Potassium (3.4-4.5) mmol/L Arterial Blood Glucose (75-99) mg/dL Crossmatch 04/08/21 04/08/21 04/08/21 Range/Units 00:04 00:17 01:01 RBC (4.30-5.90) m/uL Hgb (13.0-17.5) gm/dL Hct (39.0-53.0) % Plt Count (150-450) k/uL Lymphocytes # (1.0-4.8) k/uL ABG pH 7.30 L (7.35-7.45) ABG pCO2 48 H (35-45) mmHg ABG pO2 160 H (83-108) mmHg ABG HCO3 (21-25) mmol/L ABG Total CO2 25 H (19-24) mmol/L ABG O2 Saturation 98.7 H (94-97) % ABG Hematocrit (34.0-46.0) % ABG Potassium (3.4-4.5) mmol/L ABG Ionized Calcium (4.5-5.3) mg/dL ABG Glucose (75-99) mg/dL ABG Lactic Acid (0.5-1.6) mmol/L Hemoglobin (13.0-17.5) gm/dL Sodium (137-145) mmol/L Chloride (98-107) mmol/L Glucose (74-99) mg/dL POC Glucose (mg/dL) 109 H 142 H (75-99) mg/dL Calcium (8.4-10.2) mg/dL Alkaline Phosphatase (38-126) U/L Total Protein (6.3-8.2) g/dL Albumin (3.5-5.0) g/dL Arterial Blood Potassium (3.4-4.5) mmol/L Arterial Blood Glucose (75-99) mg/dL Crossmatch 04/08/21 04/08/21 04/08/21 Range/Units 02:15 03:05 04:09 RBC (4.30-5.90) m/uL Hgb (13.0-17.5) gm/dL Hct (39.0-53.0) % Plt Count (150-450) k/uL Lymphocytes # (1.0-4.8) k/uL ABG pH (7.35-7.45) ABG pCO2 (35-45) mmHg ABG pO2 (83-108) mmHg ABG HCO3 (21-25) mmol/L ABG Total CO2 (19-24) mmol/L ABG O2 Saturation (94-97) % ABG Hematocrit (34.0-46.0) % ABG Potassium (3.4-4.5) mmol/L ABG Ionized Calcium (4.5-5.3) mg/dL ABG Glucose (75-99) mg/dL ABG Lactic Acid (0.5-1.6) mmol/L Hemoglobin (13.0-17.5) gm/dL Sodium (137-145) mmol/L Chloride (98-107) mmol/L Glucose (74-99) mg/dL POC Glucose (mg/dL) 139 H 129 H 113 H (75-99) mg/dL Calcium (8.4-10.2) mg/dL Alkaline Phosphatase (38-126) U/L Total Protein (6.3-8.2) g/dL Albumin (3.5-5.0) g/dL Arterial Blood Potassium (3.4-4.5) mmol/L Arterial Blood Glucose (75-99) mg/dL Crossmatch 04/08/21 04/08/21 04/08/21 Range/Units 04:10 04:10 05:08 RBC 2.98 L (4.30-5.90) m/uL Hgb 9.3 L (13.0-17.5) gm/dL Hct 27.4 L (39.0-53.0) % Plt Count 136 L (150-450) k/uL Lymphocytes # (1.0-4.8) k/uL ABG pH (7.35-7.45) ABG pCO2 (35-45) mmHg ABG pO2 (83-108) mmHg ABG HCO3 (21-25) mmol/L ABG Total CO2 (19-24) mmol/L ABG O2 Saturation (94-97) % ABG Hematocrit (34.0-46.0) % ABG Potassium (3.4-4.5) mmol/L ABG Ionized Calcium (4.5-5.3) mg/dL ABG Glucose (75-99) mg/dL ABG Lactic Acid (0.5-1.6) mmol/L Hemoglobin (13.0-17.5) gm/dL Sodium (137-145) mmol/L Chloride 112 H (98-107) mmol/L Glucose 109 H (74-99) mg/dL POC Glucose (mg/dL) 127 H (75-99) mg/dL Calcium 8.2 L (8.4-10.2) mg/dL Alkaline Phosphatase 30 L (38-126) U/L Total Protein 4.6 L (6.3-8.2) g/dL Albumin 2.7 L (3.5-5.0) g/dL Arterial Blood Potassium (3.4-4.5) mmol/L Arterial Blood Glucose (75-99) mg/dL Crossmatch 04/08/21 04/08/21 Range/Units 06:09 07:06 RBC (4.30-5.90) m/uL Hgb (13.0-17.5) gm/dL Hct (39.0-53.0) % Plt Count (150-450) k/uL Lymphocytes # (1.0-4.8) k/uL ABG pH (7.35-7.45) ABG pCO2 (35-45) mmHg ABG pO2 (83-108) mmHg ABG HCO3 (21-25) mmol/L ABG Total CO2 (19-24) mmol/L ABG O2 Saturation (94-97) % ABG Hematocrit (34.0-46.0) % ABG Potassium (3.4-4.5) mmol/L ABG Ionized Calcium (4.5-5.3) mg/dL ABG Glucose (75-99) mg/dL ABG Lactic Acid (0.5-1.6) mmol/L Hemoglobin (13.0-17.5) gm/dL Sodium (137-145) mmol/L Chloride (98-107) mmol/L Glucose (74-99) mg/dL POC Glucose (mg/dL) 157 H 161 H (75-99) mg/dL Calcium (8.4-10.2) mg/dL Alkaline Phosphatase (38-126) U/L Total Protein (6.3-8.2) g/dL Albumin (3.5-5.0) g/dL Arterial Blood Potassium (3.4-4.5) mmol/L Arterial Blood Glucose (75-99) mg/dL Crossmatch - Imaging and Cardiology Chest x-ray: image reviewed Assessment and Plan Assessment: 1. Coronary artery disease with previous myocardial infarction and stenting, status post three-vessel CABG 2. Hypertension 3. Hyperlipidemia, treated, cholesterol 99, LDL 33 4. Luw-dbnzsyl-skaoorjxv diabetes, preoperative hemoglobin A1c 7.9% 5. Ischemic cardiomyopathy, preoperative EF 50-55% 6. Moderate COPD with preoperative FEV1 59% of predicted 7. Current tobacco dependence, recent cessation one week ago 8. Vaccinated and boosted against Covid 9. Postoperative acute blood loss anemia and thrombocytopenia Plan: 1. Continue aspirin, plavix, statin, beta wang therapy. Will increase beta wang therapy as tolerated 2. Will wean off primacor. Will discontinue swan. Connect cordis to continuous CVP monitoring 3. Wean oxygen as tolerated. Encourage incentive spirometry 10 times every hour while awake. Bronchodilators per pulmonology 4. Encourage continued smoking cessation 5. Will monitor daily labs and CXRs. Electrolyte replacement per protocol 5. GI/DVT prophylaxis 6. Pain control with current medication regimen 7. Insulin management per internal medicine. Patient needs tight blood sugar control to promote healing, prevent infection 8. Continue chest tubes for another 24 hours 9. Continue bundy for another 24 hours for strict accurate I/O. Daily weights 10. More recommendations to follow Time with Patient: Greater than 30
[2021-04-08] MEDS ORDERED: METOPROLOL TARTRATE 12.5 MG TAB PO STA (08:25)
[2021-04-08] MEDS ORDERED: METOPROLOL TARTRATE 12.5 MG TAB PO SCH ×2 (09:00→21:00)
[2021-04-08] MEDS ORDERED: bisacodyL 10 MG SUPP RECTAL PRN (09:00)
[2021-04-08] MEDS ORDERED: PANTOPRAZOLE 40 MG/10 ML VIAL IVP SCH (09:00)
[2021-04-08 09:15] LABS: Glucose,Whole Blood 162 mg/dL (75-99)
--- NOTE | 2021-04-08 09:29 | P.PN ---
Subjective Progress Note Date: 04/08/21 Principal diagnosis: Status post bypass grafting, postoperative ventilator management. Pulmonary consult dated 04/07/2021. This is a 75-year-old male who was recently evaluated by cardiology, with a known history of coronary disease, previous myocardial infarction, and multiple stents of the right coronary artery. In addition, the patient has a history of hypertension, hyperlipidemia, diabetes, ischemic cardiomyopathy, and ongoing tobacco use. The patient was evaluated by cardiology, and was found have significant coronary disease on catheterization. Today, he underwent a three- vessel bypass grafting. The surgery was done by Dr. Valdes. The patient had a ALFORD to LAD bypass, saphenous vein graft to OM, and saphenous vein graft to PDA. In addition, the patient had intraoperative transesophageal echocardiogram, and ligation of atrial appendage. The patient is seen here in the ICU, and we are seeing the patient postoperatively. The patient's currently on the ventilator, with vent settings of volume assist control, rate of 14, tidal volume 500, FiO2 100%, and PEEP of 5. Blood gases are currently pending. Chest x-ray has not yet been done. The patient's on norepinephrine at 0.02 mcg/kg/m, Primacor 0.3 mcg/kg/m, propofol at 20 g kilogram per minute, and nitroglycerin at 5 mcg/m. Most recent laboratory data shows a blood gas with a pO2 of 284, pCO2 47, pH is 7.34. The blood glucose was 144. Progress note dated 04/08/2021. 75-year-old male who I saw yesterday in consultation. He's postop day #1, status post three-vessel bypass grafting. He did ALFORD to LAD bypass, SVG to OM bypass, and SVG to PDA bypass. The patient was extubated yesterday. It took about 12 hours to get him extubated. When I spoke to the nurse, there is some issues with hemodynamics, and the patient wasn't really waking up as quickly as expected. The patient does have a history of hypertension, hyperlipidemia, diabetes, ischemic cardiomyopathy, and ongoing tobacco use. The surgery was done by Dr. Valdes. Currently, the patient's on 4 L nasal O2. He is getting lac tated Ringer's at 50 mL an hour, insulin at 4.5 units an hour, and Primacor has just recently been turned off. In addition, the patient's on nitroglycerin at 5 mcg/m. The patient's chest x-ray shows typical postoperative changes. There is some basilar atelectasis. White count 8.7, hemoglobin 9.3, hematocrit 27.4, and platelet count 136,000. Sodium 137, potassium 4.3, chlorides 112, CO2 24, BUN 17, and creatinine 1.01. Albumin is 2.7. Objective - Vital Signs Vital signs: Vital Signs Temp 99.3 F 04/08/21 08:00 Pulse 78 04/08/21 08:08 Resp 18 04/08/21 08:00 BP 143/61 04/08/21 08:00 Pulse Ox 98 04/08/21 08:00 Intake & Output 04/07/21 04/08/21 04/08/21 18:59 06:59 18:59 Intake Total 356.171 8413.884 434.064 Output Total 2435 1144 125 Balance -1540.917 527.884 309.064 Weight 97.6 kg Intake: IV 812 1457.9 431.0 .9 NS pressure bag 60 102 18 ACETAMINOPHEN IV (For NPO 100 100 ) 1,000 mg In Empty Bag 1 bag @ 400 mls/hr IVPB Q6HR [facility] Rx#:[id number] Albumin Human 5% 250 ml 250 250 250 In Empty Bag 1 bag @ 250 mls/hr IVPB Q1HR PRN Rx#: [id number] CO/CI injectate. 340 60 Lactated Ringers 1,000 ml 250 600 100 @ 20 mls/hr IV .Q24H [facility] Rx#:[id number] Nitroglycerine 15.9 3.0 ceFAZolin 2 gm In Sodium 50 50 Chloride 0.9% 50 ml @ 100 mls/hr IVPB Q8HR [facility] Rx# :[id number] Intake, IV Titration 82.083 213.984 3.064 Amount Clevidipine Butyrate 25 19.134 mg In Empty Bag 1 bag @ 1 MG/HR 2 mls/hr IV .Q24H [facility] Rx#:[id number] Dexmedetomidine/0.9% NaCl 6.498 61.421 (Pmx) 400 mcg In Empty Bag 1 bag @ Titrate IV . Q0M [facility] Rx#:[id number] Insulin Regular 100 unit 12.044 36.597 3.064 In Sodium Chloride 0.9% 100 ml @ Per Protocol IV .Q0M [facility] Rx#:[id number] Milrinone-D5w Pmx 20 mg 62.338 In Dextrose/Water 1 100ml .bag @ 0.3 MCG/KG/MIN 8. 559 mls/hr IV .Q65S54K [facility] Rx#:[id number] Norepinephrine 4 mg In 8.696 53.628 Sodium Chloride 0.9% 250 ml @ 0.05 MCG/KG/MIN 18. 117 mls/hr IV .Q14H2M [facility] Rx#:[id number] propofoL 1,000 mg In 35.711 Empty Bag 1 bag @ Titrate IV .Q0M [facility] Rx#: [id number] Output: Chest Tube Drainage 190 400 20 Left Pleural/Mediastinal 190 400 20 Gastric Drainage 150 Urine 1345 594 105 Estimated Blood Loss 900 Other: Voiding Method Indwelling Catheter Indwelling Catheter Indwelling Catheter ABP, PAP, CO, CI - Last Documented Arterial Blood Pressure 161/46 Pulmonary Artery Pressure 36/9 Cardiac Output 8.5 Cardiac Index 4 - Exam No acute distress, extubated, on O2, at 4 L nasal cannula. HEENT examination is grossly unremarkable. Neck supple. Full range of motion. No adenopathy thyromegaly or neck vein distention. Cardiovascular examination reveals regular rhythm rate. S1-S2 normal. No S3 or S4. No discernible murmur noted. Heart rate 78 bpm. Lungs reveal clear breath sounds. Breath sounds are equal bilaterally. No adventitious lung sounds including wheezes rhonchi or crackles. Abdomen is soft, without bowel sounds. Extremities are intact. No cyanosis clubbing or edema. Skin is without rash or lesion. Neurologic examination is brief but nonfocal. - Labs CBC & Chem 7: 04/08/21 04:10 04/08/21 04:10 Labs: Abnormal Lab Results - Last 24 Hours (Table) 03/31/21 04/07/21 04/07/21 Range/Units 10:25 08:47 09:35 RBC (4.30-5.90) m/uL Hgb (13.0-17.5) gm/dL Hct (39.0-53.0) % Plt Count (150-450) k/uL Lymphocytes # (1.0-4.8) k/uL ABG pH 7.31 L 7.31 L (7.35-7.45) ABG pCO2 53 H 53 H (35-45) mmHg ABG pO2 198 H 176 H (83-108) mmHg ABG HCO3 27 H 26 H (21-25) mmol/L ABG Total CO2 29 H 28 H (19-24) mmol/L ABG O2 Saturation 99.5 H 99.3 H (94-97) % ABG Hematocrit (34.0-46.0) % ABG Potassium 4.6 H 4.8 H (3.4-4.5) mmol/L ABG Ionized Calcium (4.5-5.3) mg/dL ABG Glucose 115 H 128 H (75-99) mg/dL ABG Lactic Acid (0.5-1.6) mmol/L Hemoglobin 11.6 L 11.6 L (13.0-17.5) gm/dL Sodium (137-145) mmol/L Chloride (98-107) mmol/L Glucose (74-99) mg/dL POC Glucose (mg/dL) (75-99) mg/dL Calcium (8.4-10.2) mg/dL Alkaline Phosphatase (38-126) U/L Total Protein (6.3-8.2) g/dL Albumin (3.5-5.0) g/dL Arterial Blood Potassium 4.6 H 4.8 H (3.4-4.5) mmol/L Arterial Blood Glucose 115 H 128 H (75-99) mg/dL Crossmatch See Detail 04/07/21 04/07/21 04/07/21 Range/Units 10:49 11:24 11:59 RBC (4.30-5.90) m/uL Hgb (13.0-17.5) gm/dL Hct (39.0-53.0) % Plt Count (150-450) k/uL Lymphocytes # (1.0-4.8) k/uL ABG pH 7.34 L (7.35-7.45) ABG pCO2 47 H (35-45) mmHg ABG pO2 320 H 301 H 284 H (83-108) mmHg ABG HCO3 26 H (21-25) mmol/L ABG Total CO2 27 H 27 H 27 H (19-24) mmol/L ABG O2 Saturation 100.0 H 99.9 H 99.8 H (94-97) % ABG Hematocrit 26 L 27 L 26 L (34.0-46.0) % ABG Potassium 5.6 H 5.9 H 5.6 H (3.4-4.5) mmol/L ABG Ionized Calcium 4.3 L 4.4 L 4.4 L (4.5-5.3) mg/dL ABG Glucose 123 H 135 H 144 H (75-99) mg/dL ABG Lactic Acid 2.1 H 2.4 H* (0.5-1.6) mmol/L Hemoglobin 8.4 L 8.7 L 8.3 L (13.0-17.5) gm/dL Sodium (137-145) mmol/L Chloride (98-107) mmol/L Glucose (74-99) mg/dL POC Glucose (mg/dL) (75-99) mg/dL Calcium (8.4-10.2) mg/dL Alkaline Phosphatase (38-126) U/L Total Protein (6.3-8.2) g/dL Albumin (3.5-5.0) g/dL Arterial Blood Potassium 5.6 H 5.9 H 5.6 H (3.4-4.5) mmol/L Arterial Blood Glucose 123 H 135 H 144 H (75-99) mg/dL Crossmatch 04/07/21 04/07/21 04/07/21 Range/Units 13:58 13:58 14:01 RBC 3.07 L (4.30-5.90) m/uL Hgb 9.8 L D (13.0-17.5) gm/dL Hct 28.5 L (39.0-53.0) % Plt Count 121 L (150-450) k/uL Lymphocytes # (1.0-4.8) k/uL ABG pH (7.35-7.45) ABG pCO2 (35-45) mmHg ABG pO2 (83-108) mmHg ABG HCO3 (21-25) mmol/L ABG Total CO2 (19-24) mmol/L ABG O2 Saturation (94-97) % ABG Hematocrit (34.0-46.0) % ABG Potassium (3.4-4.5) mmol/L ABG Ionized Calcium (4.5-5.3) mg/dL ABG Glucose (75-99) mg/dL ABG Lactic Acid (0.5-1.6) mmol/L Hemoglobin (13.0-17.5) gm/dL Sodium 136 L (137-145) mmol/L Chloride 109 H (98-107) mmol/L Glucose 142 H (74-99) mg/dL POC Glucose (mg/dL) 158 H (75-99) mg/dL Calcium 8.3 L (8.4-10.2) mg/dL Alkaline Phosphatase 25 L (38-126) U/L Total Protein 4.2 L (6.3-8.2) g/dL Albumin 2.4 L (3.5-5.0) g/dL Arterial Blood Potassium (3.4-4.5) mmol/L Arterial Blood Glucose (75-99) mg/dL Crossmatch 04/07/21 04/07/21 04/07/21 Range/Units 14:35 15:13 16:04 RBC (4.30-5.90) m/uL Hgb (13.0-17.5) gm/dL Hct (39.0-53.0) % Plt Count (150-450) k/uL Lymphocytes # (1.0-4.8) k/uL ABG pH 7.27 L (7.35-7.45) ABG pCO2 57 H (35-45) mmHg ABG pO2 312 H (83-108) mmHg ABG HCO3 26 H (21-25) mmol/L ABG Total CO2 28 H (19-24) mmol/L ABG O2 Saturation 99.0 H (94-97) % ABG Hematocrit (34.0-46.0) % ABG Potassium (3.4-4.5) mmol/L ABG Ionized Calcium (4.5-5.3) mg/dL ABG Glucose (75-99) mg/dL ABG Lactic Acid (0.5-1.6) mmol/L Hemoglobin (13.0-17.5) gm/dL Sodium (137-145) mmol/L Chloride (98-107) mmol/L Glucose (74-99) mg/dL POC Glucose (mg/dL) 171 H 173 H (75-99) mg/dL Calcium (8.4-10.2) mg/dL Alkaline Phosphatase (38-126) U/L Total Protein (6.3-8.2) g/dL Albumin (3.5-5.0) g/dL Arterial Blood Potassium (3.4-4.5) mmol/L Arterial Blood Glucose (75-99) mg/dL Crossmatch 04/07/21 04/07/21 04/07/21 Range/Units 16:45 17:21 18:12 RBC 3.19 L (4.30-5.90) m/uL Hgb 10.1 L (13.0-17.5) gm/dL Hct 29.6 L (39.0-53.0) % Plt Count 126 L (150-450) k/uL Lymphocytes # 0.8 L (1.0-4.8) k/uL ABG pH (7.35-7.45) ABG pCO2 (35-45) mmHg ABG pO2 (83-108) mmHg ABG HCO3 (21-25) mmol/L ABG Total CO2 (19-24) mmol/L ABG O2 Saturation (94-97) % ABG Hematocrit (34.0-46.0) % ABG Potassium (3.4-4.5) mmol/L ABG Ionized Calcium (4.5-5.3) mg/dL ABG Glucose (75-99) mg/dL ABG Lactic Acid (0.5-1.6) mmol/L Hemoglobin (13.0-17.5) gm/dL Sodium (137-145) mmol/L Chloride (98-107) mmol/L Glucose (74-99) mg/dL POC Glucose (mg/dL) 167 H 166 H (75-99) mg/dL Calcium (8.4-10.2) mg/dL Alkaline Phosphatase (38-126) U/L Total Protein (6.3-8.2) g/dL Albumin (3.5-5.0) g/dL Arterial Blood Potassium (3.4-4.5) mmol/L Arterial Blood Glucose (75-99) mg/dL Crossmatch 04/07/21 04/07/21 04/07/21 Range/Units 18:47 18:47 20:01 RBC 3.15 L (4.30-5.90) m/uL Hgb 9.9 L (13.0-17.5) gm/dL Hct 29.1 L (39.0-53.0) % Plt Count 128 L (150-450) k/uL Lymphocytes # 0.5 L (1.0-4.8) k/uL ABG pH (7.35-7.45) ABG pCO2 (35-45) mmHg ABG pO2 (83-108) mmHg ABG HCO3 (21-25) mmol/L ABG Total CO2 (19-24) mmol/L ABG O2 Saturation (94-97) % ABG Hematocrit (34.0-46.0) % ABG Potassium (3.4-4.5) mmol/L ABG Ionized Calcium (4.5-5.3) mg/dL ABG Glucose (75-99) mg/dL ABG Lactic Acid (0.5-1.6) mmol/L Hemoglobin (13.0-17.5) gm/dL Sodium (137-145) mmol/L Chloride (98-107) mmol/L Glucose (74-99) mg/dL POC Glucose (mg/dL) 155 H 149 H (75-99) mg/dL Calcium (8.4-10.2) mg/dL Alkaline Phosphatase (38-126) U/L Total Protein (6.3-8.2) g/dL Albumin (3.5-5.0) g/dL Arterial Blood Potassium (3.4-4.5) mmol/L Arterial Blood Glucose (75-99) mg/dL Crossmatch 04/07/21 04/07/21 04/07/21 Range/Units 21:04 22:08 23:04 RBC (4.30-5.90) m/uL Hgb (13.0-17.5) gm/dL Hct (39.0-53.0) % Plt Count (150-450) k/uL Lymphocytes # (1.0-4.8) k/uL ABG pH (7.35-7.45) ABG pCO2 (35-45) mmHg ABG pO2 (83-108) mmHg ABG HCO3 (21-25) mmol/L ABG Total CO2 (19-24) mmol/L ABG O2 Saturation (94-97) % ABG Hematocrit (34.0-46.0) % ABG Potassium (3.4-4.5) mmol/L ABG Ionized Calcium (4.5-5.3) mg/dL ABG Glucose (75-99) mg/dL ABG Lactic Acid (0.5-1.6) mmol/L Hemoglobin (13.0-17.5) gm/dL Sodium (137-145) mmol/L Chloride (98-107) mmol/L Glucose (74-99) mg/dL POC Glucose (mg/dL) 134 H 124 H 116 H (75-99) mg/dL Calcium (8.4-10.2) mg/dL Alkaline Phosphatase (38-126) U/L Total Protein (6.3-8.2) g/dL Albumin (3.5-5.0) g/dL Arterial Blood Potassium (3.4-4.5) mmol/L Arterial Blood Glucose (75-99) mg/dL Crossmatch 04/08/21 04/08/21 04/08/21 Range/Units 00:04 00:17 01:01 RBC (4.30-5.90) m/uL Hgb (13.0-17.5) gm/dL Hct (39.0-53.0) % Plt Count (150-450) k/uL Lymphocytes # (1.0-4.8) k/uL ABG pH 7.30 L (7.35-7.45) ABG pCO2 48 H (35-45) mmHg ABG pO2 160 H (83-108) mmHg ABG HCO3 (21-25) mmol/L ABG Total CO2 25 H (19-24) mmol/L ABG O2 Saturation 98.7 H (94-97) % ABG Hematocrit (34.0-46.0) % ABG Potassium (3.4-4.5) mmol/L ABG Ionized Calcium (4.5-5.3) mg/dL ABG Glucose (75-99) mg/dL ABG Lactic Acid (0.5-1.6) mmol/L Hemoglobin (13.0-17.5) gm/dL Sodium (137-145) mmol/L Chloride (98-107) mmol/L Glucose (74-99) mg/dL POC Glucose (mg/dL) 109 H 142 H (75-99) mg/dL Calcium (8.4-10.2) mg/dL Alkaline Phosphatase (38-126) U/L Total Protein (6.3-8.2) g/dL Albumin (3.5-5.0) g/dL Arterial Blood Potassium (3.4-4.5) mmol/L Arterial Blood Glucose (75-99) mg/dL Crossmatch 04/08/21 04/08/21 04/08/21 Range/Units 02:15 03:05 04:09 RBC (4.30-5.90) m/uL Hgb (13.0-17.5) gm/dL Hct (39.0-53.0) % Plt Count (150-450) k/uL Lymphocytes # (1.0-4.8) k/uL ABG pH (7.35-7.45) ABG pCO2 (35-45) mmHg ABG pO2 (83-108) mmHg ABG HCO3 (21-25) mmol/L ABG Total CO2 (19-24) mmol/L ABG O2 Saturation (94-97) % ABG Hematocrit (34.0-46.0) % ABG Potassium (3.4-4.5) mmol/L ABG Ionized Calcium (4.5-5.3) mg/dL ABG Glucose (75-99) mg/dL ABG Lactic Acid (0.5-1.6) mmol/L Hemoglobin (13.0-17.5) gm/dL Sodium (137-145) mmol/L Chloride (98-107) mmol/L Glucose (74-99) mg/dL POC Glucose (mg/dL) 139 H 129 H 113 H (75-99) mg/dL Calcium (8.4-10.2) mg/dL Alkaline Phosphatase (38-126) U/L Total Protein (6.3-8.2) g/dL Albumin (3.5-5.0) g/dL Arterial Blood Potassium (3.4-4.5) mmol/L Arterial Blood Glucose (75-99) mg/dL Crossmatch 04/08/21 04/08/21 04/08/21 Range/Units 04:10 04:10 05:08 RBC 2.98 L (4.30-5.90) m/uL Hgb 9.3 L (13.0-17.5) gm/dL Hct 27.4 L (39.0-53.0) % Plt Count 136 L (150-450) k/uL Lymphocytes # (1.0-4.8) k/uL ABG pH (7.35-7.45) ABG pCO2 (35-45) mmHg ABG pO2 (83-108) mmHg ABG HCO3 (21-25) mmol/L ABG Total CO2 (19-24) mmol/L ABG O2 Saturation (94-97) % ABG Hematocrit (34.0-46.0) % ABG Potassium (3.4-4.5) mmol/L ABG Ionized Calcium (4.5-5.3) mg/dL ABG Glucose (75-99) mg/dL ABG Lactic Acid (0.5-1.6) mmol/L Hemoglobin (13.0-17.5) gm/dL Sodium (137-145) mmol/L Chloride 112 H (98-107) mmol/L Glucose 109 H (74-99) mg/dL POC Glucose (mg/dL) 127 H (75-99) mg/dL Calcium 8.2 L (8.4-10.2) mg/dL Alkaline Phosphatase 30 L (38-126) U/L Total Protein 4.6 L (6.3-8.2) g/dL Albumin 2.7 L (3.5-5.0) g/dL Arterial Blood Potassium (3.4-4.5) mmol/L Arterial Blood Glucose (75-99) mg/dL Crossmatch 04/08/21 04/08/21 04/08/21 Range/Units 06:09 07:06 08:02 RBC (4.30-5.90) m/uL Hgb (13.0-17.5) gm/dL Hct (39.0-53.0) % Plt Count (150-450) k/uL Lymphocytes # (1.0-4.8) k/uL ABG pH (7.35-7.45) ABG pCO2 (35-45) mmHg ABG pO2 (83-108) mmHg ABG HCO3 (21-25) mmol/L ABG Total CO2 (19-24) mmol/L ABG O2 Saturation (94-97) % ABG Hematocrit (34.0-46.0) % ABG Potassium (3.4-4.5) mmol/L ABG Ionized Calcium (4.5-5.3) mg/dL ABG Glucose (75-99) mg/dL ABG Lactic Acid (0.5-1.6) mmol/L Hemoglobin (13.0-17.5) gm/dL Sodium (137-145) mmol/L Chloride (98-107) mmol/L Glucose (74-99) mg/dL POC Glucose (mg/dL) 157 H 161 H 145 H (75-99) mg/dL Calcium (8.4-10.2) mg/dL Alkaline Phosphatase (38-126) U/L Total Protein (6.3-8.2) g/dL Albumin (3.5-5.0) g/dL Arterial Blood Potassium (3.4-4.5) mmol/L Arterial Blood Glucose (75-99) mg/dL Crossmatch 04/08/21 Range/Units 09:13 RBC (4.30-5.90) m/uL Hgb (13.0-17.5) gm/dL Hct (39.0-53.0) % Plt Count (150-450) k/uL Lymphocytes # (1.0-4.8) k/uL ABG pH (7.35-7.45) ABG pCO2 (35-45) mmHg ABG pO2 (83-108) mmHg ABG HCO3 (21-25) mmol/L ABG Total CO2 (19-24) mmol/L ABG O2 Saturation (94-97) % ABG Hematocrit (34.0-46.0) % ABG Potassium (3.4-4.5) mmol/L ABG Ionized Calcium (4.5-5.3) mg/dL ABG Glucose (75-99) mg/dL ABG Lactic Acid (0.5-1.6) mmol/L Hemoglobin (13.0-17.5) gm/dL Sodium (137-145) mmol/L Chloride (98-107) mmol/L Glucose (74-99) mg/dL POC Glucose (mg/dL) 162 H (75-99) mg/dL Calcium (8.4-10.2) mg/dL Alkaline Phosphatase (38-126) U/L Total Protein (6.3-8.2) g/dL Albumin (3.5-5.0) g/dL Arterial Blood Potassium (3.4-4.5) mmol/L Arterial Blood Glucose (75-99) mg/dL Crossmatch Assessment and Plan Assessment: Postop day #1, status post three-vessel bypass grafting, ALFORD to LAD, SVG to OM, and SVG to PDA. In addition, the patient had a ligation of atrial appendage, and intraoperative transesophageal echocardiogram. Routine postoperative ventilator management, status post extubation on O2/ . Prior history of myocardial infarction. History of CAD, with previous multiple stents. History of hypertension. History of hyperlipidemia. History of gxh-tbhnyiy-grayrselz diabetes mellitus. History of ischemic cardiomyopathy. History of ongoing tobacco use with nicotine addiction. Plan: Plan dated 04/07/2021. Chest x-ray in the blood gas. That changes will be made. In addition, we will attempt to wean the patient and extubate the patient from the ventilator, as quickly and as safely as possible. Finally, we will continue to follow the patient along his hospitalization and make sure that his lungs remain healthy, and that he does not have a complication such as pneumonia, atelectasis, lobar collapse, pleural effusion. We'll recommend deep breathing, coughing, clearing of secretions, and hourly use of the incentive spirometer. Additional recommendations and suggestions are forthcoming. Plan dated 04/08/2021. The patient was finally extubated after about 12 hours. The patient apparently has some hemodynamic issues, and he was not emergent from anesthesia as quickly as expected. Currently, the patient's on 4 L nasal cannula. He remains on lactated Ringer's, and an insulin drip of 4.5 units an hour. Primacor is been finally turned down. He's currently on nitroglycerin at 5 mcg/m. Today's postop day #1. Labs, x-rays, and medications are all reviewed. We will continue to follow make recommendations were appropriate. We will recommend deep breathing, coughing, clearing of secretions. We also recommend hourly use of the incentive spirometer. Time with Patient: Greater than 30
--- NOTE | 2021-04-08 09:39 | XR ---
EXAMINATION TYPE: XR chest 1V portable DATE OF EXAM: 04/08/2021 COMPARISON: 04/07/2021 HISTORY: Postop TECHNIQUE: Single frontal view of the chest is obtained. FINDINGS: There is a left-sided chest tube with a less than 5% left apical pneumothorax. Subcutaneou s emphysema along the soft tissues of the left. Interstitial pattern with bilateral infiltrate and pl eural effusion. Right-sided [place] catheter with the tip overlying the proximal pulmonary outflow tract. Postoperative changes. IMPRESSION: 1. Correlate for mild venous congestion or interstitial pneumonitis with bilateral infiltrate and sma ll effusion. 2. Less than 5% left apical pneumothorax with soft tissue emphysema.
[2021-04-08 10:27] LABS: Glucose,Whole Blood 176 mg/dL (75-99)
[2021-04-08 11:01] VITALS: BMI 29.9
[2021-04-08 12:12] LABS: Glucose,Whole Blood 162 mg/dL (75-99)
[2021-04-08] MEDS: lisinopriL 5 MG TAB PO SCH (12:23)
[2021-04-08 13:11] LABS: Glucose,Whole Blood 214 mg/dL (75-99)
[2021-04-08] MEDS: LACTATED RINGERS 1,000 ML IV SCH (13:18)
[2021-04-08] MEDS: INSULIN REGULAR 100 UNIT in SODIUM CHLORIDE 0.9% 100 ML IV SCH (13:40)
--- NOTE | 2021-04-08 14:08 | P.CRDCN ---
History of Present Illness Consult date: 04/08/21 History of present illness: This is a 75-year-old gentleman with history of previous myocardial infarction and multiple stents in the right coronary artery, hypertension, hypercholesterolemia, diabetes and ischemic cardiomyopathy was evaluated by cardiac catheterization and was found to have multivessel disease and was recommended to have bypass surgery. Patient had bypass surgery with the ALFORD graft to the LAD, vein graft to the OM and also vein graft to the PDA. Patient also had ligation of the atrial appendage. Patient is in intensive care unit. At the time of my examination patient is sitting in the chair. He is attempting to eat. He complaints of not feeling well and having some chest discomfort and shortness of breath. Chest x-ray showed some congestion and infiltrates and about 5% pneumothorax on the left side. Currently patient is on 4 L of nasal oxygen. Patient is an IV nitroglycerin. His hemoglobin is about 9.3. BUN is 17 and creatinine is 1. Overall patient seemed to be making satisfactory progress so far. No cardiac arrhythmias are noted. We'll continue current medical therapy along with Incentive spirometry. We'll follow him Review of Systems As per the chart Past Medical History Past Medical History: Coronary Artery Disease (CAD), COPD, Diabetes Mellitus, Hyperlipidemia, Hypertension, Myocardial Infarction ([place]) Additional Past Medical History / Comment(s): Known history of coronary artery disease with previous multiple stents to the RCA; ischemic cardiomyopathy Last Myocardial Infarction Date:: unknown History of Any Multi-Drug Resistant Organisms: None Reported Past Surgical History: Cholecystectomy, Heart Catheterization With Stent, Orthopedic Surgery Additional Past Surgical History / Comment(s): rt knee, recent cardiac cath. Past Anesthesia/Blood Transfusion Reactions: No Reported Reaction Date of Last Stent Placement:: 2018 Smoking Status: Former smoker - Past Family History Mother Family Medical History: Coronary Artery Disease (CAD), Diabetes Mellitus, Myocardial Infarction ([place]) Father Additional Family Medical History / Comment(s): Multiple sclerosis Medications and Allergies Home Medications Medication Instructions Recorded Confirmed Type Aspirin [Adult Low Dose Aspirin EC] 81 mg PO DAILY 03/26/18 04/07/21 History Atorvastatin [Lipitor] 80 mg PO HS 03/26/18 04/07/21 History Metoprolol Tartrate [Lopressor] 25 mg PO BID #60 tab 03/28/18 04/07/21 Rx Nitroglycerin Sl Tabs [Nitrostat] 0.4 mg SUBLINGUAL Q5M PRN #25 tab 03/28/18 04/07/21 Rx metFORMIN HCL [Glucophage] 1,000 mg PO BID #0 03/28/18 04/07/21 Rx Albuterol Inhaler [Ventolin Hfa 2 puff INHALATION RT-Q6H PRN 06/30/19 04/07/21 History Inhaler] Ezetimibe [Zetia] 10 mg PO DAILY 06/30/19 04/07/21 History lisinopriL 20 mg PO BID 06/30/19 04/07/21 History Ipratropium Nebulized [Atrovent 0.5 mg INHALATION QID 03/29/21 04/07/21 History Nebulized 0.2 MG/ML] Mupirocin [Mupirocin 2%] 1 applic NASAL BID #1 tub 03/31/21 04/07/21 Rx Allergies Allergy/AdvReac Type Severity Reaction Status Date / Time codeine Allergy Rash/Hives Verified 04/07/21 06:14 hydrocodone [From [place]] AdvReac Hallucinati Verified 04/07/21 06:14 ons Physical Exam Vitals: Vital Signs Temp Pulse Resp BP Pulse Ox 04/08/21 13:00 74 31 H 136/75 95 04/08/21 12:30 77 32 H 136/75 93 L 04/08/21 12:00 98.8 F 80 29 H 117/57 91 L 04/08/21 11:30 70 17 117/57 92 L 04/08/21 11:00 68 28 H 123/55 98 04/08/21 10:30 71 23 123/55 98 04/08/21 10:00 67 29 H 122/54 98 04/08/21 09:30 68 29 H 122/54 95 04/08/21 09:00 73 25 H 143/61 96 04/08/21 08:30 85 17 143/61 96 04/08/21 08:08 78 04/08/21 08:00 99.3 F 74 18 143/61 98 04/08/21 07:46 76 04/08/21 07:30 76 18 130/60 96 04/08/21 07:00 83 26 H 125/81 96 04/08/21 06:30 83 21 95 04/08/21 06:00 81 26 H 141/61 96 22 05:30 85 14 95 021822 05:00 80 20 113/63 96 021822 04:30 80 20 100 021822 04:00 80 21 113/63 100 021822 03:30 80 17 99 021822 03:00 80 16 108/53 99 021822 02:30 80 17 108/53 97 04/08/21 02:00 63 14 113/54 97 1822 01:30 80 22 105/58 100 021822 01:00 80 14 135/62 99 1822 00:30 80 15 98 0218 00:00 80 18 98/56 100 0222 23:45 100 0222 23:30 80 22 100 0222 23:00 80 20 114/62 100 22 22:30 80 20 100 0222 22:00 80 20 106/58 100 02 21:30 80 20 100 0222 21:00 80 20 108/59 100 0222 20:30 80 20 100 0222 20:18 80 0222 20:06 80 02 20:00 80 20 100 0222 19:30 80 20 99 0222 19:15 80 20 100 0222 19:00 80 20 91/53 99 0222 18:45 80 20 99 0222 18:30 87 20 93 L 04/07/21 18:15 80 20 98 021722 18:00 80 20 124/65 99 021722 17:45 80 20 99 021722 17:30 80 20 97 0217/22 17:15 80 20 99 021722 17:00 80 20 112/59 98 0217/22 16:45 80 20 96 0217/22 16:30 80 20 97 0217/22 16:15 80 20 98 021722 16:00 80 20 100/55 98 0217/22 15:45 80 20 98 0217/22 15:31 80 02/17/22 15:30 80 20 100 021722 15:22 80 021722 15:15 80 20 97 04/07/21 15:00 80 20 89/53 96 04/07/21 14:45 80 20 100 04/07/21 14:30 80 14 100 04/07/21 14:20 80 8 L 100 04/07/21 14:10 80 14 100 Intake and Output 04/07/21 04/08/21 04/08/21 22:59 06:59 14:59 Intake Total 3697.477 9000.171 1081.272 Output Total 1020 814 470 Balance 364.554 203.171 611.272 Intake: IV 1221.9 884.0 745.5 .9 NS pressure bag 78 72 51 ACETAMINOPHEN IV (For NPO 100 100 ) 1,000 mg In Empty Bag 1 bag @ 400 mls/hr IVPB Q6HR [facility] Rx#:[id number] Albumin Human 5% 250 ml 500 250 In Empty Bag 1 bag @ 250 mls/hr IVPB Q1HR PRN Rx#: [id number] CO/CI injectate. 90 250 90 Lactated Ringers 1,000 ml 400 400 350 @ 20 mls/hr IV .Q24H [facility] Rx#:[id number] Nitroglycerine 3.9 12.0 4.5 ceFAZolin 2 gm In Sodium 50 50 Chloride 0.9% 50 ml @ 100 mls/hr IVPB Q8HR [facility] Rx# :[id number] Intake, IV Titration 162.654 133.171 35.772 Amount Clevidipine Butyrate 25 19.134 mg In Empty Bag 1 bag @ 1 MG/HR 2 mls/hr IV .Q24H [facility] Rx#:[id number] Dexmedetomidine/0.9% NaCl 6.498 61.421 (Pmx) 400 mcg In Empty Bag 1 bag @ Titrate IV . Q0M [facility] Rx#:[id number] Insulin Regular 100 unit 30.519 18.122 35.772 In Sodium Chloride 0.9% 100 ml @ Per Protocol IV .Q0M [facility] Rx#:[id number] Milrinone-D5w Pmx 20 mg 62.338 In Dextrose/Water 1 100ml .bag @ 0.3 MCG/KG/MIN 8. 559 mls/hr IV .[id number] [facility] Rx#:[id number] Norepinephrine 4 mg In 8.454 53.628 Sodium Chloride 0.9% 250 ml @ 0.05 MCG/KG/MIN 18. 117 mls/hr IV .Q14H2M [facility] Rx#:[id number] propofoL 1,000 mg In 35.711 Empty Bag 1 bag @ Titrate IV .Q0M [facility] Rx#: [id number] Oral 300 Output: Chest Tube Drainage 270 300 180 Left Pleural/Mediastinal 270 300 180 Gastric Drainage 150 Urine 750 364 290 Other: Voiding Method Indwelling Catheter Indwelling Catheter Indwelling Catheter Weight 97.6 kg 97.6 kg ABP, PAP, CO, CI - Last 8 Hours Arterial Blood Pressure 131/36 Arterial Blood Pressure 165/43 Arterial Blood Pressure 126/79 Arterial Blood Pressure 132/40 Arterial Blood Pressure 124/71 Arterial Blood Pressure 130/43 Arterial Blood Pressure 112/73 Arterial Blood Pressure 101/36 Arterial Blood Pressure 130/35 Arterial Blood Pressure 163/42 Arterial Blood Pressure 161/46 Arterial Blood Pressure 138/39 Arterial Blood Pressure 139/42 Arterial Blood Pressure 116/37 Pulmonary Artery Pressure 36/8 Pulmonary Artery Pressure 36/9 Pulmonary Artery Pressure 38/10 Pulmonary Artery Pressure 30/8 Cardiac Output 7.7 Cardiac Output 8.5 Cardiac Output 7.3 Cardiac Index 3.6 Cardiac Index 4 Cardiac Index 3.4 GENERAL EXAM: Patient is alert and oriented and appears to be in moderate distress HEENT: Normocephalic. Normal reaction of pupils, equal size, normal range of extraocular motion. No erythema or exudates in the throat. NECK: No masses, no nuchal rigidity. CHEST: Post Surgical LUNGS: Diminished air entry HEART: S1 and S2 normal with no audible mumurs or gallops. Regular rhythm, femorals equal on both sides.. ABDOMEN: No hepatosplenomegaly, normal bowel sounds, no guarding or rigidity. SKIN: No rashes CENTRAL NERVOUS SYSTEM: No focal deficits. EXTREMITIES: No cyanosis, clubbing or edema. Results 04/08/21 04:10 04/08/21 04:10 Cardiac Enzymes 04/07/21 04/08/21 Range/Units 13:58 04:10 AST 33 38 (17-59) U/L Coagulation 04/07/21 Range/Units 13:58 PT 11.9 (9.0-12.0) sec APTT 25.4 (22.0-30.0) sec CBC 04/07/21 04/07/21 04/07/21 Range/Units 13:58 16:45 18:47 WBC 9.0 8.6 8.2 (3.8-10.6) k/uL RBC 3.07 L 3.19 L 3.15 L (4.30-5.90) m/uL Hgb 9.8 L D 10.1 L 9.9 L (13.0-17.5) gm/dL Hct 28.5 L 29.6 L 29.1 L (39.0-53.0) % Plt Count 121 L 126 L 128 L (150-450) k/uL 04/08/21 Range/Units 04:10 WBC 8.7 (3.8-10.6) k/uL RBC 2.98 L (4.30-5.90) m/uL Hgb 9.3 L (13.0-17.5) gm/dL Hct 27.4 L (39.0-53.0) % Plt Count 136 L (150-450) k/uL Comprehensive Metabolic Panel 04/07/21 04/08/21 Range/Units 13:58 04:10 Sodium 136 L 137 (137-145) mmol/L Potassium 4.7 4.3 (3.5-5.1) mmol/L Chloride 109 H 112 H (98-107) mmol/L Carbon Dioxide 24 24 (22-30) mmol/L BUN 13 17 (9-20) mg/dL Creatinine 0.91 1.01 (0.66-1.25) mg/dL Glucose 142 H 109 H (74-99) mg/dL Calcium 8.3 L 8.2 L (8.4-10.2) mg/dL AST 33 38 (17-59) U/L ALT 21 20 (4-49) U/L Alkaline Phosphatase 25 L 30 L (38-126) U/L Total Protein 4.2 L 4.6 L (6.3-8.2) g/dL Albumin 2.4 L 2.7 L (3.5-5.0) g/dL Current Medications Generic Name Dose Route Start Last Admin Trade Name Freq PRN Reason Stop Dose Admin Acetaminophen 650 mg 04/08/21 00:30 Acetaminophen Tab 325 Mg Tab PO Q4HR PRN Fever and/ or Pain Albuterol/Ipratropium 3 ml 04/07/21 13:09 Ipratropium-Albuterol 3 Ml Neb INHALATION RT-Q2H PRN Shortness Of Breath Or Wheezing Albuterol/Ipratropium 3 ml 04/07/21 20:00 04/08/21 11:17 Ipratropium-Albuterol 3 Ml Neb INHALATION Not Given RT-QID [facility] Aspirin 325 mg 04/08/21 09:00 04/08/21 08:07 Aspirin 325 Mg Tab PO 325 mg DAILY [facility] Administration Atorvastatin Calcium 80 mg 04/07/21 21:00 04/07/21 22:27 Atorvastatin 80 Mg Tab PO 80 mg HS [facility] Administration Benzocaine/Menthol 1 each 04/07/21 13:09 Benzocaine/Menthol Lozeng 1 Each Lozenge MUCOUS MEM Q2H PRN Sore Throat Bisacodyl 10 mg 04/08/21 09:00 Bisacodyl 10 Mg Supp RECTAL DAILY PRN Constipation Clopidogrel Bisulfate 75 mg 04/08/21 09:00 04/08/21 08:07 Clopidogrel 75 Mg Tab PO 75 mg DAILY [facility] Administration Ezetimibe 10 mg 04/08/21 09:00 04/08/21 08:07 Ezetimibe 10 Mg Tab PO 10 mg DAILY [facility] Administration Heparin Sodium (Porcine) 5,000 unit 04/07/21 16:00 04/08/21 08:07 Heparin Sodium,Porcine/Pf 5,000 Unit/0.5 Ml Syringe SQ 5,000 unit Q8HR [facility] Administration Hydralazine HCl 10 mg 04/07/21 13:09 04/08/21 08:19 Hydralazine Hcl 20 Mg/Ml 1 Ml Vial IVP 10 mg Q1H PRN Administration Blood Pressure - High Amiodarone HCl 150 mg/ 103 mls @ 618 mls/hr 04/07/21 13:09 Dextrose/Water IV .Q10M PRN A.FIB/FLUTTER Protocol Amiodarone HCl 360 mg/ 207.2 mls @ 34.533 mls/hr 04/07/21 13:09 Dextrose/Water IV .Q6H PRN A.FIB/FLUTTER Protocol 1 MG/MIN Amiodarone HCl 450 mg/ 250 mls @ 16.667 mls/hr 04/07/21 13:09 Dextrose/Water IV .Q15H PRN A.FIB/FLUTTER Protocol 0.5 MG/MIN Albumin Human 250 ml/ IV 250 mls @ 250 mls/hr 04/07/21 13:09 04/08/21 06:28 Solution IVPB 04/09/21 13:10 250 mls/hr Q1HR PRN Administration For Volume Protocol Calcium Gluconate 2 gm/ Sodium 120 mls @ 100 mls/hr 04/07/21 13:09 Chloride IVPB 04/18/21 13:10 ONCE PRN Ionized Calcium less than 4.4 Lactated Ringer's 1,000 mls @ 20 mls/hr 04/07/21 13:09 04/08/21 13:18 Lactated Ringers IV 20 mls/hr .Q24H [facility] Administration Insulin Human Regular 100 unit 101 mls @ 0 mls/hr 04/07/21 13:09 04/08/21 13:40 / Sodium Chloride IV 7.5 units/hr .Q0M [facility] 7.575 mls/hr Administration Protocol Per Protocol Ketorolac Tromethamine 15 mg 04/07/21 18:00 04/08/21 12:22 Ketorolac 30 Mg/Ml 1 Ml Vial IVP 04/10/21 15:16 15 mg Q6HR [facility] Administration Lisinopril 5 mg 04/08/21 12:00 04/08/21 12:23 Lisinopril 5 Mg Tab PO 5 mg DAILY@1200 [facility] Administration Magnesium Hydroxide 2,400 mg 04/08/21 09:00 Magnesium Hydroxide 2,400 Mg/10 Ml Cup PO BID PRN Constipation Metoclopramide HCl 10 mg 04/07/21 13:09 Metoclopramide 5 Mg/Ml 2 Ml Vial IVP Q4H PRN Nausea And Vomiting Metoprolol Tartrate 25 mg 04/08/21 21:00 Metoprolol Tartrate 12.5 Mg Tab PO BID [facility] Miscellaneous Information 1 each 04/07/21 13:09 Potassium Replacement Protocol 1 Each Misc MISCELLANE DAILY PRN Per Protocol Protocol Miscellaneous Information 1 each 04/07/21 13:09 Magnesium Replacement Protocol 1 Each Misc MISCELLANE DAILY PRN Per Protocol Protocol Miscellaneous Information 1 each 04/07/21 13:09 Phosphorus Replacement Protoco 1 Each Misc MISCELLANE DAILY PRN Per Protocol Protocol Ondansetron HCl 4 mg 04/07/21 13:09 04/08/21 05:24 Ondansetron 4 Mg/2 Ml Vial IVP 4 mg Q6HR PRN Administration Nausea And Vomiting Pantoprazole Sodium 40 mg 04/09/21 07:30 Pantoprazole 40 Mg Tablet PO AC-BRKFST [facility] Senna/Docusate Sodium 2 each 04/08/21 21:00 Sennosides-Docusate Sodium 1 Each Tab PO HS [facility] Sodium Chloride 10 ml 04/07/21 21:00 04/08/21 08:17 Sodium Chloride 0.9% Flush 10 Ml Syringe IV 10 ml BID [facility] Administration Tramadol HCl 50 mg 04/07/21 13:09 04/08/21 09:35 Tramadol 50 Mg Tab PO 50 mg Q6HR PRN Administration Mild to Moderate Pain Tramadol HCl 100 mg 04/07/21 13:09 Tramadol 50 Mg Tab PO Q6HR PRN Moderate to Severe Pain Intake and Output 04/07/21 04/08/21 04/08/21 22:59 06:59 14:59 Intake Total 3713.083 2581.171 1081.272 Output Total 1020 814 470 Balance 364.554 203.171 611.272 Intake: IV 1221.9 884.0 745.5 .9 NS pressure bag 78 72 51 ACETAMINOPHEN IV (For NPO 100 100 ) 1,000 mg In Empty Bag 1 bag @ 400 mls/hr IVPB Q6HR [facility] Rx#:[id number] Albumin Human 5% 250 ml 500 250 In Empty Bag 1 bag @ 250 mls/hr IVPB Q1HR PRN Rx#: [id number] CO/CI injectate. 90 250 90 Lactated Ringers 1,000 ml 400 400 350 @ 20 mls/hr IV .Q24H [facility] Rx#:[id number] Nitroglycerine 3.9 12.0 4.5 ceFAZolin 2 gm In Sodium 50 50 Chloride 0.9% 50 ml @ 100 mls/hr IVPB Q8HR [facility] Rx# :[id number] Intake, IV Titration 162.654 133.171 35.772 Amount Clevidipine Butyrate 25 19.134 mg In Empty Bag 1 bag @ 1 MG/HR 2 mls/hr IV .Q24H [facility] Rx#:[id number] Dexmedetomidine/0.9% NaCl 6.498 61.421 (Pmx) 400 mcg In Empty Bag 1 bag @ Titrate IV . Q0M [facility] Rx#:[id number] Insulin Regular 100 unit 30.519 18.122 35.772 In Sodium Chloride 0.9% 100 ml @ Per Protocol IV .Q0M [facility] Rx#:[id number] Milrinone-D5w Pmx 20 mg 62.338 In Dextrose/Water 1 100ml .bag @ 0.3 MCG/KG/MIN 8. 559 mls/hr IV .[id number] [facility] Rx#:[id number] Norepinephrine 4 mg In 8.454 53.628 Sodium Chloride 0.9% 250 ml @ 0.05 MCG/KG/MIN 18. 117 mls/hr IV .Q14H2M [facility] Rx#:[id number] propofoL 1,000 mg In 35.711 Empty Bag 1 bag @ Titrate IV .Q0M [facility] Rx#: [id number] Oral 300 Output: Chest Tube Drainage 270 300 180 Left Pleural/Mediastinal 270 300 180 Gastric Drainage 150 Urine 750 364 290 Other: Voiding Method Indwelling Catheter Indwelling Catheter Indwelling Catheter Weight 97.6 kg 97.6 kg Patient Weight 04/09/21 06:59 Weight 97.6 kg 04/08/21 04:10 04/08/21 04:10 Assessment and Plan (1) Status post aorto-coronary artery bypass graft Current Visit: Yes Status: Acute Code(s): Z95.1 - PRESENCE OF AORTOCORONARY BYPASS GRAFT SNOMED Code(s): 021047866 (2) Essential hypertension Current Visit: Yes Status: Acute Code(s): I10 - ESSENTIAL (PRIMARY) HYPERTENSION SNOMED Code(s): 05439734 Plan: Continue current management. We'll follow him along with you. Incentive spirometry
[2021-04-08 14:19] LABS: Glucose,Whole Blood 195 mg/dL (75-99)
[2021-04-08 15:11] LABS: Glucose,Whole Blood 159 mg/dL (75-99)
--- NOTE | 2021-04-08 16:02 | P.CONS ---
History of Present Illness - Reason for Consult Consult date: 04/08/21 Medical management - Chief Complaint Triple-vessel coronary disease - History of Present Illness 75-year-old male who was recently evaluated by cardiology, with a known history of coronary disease, previous myocardial infarction, and multiple stents of the right coronary artery. In addition, the patient has a history of hypertension, hyperlipidemia, diabetes, ischemic cardiomyopathy, and ongoing tobacco use. The patient was evaluated by cardiology, and was found have significant coronary d isease on catheterization. Today, he underwent a three-vessel bypass grafting. The surgery was done by Dr. Valdes. The patient had a ALFORD to LAD bypass, saphenous vein graft to OM, and saphenous vein graft to PDA. In addition, the patient had intraoperative transesophageal echocardiogram, and ligation of atrial appendage. The patient is seen here in the ICU, and we are seeing the patient postoperatively. Patient was extubated yesterday Patient remains on O2 at 4 L per nasal cannula and remains on IV insulin infusion at a rate of 4.5 units per hour; Primacor has been turned off Chest x-ray shows typical postoperative changes. There is some basilar atelectasis. White count 8.7, hemoglobin 9.3, hematocrit 27.4, and platelet count 136,000. Sodium 137, potassium 4.3, chlorides 112, CO2 24, BUN 17, and creatinine 1.01. Albumin is 2.7. Patient is counseled again on deep breathing, coughing and incentive spirometry every hour Review of Systems REVIEW OF SYSTEMS: CONSTITUTIONAL: No fever, no malaise, no fatigue. HEENT: No recent visual problems or hearing problems. Denied any sore throat. CARDIOVASCULAR: No chest pain, orthopnea, PND, no palpitations, no syncope. PULMONARY: No shortness of breath, no cough, no hemoptysis. GASTROINTESTINAL: No diarrhea, no nausea, no vomiting, no abdominal pain. NEUROLOGICAL: No headaches, no weakness, no numbness. HEMATOLOGICAL: Denies any bleeding or petechiae. GENITOURINARY: Denies any burning micturition, frequency, or urgency. MUSCULOSKELETAL/RHEUMATOLOGICAL: Denies any joint pain, swelling, or any muscle pain. ENDOCRINE: Denies any polyuria or polydipsia. The rest of the 14-point review of systems is negative. Past Medical History Past Medical History: Coronary Artery Disease (CAD), COPD, Diabetes Mellitus, Hyperlipidemia, Hypertension, Myocardial Infarction ([place]) Additional Past Medical History / Comment(s): Known history of coronary artery disease with previous multiple stents to the RCA; ischemic cardiomyopathy Last Myocardial Infarction Date:: unknown History of Any Multi-Drug Resistant Organisms: None Reported Past Surgical History: Cholecystectomy, Heart Catheterization With Stent, Orthopedic Surgery Additional Past Surgical History / Comment(s): rt knee, recent cardiac cath. Past Anesthesia/Blood Transfusion Reactions: No Reported Reaction Date of Last Stent Placement:: 2018 Smoking Status: Former smoker - Past Family History Mother Family Medical History: Coronary Artery Disease (CAD), Diabetes Mellitus, Myocardial Infarction ([place]) Father Additional Family Medical History / Comment(s): Multiple sclerosis Medications and Allergies Home Medications Medication Instructions Recorded Confirmed Type Aspirin [Adult Low Dose Aspirin EC] 81 mg PO DAILY 03/26/18 04/07/21 History Atorvastatin [Lipitor] 80 mg PO HS 03/26/18 04/07/21 History Metoprolol Tartrate [Lopressor] 25 mg PO BID #60 tab 03/28/18 04/07/21 Rx Nitroglycerin Sl Tabs [Nitrostat] 0.4 mg SUBLINGUAL Q5M PRN #25 tab 03/28/18 04/07/21 Rx metFORMIN HCL [Glucophage] 1,000 mg PO BID #0 03/28/18 04/07/21 Rx Albuterol Inhaler [Ventolin Hfa 2 puff INHALATION RT-Q6H PRN 06/30/19 04/07/21 History Inhaler] Ezetimibe [Zetia] 10 mg PO DAILY 06/30/19 04/07/21 History lisinopriL 20 mg PO BID 06/30/19 04/07/21 History Ipratropium Nebulized [Atrovent 0.5 mg INHALATION QID 03/29/21 04/07/21 History Nebulized 0.2 MG/ML] Mupirocin [Mupirocin 2%] 1 applic NASAL BID #1 tub 03/31/21 04/07/21 Rx Allergies Allergy/AdvReac Type Severity Reaction Status Date / Time codeine Allergy Rash/Hives Verified 04/07/21 06:14 hydrocodone [From [place]] AdvReac Hallucinati Verified 04/07/21 06:14 ons Physical Exam Vitals: Vital Signs Temp Pulse Resp BP Pulse Ox 04/08/21 15:29 76 04/08/21 15:00 73 36 H 139/63 91 L 04/08/21 14:30 75 23 139/63 95 04/08/21 14:00 73 21 127/58 95 04/08/21 13:30 75 26 H 127/58 95 04/08/21 13:00 74 31 H 136/75 95 04/08/21 12:30 77 32 H 136/75 93 L 04/08/21 12:00 98.8 F 80 29 H 117/57 91 L 04/08/21 11:30 70 17 117/57 92 L 04/08/21 11:00 68 28 H 123/55 98 04/08/21 10:30 71 23 123/55 98 04/08/21 10:00 67 29 H 122/54 98 04/08/21 09:30 68 29 H 122/54 95 04/08/21 09:00 73 25 H 143/61 96 04/08/21 08:30 85 17 143/61 96 04/08/21 08:08 78 04/08/21 08:00 99.3 F 74 18 143/61 98 04/08/21 07:46 76 04/08/21 07:30 76 18 130/60 96 04/08/21 07:00 83 26 H 125/81 96 04/08/21 06:30 83 21 95 04/08/21 06:00 81 26 H 141/61 96 04/08/21 05:30 85 14 95 04/08/21 05:00 80 20 113/63 96 04/08/21 04:30 80 20 100 04/08/21 04:00 80 21 113/63 100 04/08/21 03:30 80 17 99 04/08/21 03:00 80 16 108/53 99 04/08/21 02:30 80 17 108/53 97 04/08/21 02:00 63 14 113/54 97 04/08/21 01:30 80 22 105/58 100 04/08/21 01:00 80 14 135/62 99 04/08/21 00:30 80 15 98 04/08/21 00:00 80 18 98/56 100 04/07/21 23:45 100 04/07/21 23:30 80 22 100 04/07/21 23:00 80 20 114/62 100 02/17/22 22:30 80 20 100 04/07/21 22:00 80 20 106/58 100 04/07/21 21:30 80 20 100 04/07/21 21:00 80 20 108/59 100 04/07/21 20:30 80 20 100 04/07/21 20:18 80 04/07/21 20:06 80 04/07/21 20:00 80 20 100 04/07/21 19:30 80 20 99 04/07/21 19:15 80 20 100 04/07/21 19:00 80 20 91/53 99 04/07/21 18:45 80 20 99 04/07/21 18:30 87 20 93 L 04/07/21 18:15 80 20 98 04/07/21 18:00 80 20 124/65 99 04/07/21 17:45 80 20 99 04/07/21 17:30 80 20 97 04/07/21 17:15 80 20 99 04/07/21 17:00 80 20 112/59 98 04/07/21 16:45 80 20 96 04/07/21 16:30 80 20 97 04/07/21 16:15 80 20 98 04/07/21 16:00 80 20 100/55 98 Intake and Output 04/08/21 04/08/21 04/08/21 06:59 14:59 22:59 Intake Total 0524.211 9248.272 37.489 Output Total 814 510 50 Balance 203.171 597.272 -12.511 Intake: IV 884.0 771.5 26 .9 NS pressure bag 72 57 6 ACETAMINOPHEN IV (For NPO 100 ) 1,000 mg In Empty Bag 1 bag @ 400 mls/hr IVPB Q6HR [facility] Rx#:[id number] Albumin Human 5% 250 ml 250 In Empty Bag 1 bag @ 250 mls/hr IVPB Q1HR PRN Rx#: [id number] CO/CI injectate. 250 90 Lactated Ringers 1,000 ml 400 370 20 @ 20 mls/hr IV .Q24H [facility] Rx#:[id number] Nitroglycerine 12.0 4.5 ceFAZolin 2 gm In Sodium 50 Chloride 0.9% 50 ml @ 100 mls/hr IVPB Q8HR [facility] Rx# :[id number] Intake, IV Titration 133.171 35.772 11.489 Amount Dexmedetomidine/0.9% NaCl 61.421 (Pmx) 400 mcg In Empty Bag 1 bag @ Titrate IV . Q0M [facility] Rx#:[id number] Insulin Regular 100 unit 18.122 35.772 11.489 In Sodium Chloride 0.9% 100 ml @ Per Protocol IV .Q0M [facility] Rx#:[id number] Norepinephrine 4 mg In 53.628 Sodium Chloride 0.9% 250 ml @ 0.05 MCG/KG/MIN 18. 117 mls/hr IV .Q14H2M [facility] Rx#:[id number] Oral 300 Output: Chest Tube Drainage 300 180 20 Left Pleural/Mediastinal 300 180 20 Gastric Drainage 150 Urine 364 330 30 Other: Voiding Method Indwelling Catheter Indwelling Catheter Weight 97.6 kg 97.6 kg ABP, PAP, CO, CI - Last 8 Hours Arterial Blood Pressure 112/37 Arterial Blood Pressure 150/42 Arterial Blood Pressure 153/40 Arterial Blood Pressure 152/40 Arterial Blood Pressure 131/36 Arterial Blood Pressure 165/43 Arterial Blood Pressure 126/79 Arterial Blood Pressure 132/40 Arterial Blood Pressure 124/71 Arterial Blood Pressure 130/43 Arterial Blood Pressure 112/73 Arterial Blood Pressure 101/36 Arterial Blood Pressure 130/35 Arterial Blood Pressure 163/42 Arterial Blood Pressure 161/46 Pulmonary Artery Pressure 36/8 Pulmonary Artery Pressure 36/9 Cardiac Output 7.7 Cardiac Output 8.5 Cardiac Index 3.6 Cardiac Index 4 - Constitutional General appearance: Present: average body habitus, cooperative, no acute distress - EENT Eyes: Present: anicteric sclerae, EOMI, PERRLA, normal appearance ENT: Present: hearing grossly normal, normal oropharynx Ears: bilateral: normal - Neck Neck: Present: normal ROM. Absent: lymphadenopathy, rigidity, thyromegaly Carotids: negative: bruit present Thyroid: bilateral: normal size, negative: enlarged, nodule - Respiratory Respiratory: bilateral: CTA, negative: rales, rhonchi, wheezing - Cardiovascular Rhythm: regular Heart sounds: normal: S1, S2 Abnormal Heart Sounds: Absent: systolic murmur, diastolic murmur - Gastrointestinal General gastrointestinal: Present: normal bowel sounds, soft. Absent: distended, organomegaly, tenderness - Genitourinary Genitourinary Comment(s): deferred - Integumentary Integumentary: Present: normal turgor. Absent: jaundiced, rash, ulcer - Neurologic Neurologic: Present: CNII-XII intact. Absent: focal deficits - Musculoskeletal Musculoskeletal: Present: gait normal, strength equal bilaterally - Psychiatric Psychiatric: Present: A&O x's 3, appropriate affect, intact judgment & insight Results CBC & Chem 7: 04/08/21 04:10 04/08/21 04:10 Labs: Abnormal Lab Results - Last 24 Hours (Table) 03/31/21 04/07/21 04/07/21 Range/Units 10:25 16:04 16:45 RBC 3.19 L (4.30-5.90) m/uL Hgb 10.1 L (13.0-17.5) gm/dL Hct 29.6 L (39.0-53.0) % Plt Count 126 L (150-450) k/uL Lymphocytes # 0.8 L (1.0-4.8) k/uL ABG pH (7.35-7.45) ABG pCO2 (35-45) mmHg ABG pO2 (83-108) mmHg ABG Total CO2 (19-24) mmol/L ABG O2 Saturation (94-97) % Chloride (98-107) mmol/L Glucose (74-99) mg/dL POC Glucose (mg/dL) 173 H (75-99) mg/dL Calcium (8.4-10.2) mg/dL Alkaline Phosphatase (38-126) U/L Total Protein (6.3-8.2) g/dL Albumin (3.5-5.0) g/dL Crossmatch See Detail 04/07/21 04/07/21 04/07/21 Range/Units 17:21 18:12 18:47 RBC (4.30-5.90) m/uL Hgb (13.0-17.5) gm/dL Hct (39.0-53.0) % Plt Count (150-450) k/uL Lymphocytes # (1.0-4.8) k/uL ABG pH (7.35-7.45) ABG pCO2 (35-45) mmHg ABG pO2 (83-108) mmHg ABG Total CO2 (19-24) mmol/L ABG O2 Saturation (94-97) % Chloride (98-107) mmol/L Glucose (74-99) mg/dL POC Glucose (mg/dL) 167 H 166 H 155 H (75-99) mg/dL Calcium (8.4-10.2) mg/dL Alkaline Phosphatase (38-126) U/L Total Protein (6.3-8.2) g/dL Albumin (3.5-5.0) g/dL Crossmatch 04/07/21 04/07/21 04/07/21 Range/Units 18:47 20:01 21:04 RBC 3.15 L (4.30-5.90) m/uL Hgb 9.9 L (13.0-17.5) gm/dL Hct 29.1 L (39.0-53.0) % Plt Count 128 L (150-450) k/uL Lymphocytes # 0.5 L (1.0-4.8) k/uL ABG pH (7.35-7.45) ABG pCO2 (35-45) mmHg ABG pO2 (83-108) mmHg ABG Total CO2 (19-24) mmol/L ABG O2 Saturation (94-97) % Chloride (98-107) mmol/L Glucose (74-99) mg/dL POC Glucose (mg/dL) 149 H 134 H (75-99) mg/dL Calcium (8.4-10.2) mg/dL Alkaline Phosphatase (38-126) U/L Total Protein (6.3-8.2) g/dL Albumin (3.5-5.0) g/dL Crossmatch 04/07/21 04/07/21 04/08/21 Range/Units 22:08 23:04 00:04 RBC (4.30-5.90) m/uL Hgb (13.0-17.5) gm/dL Hct (39.0-53.0) % Plt Count (150-450) k/uL Lymphocytes # (1.0-4.8) k/uL ABG pH (7.35-7.45) ABG pCO2 (35-45) mmHg ABG pO2 (83-108) mmHg ABG Total CO2 (19-24) mmol/L ABG O2 Saturation (94-97) % Chloride (98-107) mmol/L Glucose (74-99) mg/dL POC Glucose (mg/dL) 124 H 116 H 109 H (75-99) mg/dL Calcium (8.4-10.2) mg/dL Alkaline Phosphatase (38-126) U/L Total Protein (6.3-8.2) g/dL Albumin (3.5-5.0) g/dL Crossmatch 04/08/21 04/08/21 04/08/21 Range/Units 00:17 01:01 02:15 RBC (4.30-5.90) m/uL Hgb (13.0-17.5) gm/dL Hct (39.0-53.0) % Plt Count (150-450) k/uL Lymphocytes # (1.0-4.8) k/uL ABG pH 7.30 L (7.35-7.45) ABG pCO2 48 H (35-45) mmHg ABG pO2 160 H (83-108) mmHg ABG Total CO2 25 H (19-24) mmol/L ABG O2 Saturation 98.7 H (94-97) % Chloride (98-107) mmol/L Glucose (74-99) mg/dL POC Glucose (mg/dL) 142 H 139 H (75-99) mg/dL Calcium (8.4-10.2) mg/dL Alkaline Phosphatase (38-126) U/L Total Protein (6.3-8.2) g/dL Albumin (3.5-5.0) g/dL Crossmatch 04/08/21 04/08/21 04/08/21 Range/Units 03:05 04:09 04:10 RBC 2.98 L (4.30-5.90) m/uL Hgb 9.3 L (13.0-17.5) gm/dL Hct 27.4 L (39.0-53.0) % Plt Count 136 L (150-450) k/uL Lymphocytes # (1.0-4.8) k/uL ABG pH (7.35-7.45) ABG pCO2 (35-45) mmHg ABG pO2 (83-108) mmHg ABG Total CO2 (19-24) mmol/L ABG O2 Saturation (94-97) % Chloride (98-107) mmol/L Glucose (74-99) mg/dL POC Glucose (mg/dL) 129 H 113 H (75-99) mg/dL Calcium (8.4-10.2) mg/dL Alkaline Phosphatase (38-126) U/L Total Protein (6.3-8.2) g/dL Albumin (3.5-5.0) g/dL Crossmatch 04/08/21 04/08/21 04/08/21 Range/Units 04:10 05:08 06:09 RBC (4.30-5.90) m/uL Hgb (13.0-17.5) gm/dL Hct (39.0-53.0) % Plt Count (150-450) k/uL Lymphocytes # (1.0-4.8) k/uL ABG pH (7.35-7.45) ABG pCO2 (35-45) mmHg ABG pO2 (83-108) mmHg ABG Total CO2 (19-24) mmol/L ABG O2 Saturation (94-97) % Chloride 112 H (98-107) mmol/L Glucose 109 H (74-99) mg/dL POC Glucose (mg/dL) 127 H 157 H (75-99) mg/dL Calcium 8.2 L (8.4-10.2) mg/dL Alkaline Phosphatase 30 L (38-126) U/L Total Protein 4.6 L (6.3-8.2) g/dL Albumin 2.7 L (3.5-5.0) g/dL Crossmatch 04/08/21 04/08/21 04/08/21 Range/Units 07:06 08:02 09:13 RBC (4.30-5.90) m/uL Hgb (13.0-17.5) gm/dL Hct (39.0-53.0) % Plt Count (150-450) k/uL Lymphocytes # (1.0-4.8) k/uL ABG pH (7.35-7.45) ABG pCO2 (35-45) mmHg ABG pO2 (83-108) mmHg ABG Total CO2 (19-24) mmol/L ABG O2 Saturation (94-97) % Chloride (98-107) mmol/L Glucose (74-99) mg/dL POC Glucose (mg/dL) 161 H 145 H 162 H (75-99) mg/dL Calcium (8.4-10.2) mg/dL Alkaline Phosphatase (38-126) U/L Total Protein (6.3-8.2) g/dL Albumin (3.5-5.0) g/dL Crossmatch 04/08/21 04/08/21 04/08/21 Range/Units 10:25 12:11 13:10 RBC (4.30-5.90) m/uL Hgb (13.0-17.5) gm/dL Hct (39.0-53.0) % Plt Count (150-450) k/uL Lymphocytes # (1.0-4.8) k/uL ABG pH (7.35-7.45) ABG pCO2 (35-45) mmHg ABG pO2 (83-108) mmHg ABG Total CO2 (19-24) mmol/L ABG O2 Saturation (94-97) % Chloride (98-107) mmol/L Glucose (74-99) mg/dL POC Glucose (mg/dL) 176 H 162 H 214 H (75-99) mg/dL Calcium (8.4-10.2) mg/dL Alkaline Phosphatase (38-126) U/L Total Protein (6.3-8.2) g/dL Albumin (3.5-5.0) g/dL Crossmatch 04/08/21 04/08/21 Range/Units 14:17 15:09 RBC (4.30-5.90) m/uL Hgb (13.0-17.5) gm/dL Hct (39.0-53.0) % Plt Count (150-450) k/uL Lymphocytes # (1.0-4.8) k/uL ABG pH (7.35-7.45) ABG pCO2 (35-45) mmHg ABG pO2 (83-108) mmHg ABG Total CO2 (19-24) mmol/L ABG O2 Saturation (94-97) % Chloride (98-107) mmol/L Glucose (74-99) mg/dL POC Glucose (mg/dL) 195 H 159 H (75-99) mg/dL Calcium (8.4-10.2) mg/dL Alkaline Phosphatase (38-126) U/L Total Protein (6.3-8.2) g/dL Albumin (3.5-5.0) g/dL Crossmatch Assessment and Plan Assessment: 1. Triple-vessel CAD; Postop day # 1, status post three-vessel bypass grafting -- ALFORD to LAD, SVG to OM, and SVG to PDA. In addition, the patient had a ligation of atrial appendage, and intraoperative transesophageal echocardiogram. 2. Prior history of myocardial infarction; patient to continue with aspirin and Plavix. 3. History of hypertension; currently stable. 4. History of hyperlipidemia; Lipitor 80 mg by mouth daily at bedtime; Zetia 10 mg by mouth daily. 5. History of [id number] diabetes mellitus; patient remains on IV insulin infusion with plans to titrate as able; we will plan to start patient on Accu-Cheks before meals and at bedtime with insulin sliding scale along with long-acting insulin. 6. History of ischemic cardiomyopathy; history of previous myocardial infarction and multiple stents in the right coronary artery, hypertension, hypercholesterolemia, diabetes and ischemic cardiomyopathy was evaluated by cardiac catheterization and was found to have multivessel disease and was recommended to have bypass surgery DVT prophylaxis; SCDs/heparin CODE STATUS; full code
[2021-04-08 16:15] LABS: Glucose,Whole Blood 117 mg/dL (75-99)
[2021-04-08 17:23] LABS: Glucose,Whole Blood 147 mg/dL (75-99)
[2021-04-08 18:28] LABS: Glucose,Whole Blood 165 mg/dL (75-99)
[2021-04-08 19:03] LABS: Glucose,Whole Blood 157 mg/dL (75-99)
[2021-04-08 20:11] LABS: Glucose,Whole Blood 133 mg/dL (75-99)
[2021-04-08] MEDS: ATORVASTATIN 80 MG TAB PO SCH (20:57)
[2021-04-08] MEDS: SENNOSIDES-DOCUSATE SODIUM 1 EACH TAB PO SCH (20:57)
[2021-04-08 21:07] LABS: Glucose,Whole Blood 110 mg/dL (75-99)
[2021-04-08 22:16] LABS: Glucose,Whole Blood 121 mg/dL (75-99)
[2021-04-08] MEDS: ACETAMINOPHEN TAB 325 MG TAB PO PRN (22:26)
[2021-04-08 23:23] LABS: Glucose,Whole Blood 140 mg/dL (75-99)
[2021-04-09 00:27] LABS: Glucose,Whole Blood 120 mg/dL (75-99)
[2021-04-09] MEDS: HEPARIN SODIUM,PORCINE/PF 5,000 UNIT/0.5 ML SYRINGE SQ SCH ×3 (00:29→16:23)
[2021-04-09 02:36] LABS: Glucose,Whole Blood 104 mg/dL (75-99)
[2021-04-09] MEDS: traMADol 50 MG TAB PO PRN ×3 (03:27→21:09)
[2021-04-09 03:37] LABS: Glucose,Whole Blood 125 mg/dL (75-99)
[2021-04-09 04:51] LABS: Glucose,Whole Blood 135 mg/dL (75-99)
[2021-04-09 05:21] LABS: Basophils % (A) 0 %; Eosinophils % (A) 0 %; HCT 25.4 % (39.0-53.0); HGB 8.4 gm/dL (13.0-17.5); Lymphocytes # (A) 0.8 k/uL (1.0-4.8); Lymphocytes % (A) 10 %; MCH 30.8 pg (25.0-35.0); MCHC 33.1 g/dL (31.0-37.0); Mean Platelet Volume 8.1; Monocytes # (A) 0.7 k/uL (0-1.0); Monocytes % (A) 9 %; Neutrophils # (A) 6.8 k/uL (1.3-7.7); Neutrophils % (A) 79 %; Platelet Count 125 k/uL (150-450); RBC 2.73 m/uL (4.30-5.90); RDW 13.3 % (11.5-15.5); WBC 8.6 k/uL (3.8-10.6)
[2021-04-09 05:26] LABS: Ionized Calcium 5.1 mg/dL (4.5-5.3)
[2021-04-09 05:34] LABS: Calcium 8.2 mg/dL (8.4-10.2); Potassium 4.6 mmol/L (3.5-5.1); Total Bilirubin 0.7 mg/dL (0.2-1.3); Total Protein 4.9 g/dL (6.3-8.2)
[2021-04-09] MEDS: KETOROLAC 30 MG/ML 1 ML VIAL IVP SCH (05:38)
[2021-04-09 06:32] LABS: Glucose,Whole Blood 129 mg/dL (75-99)
[2021-04-09] MEDS: PANTOPRAZOLE 40 MG TABLET PO SCH (07:13)
[2021-04-09 07:21] LABS: Glucose,Whole Blood 178 mg/dL (75-99)
[2021-04-09 07:21] LABS: Glucose,Whole Blood 186 mg/dL (75-99)
[2021-04-09] MEDS: IPRATROPIUM-ALBUTEROL 3 ML NEB INHALATION SCH ×4 (07:22→20:48)
--- NOTE | 2021-04-09 07:54 | P.PN ---
Subjective Progress Note Date: 04/09/21 Principal diagnosis: Coronary artery disease. Previous medical history of coronary artery disease with previous myocardial infarction and stenting, hypertension, hyperlipidemia, scu-eygpsiy-zdvrxhrqd diabetes, ischemic cardiomyopathy, moderate COPD, and current tobacco dependence. Vaccinated and boosted against Covid POD #2 coronary artery bypass grafting 3 vessels, left internal mammary artery to the left anterior descending artery, reverse saphenous vein graft to the ob tuse marginal artery, reverse saphenous vein graft to posterior descending artery, endoscopic harvesting of the right greater saphenous vein, ligation of the left atrial appendage using a 35 mm AtriClip, epi-aortic ultrasound and intraoperative transesophageal echocardiogram Postoperative acute blood loss anemia and thrombocytopenia, expected given cardiopulmonary bypass pump and hemodilution The patient was seen and examined this morning sitting up in a recliner in the intensive care unit in no acute distress. Had another uneventful night. Remains in sinus rhythm, hemodynamically stable off all pressors and inotropes. Does complain of post surgical chest discomfort, denies shortness of breath. Right internal jugular Cordis, right radial arterial line, mediastinal/left pleural chest tubes all remaining present. He did ambulate with assistance out to the hallway yesterday. Actively using incentive spirometer. No new concerns. Objective - Vital Signs Vital signs: Vital Signs Temp 98.1 F 04/08/21 16:00 Pulse 72 04/09/21 05:00 Resp 19 04/09/21 05:00 BP 132/65 04/09/21 05:00 Pulse Ox 93 L 04/09/21 05:00 Intake & Output 04/08/21 04/09/21 04/09/21 18:59 06:59 18:59 Intake Total 1432.882 341.715 11.463 Output Total 735 460 Balance 697.882 -118.285 11.463 Weight 97.6 kg 101.4 kg Intake: IV 875.5 312 .9 NS pressure bag 81 72 Albumin Human 5% 250 ml 250 In Empty Bag 1 bag @ 250 mls/hr IVPB Q1HR PRN Rx#: [id number] CO/CI injectate. 90 Lactated Ringers 1,000 ml 450 240 @ 20 mls/hr IV .Q24H [facility] Rx#:[id number] Nitroglycerine 4.5 Intake, IV Titration 57.382 29.715 11.463 Amount Insulin Regular 100 unit 57.382 29.715 11.463 In Sodium Chloride 0.9% 100 ml @ Per Protocol IV .Q0M [facility] Rx#:[id number] Oral 500 Output: Chest Tube Drainage 250 110 Left Pleural/Mediastinal 250 110 Urine 485 350 Other: Voiding Method Indwelling Catheter Indwelling Catheter ABP, PAP, CO, CI - Last Documented Arterial Blood Pressure 54/47 Pulmonary Artery Pressure 36/8 Cardiac Output 7.7 Cardiac Index 3.6 - Exam CONSTITUTIONAL: Appears comfortable, cooperative, no acute distress RESPIRATORY: Lungs sounds diminished bilaterally. Respirations even, nonlabo red. Currently on 4 L nasal cannula with oxygen saturation 95%. Able to achieve 750 mL on incentive spirometry. Strong cough. CARDIOVASCULAR: S1, S2 present. Regular rate and rhythm, sinus rhythm on telemetry. Sternum stable. Palpable peripheral pulses bilaterally. Trace bilateral lower extremity edema present. No calf pain or tenderness noted. Heart hugger in place with patient demonstrating appropriate use. Antiembolism stockings, SCDs present. GASTROINTESTINAL: Abdomen soft, nontender, nondistended. Active bowel sounds present 4 quadrants. Tolerating diet. Positive flatus GENITOURINARY: Bundy present draining clear, yellow urine. Output overnight 15-45 mL per hour, 835 mL in the last 24 hours INTEGUMENTARY: Skin is warm and dry with evidence of good perfusion. Anterior chest incision well approximated and covered with dry intact dressing. Right lower extremity EVH site well approximated without redness or drainage. NEUROLOGIC: Cranial nerves II through XII intact MUSKULOSKELETAL: Able to move all extremities, strength equal bilaterally PSYCHIATRIC: Alert and oriented to person place and time, appropriate affect, intact judgment and insight INVASIVE LINES AND TUBES: Mediastinal/left pleural chest tubes present and connected to wall suction, no air leaks present, 100 mL serosanguineous drainage overnight, 400 mL in the last 24 hours. A/V epicardial pacemaker wires present, connected to generator, DDD mode with backup rate 50 bpm. Right internal jugular Cordis, right radial arterial line present. - Allied health notes Allied health notes reviewed: nursing - Labs CBC & Chem 7: 04/09/21 04:50 04/09/21 04:50 Labs: Abnormal Lab Results - Last 24 Hours (Table) 04/08/21 04/08/21 04/08/21 Range/Units 08:02 09:13 10:25 RBC (4.30-5.90) m/uL Hgb (13.0-17.5) gm/dL Hct (39.0-53.0) % Plt Count (150-450) k/uL Lymphocytes # (1.0-4.8) k/uL Sodium (137-145) mmol/L Carbon Dioxide (22-30) mmol/L BUN (9-20) mg/dL Creatinine (0.66-1.25) mg/dL Glucose (74-99) mg/dL POC Glucose (mg/dL) 145 H 162 H 176 H (75-99) mg/dL Calcium (8.4-10.2) mg/dL Total Protein (6.3-8.2) g/dL Albumin (3.5-5.0) g/dL 04/08/21 04/08/21 04/08/21 Range/Units 12:11 13:10 14:17 RBC (4.30-5.90) m/uL Hgb (13.0-17.5) gm/dL Hct (39.0-53.0) % Plt Count (150-450) k/uL Lymphocytes # (1.0-4.8) k/uL Sodium (137-145) mmol/L Carbon Dioxide (22-30) mmol/L BUN (9-20) mg/dL Creatinine (0.66-1.25) mg/dL Glucose (74-99) mg/dL POC Glucose (mg/dL) 162 H 214 H 195 H (75-99) mg/dL Calcium (8.4-10.2) mg/dL Total Protein (6.3-8.2) g/dL Albumin (3.5-5.0) g/dL 04/08/21 04/08/21 04/08/21 Range/Units 15:09 16:14 17:22 RBC (4.30-5.90) m/uL Hgb (13.0-17.5) gm/dL Hct (39.0-53.0) % Plt Count (150-450) k/uL Lymphocytes # (1.0-4.8) k/uL Sodium (137-145) mmol/L Carbon Dioxide (22-30) mmol/L BUN (9-20) mg/dL Creatinine (0.66-1.25) mg/dL Glucose (74-99) mg/dL POC Glucose (mg/dL) 159 H 117 H 147 H (75-99) mg/dL Calcium (8.4-10.2) mg/dL Total Protein (6.3-8.2) g/dL Albumin (3.5-5.0) g/dL 04/08/21 04/08/21 04/08/21 Range/Units 18:25 19:01 20:09 RBC (4.30-5.90) m/uL Hgb (13.0-17.5) gm/dL Hct (39.0-53.0) % Plt Count (150-450) k/uL Lymphocytes # (1.0-4.8) k/uL Sodium (137-145) mmol/L Carbon Dioxide (22-30) mmol/L BUN (9-20) mg/dL Creatinine (0.66-1.25) mg/dL Glucose (74-99) mg/dL POC Glucose (mg/dL) 165 H 157 H 133 H (75-99) mg/dL Calcium (8.4-10.2) mg/dL Total Protein (6.3-8.2) g/dL Albumin (3.5-5.0) g/dL 04/08/21 04/08/21 04/08/21 Range/Units 21:06 22:15 23:22 RBC (4.30-5.90) m/uL Hgb (13.0-17.5) gm/dL Hct (39.0-53.0) % Plt Count (150-450) k/uL Lymphocytes # (1.0-4.8) k/uL Sodium (137-145) mmol/L Carbon Dioxide (22-30) mmol/L BUN (9-20) mg/dL Creatinine (0.66-1.25) mg/dL Glucose (74-99) mg/dL POC Glucose (mg/dL) 110 H 121 H 140 H (75-99) mg/dL Calcium (8.4-10.2) mg/dL Total Protein (6.3-8.2) g/dL Albumin (3.5-5.0) g/dL 04/09/21 04/09/21 04/09/21 Range/Units 00:26 02:34 03:35 RBC (4.30-5.90) m/uL Hgb (13.0-17.5) gm/dL Hct (39.0-53.0) % Plt Count (150-450) k/uL Lymphocytes # (1.0-4.8) k/uL Sodium (137-145) mmol/L Carbon Dioxide (22-30) mmol/L BUN (9-20) mg/dL Creatinine (0.66-1.25) mg/dL Glucose (74-99) mg/dL POC Glucose (mg/dL) 120 H 104 H 125 H (75-99) mg/dL Calcium (8.4-10.2) mg/dL Total Protein (6.3-8.2) g/dL Albumin (3.5-5.0) g/dL 04/09/21 04/09/21 04/09/21 Range/Units 04:50 04:50 04:50 RBC 2.73 L (4.30-5.90) m/uL Hgb 8.4 L (13.0-17.5) gm/dL Hct 25.4 L (39.0-53.0) % Plt Count 125 L (150-450) k/uL Lymphocytes # 0.8 L (1.0-4.8) k/uL Sodium 133 L (137-145) mmol/L Carbon Dioxide 21 L (22-30) mmol/L BUN 22 H (9-20) mg/dL Creatinine 1.29 H (0.66-1.25) mg/dL Glucose 125 H (74-99) mg/dL POC Glucose (mg/dL) 135 H (75-99) mg/dL Calcium 8.2 L (8.4-10.2) mg/dL Total Protein 4.9 L (6.3-8.2) g/dL Albumin 3.0 L (3.5-5.0) g/dL 04/09/21 04/09/21 04/09/21 Range/Units 06:30 07:19 07:20 RBC (4.30-5.90) m/uL Hgb (13.0-17.5) gm/dL Hct (39.0-53.0) % Plt Count (150-450) k/uL Lymphocytes # (1.0-4.8) k/uL Sodium (137-145) mmol/L Carbon Dioxide (22-30) mmol/L BUN (9-20) mg/dL Creatinine (0.66-1.25) mg/dL Glucose (74-99) mg/dL POC Glucose (mg/dL) 129 H 178 H 186 H (75-99) mg/dL Calcium (8.4-10.2) mg/dL Total Protein (6.3-8.2) g/dL Albumin (3.5-5.0) g/dL - Imaging and Cardiology Chest x-ray: image reviewed Assessment and Plan Assessment: 1. Coronary artery disease with previous myocardial infarction and stenting, status post three-vessel CABG 2. Hypertension 3. Hyperlipidemia, treated, cholesterol 99, LDL 33 4. Iqr-teozuyi-ktavlqjub diabetes, preoperative hemoglobin A1c 7.9% 5. Ischemic cardiomyopathy, preoperative EF 50-55% 6. Moderate COPD with preoperative FEV1 59% of predicted 7. Current tobacco dependence, recent cessation one week ago 8. Vaccinated and boosted against Covid 9. Postoperative acute blood loss anemia and thrombocytopenia Plan: 1. Continue aspirin, plavix, statin, beta wang therapy. Will increase beta wang therapy as tolerated, increase to 25 mg 3 times a day today. Lisinopril added yesterday for afterload reduction 2. Continue cordis to continuous CVP monitoring for 24 hours 3. Wean oxygen as tolerated. Encourage incentive spirometry 10 times every hour while awake. Bronchodilators per pulmonology 4. Encourage continued smoking cessation 5. Will monitor daily labs and CXRs. Electrolyte replacement per protocol. May give lasix if urine output remains low 5. GI/DVT prophylaxis 6. Pain control with current medication regimen. Toradol DC'd due to increased creatinine 7. Insulin management per internal medicine. Patient needs tight blood sugar control to promote healing, prevent infection 8. Will discontinue mediastinal chest tube, continue left pleural chest tube for another 24 hours 9. Discontinue bundy, may bladder scan and straight cath for greater than 300 mL residual. 10. Strict accurate I/O. Daily weights 11. Discontinue arterial line after insulin drip is discontinued 12. More recommendations to follow Time with Patient: Greater than 30
[2021-04-09] MEDS: ASPIRIN 325 MG TAB PO SCH (08:15)
[2021-04-09] MEDS: METOPROLOL TARTRATE 25 MG TAB PO SCH ×2 (08:15→16:23)
[2021-04-09] MEDS: EZETIMIBE 10 MG TAB PO SCH (08:15)
[2021-04-09] MEDS: CLOPIDOGREL 75 MG TAB PO SCH (08:15)
[2021-04-09 08:20] LABS: Glucose,Whole Blood 165 mg/dL (75-99)
--- NOTE | 2021-04-09 09:00 | XR ---
EXAMINATION TYPE: XR chest 1V portable DATE OF EXAM: 04/09/2021 COMPARISON: 04/08/2021 HISTORY: 75 years Male. STUDY INDICATION GIVEN: Post Operative Cardiac Surgery . TECHNIQUE: AP chest radiograph IMPRESSION: Central venous catheter no longer seen. Left chest tube in the left upper hemithorax similar in posit ion to prior study. Postsurgical changes of the chest with no significant change in appearance. Bibasilar opacities greater on the right, worse in the interval, may be reflective of atelectasis in filtrate. Apparent interstitial edema, no significant change. Stable cardiac enlargement. No significant pneumothorax. Trace bilateral pleural effusions, no signif icant change.
[2021-04-09 09:36] LABS: Glucose,Whole Blood 120 mg/dL (75-99)
[2021-04-09 11:02] LABS: Glucose,Whole Blood 106 mg/dL (75-99)
--- NOTE | 2021-04-09 11:51 | P.PN ---
Subjective Progress Note Date: 04/09/21 This is a 75-year-old male who was recently evaluated by cardiology, with a known history of coronary disease, previous myocardial infarction, and multiple stents of the right coronary artery. In addition, the patient has a history of hypertension, hyperlipidemia, diabetes, ischemic cardiomyopathy, and ongoing tobacco use. The patient was evaluated by cardiology, and was found have significant coronary disease on catheterization. Today, he underwent a three- vessel bypass grafting. The surgery was done by Dr. Valdes. The patient had a ALFORD to LAD bypass, saphenous vein graft to OM, and saphenous vein graft to PDA. In addition, the patient had intraoperative transesophageal echocardiogram, and ligation of atrial appendage. The patient is seen here in the ICU, and we are seeing the patient postoperatively. The patient's currently on the ventilator, with vent settings of volume assist control, rate of 14, tidal volume 500, FiO2 100%, and PEEP of 5. Blood gases are currently pending. Chest x-ray has not yet been done. The patient's on norepinephrine at 0.02 mcg/kg/m, Primacor 0.3 mcg/kg/m, propofol at 20 g kilogram per minute, and nitroglycerin at 5 mcg/m. Most recent laboratory data shows a blood gas with a pO2 of 284, pCO2 47, pH is 7.34. The blood glucose was 144. Progress note dated 04/08/2021. 75-year-old male who I saw yesterday in consultation. He's postop day #1, s tatus post three-vessel bypass grafting. He did ALFORD to LAD bypass, SVG to OM bypass, and SVG to PDA bypass. The patient was extubated yesterday. It took about 12 hours to get him extubated. When I spoke to the nurse, there is some issues with hemodynamics, and the patient wasn't really waking up as quickly as expected. The patient does have a history of hypertension, hyperlipidemia, diabetes, ischemic cardiomyopathy, and ongoing tobacco use. The surgery was done by Dr. Valdes. Currently, the patient's on 4 L nasal O2. He is getting lactated Ringer's at 50 mL an hour, insulin at 4.5 units an hour, and Primacor has just recently been turned off. In addition, the patient's on nitroglycerin at 5 mcg/m. The patient's chest x-ray shows typical postoperative changes. There is some basilar atelectasis. White count 8.7, hemoglobin 9.3, hematocrit 27.4, and platelet count 136,000. Sodium 137, potassium 4.3, chlorides 112, CO2 24, BUN 17, and creatinine 1.01. Albumin is 2.7. The patient is seen today 04/09/2021 in follow-up in the intensive care unit. This is postoperative day #2. He is currently sitting up in a chair at the bedside. Awake and alert in no acute distress. He is maintaining O2 saturations in the 90s on 4 L/m per nasal cannula. Chest x-ray reveals stable cardiomegaly. No significant pneumothorax. Trace bilateral pleural effusions. He continues to work with the incentive spirometer. White count 8.6. Hemoglobin 8.4. Platelet count 125. Sodium 133. Potassium 4.6. Chloride 106. Bicarb 21. Creatinine 1.29. Glucose 125. AST 44. ALT 18. He is continued on DuoNeb inhalations. Heparin for DVT prophylaxis. Objective - Vital Signs Vital signs: Vital Signs Temp 97.6 F 04/09/21 08:00 Pulse 68 04/09/21 11:30 Resp 17 04/09/21 11:00 BP 112/57 04/09/21 11:00 Pulse Ox 95 04/09/21 11:00 Intake & Output 04/08/21 04/09/21 04/09/21 18:59 06:59 18:59 Intake Total 1432.882 341.715 374.559 Output Total 735 460 195 Balance 697.882 -118.285 179.559 Weight 97.6 kg 101.4 kg Intake: IV 875.5 312 110 .9 NS pressure bag 81 72 30 Albumin Human 5% 250 ml 250 In Empty Bag 1 bag @ 250 mls/hr IVPB Q1HR PRN Rx#: [id number] CO/CI injectate. 90 Lactated Ringers 1,000 ml 450 240 80 @ 20 mls/hr IV .Q24H [facility] Rx#:[id number] Nitroglycerine 4.5 Intake, IV Titration 57.382 29.715 44.559 Amount Insulin Regular 100 unit 57.382 29.715 24.559 In Sodium Chloride 0.9% 100 ml @ Per Protocol IV .Q0M [facility] Rx#:[id number] Lactated Ringers 1,000 ml 20 @ 20 mls/hr IV .Q24H [facility] Rx#:[id number] Oral 500 220 Output: Chest Tube Drainage 250 110 30 Left Pleural/Mediastinal 250 110 30 Mediastinal 0 Urine 485 350 165 Other: Voiding Method Indwelling Catheter Indwelling Catheter Indwelling Catheter ABP, PAP, CO, CI - Last Documented Arterial Blood Pressure 143/49 Pulmonary Artery Pressure 36/8 Cardiac Output 7.7 Cardiac Index 3.6 - Exam GENERAL EXAM: Alert, very pleasant 75-year-old gentleman, on 4 L nasal cannula, up in the recliner, fairly comfortable in no apparent distress. HEAD: Normocephalic. EYES: Normal reaction of pupils, equal size. NOSE: Clear with pink turbinates. THROAT: No erythema or exudates. NECK: Right IJ Cordis in place. No masses, no JVD. CHEST: Sternal dressing dry and intact. Heart hugger in place. Mediastinal/left pleural chest tubes in place. LUNGS: Equal air entry with faint crackles in the posterior bases. CVS: S1 and S2 normal with no audible murmur, regular rhythm. ABDOMEN: No hepatosplenomegaly, normal bowel sounds, no guarding or rigidity. SPINE: No scoliosis or deformity SKIN: No rashes CENTRAL NERVOUS SYSTEM: No focal deficits, tone is normal in all 4 extremities. EXTREMITIES: Right radial arterial line in place. There is no peripheral edema. No clubbing, no cyanosis. Peripheral pulses are intact. - Labs CBC & Chem 7: 04/09/21 04:50 04/09/21 04:50 Labs: Abnormal Lab Results - Last 24 Hours (Table) 04/08/21 04/08/21 04/08/21 Range/Units 12:11 13:10 14:17 RBC (4.30-5.90) m/uL Hgb (13.0-17.5) gm/dL Hct (39.0-53.0) % Plt Count (150-450) k/uL Lymphocytes # (1.0-4.8) k/uL Sodium (137-145) mmol/L Carbon Dioxide (22-30) mmol/L BUN (9-20) mg/dL Creatinine (0.66-1.25) mg/dL Glucose (74-99) mg/dL POC Glucose (mg/dL) 162 H 214 H 195 H (75-99) mg/dL Calcium (8.4-10.2) mg/dL Total Protein (6.3-8.2) g/dL Albumin (3.5-5.0) g/dL 04/08/21 04/08/21 04/08/21 Range/Units 15:09 16:14 17:22 RBC (4.30-5.90) m/uL Hgb (13.0-17.5) gm/dL Hct (39.0-53.0) % Plt Count (150-450) k/uL Lymphocytes # (1.0-4.8) k/uL Sodium (137-145) mmol/L Carbon Dioxide (22-30) mmol/L BUN (9-20) mg/dL Creatinine (0.66-1.25) mg/dL Glucose (74-99) mg/dL POC Glucose (mg/dL) 159 H 117 H 147 H (75-99) mg/dL Calcium (8.4-10.2) mg/dL Total Protein (6.3-8.2) g/dL Albumin (3.5-5.0) g/dL 04/08/21 04/08/21 04/08/21 Range/Units 18:25 19:01 20:09 RBC (4.30-5.90) m/uL Hgb (13.0-17.5) gm/dL Hct (39.0-53.0) % Plt Count (150-450) k/uL Lymphocytes # (1.0-4.8) k/uL Sodium (137-145) mmol/L Carbon Dioxide (22-30) mmol/L BUN (9-20) mg/dL Creatinine (0.66-1.25) mg/dL Glucose (74-99) mg/dL POC Glucose (mg/dL) 165 H 157 H 133 H (75-99) mg/dL Calcium (8.4-10.2) mg/dL Total Protein (6.3-8.2) g/dL Albumin (3.5-5.0) g/dL 04/08/21 04/08/21 04/08/21 Range/Units 21:06 22:15 23:22 RBC (4.30-5.90) m/uL Hgb (13.0-17.5) gm/dL Hct (39.0-53.0) % Plt Count (150-450) k/uL Lymphocytes # (1.0-4.8) k/uL Sodium (137-145) mmol/L Carbon Dioxide (22-30) mmol/L BUN (9-20) mg/dL Creatinine (0.66-1.25) mg/dL Glucose (74-99) mg/dL POC Glucose (mg/dL) 110 H 121 H 140 H (75-99) mg/dL Calcium (8.4-10.2) mg/dL Total Protein (6.3-8.2) g/dL Albumin (3.5-5.0) g/dL 04/09/21 04/09/21 04/09/21 Range/Units 00:26 02:34 03:35 RBC (4.30-5.90) m/uL Hgb (13.0-17.5) gm/dL Hct (39.0-53.0) % Plt Count (150-450) k/uL Lymphocytes # (1.0-4.8) k/uL Sodium (137-145) mmol/L Carbon Dioxide (22-30) mmol/L BUN (9-20) mg/dL Creatinine (0.66-1.25) mg/dL Glucose (74-99) mg/dL POC Glucose (mg/dL) 120 H 104 H 125 H (75-99) mg/dL Calcium (8.4-10.2) mg/dL Total Protein (6.3-8.2) g/dL Albumin (3.5-5.0) g/dL 04/09/21 04/09/21 04/09/21 Range/Units 04:50 04:50 04:50 RBC 2.73 L (4.30-5.90) m/uL Hgb 8.4 L (13.0-17.5) gm/dL Hct 25.4 L (39.0-53.0) % Plt Count 125 L (150-450) k/uL Lymphocytes # 0.8 L (1.0-4.8) k/uL Sodium 133 L (137-145) mmol/L Carbon Dioxide 21 L (22-30) mmol/L BUN 22 H (9-20) mg/dL Creatinine 1.29 H (0.66-1.25) mg/dL Glucose 125 H (74-99) mg/dL POC Glucose (mg/dL) 135 H (75-99) mg/dL Calcium 8.2 L (8.4-10.2) mg/dL Total Protein 4.9 L (6.3-8.2) g/dL Albumin 3.0 L (3.5-5.0) g/dL 04/09/21 04/09/21 04/09/21 Range/Units 06:30 07:19 07:20 RBC (4.30-5.90) m/uL Hgb (13.0-17.5) gm/dL Hct (39.0-53.0) % Plt Count (150-450) k/uL Lymphocytes # (1.0-4.8) k/uL Sodium (137-145) mmol/L Carbon Dioxide (22-30) mmol/L BUN (9-20) mg/dL Creatinine (0.66-1.25) mg/dL Glucose (74-99) mg/dL POC Glucose (mg/dL) 129 H 178 H 186 H (75-99) mg/dL Calcium (8.4-10.2) mg/dL Total Protein (6.3-8.2) g/dL Albumin (3.5-5.0) g/dL 04/09/21 04/09/21 04/09/21 Range/Units 08:18 09:34 11:00 RBC (4.30-5.90) m/uL Hgb (13.0-17.5) gm/dL Hct (39.0-53.0) % Plt Count (150-450) k/uL Lymphocytes # (1.0-4.8) k/uL Sodium (137-145) mmol/L Carbon Dioxide (22-30) mmol/L BUN (9-20) mg/dL Creatinine (0.66-1.25) mg/dL Glucose (74-99) mg/dL POC Glucose (mg/dL) 165 H 120 H 106 H (75-99) mg/dL Calcium (8.4-10.2) mg/dL Total Protein (6.3-8.2) g/dL Albumin (3.5-5.0) g/dL Assessment and Plan Assessment: 1 Postop day #2, status post three-vessel bypass grafting, ALFORD to LAD, SVG to OM, and SVG to PDA. In addition, the patient had a ligation of atrial appendage, and intraoperative transesophageal echocardiogram. 2 Routine postoperative ventilator management, status post extubation on O2/. Currently on 4 L/m per nasal cannula 3 Prior history of myocardial infarction. 4 History of CAD, with previous multiple stents. 5 History of hypertension. 6 History of hyperlipidemia. 7 History of cgv-jsocgvp-hdxgvxpne diabetes mellitus. 8 History of ischemic cardiomyopathy. 9 History of ongoing tobacco use with nicotine addiction. Plan: The patient was seen and evaluated Chest x-ray and labs reviewed Continues to work with the incentive spirometer Titrate the FiO2 as tolerated Increase his activity as tolerated We will continue to follow I, the cosigning physician, performed a history & physical examination of the patient. Lungs sounds with faint crackles in the posterior bases. Maintaining good O2 saturations in the 90s on 4 L/m per nasal cannula. I discussed the as sessment and plan of care with my nurse practitioner, Doris Murphy. I attest to the above note as dictated by her. I have personally seen and examined the patient, performed the documentation and the assessment and plan as written. Number of minutes spent on the visit: 10.
[2021-04-09] MEDS: INSULIN DETEMIR (LEVEMIR) 100 UNIT/ML SYR SQ SCH (12:18)
[2021-04-09] MEDS: lisinopriL 5 MG TAB PO SCH (12:18)
[2021-04-09 12:24] LABS: Glucose,Whole Blood 193 mg/dL (75-99)
[2021-04-09] MEDS: INSULIN ASPART (NovoLOG) 100 UNIT/ML VIAL SQ SCH ×3 (13:24→20:27)
--- NOTE | 2021-04-09 15:17 | P.PN ---
Subjective Progress Note Date: 04/09/21 istory of present illness: This is a 75-year-old gentleman with history of previous myocardial infarction and multiple stents in the right coronary artery, hypertension, hypercholes terolemia, diabetes and ischemic cardiomyopathy was evaluated by cardiac catheterization and was found to have multivessel disease and was recommended to have bypass surgery. Patient had bypass surgery with the ALFORD graft to the LAD, vein graft to the OM and also vein graft to the PDA. Patient also had ligation of the atrial appendage. Patient is in intensive care unit. At the time of my examination patient is sitting in the chair. He is attempting to eat. He complaints of not feeling well and having some chest discomfort and shortness of breath. Chest x-ray showed some congestion and infiltrates and about 5% pneumothorax on the left side. Currently patient is on 4 L of nasal oxygen. Patient is an IV nitroglycerin. His hemoglobin is about 9.3. BUN is 17 and creatinine is 1. Overall patient seemed to be making satisfactory progress so far. No cardiac arrhythmias are noted. We'll continue current medical therapy along with Incentive spirometry. We'll follow him 04/09/2021. This patient is status post I to coronary bypass surgery. He is sitting up in the chair in the intensive care unit. He seemed to be feeling better than yesterday. Awake and alert, maintaining good oxygen saturation. Chest x-ray showed some cardiac megaly and mild congestive changes and atel ectasis at the bases. Hemoglobin is 8.4. Creatinine is 1.29. Overall patient seemed to be improving slowly. We will continue with incentive spirometry and increase activity as tolerated Objective - Vital Signs Vital signs: Vital Signs Temp 98 F 04/09/21 12:00 Pulse 70 04/09/21 14:00 Resp 23 04/09/21 14:00 BP 108/56 04/09/21 14:00 Pulse Ox 96 04/09/21 14:00 Intake & Output 04/08/21 04/09/21 04/09/21 18:59 06:59 18:59 Intake Total 1432.882 341.715 572.559 Output Total 735 460 345 Balance 697.882 -118.285 227.559 Weight 97.6 kg 101.4 kg Intake: IV 875.5 312 188 .9 NS pressure bag 81 72 48 Albumin Human 5% 250 ml 250 In Empty Bag 1 bag @ 250 mls/hr IVPB Q1HR PRN Rx#: [id number] CO/CI injectate. 90 Lactated Ringers 1,000 ml 450 240 140 @ 20 mls/hr IV .Q24H [facility] Rx#:[id number] Nitroglycerine 4.5 Intake, IV Titration 57.382 29.715 44.559 Amount Insulin Regular 100 unit 57.382 29.715 24.559 In Sodium Chloride 0.9% 100 ml @ Per Protocol IV .Q0M [facility] Rx#:[id number] Lactated Ringers 1,000 ml 20 @ 20 mls/hr IV .Q24H [facility] Rx#:[id number] Oral 500 340 Output: Chest Tube Drainage 250 110 65 Left Pleural/Mediastinal 250 110 30 Mediastinal 35 lt pleural 0 Urine 485 350 280 Other: Voiding Method Indwelling Catheter Indwelling Catheter Indwelling Catheter ABP, PAP, CO, CI - Last Documented Arterial Blood Pressure 149/58 Pulmonary Artery Pressure 36/8 Cardiac Output 7.7 Cardiac Index 3.6 - Exam GENERAL EXAM: Patient is alert and oriented and doesn't appear to be in any acute distress HEENT: Normocephalic. Normal reaction of pupils, equal size, normal range of extraocular motion. No erythema or exudates in the throat. NECK: No masses, no nuchal rigidity. CHEST: No chest wall deformity. LUNGS: Diminished breath sounds HEART: S1 and S2 normal with no audible mumurs or gallops. Regular rhythm, femorals equal on both sides.. ABDOMEN: No hepatosplenomegaly, normal bowel sounds, no guarding or rigidity. SKIN: No rashes CENTRAL NERVOUS SYSTEM: No focal deficits. EXTREMITIES: No cyanosis, clubbing or edema. - Labs CBC & Chem 7: 04/09/21 04:50 04/09/21 04:50 Labs: Abnormal Lab Results - Last 24 Hours (Table) 04/08/21 04/08/21 04/08/21 Range/Units 16:14 17:22 18:25 RBC (4.30-5.90) m/uL Hgb (13.0-17.5) gm/dL Hct (39.0-53.0) % Plt Count (150-450) k/uL Lymphocytes # (1.0-4.8) k/uL Sodium (137-145) mmol/L Carbon Dioxide (22-30) mmol/L BUN (9-20) mg/dL Creatinine (0.66-1.25) mg/dL Glucose (74-99) mg/dL POC Glucose (mg/dL) 117 H 147 H 165 H (75-99) mg/dL Calcium (8.4-10.2) mg/dL Total Protein (6.3-8.2) g/dL Albumin (3.5-5.0) g/dL 04/08/21 04/08/21 04/08/21 Range/Units 19:01 20:09 21:06 RBC (4.30-5.90) m/uL Hgb (13.0-17.5) gm/dL Hct (39.0-53.0) % Plt Count (150-450) k/uL Lymphocytes # (1.0-4.8) k/uL Sodium (137-145) mmol/L Carbon Dioxide (22-30) mmol/L BUN (9-20) mg/dL Creatinine (0.66-1.25) mg/dL Glucose (74-99) mg/dL POC Glucose (mg/dL) 157 H 133 H 110 H (75-99) mg/dL Calcium (8.4-10.2) mg/dL Total Protein (6.3-8.2) g/dL Albumin (3.5-5.0) g/dL 04/08/21 04/08/21 04/09/21 Range/Units 22:15 23:22 00:26 RBC (4.30-5.90) m/uL Hgb (13.0-17.5) gm/dL Hct (39.0-53.0) % Plt Count (150-450) k/uL Lymphocytes # (1.0-4.8) k/uL Sodium (137-145) mmol/L Carbon Dioxide (22-30) mmol/L BUN (9-20) mg/dL Creatinine (0.66-1.25) mg/dL Glucose (74-99) mg/dL POC Glucose (mg/dL) 121 H 140 H 120 H (75-99) mg/dL Calcium (8.4-10.2) mg/dL Total Protein (6.3-8.2) g/dL Albumin (3.5-5.0) g/dL 04/09/21 04/09/21 04/09/21 Range/Units 02:34 03:35 04:50 RBC 2.73 L (4.30-5.90) m/uL Hgb 8.4 L (13.0-17.5) gm/dL Hct 25.4 L (39.0-53.0) % Plt Count 125 L (150-450) k/uL Lymphocytes # 0.8 L (1.0-4.8) k/uL Sodium (137-145) mmol/L Carbon Dioxide (22-30) mmol/L BUN (9-20) mg/dL Creatinine (0.66-1.25) mg/dL Glucose (74-99) mg/dL POC Glucose (mg/dL) 104 H 125 H (75-99) mg/dL Calcium (8.4-10.2) mg/dL Total Protein (6.3-8.2) g/dL Albumin (3.5-5.0) g/dL 04/09/21 04/09/21 04/09/21 Range/Units 04:50 04:50 06:30 RBC (4.30-5.90) m/uL Hgb (13.0-17.5) gm/dL Hct (39.0-53.0) % Plt Count (150-450) k/uL Lymphocytes # (1.0-4.8) k/uL Sodium 133 L (137-145) mmol/L Carbon Dioxide 21 L (22-30) mmol/L BUN 22 H (9-20) mg/dL Creatinine 1.29 H (0.66-1.25) mg/dL Glucose 125 H (74-99) mg/dL POC Glucose (mg/dL) 135 H 129 H (75-99) mg/dL Calcium 8.2 L (8.4-10.2) mg/dL Total Protein 4.9 L (6.3-8.2) g/dL Albumin 3.0 L (3.5-5.0) g/dL 04/09/21 04/09/21 04/09/21 Range/Units 07:19 07:20 08:18 RBC (4.30-5.90) m/uL Hgb (13.0-17.5) gm/dL Hct (39.0-53.0) % Plt Count (150-450) k/uL Lymphocytes # (1.0-4.8) k/uL Sodium (137-145) mmol/L Carbon Dioxide (22-30) mmol/L BUN (9-20) mg/dL Creatinine (0.66-1.25) mg/dL Glucose (74-99) mg/dL POC Glucose (mg/dL) 178 H 186 H 165 H (75-99) mg/dL Calcium (8.4-10.2) mg/dL Total Protein (6.3-8.2) g/dL Albumin (3.5-5.0) g/dL 04/09/21 04/09/21 04/09/21 Range/Units 09:34 11:00 12:21 RBC (4.30-5.90) m/uL Hgb (13.0-17.5) gm/dL Hct (39.0-53.0) % Plt Count (150-450) k/uL Lymphocytes # (1.0-4.8) k/uL Sodium (137-145) mmol/L Carbon Dioxide (22-30) mmol/L BUN (9-20) mg/dL Creatinine (0.66-1.25) mg/dL Glucose (74-99) mg/dL POC Glucose (mg/dL) 120 H 106 H 193 H (75-99) mg/dL Calcium (8.4-10.2) mg/dL Total Protein (6.3-8.2) g/dL Albumin (3.5-5.0) g/dL Assessment and Plan (1) Status post aorto-coronary artery bypass graft Current Visit: Yes Status: Acute Code(s): Z95.1 - PRESENCE OF AORTOCORONARY BYPASS GRAFT SNOMED Code(s): 725289345 (2) Essential hypertension Current Visit: Yes Status: Acute Code(s): I10 - ESSENTIAL (PRIMARY) HYPERTENSION SNOMED Code(s): 22563087 Plan: Status post bypass surgery, making good progress. No Sigmund arrhythmias. Continue current medical therapy and increase activity along with incentive spirometry
[2021-04-09] MEDS: LACTATED RINGERS 1,000 ML IV SCH (16:23)
[2021-04-09 16:33] LABS: Glucose,Whole Blood 148 mg/dL (75-99)
--- NOTE | 2021-04-09 19:43 | P.PN ---
Subjective Progress Note Date: 04/09/21 75-year-old male who was recently evaluated by cardiology, with a known history of coronary disease, previous myocardial infarction, and multiple stents of the right coronary artery. In addition, the patient has a history of hypertension, hyperlipidemia, diabetes, ischemic cardiomyopathy, and ongoing tobacco use. The patient was evaluated by cardiology, and was found have significant coronary disease on catheterization. Today, he underwent a three-vessel bypass grafting. The surgery was done by Dr. Valdes. The patient had a ALFORD to LAD bypass, saphenous vein graft to OM, and saphenous vein graft to PDA. In addition, the patient had intraoperative transesophageal echocardiogram, and ligation of atrial appendage. The patient is seen here in the ICU, and we are seeing the patient postoperatively. Patient was extubated yesterday Patient remains on O2 at 4 L per nasal cannula and remains on IV insulin infusion at a rate of 4.5 units per hour; Primacor has been turned off Chest x-ray shows typical postoperative changes. There is some basilar atelectasis. White count 8.7, hemoglobin 9.3, hematocrit 27.4, and platelet count 136,000. Sodium 137, potassium 4.3, chlorides 112, CO2 24, BUN 17, and creatinine 1.01. Albumin is 2.7. Patient is counseled again on deep breathing, coughing and incentive spirometry every hour Objective - Vital Signs Vital signs: Vital Signs Temp 98 F 04/09/21 12:00 Pulse 69 04/09/21 13:00 Resp 18 04/09/21 13:00 BP 120/61 04/09/21 13:00 Pulse Ox 96 04/09/21 13:00 Intake & Output 04/08/21 04/09/21 04/09/21 18:59 06:59 18:59 Intake Total 1432.882 341.715 546.559 Output Total 735 460 285 Balance 697.882 -118.285 261.559 Weight 97.6 kg 101.4 kg Intake: IV 875.5 312 162 .9 NS pressure bag 81 72 42 Albumin Human 5% 250 ml 250 In Empty Bag 1 bag @ 250 mls/hr IVPB Q1HR PRN Rx#: [id number] CO/CI injectate. 90 Lactated Ringers 1,000 ml 450 240 120 @ 20 mls/hr IV .Q24H [facility] Rx#:[id number] Nitroglycerine 4.5 Intake, IV Titration 57.382 29.715 44.559 Amount Insulin Regular 100 unit 57.382 29.715 24.559 In Sodium Chloride 0.9% 100 ml @ Per Protocol IV .Q0M [facility] Rx#:[id number] Lactated Ringers 1,000 ml 20 @ 20 mls/hr IV .Q24H [facility] Rx#:[id number] Oral 500 340 Output: Chest Tube Drainage 250 110 65 Left Pleural/Mediastinal 250 110 30 Mediastinal 35 Urine 485 350 220 Other: Voiding Method Indwelling Catheter Indwelling Catheter Indwelling Catheter ABP, PAP, CO, CI - Last Documented Arterial Blood Pressure 149/58 Pulmonary Artery Pressure 36/8 Cardiac Output 7.7 Cardiac Index 3.6 - Exam - Constitutional General appearance: Present: average body habitus, cooperative, no acute distress - EENT Eyes: Present: anicteric sclerae, EOMI, PERRLA, normal appearance ENT: Present: hearing grossly normal, normal oropharynx Ears: bilateral: normal - Neck Neck: Present: normal ROM. Absent: lymphadenopathy, rigidity, thyromegaly Carotids: negative: bruit present Thyroid: bilateral: normal size, negative: enlarged, nodule - Respiratory Respiratory: bilateral: CTA, negative: rales, rhonchi, wheezing - Cardiovascular Rhythm: regular Heart sounds: normal: S1, S2 Abnormal Heart Sounds: Absent: systolic murmur, diastolic murmur - Gastrointestinal General gastrointestinal: Present: normal bowel sounds, soft. Absent: distended, organomegaly, tenderness - Genitourinary Genitourinary Comment(s): deferred - Integumentary Integumentary: Present: normal turgor. Absent: jaundiced, rash, ulcer - Neurologic Neurologic: Present: CNII-XII intact. Absent: focal deficits - Musculoskeletal Musculoskeletal: Present: gait normal, strength equal bilaterally - Psychiatric Psychiatric: Present: A&O x's 3, appropriate affect, intact judgment & insight - Labs CBC & Chem 7: 04/09/21 04:50 04/09/21 04:50 Labs: Abnormal Lab Results - Last 24 Hours (Table) 04/08/21 04/08/21 04/08/21 Range/Units 14:17 15:09 16:14 RBC (4.30-5.90) m/uL Hgb (13.0-17.5) gm/dL Hct (39.0-53.0) % Plt Count (150-450) k/uL Lymphocytes # (1.0-4.8) k/uL Sodium (137-145) mmol/L Carbon Dioxide (22-30) mmol/L BUN (9-20) mg/dL Creatinine (0.66-1.25) mg/dL Glucose (74-99) mg/dL POC Glucose (mg/dL) 195 H 159 H 117 H (75-99) mg/dL Calcium (8.4-10.2) mg/dL Total Protein (6.3-8.2) g/dL Albumin (3.5-5.0) g/dL 04/08/21 04/08/21 04/08/21 Range/Units 17:22 18:25 19:01 RBC (4.30-5.90) m/uL Hgb (13.0-17.5) gm/dL Hct (39.0-53.0) % Plt Count (150-450) k/uL Lymphocytes # (1.0-4.8) k/uL Sodium (137-145) mmol/L Carbon Dioxide (22-30) mmol/L BUN (9-20) mg/dL Creatinine (0.66-1.25) mg/dL Glucose (74-99) mg/dL POC Glucose (mg/dL) 147 H 165 H 157 H (75-99) mg/dL Calcium (8.4-10.2) mg/dL Total Protein (6.3-8.2) g/dL Albumin (3.5-5.0) g/dL 04/08/21 04/08/21 04/08/21 Range/Units 20:09 21:06 22:15 RBC (4.30-5.90) m/uL Hgb (13.0-17.5) gm/dL Hct (39.0-53.0) % Plt Count (150-450) k/uL Lymphocytes # (1.0-4.8) k/uL Sodium (137-145) mmol/L Carbon Dioxide (22-30) mmol/L BUN (9-20) mg/dL Creatinine (0.66-1.25) mg/dL Glucose (74-99) mg/dL POC Glucose (mg/dL) 133 H 110 H 121 H (75-99) mg/dL Calcium (8.4-10.2) mg/dL Total Protein (6.3-8.2) g/dL Albumin (3.5-5.0) g/dL 04/08/21 04/09/21 04/09/21 Range/Units 23:22 00:26 02:34 RBC (4.30-5.90) m/uL Hgb (13.0-17.5) gm/dL Hct (39.0-53.0) % Plt Count (150-450) k/uL Lymphocytes # (1.0-4.8) k/uL Sodium (137-145) mmol/L Carbon Dioxide (22-30) mmol/L BUN (9-20) mg/dL Creatinine (0.66-1.25) mg/dL Glucose (74-99) mg/dL POC Glucose (mg/dL) 140 H 120 H 104 H (75-99) mg/dL Calcium (8.4-10.2) mg/dL Total Protein (6.3-8.2) g/dL Albumin (3.5-5.0) g/dL 04/09/21 04/09/21 04/09/21 Range/Units 03:35 04:50 04:50 RBC 2.73 L (4.30-5.90) m/uL Hgb 8.4 L (13.0-17.5) gm/dL Hct 25.4 L (39.0-53.0) % Plt Count 125 L (150-450) k/uL Lymphocytes # 0.8 L (1.0-4.8) k/uL Sodium 133 L (137-145) mmol/L Carbon Dioxide 21 L (22-30) mmol/L BUN 22 H (9-20) mg/dL Creatinine 1.29 H (0.66-1.25) mg/dL Glucose 125 H (74-99) mg/dL POC Glucose (mg/dL) 125 H (75-99) mg/dL Calcium 8.2 L (8.4-10.2) mg/dL Total Protein 4.9 L (6.3-8.2) g/dL Albumin 3.0 L (3.5-5.0) g/dL 04/09/21 04/09/21 04/09/21 Range/Units 04:50 06:30 07:19 RBC (4.30-5.90) m/uL Hgb (13.0-17.5) gm/dL Hct (39.0-53.0) % Plt Count (150-450) k/uL Lymphocytes # (1.0-4.8) k/uL Sodium (137-145) mmol/L Carbon Dioxide (22-30) mmol/L BUN (9-20) mg/dL Creatinine (0.66-1.25) mg/dL Glucose (74-99) mg/dL POC Glucose (mg/dL) 135 H 129 H 178 H (75-99) mg/dL Calcium (8.4-10.2) mg/dL Total Protein (6.3-8.2) g/dL Albumin (3.5-5.0) g/dL 04/09/21 04/09/21 04/09/21 Range/Units 07:20 08:18 09:34 RBC (4.30-5.90) m/uL Hgb (13.0-17.5) gm/dL Hct (39.0-53.0) % Plt Count (150-450) k/uL Lymphocytes # (1.0-4.8) k/uL Sodium (137-145) mmol/L Carbon Dioxide (22-30) mmol/L BUN (9-20) mg/dL Creatinine (0.66-1.25) mg/dL Glucose (74-99) mg/dL POC Glucose (mg/dL) 186 H 165 H 120 H (75-99) mg/dL Calcium (8.4-10.2) mg/dL Total Protein (6.3-8.2) g/dL Albumin (3.5-5.0) g/dL 04/09/21 04/09/21 Range/Units 11:00 12:21 RBC (4.30-5.90) m/uL Hgb (13.0-17.5) gm/dL Hct (39.0-53.0) % Plt Count (150-450) k/uL Lymphocytes # (1.0-4.8) k/uL Sodium (137-145) mmol/L Carbon Dioxide (22-30) mmol/L BUN (9-20) mg/dL Creatinine (0.66-1.25) mg/dL Glucose (74-99) mg/dL POC Glucose (mg/dL) 106 H 193 H (75-99) mg/dL Calcium (8.4-10.2) mg/dL Total Protein (6.3-8.2) g/dL Albumin (3.5-5.0) g/dL Assessment and Plan Assessment: 1. Triple-vessel CAD; Postop day # 1, status post three-vessel bypass grafting -- ALFORD to LAD, SVG to OM, and SVG to PDA. In addition, the patient had a ligation of atrial appendage, and intraoperative transesophageal echocardiogram. 2. Prior history of myocardial infarction; patient to continue with aspirin and Plavix. 3. History of hypertension; currently stable. 4. History of hyperlipidemia; Lipitor 80 mg by mouth daily at bedtime; Zetia 10 mg by mouth daily. 5. History of zhv-hgdjiis-mtzkddgyu diabetes mellitus; patient remains on IV insulin infusion with plans to titrate as able; we will plan to start patient on Accu-Cheks before meals and at bedtime with insulin sliding scale along with long-acting insulin. 6. History of ischemic cardiomyopathy; history of previous myocardial infarction and multiple stents in the right coronary artery, hypertension, hyper cholesterolemia, diabetes and ischemic cardiomyopathy was evaluated by cardiac catheterization and was found to have multivessel disease and was recommended to have bypass surgery DVT prophylaxis; SCDs/heparin CODE STATUS; full code
[2021-04-09 20:03] LABS: Glucose,Whole Blood 165 mg/dL (75-99)
[2021-04-09] MEDS: SENNOSIDES-DOCUSATE SODIUM 1 EACH TAB PO SCH (20:28)
[2021-04-09] MEDS: ATORVASTATIN 80 MG TAB PO SCH (20:28)
[2021-04-10] MEDS: HEPARIN SODIUM,PORCINE/PF 5,000 UNIT/0.5 ML SYRINGE SQ SCH ×3 (00:48→16:22)
[2021-04-10] MEDS: METOPROLOL TARTRATE 25 MG TAB PO SCH (00:48)
[2021-04-10] MEDS: traMADol 50 MG TAB PO PRN (05:20)
[2021-04-10 06:57] LABS: Glucose,Whole Blood 179 mg/dL (75-99)
[2021-04-10 07:06] LABS: Albumin 3.1 g/dL (3.5-5.0); Calcium 8.5 mg/dL (8.4-10.2); Potassium 4.9 mmol/L (3.5-5.1); Total Bilirubin 0.8 mg/dL (0.2-1.3); Total Protein 5.4 g/dL (6.3-8.2)
[2021-04-10] MEDS: ACETAMINOPHEN TAB 325 MG TAB PO PRN ×2 (07:11→20:33)
[2021-04-10] MEDS: INSULIN ASPART (NovoLOG) 100 UNIT/ML VIAL SQ SCH ×4 (07:11→20:33)
[2021-04-10] MEDS: MAGNESIUM HYDROXIDE 2,400 MG/10 ML CUP PO PRN (07:12)
[2021-04-10 07:13] LABS: Basophils % (A) 0 %; Eosinophils # (A) 0.1 k/uL (0-0.7); Eosinophils % (A) 1 %; HCT 25.9 % (39.0-53.0); HGB 8.5 gm/dL (13.0-17.5); Lymphocytes # (A) 1.2 k/uL (1.0-4.8); Lymphocytes % (A) 12 %; MCH 31.6 pg (25.0-35.0); MCHC 32.7 g/dL (31.0-37.0); MCV 96.4 fL (80.0-100.0); Mean Platelet Volume 7.9; Monocytes # (A) 0.7 k/uL (0-1.0); Monocytes % (A) 7 %; Neutrophils # (A) 7.7 k/uL (1.3-7.7); Neutrophils % (A) 76 %; Platelet Count 153 k/uL (150-450); RBC 2.69 m/uL (4.30-5.90); RDW 13.3 % (11.5-15.5); WBC 10.1 k/uL (3.8-10.6)
--- NOTE | 2021-04-10 07:16 | P.PN ---
Subjective Progress Note Date: 04/10/21 Principal diagnosis: Coronary artery disease. Previous medical history of coronary artery disease with previous myocardial infarction and stenting, hypertension, hyperlipidemia, swy-kmxpvkr-ffwthckqv diabetes, ischemic cardiomyopathy, moderate COPD, and current tobacco dependence. Vaccinated and boosted against Covid POD #3 coronary artery bypass grafting 3 vessels, left internal mammary artery to the left anterior descending artery, reverse saphenous vein graft to the ob tuse marginal artery, reverse saphenous vein graft to posterior descending artery, endoscopic harvesting of the right greater saphenous vein, ligation of the left atrial appendage using a 35 mm AtriClip, epi-aortic ultrasound and intraoperative transesophageal echocardiogram Postoperative acute blood loss anemia and thrombocytopenia, expected given cardiopulmonary bypass pump and hemodilution The patient was seen and examined this morning sitting up in a recliner in the intensive care unit in no acute distress. A little more sleepy this morning. Remains in sinus rhythm, hemodynamically stable. States post surgical chest discomfort controlled with current medication regimen, denies shortness of breath. Right internal jugular Cordis, left pleural chest tube remain present. He did ambulate with assistance yesterday but was a bit shaky. Actively using incentive spirometer. Had to be straight cathed this morning, patient states he has had this issue after surgery in the past. No other new concerns. Objective - Vital Signs Vital signs: Vital Signs Temp 98.4 F 04/10/21 04:00 Pulse 82 04/10/21 05:00 Resp 16 04/10/21 05:00 BP 127/62 04/10/21 05:00 Pulse Ox 94 L 04/10/21 05:00 Intake & Output 04/09/21 04/10/21 04/10/21 18:59 06:59 18:59 Intake Total 1107.559 253 Output Total 520 435 Balance 587.559 -182 Weight 98.4 kg Intake: IV 283 253 .9 NS pressure bag 63 33 Lactated Ringers 1,000 ml 220 220 @ 20 mls/hr IV .Q24H [facility] Rx#:[id number] Intake, IV Titration 44.559 Amount Insulin Regular 100 unit 24.559 In Sodium Chloride 0.9% 100 ml @ Per Protocol IV .Q0M [facility] Rx#:[id number] Lactated Ringers 1,000 ml 20 @ 20 mls/hr IV .Q24H [facility] Rx#:[id number] Oral 780 Output: Chest Tube Drainage 90 35 Left Pleural/Mediastinal 30 Mediastinal 35 lt pleural 25 35 Urine 430 400 Other: Voiding Method Indwelling Catheter Urinal # Voids 1 ABP, PAP, CO, CI - Last Documented Arterial Blood Pressure 149/58 Pulmonary Artery Pressure 36/8 Cardiac Output 7.7 Cardiac Index 3.6 - Exam CONSTITUTIONAL: Appears comfortable, cooperative, no acute distress RESPIRATORY: Lungs sounds diminished bilaterally. Respirations even, nonlabored. Currently on 3 L nasal cannula with oxygen saturation 92%. Able to achieve 750 mL on incentive spirometry. Strong cough. CARDIOVASCULAR: S1, S2 present. Regular rate and rhythm, sinus rhythm on telemetry. Sternum stable. Palpable peripheral pulses bilaterally. Trace generalized edema present. No calf pain or tenderness noted. Heart hugger in place with patient demonstrating appropriate use. Antiembolism stockings, SCDs present. GASTROINTESTINAL: Abdomen soft, nontender, nondistended. Active bowel sounds present 4 quadrants. Tolerating diet. Positive flatus GENITOURINARY: Parker discontinued yesterday, patient did need straight cath this morning for 400 mL urine INTEGUMENTARY: Skin is warm and dry with evidence of good perfusion. Anterior chest incision well approximated and covered with dry intact dressing. Right lower extremity EVH site well approximated without redness or drainage. NEUROLOGIC: Cranial nerves II through XII intact MUSKULOSKELETAL: Able to move all extremities, strength equal bilaterally PSYCHIATRIC: Alert and oriented to person place and time, appropriate affect, intact judgment and insight INVASIVE LINES AND TUBES: Left pleural chest tube present and connected to wall suction, no air leaks present, 35 mL serosanguineous drainage overnight, 180 mL in the last 24 hours. A/V epicardial pacemaker wires present, grounded. Right internal jugular Cordis present. - Allied health notes Allied health notes reviewed: nursing - Labs CBC & Chem 7: 04/09/21 04:50 04/10/21 06:36 Labs: Abnormal Lab Results - Last 24 Hours (Table) 04/09/21 04/09/21 04/09/21 Range/Units 07:19 07:20 08:18 Sodium (137-145) mmol/L Chloride (98-107) mmol/L Carbon Dioxide (22-30) mmol/L BUN (9-20) mg/dL Creatinine (0.66-1.25) mg/dL Glucose (74-99) mg/dL POC Glucose (mg/dL) 178 H 186 H 165 H (75-99) mg/dL Total Protein (6.3-8.2) g/dL Albumin (3.5-5.0) g/dL 04/09/21 04/09/21 04/09/21 Range/Units 09:34 11:00 12:21 Sodium (137-145) mmol/L Chloride (98-107) mmol/L Carbon Dioxide (22-30) mmol/L BUN (9-20) mg/dL Creatinine (0.66-1.25) mg/dL Glucose (74-99) mg/dL POC Glucose (mg/dL) 120 H 106 H 193 H (75-99) mg/dL Total Protein (6.3-8.2) g/dL Albumin (3.5-5.0) g/dL 04/09/21 04/09/21 04/10/21 Range/Units 16:31 20:01 06:36 Sodium 133 L (137-145) mmol/L Chloride 108 H (98-107) mmol/L Carbon Dioxide 18 L (22-30) mmol/L BUN 32 H (9-20) mg/dL Creatinine 1.36 H (0.66-1.25) mg/dL Glucose 166 H (74-99) mg/dL POC Glucose (mg/dL) 148 H 165 H (75-99) mg/dL Total Protein 5.4 L (6.3-8.2) g/dL Albumin 3.1 L (3.5-5.0) g/dL 04/10/21 Range/Units 06:55 Sodium (137-145) mmol/L Chloride (98-107) mmol/L Carbon Dioxide (22-30) mmol/L BUN (9-20) mg/dL Creatinine (0.66-1.25) mg/dL Glucose (74-99) mg/dL POC Glucose (mg/dL) 179 H (75-99) mg/dL Total Protein (6.3-8.2) g/dL Albumin (3.5-5.0) g/dL - Imaging and Cardiology Chest x-ray: image reviewed Assessment and Plan Assessment: 1. Coronary artery disease with previous myocardial infarction and stenting, status post three-vessel CABG 2. Hypertension 3. Hyperlipidemia, treated, cholesterol 99, LDL 33 4. Aqj-aoaeawj-xsmovlvnn diabetes, preoperative hemoglobin A1c 7.9% 5. Ischemic cardiomyopathy, preoperative EF 50-55% 6. Moderate COPD with preoperative FEV1 59% of predicted 7. Current tobacco dependence, recent cessation one week ago 8. Vaccinated and boosted against Covid 9. Postoperative acute blood loss anemia and thrombocytopenia Plan: 1. Continue aspirin, plavix, statin, beta wang therapy. Will increase beta wang therapy as tolerated, increase to 50 mg twice a day today. Continue lisinopril for afterload reduction 2. Increase activity, ambulate as tolerated. PT/OT/cardiac rehab following 3. Wean oxygen as tolerated. Encourage incentive spirometry 10 times every hour while awake. Bronchodilators per pulmonology 4. Encourage continued smoking cessation 5. Will monitor daily labs and CXRs. Electrolyte replacement per protocol. 5. GI/DVT prophylaxis 6. Pain control with current medication regimen. 7. Insulin management per internal medicine. Patient needs tight blood sugar control to promote healing, prevent infection 8. Will discontinue left pleural chest tube, discontinue Cordis 9. Parker discontinued yesterday, may bladder scan and straight cath for greater than 300 mL residual. Flomax added 10. Strict accurate I/O. Daily weights 11. Will place transfer orders for 3 S. cardiac stepdown unit. May transfer when bed available 12. More recommendations to follow Time with Patient: Greater than 30
[2021-04-10] MEDS: INSULIN DETEMIR (LEVEMIR) 100 UNIT/ML SYR SQ SCH (07:17)
[2021-04-10] MEDS: PANTOPRAZOLE 40 MG TABLET PO SCH (07:17)
[2021-04-10] MEDS: METOPROLOL TARTRATE 50 MG TAB PO SCH ×2 (08:05→20:33)
[2021-04-10] MEDS: EZETIMIBE 10 MG TAB PO SCH (08:05)
[2021-04-10] MEDS: TAMSULOSIN 0.4 MG CAP.ER.24H PO SCH (08:05)
[2021-04-10] MEDS: CLOPIDOGREL 75 MG TAB PO SCH (08:06)
[2021-04-10] MEDS: ASPIRIN 325 MG TAB PO SCH (08:06)
[2021-04-10] MEDS: IPRATROPIUM-ALBUTEROL 3 ML NEB INHALATION SCH ×4 (08:19→20:44)
[2021-04-10] MEDS ORDERED: FUROSEMIDE 10 MG/ML 2 ML VIAL IV ONE (08:24)
--- NOTE | 2021-04-10 08:40 | XR ---
EXAMINATION TYPE: XR chest 1V portable DATE OF EXAM: 04/10/2021 Comparison: 04/09/2021 Clinical History: 75-year-old male post cardiac surgery Findings: Patient's chin obscures the right apex. Heart remains enlarged. Median sternotomy wires and post-CABG clips. Left chest tube in place. No appreciable pneumothorax. Interstitial changes similar. Patchy b ibasilar opacities shows slight improvement. Impression: Similar mild cardiomegaly. Similar mild pulmonary vascular congestion. Patchy bibasilar opacities als o persist but show slight improvement.
[2021-04-10 11:50] LABS: Glucose,Whole Blood 159 mg/dL (75-99)
--- NOTE | 2021-04-10 11:56 | P.PN ---
Subjective Progress Note Date: 04/10/21 istory of present illness: This is a 75-year-old gentleman with history of previous myocardial infarction and multiple stents in the right coronary artery, hypertension, hypercholes terolemia, diabetes and ischemic cardiomyopathy was evaluated by cardiac catheterization and was found to have multivessel disease and was recommended to have bypass surgery. Patient had bypass surgery with the ALFORD graft to the LAD, vein graft to the OM and also vein graft to the PDA. Patient also had ligation of the atrial appendage. Patient is in intensive care unit. At the time of my examination patient is sitting in the chair. He is attempting to eat. He complaints of not feeling well and having some chest discomfort and shortness of breath. Chest x-ray showed some congestion and infiltrates and about 5% pneumothorax on the left side. Currently patient is on 4 L of nasal oxygen. Patient is an IV nitroglycerin. His hemoglobin is about 9.3. BUN is 17 and creatinine is 1. Overall patient seemed to be making satisfactory progress so far. No cardiac arrhythmias are noted. We'll continue current medical therapy along with Incentive spirometry. We'll follow him 04/09/2021. This patient is status post I to coronary bypass surgery. He is sitting up in the chair in the intensive care unit. He seemed to be feeling better than yesterday. Awake and alert, maintaining good oxygen saturation. Chest x-ray showed some cardiac megaly and mild congestive changes and atel ectasis at the bases. Hemoglobin is 8.4. Creatinine is 1.29. Overall patient seemed to be improving slowly. We will continue with incentive spirometry and increase activity as tolerated. 04/10/2021: This patient's seemed to be progressing fairly well. He claims that his chest pain is improving. No arrhythmias noted. Chest x-ray shows mild congestion and some basilar defect basis. Lungs show diminished breath set at this basis. Heart is regular. Is working on his incentive spirometry and doing fairly well. Patient will continue current medical therapy. Increase activity as tolerated. Hemoglobin is stable. May be transferred to telemetry unit Objective - Vital Signs Vital signs: Vital Signs Temp 97.6 F 04/10/21 08:00 Pulse 56 L 04/10/21 11:00 Resp 18 04/10/21 11:00 BP 115/53 04/10/21 11:00 Pulse Ox 95 04/10/21 11:00 Intake & Output 04/09/21 04/10/21 04/10/21 18:59 06:59 18:59 Intake Total 1107.559 276 263 Output Total 520 835 Balance 587.559 -559 263 Weight 98.4 kg Intake: IV 283 276 23 .9 NS pressure bag 63 36 3 Lactated Ringers 1,000 ml 220 240 20 @ 20 mls/hr IV .Q24H [facility] Rx#:[id number] Intake, IV Titration 44.559 Amount Insulin Regular 100 unit 24.559 In Sodium Chloride 0.9% 100 ml @ Per Protocol IV .Q0M [facility] Rx#:[id number] Lactated Ringers 1,000 ml 20 @ 20 mls/hr IV .Q24H [facility] Rx#:[id number] Oral 780 240 Output: Chest Tube Drainage 90 35 Left Pleural/Mediastinal 30 Mediastinal 35 lt pleural 25 35 Urine 430 800 Uretheral (Parker) 400 Other: Voiding Method Indwelling Catheter Urinal Urinal ABP, PAP, CO, CI - Last Documented Arterial Blood Pressure 149/58 Pulmonary Artery Pressure 36/8 Cardiac Output 7.7 Cardiac Index 3.6 - Exam GENERAL EXAM: Patient is alert and oriented and doesn't appear to be in any acute distress HEENT: Normocephalic. Normal reaction of pupils, equal size, normal range of extraocular motion. No erythema or exudates in the throat. NECK: No masses, no nuchal rigidity. CHEST: No chest wall deformity. LUNGS: Diminished breath sounds HEART: S1 and S2 normal with no audible mumurs or gallops. Regular rhythm, femorals equal on both sides.. ABDOMEN: No hepatosplenomegaly, normal bowel sounds, no guarding or rigidity. SKIN: No rashes CENTRAL NERVOUS SYSTEM: No focal deficits. EXTREMITIES: No cyanosis, clubbing or edema. - Labs CBC & Chem 7: 04/10/21 06:36 04/10/21 06:36 Labs: Abnormal Lab Results - Last 24 Hours (Table) 04/09/21 04/09/21 04/09/21 Range/Units 12:21 16:31 20:01 RBC (4.30-5.90) m/uL Hgb (13.0-17.5) gm/dL Hct (39.0-53.0) % Sodium (137-145) mmol/L Chloride (98-107) mmol/L Carbon Dioxide (22-30) mmol/L BUN (9-20) mg/dL Creatinine (0.66-1.25) mg/dL Glucose (74-99) mg/dL POC Glucose (mg/dL) 193 H 148 H 165 H (75-99) mg/dL Total Protein (6.3-8.2) g/dL Albumin (3.5-5.0) g/dL 04/10/21 04/10/21 04/10/21 Range/Units 06:36 06:36 06:55 RBC 2.69 L (4.30-5.90) m/uL Hgb 8.5 L (13.0-17.5) gm/dL Hct 25.9 L (39.0-53.0) % Sodium 133 L (137-145) mmol/L Chloride 108 H (98-107) mmol/L Carbon Dioxide 18 L (22-30) mmol/L BUN 32 H (9-20) mg/dL Creatinine 1.36 H (0.66-1.25) mg/dL Glucose 166 H (74-99) mg/dL POC Glucose (mg/dL) 179 H (75-99) mg/dL Total Protein 5.4 L (6.3-8.2) g/dL Albumin 3.1 L (3.5-5.0) g/dL 04/10/21 Range/Units 11:48 RBC (4.30-5.90) m/uL Hgb (13.0-17.5) gm/dL Hct (39.0-53.0) % Sodium (137-145) mmol/L Chloride (98-107) mmol/L Carbon Dioxide (22-30) mmol/L BUN (9-20) mg/dL Creatinine (0.66-1.25) mg/dL Glucose (74-99) mg/dL POC Glucose (mg/dL) 159 H (75-99) mg/dL Total Protein (6.3-8.2) g/dL Albumin (3.5-5.0) g/dL Assessment and Plan (1) Status post aorto-coronary artery bypass graft Current Visit: Yes Status: Acute Code(s): Z95.1 - PRESENCE OF AORTOCORONARY BYPASS GRAFT SNOMED Code(s): 824284395 (2) Essential hypertension Current Visit: Yes Status: Acute Code(s): I10 - ESSENTIAL (PRIMARY) HYPERTENSION SNOMED Code(s): 82657458 Plan: patient is progressing fairly well. Using spirometry. Being transferred totelemetry unit .walking with help. Hemodynamically stable
--- NOTE | 2021-04-10 12:04 | P.PN ---
Subjective Progress Note Date: 04/10/21 Principal diagnosis: Status post bypass grafting, postoperative ventilator management. Pulmonary consult dated 04/07/2021. This is a 75-year-old male who was recently evaluated by cardiology, with a known history of coronary disease, previous myocardial infarction, and multiple stents of the right coronary artery. In addition, the patient has a history of hypertension, hyperlipidemia, diabetes, ischemic cardiomyopathy, and ongoing tobacco use. The patient was evaluated by cardiology, and was found have significant coronary disease on catheterization. Today, he underwent a three- vessel bypass grafting. The surgery was done by Dr. Valdes. The patient had a ALFORD to LAD bypass, saphenous vein graft to OM, and saphenous vein graft to PDA. In addition, the patient had intraoperative transesophageal echocardiogram, and ligation of atrial appendage. The patient is seen here in the ICU, and we are seeing the patient postoperatively. The patient's currently on the ventilator, with vent settings of volume assist control, rate of 14, tidal volume 500, FiO2 100%, and PEEP of 5. Blood gases are currently pending. Chest x-ray has not yet been done. The patient's on norepinephrine at 0.02 mcg/kg/m, Primacor 0.3 mcg/kg/m, propofol at 20 g kilogram per minute, and nitroglycerin at 5 mcg/m. Most recent laboratory data shows a blood gas with a pO2 of 284, pCO2 47, pH is 7.34. The blood glucose was 144. Progress note dated 04/08/2021. 75-year-old male who I saw yesterday in consultation. He's postop day #1, status post three-vessel bypass grafting. He did ALFORD to LAD bypass, SVG to OM bypass, and SVG to PDA bypass. The patient was extubated yesterday. It took about 12 hours to get him extubated. When I spoke to the nurse, there is some issues with hemodynamics, and the patient wasn't really waking up as quickly as expected. The patient does have a history of hypertension, hyperlipidemia, diabetes, ischemic cardiomyopathy, and ongoing tobacco use. The surgery was done by Dr. Valdes. Currently, the patient's on 4 L nasal O2. He is getting lac tated Ringer's at 50 mL an hour, insulin at 4.5 units an hour, and Primacor has just recently been turned off. In addition, the patient's on nitroglycerin at 5 mcg/m. The patient's chest x-ray shows typical postoperative changes. There is some basilar atelectasis. White count 8.7, hemoglobin 9.3, hematocrit 27.4, and platelet count 136,000. Sodium 137, potassium 4.3, chlorides 112, CO2 24, BUN 17, and creatinine 1.01. Albumin is 2.7. The patient is seen today 04/09/2021 in follow-up in the intensive care unit. This is postoperative day #2. He is currently sitting up in a chair at the bedside. Awake and alert in no acute distress. He is maintaining O2 saturations in the 90s on 4 L/m per nasal cannula. Chest x-ray reveals stable cardiomegaly. No significant pneumothorax. Trace bilateral pleural effusions. He continues to work with the incentive spirometer. White count 8.6. Hemoglobin 8.4. Platelet count 125. Sodium 133. Potassium 4.6. Chloride 106. Bicarb 21. Creatinine 1.29. Glucose 125. AST 44. ALT 18. He is continued on DuoNeb inhalations. Heparin for DVT prophylaxis. Progress note dated 04/10/2021. The patient is postop day #3, status post three-vessel bypass grafting. The patient is currently on 2 L nasal cannula. Is not receiving any IV fluids. The patient has a lot of chest congestion. He is not doing very well on his incentive spirometer. The plan was to send him out of the ICU, but I think it is better to keep him in for at least another day. He does not look particularly strong in my opinion. He did receive some Lasix today. White count 10.1, hemoglobin 8.5, hematocrit 25.9, and platelet count 153,000. Sodium 133, potassium 4.9, chlorides 108, CO2 18, BUN 32, and creatinine 1.36. Albumin is 3.1. Chest x-ray shows cardiomegaly, and some mild pulmonary vascular congestion. Objective - Vital Signs Vital signs: Vital Signs Temp 97.6 F 04/10/21 08:00 Pulse 56 L 04/10/21 11:00 Resp 18 04/10/21 11:00 BP 115/53 04/10/21 11:00 Pulse Ox 95 04/10/21 11:00 Intake & Output 04/09/21 04/10/21 04/10/21 18:59 06:59 18:59 Intake Total 1107.559 276 263 Output Total 520 835 Balance 587.559 -559 263 Weight 98.4 kg Intake: IV 283 276 23 .9 NS pressure bag 63 36 3 Lactated Ringers 1,000 ml 220 240 20 @ 20 mls/hr IV .Q24H [facility] Rx#:[id number] Intake, IV Titration 44.559 Amount Insulin Regular 100 unit 24.559 In Sodium Chloride 0.9% 100 ml @ Per Protocol IV .Q0M [facility] Rx#:[id number] Lactated Ringers 1,000 ml 20 @ 20 mls/hr IV .Q24H [facility] Rx#:[id number] Oral 780 240 Output: Chest Tube Drainage 90 35 Left Pleural/Mediastinal 30 Mediastinal 35 lt pleural 25 35 Urine 430 800 Uretheral (Parker) 400 Other: Voiding Method Indwelling Catheter Urinal Urinal ABP, PAP, CO, CI - Last Documented Arterial Blood Pressure 149/58 Pulmonary Artery Pressure 36/8 Cardiac Output 7.7 Cardiac Index 3.6 - Exam No acute distress, on O2, at 2 L nasal cannula. HEENT examination is grossly unremarkable. Neck supple. Full range of motion. No adenopathy thyromegaly or neck vein distention. Cardiovascular examination reveals regular rhythm rate. S1-S2 normal. No S3 or S4. No discernible murmur noted. Heart rate 56 bpm. Lungs reveal lateral coarse rhonchi. No wheezes. No crackles. Breath sounds equal bilaterally. He does not take deep breaths. He is a very wet congested cough. Abdomen is soft, without bowel sounds. Extremities are intact. No cyanosis clubbing or edema. Skin is without rash or lesion. Neurologic examination is brief but nonfocal. - Labs CBC & Chem 7: 04/10/21 06:36 04/10/21 06:36 Labs: Abnormal Lab Results - Last 24 Hours (Table) 04/09/21 04/09/21 04/09/21 Range/Units 12:21 16:31 20:01 RBC (4.30-5.90) m/uL Hgb (13.0-17.5) gm/dL Hct (39.0-53.0) % Sodium (137-145) mmol/L Chloride (98-107) mmol/L Carbon Dioxide (22-30) mmol/L BUN (9-20) mg/dL Creatinine (0.66-1.25) mg/dL Glucose (74-99) mg/dL POC Glucose (mg/dL) 193 H 148 H 165 H (75-99) mg/dL Total Protein (6.3-8.2) g/dL Albumin (3.5-5.0) g/dL 04/10/21 04/10/21 04/10/21 Range/Units 06:36 06:36 06:55 RBC 2.69 L (4.30-5.90) m/uL Hgb 8.5 L (13.0-17.5) gm/dL Hct 25.9 L (39.0-53.0) % Sodium 133 L (137-145) mmol/L Chloride 108 H (98-107) mmol/L Carbon Dioxide 18 L (22-30) mmol/L BUN 32 H (9-20) mg/dL Creatinine 1.36 H (0.66-1.25) mg/dL Glucose 166 H (74-99) mg/dL POC Glucose (mg/dL) 179 H (75-99) mg/dL Total Protein 5.4 L (6.3-8.2) g/dL Albumin 3.1 L (3.5-5.0) g/dL 04/10/21 Range/Units 11:48 RBC (4.30-5.90) m/uL Hgb (13.0-17.5) gm/dL Hct (39.0-53.0) % Sodium (137-145) mmol/L Chloride (98-107) mmol/L Carbon Dioxide (22-30) mmol/L BUN (9-20) mg/dL Creatinine (0.66-1.25) mg/dL Glucose (74-99) mg/dL POC Glucose (mg/dL) 159 H (75-99) mg/dL Total Protein (6.3-8.2) g/dL Albumin (3.5-5.0) g/dL Assessment and Plan Assessment: Postop day #3, status post three-vessel bypass grafting, ALFORD to LAD, SVG to OM, and SVG to PDA. In addition, the patient had a ligation of atrial appendage, and intraoperative transesophageal echocardiogram. Routine postoperative ventilator management, status post extubation on 04/08/2021 . Prior history of myocardial infarction. History of CAD, with previous multiple stents. History of hypertension. History of hyperlipidemia. History of [id number] diabetes mellitus. History of ischemic cardiomyopathy. History of ongoing tobacco use with nicotine addiction. Plan: Plan dated 04/07/2021. Chest x-ray in the blood gas. That changes will be made. In addition, we will attempt to wean the patient and extubate the patient from the ventilator, as quickly and as safely as possible. Finally, we will continue to follow the patient along his hospitalization and make sure that his lungs remain healthy, and that he does not have a complication such as pneumonia, atelectasis, lobar collapse, pleural effusion. We'll recommend deep breathing, coughing, clearing of secretions, and hourly use of the incentive spirometer. Additional recomme ndations and suggestions are forthcoming. Plan dated 04/08/2021. The patient was finally extubated after about 12 hours. The patient apparently has some hemodynamic issues, and he was not emergent from anesthesia as quickly as expected. Currently, the patient's on 4 L nasal cannula. He remains on lactated Ringer's, and an insulin drip of 4.5 units an hour. Primacor is been finally turned down. He's currently on nitroglycerin at 5 mcg/m. Today's postop day #1. Labs, x-rays, and medications are all reviewed. We will continue to follow make recommendations were appropriate. We will recommend deep breathing, coughing, clearing of secretions. We also recommend hourly use of the incentive spirometer. Plan dated 04/10/2021. The patient is postop day #3, status post three-vessel bypass grafting. The patient did receive some Lasix today. The patient is doing very poorly on his incentive spirometer. His cough is very wet congested sounding. He does not take deep breaths. I don't believe it is in the best interest of the patient to move him out of the ICU. He is encouraged to deep breathe, cough, and clear secretions. He should use his incentive spirometer every hour. Additional recommendations and suggestions are forthcoming. Chest x-ray does show some mild pulmonary vascular congestion. Time with Patient: Less than 30
[2021-04-10] MEDS: lisinopriL 5 MG TAB PO SCH (13:07)
--- NOTE | 2021-04-10 15:07 | P.PN ---
Subjective Progress Note Date: 04/10/21 75-year-old male who was recently evaluated by cardiology, with a known history of coronary disease, previous myocardial infarction, and multiple stents of the right coronary artery. In addition, the patient has a history of hypertension, hyperlipidemia, diabetes, ischemic cardiomyopathy, and ongoing tobacco use. The patient was evaluated by cardiology, and was found have significant coronary disease on catheterization. Today, he underwent a three-vessel bypass grafting. The surgery was done by Dr. Valdes. The patient had a ALFORD to LAD bypass, saphenous vein graft to OM, and saphenous vein graft to PDA. In addition, the patient had intraoperative transesophageal echocardiogram, and ligation of atrial appendage. The patient is seen here in the ICU, and we are seeing the patient postoperatively. Patient was extubated yesterday Patient remains on O2 at 4 L per nasal cannula and remains on IV insulin infusion at a rate of 4.5 units per hour; Primacor has been turned off Chest x-ray shows typical postoperative changes. There is some basilar atelectasis. White count 8.7, hemoglobin 9.3, hematocrit 27.4, and platelet count 136,000. Sodium 137, potassium 4.3, chlorides 112, CO2 24, BUN 17, and creatinine 1.01. Albumin is 2.7. Patient is counseled again on deep breathing, coughing and incentive spirometry every hour 04/10/2021 Patient is seen and evaluated sitting up in bedside chair; reports chest congestion and cough Patient did receive some Lasix this morning Lab review shows WBC of 10.1, hemoglobin 8.5, hematocrit 25.9 and platelet count of 153; sodium 133, potassium 4.9, BUN 32, creatinine 1.39; chest x-ray reveals mild pulmonary vascular congestion He is encouraged to deep breathe, cough, and clear secretions. He should use his incentive spirometer every hour. Objective - Vital Signs Vital signs: Vital Signs Temp 98.4 F 04/10/21 04:00 Pulse 75 04/10/21 07:00 Resp 16 04/10/21 07:00 BP 149/67 04/10/21 07:00 Pulse Ox 94 L 04/10/21 07:00 Intake & Output 04/09/21 04/10/21 04/10/21 18:59 06:59 18:59 Intake Total 1107.559 276 23 Output Total 520 835 Balance 587.559 -559 23 Weight 98.4 kg Intake: IV 283 276 23 .9 NS pressure bag 63 36 3 Lactated Ringers 1,000 ml 220 240 20 @ 20 mls/hr IV .Q24H [facility] Rx#:[id number] Intake, IV Titration 44.559 Amount Insulin Regular 100 unit 24.559 In Sodium Chloride 0.9% 100 ml @ Per Protocol IV .Q0M [facility] Rx#:[id number] Lactated Ringers 1,000 ml 20 @ 20 mls/hr IV .Q24H [facility] Rx#:[id number] Oral 780 Output: Chest Tube Drainage 90 35 Left Pleural/Mediastinal 30 Mediastinal 35 lt pleural 25 35 Urine 430 800 Uretheral (Parker) 400 Other: Voiding Method Indwelling Catheter Urinal ABP, PAP, CO, CI - Last Documented Arterial Blood Pressure 149/58 Pulmonary Artery Pressure 36/8 Cardiac Output 7.7 Cardiac Index 3.6 - Exam - Constitutional General appearance: Present: average body habitus, cooperative, no acute distress - EENT Eyes: Present: anicteric sclerae, EOMI, PERRLA, normal appearance ENT: Present: hearing grossly normal, normal oropharynx Ears: bilateral: normal - Neck Neck: Present: normal ROM. Absent: lymphadenopathy, rigidity, thyromegaly Carotids: negative: bruit present Thyroid: bilateral: normal size, negative: enlarged, nodule - Respiratory Respiratory: bilateral: CTA, negative: rales, rhonchi, wheezing - Cardiovascular Rhythm: regular Heart sounds: normal: S1, S2 Abnormal Heart Sounds: Absent: systolic murmur, diastolic murmur - Gastrointestinal General gastrointestinal: Present: normal bowel sounds, soft. Absent: distended, organomegaly, tenderness - Genitourinary Genitourinary Comment(s): deferred - Integumentary Integumentary: Present: normal turgor. Absent: jaundiced, rash, ulcer - Neurologic Neurologic: Present: CNII-XII intact. Absent: focal deficits - Musculoskeletal Musculoskeletal: Present: gait normal, strength equal bilaterally - Psychiatric Psychiatric: Present: A&O x's 3, appropriate affect, intact judgment & insight - Labs CBC & Chem 7: 04/10/21 06:36 04/10/21 06:36 Labs: Abnormal Lab Results - Last 24 Hours (Table) 04/09/21 04/09/21 04/09/21 Range/Units 08:18 09:34 11:00 RBC (4.30-5.90) m/uL Hgb (13.0-17.5) gm/dL Hct (39.0-53.0) % Sodium (137-145) mmol/L Chloride (98-107) mmol/L Carbon Dioxide (22-30) mmol/L BUN (9-20) mg/dL Creatinine (0.66-1.25) mg/dL Glucose (74-99) mg/dL POC Glucose (mg/dL) 165 H 120 H 106 H (75-99) mg/dL Total Protein (6.3-8.2) g/dL Albumin (3.5-5.0) g/dL 04/09/21 04/09/21 04/09/21 Range/Units 12:21 16:31 20:01 RBC (4.30-5.90) m/uL Hgb (13.0-17.5) gm/dL Hct (39.0-53.0) % Sodium (137-145) mmol/L Chloride (98-107) mmol/L Carbon Dioxide (22-30) mmol/L BUN (9-20) mg/dL Creatinine (0.66-1.25) mg/dL Glucose (74-99) mg/dL POC Glucose (mg/dL) 193 H 148 H 165 H (75-99) mg/dL Total Protein (6.3-8.2) g/dL Albumin (3.5-5.0) g/dL 04/10/21 04/10/21 04/10/21 Range/Units 06:36 06:36 06:55 RBC 2.69 L (4.30-5.90) m/uL Hgb 8.5 L (13.0-17.5) gm/dL Hct 25.9 L (39.0-53.0) % Sodium 133 L (137-145) mmol/L Chloride 108 H (98-107) mmol/L Carbon Dioxide 18 L (22-30) mmol/L BUN 32 H (9-20) mg/dL Creatinine 1.36 H (0.66-1.25) mg/dL Glucose 166 H (74-99) mg/dL POC Glucose (mg/dL) 179 H (75-99) mg/dL Total Protein 5.4 L (6.3-8.2) g/dL Albumin 3.1 L (3.5-5.0) g/dL Assessment and Plan Assessment: 1. Triple-vessel CAD; Postop day # 1, status post three-vessel bypass grafting -- ALFORD to LAD, SVG to OM, and SVG to PDA. In addition, the patient had a ligation of atrial appendage, and intraoperative transesophageal echocardiogram. 2. Prior history of myocardial infarction; patient to continue with aspirin and Plavix. 3. History of hypertension; currently stable. 4. History of hyperlipidemia; Lipitor 80 mg by mouth daily at bedtime; Zetia 10 mg by mouth daily. 5. History of [id number]-mcbjnixee diabetes mellitus; patient remains on IV insulin infusion with plans to titrate as able; we will plan to start patient on Accu-Cheks before meals and at bedtime with insulin sliding scale along with long-acting insulin. 6. History of ischemic cardiomyopathy; history of previous myocardial infarction and multiple stents in the right coronary artery, hypertension, hypercholesterolemia, diabetes and ischemic cardiomyopathy was evaluated by card iac catheterization and was found to have multivessel disease and was recommended to have bypass surgery DVT prophylaxis; SCDs/heparin CODE STATUS; full code
[2021-04-10 16:43] LABS: Glucose,Whole Blood 147 mg/dL (75-99)
[2021-04-10 20:17] LABS: Glucose,Whole Blood 170 mg/dL (75-99)
[2021-04-10] MEDS: ATORVASTATIN 80 MG TAB PO SCH (20:33)
[2021-04-10] MEDS: SENNOSIDES-DOCUSATE SODIUM 1 EACH TAB PO SCH (20:33)
[2021-04-11] MEDS: HEPARIN SODIUM,PORCINE/PF 5,000 UNIT/0.5 ML SYRINGE SQ SCH ×3 (00:01→16:55)
[2021-04-11] MEDS: ACETAMINOPHEN TAB 325 MG TAB PO PRN ×2 (05:08→17:03)
[2021-04-11 06:28] LABS: HGB 7.9 gm/dL (13.0-17.5); MCH 31.6 pg (25.0-35.0); MCHC 32.7 g/dL (31.0-37.0); MCV 96.6 fL (80.0-100.0); Mean Platelet Volume 7.8; Platelet Count 163 k/uL (150-450); RBC 2.49 m/uL (4.30-5.90); RDW 12.8 % (11.5-15.5); WBC 6.6 k/uL (3.8-10.6)
[2021-04-11 06:42] LABS: Calcium 8.6 mg/dL (8.4-10.2); Potassium 4.4 mmol/L (3.5-5.1)
[2021-04-11 07:00] LABS: Glucose,Whole Blood 204 mg/dL (75-99)
[2021-04-11] MEDS: INSULIN DETEMIR (LEVEMIR) 100 UNIT/ML SYR SQ SCH (07:01)
[2021-04-11] MEDS: PANTOPRAZOLE 40 MG TABLET PO SCH (07:01)
[2021-04-11] MEDS: INSULIN ASPART (NovoLOG) 100 UNIT/ML VIAL SQ SCH ×4 (07:01→20:41)
[2021-04-11] MEDS: IPRATROPIUM-ALBUTEROL 3 ML NEB INHALATION SCH ×4 (07:30→20:52)
[2021-04-11] MEDS ORDERED: FUROSEMIDE 10 MG/ML 2 ML VIAL IV ONE (08:06)
--- NOTE | 2021-04-11 08:25 | P.PN ---
Subjective Progress Note Date: 04/11/21 Principal diagnosis: Coronary artery disease. Previous medical history of coronary artery disease with previous myocardial infarction and stenting, hypertension, hyperlipidemia, tvp-vuaxvno-lrvoyclzy diabetes, ischemic cardiomyopathy, moderate COPD, and current tobacco dependence. Vaccinated and boosted against Covid POD #4 coronary artery bypass grafting 3 vessels, left internal mammary artery to the left anterior descending artery, reverse saphenous vein graft to the ob tuse marginal artery, reverse saphenous vein graft to posterior descending artery, endoscopic harvesting of the right greater saphenous vein, ligation of the left atrial appendage using a 35 mm AtriClip, epi-aortic ultrasound and intraoperative transesophageal echocardiogram Postoperative acute blood loss anemia and thrombocytopenia, expected given cardiopulmonary bypass pump and hemodilution The patient was seen and examined this morning sitting up in a recliner in the intensive care unit in no acute distress. Remains in sinus rhythm, hemodynamically stable. States post surgical chest discomfort controlled with current medication regimen, denies shortness of breath. He did ambulate with assistance yesterday twice. Actively using incentive spirometer. Unable to void despite initiation of flomax, bundy catheter re-inserted, patient states he has had this issue after surgery in the past. Patient lacks motivation to get up and move, instructed to increase his activity if he wants to go home, otherwise he will need rehab which he adamantly states he does not want. Objective - Vital Signs Vital signs: Vital Signs Temp 98 F 04/11/21 04:00 Pulse 73 04/11/21 07:40 Resp 14 04/11/21 04:00 BP 128/71 04/11/21 04:00 Pulse Ox 96 04/11/21 07:30 Intake & Output 04/10/21 04/11/21 04/11/21 18:59 06:59 18:59 Intake Total 503 240 Output Total 535 610 Balance -32 -370 Weight 98.4 kg Intake: IV 23 .9 NS pressure bag 3 Lactated Ringers 1,000 ml 20 @ 20 mls/hr IV .Q24H [facility] Rx#:[id number] Oral 480 240 Output: Urine 535 610 Other: Voiding Method Indwelling Catheter Indwelling Catheter ABP, PAP, CO, CI - Last Documented Arterial Blood Pressure 149/58 Pulmonary Artery Pressure 36/8 Cardiac Output 7.7 Cardiac Index 3.6 - Exam CONSTITUTIONAL: Appears comfortable, cooperative, no acute distress RESPIRATORY: Lungs sounds diminished and coarse bilaterally. Respirations even, nonlabored. Currently on 3 L nasal cannula with oxygen saturation 95%. Able to achieve 750 mL on incentive spirometry. Strong cough. CARDIOVASCULAR: S1, S2 present. Regular rate and rhythm, sinus rhythm on telemetry. Sternum stable. Palpable peripheral pulses bilaterally. Trace generalized edema present. No calf pain or tenderness noted. Heart hugger in place with patient demonstrating appropriate use. Antiembolism stockings, SCDs present. GASTROINTESTINAL: Abdomen soft, nontender, nondistended. Active bowel sounds present 4 quadrants. Tolerating diet. Positive flatus GENITOURINARY: Bundy re-inserted, 1145 mL urine output in the last 24 hours INTEGUMENTARY: Skin is warm and dry with evidence of good perfusion. Anterior chest incision well approximated and covered with dry intact dressing. Right lower extremity EVH site well approximated without redness or drainage. NEUROLOGIC: Cranial nerves II through XII intact MUSKULOSKELETAL: Able to move all extremities, strength equal bilaterally PSYCHIATRIC: Alert and oriented to person place and time, appropriate affect, intact judgment and insight INVASIVE LINES AND TUBES: A/V epicardial pacemaker wires present, grounded. - Allied health notes Allied health notes reviewed: nursing - Labs CBC & Chem 7: 04/11/21 05:36 04/11/21 05:36 Labs: Abnormal Lab Results - Last 24 Hours (Table) 04/10/21 04/10/21 04/10/21 Range/Units 11:48 16:40 20:15 RBC (4.30-5.90) m/uL Hgb (13.0-17.5) gm/dL Hct (39.0-53.0) % Sodium (137-145) mmol/L BUN (9-20) mg/dL Creatinine (0.66-1.25) mg/dL Glucose (74-99) mg/dL POC Glucose (mg/dL) 159 H 147 H 170 H (75-99) mg/dL 04/11/21 04/11/21 04/11/21 Range/Units 05:36 05:36 06:57 RBC 2.49 L (4.30-5.90) m/uL Hgb 7.9 L (13.0-17.5) gm/dL Hct 24.0 L (39.0-53.0) % Sodium 135 L (137-145) mmol/L BUN 34 H (9-20) mg/dL Creatinine 1.32 H (0.66-1.25) mg/dL Glucose 139 H (74-99) mg/dL POC Glucose (mg/dL) 204 H (75-99) mg/dL - Imaging and Cardiology Chest x-ray: image reviewed Assessment and Plan Assessment: 1. Coronary artery disease with previous myocardial infarction and stenting, status post three-vessel CABG 2. Hypertension 3. Hyperlipidemia, treated, cholesterol 99, LDL 33 4. Gdo-gekexds-vjawdkzxq diabetes, preoperative hemoglobin A1c 7.9% 5. Ischemic cardiomyopathy, preoperative EF 50-55% 6. Moderate COPD with preoperative FEV1 59% of predicted 7. Current tobacco dependence, recent cessation one week ago 8. Vaccinated and boosted against Covid 9. Postoperative acute blood loss anemia and thrombocytopenia 10. Urinary retention requiring re-insertion of bundy, pt admits to history of Plan: 1. Continue aspirin, plavix, statin, beta wang therapy. Will increase beta wang therapy as tolerated. Continue lisinopril for afterload reduction 2. Increase activity, ambulate as tolerated. PT/OT/cardiac rehab following 3. Wean oxygen as tolerated. Encourage incentive spirometry 10 times every hour while awake. Bronchodilators per pulmonology 4. Encourage continued smoking cessation 5. Will monitor daily labs and CXRs. Electrolyte replacement per protocol. Will give IV lasix today 5. GI/DVT prophylaxis 6. Pain control with current medication regimen. 7. Insulin management per internal medicine. Patient needs tight blood sugar control to promote healing, prevent infection 8. Will discontinue epicardial pacer wires, pt to remain on bedrest for 1 hour post removal 9. Bundy reinserted. Continue Flomax. Will consult urology 10. Strict accurate I/O. Daily weights 11. Transfer orders placed for 3 S. cardiac stepdown unit. May transfer when bed available 12. Discharge planning in progress. Anticipate DC to home w/ home care in the next 24-48 hours 13. More recommendations to follow Time with Patient: Greater than 30
[2021-04-11] MEDS: ASPIRIN 325 MG TAB PO SCH (08:26)
[2021-04-11] MEDS: EZETIMIBE 10 MG TAB PO SCH (08:27)
[2021-04-11] MEDS: TAMSULOSIN 0.4 MG CAP.ER.24H PO SCH (08:27)
[2021-04-11] MEDS: METOPROLOL TARTRATE 50 MG TAB PO SCH ×2 (08:27→20:41)
[2021-04-11] MEDS: ASCORBIC ACID 500 MG TAB PO SCH ×2 (08:27→16:55)
[2021-04-11] MEDS: CLOPIDOGREL 75 MG TAB PO SCH (08:27)
[2021-04-11] MEDS: FERROUS SULFATE 325 MG TAB PO SCH ×2 (08:28→16:55)
--- NOTE | 2021-04-11 08:46 | XR ---
EXAMINATION TYPE: XR chest 2V DATE OF EXAM: 04/11/2021 COMPARISON: 04/10/2021 TECHNIQUE: PA and lateral views submitted. HISTORY: Post cardiac surgery FINDINGS: Heart is enlarged and there is postoperative change. Diffuse interstitial pattern with bilateral cons olidation and small effusion. Hypertrophic and degenerative change of the spine. Epicardial lead note d. Chest tube is been removed with no sizable pneumothorax. IMPRESSION: 1. Bilateral infiltrate, COPD and small effusion correlate for mild venous congestion or interstitial pneumonitis.
--- NOTE | 2021-04-11 10:25 | PN ---
PROGRESS NOTE Mr. Jeffers is status post bypass surgery, making somewhat slow progress postoperatively. He seems a little bit less motivated, but today he has a more upbeat approach. Mildly elevated creatinine. Hemoglobin is fairly stable. Physical examination reveal that vitals are stable. S1-S2 heard normally. Heart sounds heard somewhat distantly. Lungs reveal diminished air entry. Abdomen is soft. Lower extremities reveal diminished pulses. Central nervous system is grossly within normal limits. Plan is to continue current medications, incentive spirometry, pulmonary toilet, increase activity and plan for discharge. MMODL / IJN: [id number] /
[2021-04-11 11:22] LABS: Glucose,Whole Blood 159 mg/dL (75-99)
[2021-04-11] MEDS: MAGNESIUM HYDROXIDE 2,400 MG/10 ML CUP PO PRN (11:40)
[2021-04-11] MEDS: lisinopriL 5 MG TAB PO SCH (11:40)
--- NOTE | 2021-04-11 13:02 | P.GSCN ---
History of Present Illness Consult date: 04/11/21 Reason for Consult: Urinary retention History of present illness: This is a 75-year-old male underwent CABG on April 07. Parker was removed on April 09, developed urinary retention and the Parker was subsequently placed. He indicated he has history of previous episode of urinary retention following knee replacement 3 years ago, which resolved with catheter drainage. At baseline denies any voiding issues. Denies any history of gross hematuria, or any obstructive urinary symptoms at baseline. Parker in place draining clear yellow urine, Past Medical History Past Medical History: Coronary Artery Disease (CAD), COPD, Diabetes Mellitus, Hyperlipidemia, Hypertension, Myocardial Infarction ([place]) Additional Past Medical History / Comment(s): Known history of coronary artery disease with previous multiple stents to the RCA; ischemic cardiomyopathy Last Myocardial Infarction Date:: unknown History of Any Multi-Drug Resistant Organisms: None Reported Past Surgical History: Cholecystectomy, Heart Catheterization With Stent, Orthopedic Surgery Additional Past Surgical History / Comment(s): rt knee, recent cardiac cath. Past Anesthesia/Blood Transfusion Reactions: No Reported Reaction Date of Last Stent Placement:: 2018 Smoking Status: Former smoker - Past Family History Mother Family Medical History: Coronary Artery Disease (CAD), Diabetes Mellitus, Myocardial Infarction ([place]) Father Additional Family Medical History / Comment(s): Multiple sclerosis Medications and Allergies Home Medications Medication Instructions Recorded Confirmed Type Aspirin [Adult Low Dose Aspirin EC] 81 mg PO DAILY 03/26/18 04/07/21 History Atorvastatin [Lipitor] 80 mg PO HS 03/26/18 04/07/21 History Metoprolol Tartrate [Lopressor] 25 mg PO BID #60 tab 03/28/18 04/07/21 Rx Nitroglycerin Sl Tabs [Nitrostat] 0.4 mg SUBLINGUAL Q5M PRN #25 tab 03/28/18 04/07/21 Rx metFORMIN HCL [Glucophage] 1,000 mg PO BID #0 03/28/18 04/07/21 Rx Albuterol Inhaler [Ventolin Hfa 2 puff INHALATION RT-Q6H PRN 06/30/19 04/07/21 History Inhaler] Ezetimibe [Zetia] 10 mg PO DAILY 06/30/19 04/07/21 History lisinopriL 20 mg PO BID 06/30/19 04/07/21 History Ipratropium Nebulized [Atrovent 0.5 mg INHALATION QID 03/29/21 04/07/21 History Nebulized 0.2 MG/ML] Mupirocin [Mupirocin 2%] 1 applic NASAL BID #1 tub 03/31/21 04/07/21 Rx Allergies Allergy/AdvReac Type Severity Reaction Status Date / Time codeine Allergy Rash/Hives Verified 04/07/21 06:14 hydrocodone [From [place]] AdvReac Hallucinati Verified 04/07/21 06:14 ons Surgical - Exam Vital Signs Temp Pulse Resp BP Pulse Ox 97.7 F 63 17 218/63 96 04/07/21 06:17 04/07/21 06:17 04/07/21 06:17 04/07/21 06:17 04/07/21 06:17 - General no distress, no pain - Eyes normal ocular movement, no loss of movement - ENT normal nares, normal mucosa - Respiratory normal expansion, normal respiratory effort - Abdomen Abdomen: soft, non tender - Genitourinary Parker draining clear yellow urine Results - Labs 04/11/21 05:36 04/11/21 05:36 Abnormal Lab Results - Last 24 Hours (Table) 04/10/21 04/10/21 04/11/21 Range/Units 16:40 20:15 05:36 RBC 2.49 L (4.30-5.90) m/uL Hgb 7.9 L (13.0-17.5) gm/dL Hct 24.0 L (39.0-53.0) % Sodium (137-145) mmol/L BUN (9-20) mg/dL Creatinine (0.66-1.25) mg/dL Glucose (74-99) mg/dL POC Glucose (mg/dL) 147 H 170 H (75-99) mg/dL 04/11/21 04/11/21 04/11/21 Range/Units 05:36 06:57 11:21 RBC (4.30-5.90) m/uL Hgb (13.0-17.5) gm/dL Hct (39.0-53.0) % Sodium 135 L (137-145) mmol/L BUN 34 H (9-20) mg/dL Creatinine 1.32 H (0.66-1.25) mg/dL Glucose 139 H (74-99) mg/dL POC Glucose (mg/dL) 204 H 159 H (75-99) mg/dL Diabetes panel 04/11/21 Range/Units 05:36 Sodium 135 L (137-145) mmol/L Potassium 4.4 (3.5-5.1) mmol/L Chloride 106 (98-107) mmol/L Carbon Dioxide 23 (22-30) mmol/L BUN 34 H (9-20) mg/dL Creatinine 1.32 H (0.66-1.25) mg/dL Glucose 139 H (74-99) mg/dL Calcium 8.6 (8.4-10.2) mg/dL Calcium panel 04/11/21 Range/Units 05:36 Calcium 8.6 (8.4-10.2) mg/dL Pituitary panel 04/11/21 Range/Units 05:36 Sodium 135 L (137-145) mmol/L Potassium 4.4 (3.5-5.1) mmol/L Chloride 106 (98-107) mmol/L Carbon Dioxide 23 (22-30) mmol/L BUN 34 H (9-20) mg/dL Creatinine 1.32 H (0.66-1.25) mg/dL Glucose 139 H (74-99) mg/dL Calcium 8.6 (8.4-10.2) mg/dL Adrenal panel 04/11/21 Range/Units 05:36 Sodium 135 L (137-145) mmol/L Potassium 4.4 (3.5-5.1) mmol/L Chloride 106 (98-107) mmol/L Carbon Dioxide 23 (22-30) mmol/L BUN 34 H (9-20) mg/dL Creatinine 1.32 H (0.66-1.25) mg/dL Glucose 139 H (74-99) mg/dL Calcium 8.6 (8.4-10.2) mg/dL Assessment and Plan Assessment: 75-year-old male status post CABG, developed postoperative urinary retention. Previous history of retention, no obstructive voiding symptoms at baseline. -Parker can be removed prior to discharge, recommend continuing Flomax for now. If PVR is less than 300 he can be discharged without a Parker, if PVR is greater than 300 then reinsert Parker
--- NOTE | 2021-04-11 13:03 | P.PN ---
Subjective Progress Note Date: 04/11/21 Principal diagnosis: Status post CABG postoperative day #4. Progress note dated 04/10/2021. The patient is postop day #3, status post three-vessel bypass grafting. The patient is currently on 2 L nasal cannula. Is not receiving any IV fluids. The patient has a lot of chest congestion. He is not doing very well on his incentive spirometer. The plan was to send him out of the ICU, but I think it is better to keep him in for at least another day. He does not look particu larly strong in my opinion. He did receive some Lasix today. White count 10.1, hemoglobin 8.5, hematocrit 25.9, and platelet count 153,000. Sodium 133, potassium 4.9, chlorides 108, CO2 18, BUN 32, and creatinine 1.36. Albumin is 3.1. Chest x-ray shows cardiomegaly, and some mild pulmonary vascular congestion. Reevaluated today on 04/11/2021, patient is postoperative day #4, patient is on 2 L nasal cannula, in no distress, he is doing fairly well with incentive spirometry, chest x-ray showed minimal atelectasis which is expected. Electrolytes are normal renal profile showed a creatinine of 1.3 to Objective - Vital Signs Vital signs: Vital Signs Temp 98.4 F 04/11/21 08:00 Pulse 64 04/11/21 11:25 Resp 22 04/11/21 08:00 BP 128/71 04/11/21 08:00 Pulse Ox 95 04/11/21 08:00 Intake & Output 04/10/21 04/11/21 04/11/21 18:59 06:59 18:59 Intake Total 503 240 300 Output Total 535 610 625 Balance -32 -370 -325 Weight 98.4 kg Intake: IV 23 .9 NS pressure bag 3 Lactated Ringers 1,000 ml 20 @ 20 mls/hr IV .Q24H [facility] Rx#:[id number] Oral 480 240 300 Output: Urine 535 610 625 Other: Voiding Method Indwelling Catheter Indwelling Catheter Indwelling Catheter ABP, PAP, CO, CI - Last Documented Arterial Blood Pressure 149/58 Pulmonary Artery Pressure 36/8 Cardiac Output 7.7 Cardiac Index 3.6 - Exam Physical Exam: Revealed 75-year-old white male in no distress. Head: Atraumatic, normocephalic. HEENT:[Neck is supple.] [No neck masses.] [No thyromegaly.] [No JVD.] Chest: Symmetrical chest expansion, diminished breath sounds at the bases. Cardiac Exam: [Normal S1 and S2, no S3 gallop, no murmur.] Abdomen: [Soft, nontender, no megaly, no rebound, no guarding, normal bowel sounds.] Extremities: [No clubbing, no edema, no cyanosis.] Neurological Exam: [No focal neurologic deficit.] Alert and oriented 3. Psychiatric: Normal mood affect and normal mental status examination. Skin: No rash - Labs CBC & Chem 7: 04/11/21 05:36 04/11/21 05:36 Labs: Abnormal Lab Results - Last 24 Hours (Table) 04/10/21 04/10/21 04/11/21 Range/Units 16:40 20:15 05:36 RBC 2.49 L (4.30-5.90) m/uL Hgb 7.9 L (13.0-17.5) gm/dL Hct 24.0 L (39.0-53.0) % Sodium (137-145) mmol/L BUN (9-20) mg/dL Creatinine (0.66-1.25) mg/dL Glucose (74-99) mg/dL POC Glucose (mg/dL) 147 H 170 H (75-99) mg/dL 04/11/21 04/11/21 04/11/21 Range/Units 05:36 06:57 11:21 RBC (4.30-5.90) m/uL Hgb (13.0-17.5) gm/dL Hct (39.0-53.0) % Sodium 135 L (137-145) mmol/L BUN 34 H (9-20) mg/dL Creatinine 1.32 H (0.66-1.25) mg/dL Glucose 139 H (74-99) mg/dL POC Glucose (mg/dL) 204 H 159 H (75-99) mg/dL Assessment and Plan Assessment: Impression: Status post CABG, postoperative day #4. Postoperative atelectasis, expected. Postoperative ventilator management/routine extubated 04/08/2021. History of underlying coronary artery disease. History of ischemic cardiomyopathy and LV dysfunction. Tobacco dependence syndrome. Dyslipidemia. Recommendation: Continue aspirin statins and Plavix and beta blockers Increase activity Counseled regarding smoking cessation Continue GI and DVT prophylaxis Early ambulation Incentive spirometry Clear to be transferred out of the ICU to a cardiac floor. We'll continue to follow Time with Patient: Less than 30
--- NOTE | 2021-04-11 14:55 | PN ---
PROGRESS NOTE DATE OF SERVICE: 04/11/2021 This 75-year-old gentleman who was admitted after CAD, CABG is being closely monitored. No chest pain. No palpitations. No fever. PHYSICAL EXAMINATION: Alert and oriented x3. Pulse 78, blood pressure 120/70, respiration 20. CHEST: A few scattered rhonchi. CARDIOVASCULAR: S1, S2 muffled. ABDOMEN: Soft. NERVOUS SYSTEM: No focal deficit. LABS: Hemoglobin is 7.9. Other labs are noted. ASSESSMENT: 1. Coronary artery disease, status post coronary artery bypass grafting. 2. Hypertension. 3. Hyperlipidemia. 4. Diabetes mellitus, type 2. RECOMMENDATIONS AND DISCUSSION: I recommend to continue current medications, continue with the monitoring, symptomatic treatment. Otherwise, monitor blood sugars closely. Sugars are in the high 100s. Incentive spirometry. DVT prophylaxis. Further recommendations to follow. MMODL / IJN: [id number] /
[2021-04-11 17:00] LABS: Glucose,Whole Blood 164 mg/dL (75-99)
[2021-04-11 20:10] LABS: Glucose,Whole Blood 260 mg/dL (75-99)
[2021-04-11] MEDS: SENNOSIDES-DOCUSATE SODIUM 1 EACH TAB PO SCH (20:41)
[2021-04-11] MEDS: ATORVASTATIN 80 MG TAB PO SCH (20:41)
[2021-04-12] MEDS: HEPARIN SODIUM,PORCINE/PF 5,000 UNIT/0.5 ML SYRINGE SQ SCH ×3 (02:52→16:09)
[2021-04-12 06:50] LABS: Glucose,Whole Blood 164 mg/dL (75-99)
[2021-04-12] MEDS: INSULIN ASPART (NovoLOG) 100 UNIT/ML VIAL SQ SCH ×4 (06:50→20:36)
[2021-04-12] MEDS: ASCORBIC ACID 500 MG TAB PO SCH ×2 (06:59→16:09)
[2021-04-12] MEDS: INSULIN DETEMIR (LEVEMIR) 100 UNIT/ML SYR SQ SCH (06:59)
[2021-04-12] MEDS: FERROUS SULFATE 325 MG TAB PO SCH ×2 (06:59→16:09)
[2021-04-12] MEDS: PANTOPRAZOLE 40 MG TABLET PO SCH (06:59)
[2021-04-12] MEDS: IPRATROPIUM-ALBUTEROL 3 ML NEB INHALATION SCH ×4 (08:14→19:16)
--- NOTE | 2021-04-12 08:49 | XR ---
EXAMINATION TYPE: XR chest 2V DATE OF EXAM: 04/12/2021 COMPARISON: Chest x-ray 04/11/2021 HISTORY: Post cardiac surgery TECHNIQUE: Frontal and lateral views of the chest are obtained. FINDINGS: Patient is post median sternotomy. Coronary artery calcifications and possibly stent noted . Bibasilar increased attenuation is present, this blunting the costophrenic angles. There are overly ing artifacts. No evident pneumothorax. Cardiac mediastinal silhouette is similar to prior exam accou nting for differences in technique. There are prominent lung volume suggesting underlying COPD. Patie nt is post left atrial appendage clip placement. IMPRESSION: Bibasilar effusions and associated atelectasis. Coronary artery disease, postop changes, pneumonia felt to be less likely.
--- NOTE | 2021-04-12 09:02 | P.PN ---
Subjective Progress Note Date: 04/12/21 Principal diagnosis: Coronary artery disease. Previous medical history of coronary artery disease with previous myocardial infarction and stenting, hypertension, hyperlipidemia, sft-glzfsxb-wkgljdjfn diabetes, ischemic cardiomyopathy, moderate COPD, and current tobacco dependence. Vaccinated and boosted against Covid POD #5 coronary artery bypass grafting 3 vessels, left internal mammary artery to the left anterior descending artery, reverse saphenous vein graft to the ob tuse marginal artery, reverse saphenous vein graft to posterior descending artery, endoscopic harvesting of the right greater saphenous vein, ligation of the left atrial appendage using a 35 mm AtriClip, epi-aortic ultrasound and intraoperative transesophageal echocardiogram Postoperative acute blood loss anemia and thrombocytopenia, expected given cardiopulmonary bypass pump and hemodilution The patient was seen and examined this morning sitting up in a recliner 0n the cardiac stepdown unit in no acute distress. Remains in sinus rhythm, hemodynamically stable. States post surgical chest discomfort controlled with current medication regimen, complains of difficulty breathing at times, es pecially taking deep breaths. He did ambulate with assistance yesterday 4 times, received first postoperative shower yesterday. Actively using incentive spirometer. He was seen by urology yesterday with recommendations to discontinue Bundy catheter prior to discharge, may reinsert if PVR greater than 300, otherwise may discharge without Bundy catheter. Patient lacks motivation to get up and move, constantly saying he can't do anything although when strongly encouraged proved that he can get up and move and cough and deep breathe. Needs constant encouragement Objective - Vital Signs Vital signs: Vital Signs Temp 98.5 F 04/12/21 04:00 Pulse 82 04/12/21 08:25 Resp 22 04/12/21 04:00 BP 138/78 04/12/21 04:00 Pulse Ox 96 04/12/21 04:00 Intake & Output 04/11/21 04/12/21 04/12/21 18:59 06:59 18:59 Intake Total 790 250 Output Total 925 600 Balance -135 -350 Weight 98.4 kg Intake: Oral 790 250 Output: Urine 925 600 Other: Voiding Method Indwelling Catheter Indwelling Catheter ABP, PAP, CO, CI - Last Documented Arterial Blood Pressure 149/58 Pulmonary Artery Pressure 36/8 Cardiac Output 7.7 Cardiac Index 3.6 - Exam CONSTITUTIONAL: Appears comfortable, cooperative, no acute distress RESPIRATORY: Lungs sounds diminished bilaterally. Respirations even, nonlabored. Currently on 2 L nasal cannula for patient comfort, oxygen saturation in the mid 90s on room air. Able to achieve 1862-2535 mL on incentive spirometry. Strong productive cough. CARDIOVASCULAR: S1, S2 present. Regular rate and rhythm, sinus rhythm on telemetry. Sternum stable. Palpable peripheral pulses bilaterally. Trace generalized edema present. No calf pain or tenderness noted. Heart hugger in place with patient demonstrating appropriate use. Antiembolism stockings, SCDs present. GASTROINTESTINAL: Abdomen soft, nontender, nondistended. Active bowel sounds present 4 quadrants. Tolerating diet. Positive flatus GENITOURINARY: Bundy continues to drain clear, yellow urine, 1525 mL in the last 24 hours INTEGUMENTARY: Skin is warm and dry with evidence of good perfusion. Anterior chest incision well approximated and covered with dry intact dressing. Right lower extremity EVH site well approximated without redness or drainage. NEUROLOGIC: Cranial nerves II through XII intact MUSKULOSKELETAL: Able to move all extremities, strength equal bilaterally PSYCHIATRIC: Alert and oriented to person place and time, flat affect, intact judgment and insight, needs much encouragement - Allied health notes Allied health notes reviewed: nursing - Labs CBC & Chem 7: 04/11/21 05:36 04/11/21 05:36 Labs: Abnormal Lab Results - Last 24 Hours (Table) 04/11/21 04/11/21 04/11/21 Range/Units 11:21 16:56 20:06 POC Glucose (mg/dL) 159 H 164 H 260 H (75-99) mg/dL 04/12/21 Range/Units 06:48 POC Glucose (mg/dL) 164 H (75-99) mg/dL - Imaging and Cardiology Chest x-ray: report reviewed, image reviewed Assessment and Plan Assessment: 1. Coronary artery disease with previous myocardial infarction and stenting, status post three-vessel CABG 2. Hypertension 3. Hyperlipidemia, treated, cholesterol 99, LDL 33 4. Sfv-lscnmpv-scqxojpyn diabetes, preoperative hemoglobin A1c 7.9% 5. Ischemic cardiomyopathy, preoperative EF 50-55% 6. Moderate COPD with preoperative FEV1 59% of predicted 7. Current tobacco dependence, recent cessation one week ago 8. Vaccinated and boosted against Covid 9. Postoperative acute blood loss anemia and thrombocytopenia 10. Urinary retention requiring re-insertion of bundy, pt admits to history of Plan: 1. Continue aspirin, plavix, statin, beta wang therapy. Will increase beta wang therapy as tolerated. Continue lisinopril for afterload reduction 2. Increase activity, ambulate as tolerated. PT/OT/cardiac rehab following 3. Wean oxygen as tolerated. Encourage incentive spirometry 10 times every hour while awake. Bronchodilators per pulmonology 4. Encourage continued smoking cessation 5. Will monitor daily labs and CXRs. Electrolyte replacement per protocol. Will give IV lasix today 5. GI/DVT prophylaxis 6. Pain control with current medication regimen. 7. Insulin management per internal medicine. Patient needs tight blood sugar control to promote healing, prevent infection 8. Will discontinue Bundy catheter and check PVR per urology recommendations. If PVR greater than 300 Will reinsert Bundy and discharge patient home with Bundy catheter 9. Continue Flomax 10. Strict accurate I/O. Daily weights 11. Discharge planning in progress. Anticipate DC to home w/ home care in the next 24 hours 13. More recommendations to follow Time with Patient: Greater than 30
--- NOTE | 2021-04-12 09:14 | P.PN ---
Subjective Progress Note Date: 04/12/21 On 04/12/2021 patient is seen in follow-up on selective care unit. Patient is status post three-vessel coronary artery bypass grafting, and today is postoperative day #5. Patient is currently on 2 L of oxygen, he is ambulating with physical therapy, he is weak, he is slow to ambulate, he is requiring 2 person assist and supplemental oxygen to ambulate. But so far tolerating activity well. Today's chest x-ray has been reviewed showing bilateral effusions with associated atelectasis. He has a loose congested cough, not producing much phlegm, he is working with incentive spirometer, all of his chest tubes and lines have been discontinued. Parker catheter has been discontinued. Today's labs are still pending. Yesterday's labs have been reviewed, white blood cell, 6.6, hemoglobin 7.9, sodium was 135, respiratory electrolytes were unremarkable, renal profile is stable with BUN of 34 and creatinine of 1.32. he was seen by urology services for urinary retention and she has been started on Flomax. Objective - Vital Signs Vital signs: Vital Signs Temp 98.5 F 04/12/21 04:00 Pulse 82 04/12/21 08:25 Resp 22 04/12/21 04:00 BP 138/78 04/12/21 04:00 Pulse Ox 96 04/12/21 04:00 Intake & Output 04/11/21 04/12/21 04/12/21 18:59 06:59 18:59 Intake Total 790 250 Output Total 925 600 Balance -135 -350 Weight 98.4 kg Intake: Oral 790 250 Output: Urine 925 600 Other: Voiding Method Indwelling Catheter Indwelling Catheter ABP, PAP, CO, CI - Last Documented Arterial Blood Pressure 149/58 Pulmonary Artery Pressure 36/8 Cardiac Output 7.7 Cardiac Index 3.6 - Exam GENERAL EXAM: Alert, active, . Pleasant, 75-year-old white male, on 2 L of oxygen, short of breath with conversation and exertion, just recovering after his ambulation comfortable in no apparent distress. HEAD: Normocephalic/atraumatic. EYES: Normal reaction of pupils, equal size. Conjunctiva pink, sclera white. NOSE: Clear with pink turbinates. THROAT: No erythema or exudates. NECK: No masses, no JVD, no thyroid enlargement, no adenopathy. CHEST: No chest wall deformity. Symmetrical expansion. midsternal incision is clean dry and intact, chest tube sites are clean dry and intact LUNGS: Equal air entry with no crackles, wheeze, rhonchi or dullness. CVS: Regular rate and rhythm, normal S1 and S2, no gallops, no murmurs, no rubs ABDOMEN: Soft, nontender. No hepatosplenomegaly, normal bowel sounds, no guarding or rigidity. EXTREMITIES: No clubbing, 1+ pitting leyla bilateral lower extremities, no cyanosis, 2+ pulses and upper and lower extremities. MUSCULOSKELETAL: Muscle strength and tone normal. SPINE: No scoliosis or deformity SKIN: No rashes CENTRAL NERVOUS SYSTEM: Alert and oriented -3. No focal deficits, tone is normal in all 4 extremities. PSYCHIATRIC: Alert and oriented -3. Appropriate affect. Intact judgment and insight. - Labs CBC & Chem 7: 04/11/21 05:36 04/11/21 05:36 Labs: Abnormal Lab Results - Last 24 Hours (Table) 04/11/21 04/11/21 04/11/21 Range/Units 11:21 16:56 20:06 POC Glucose (mg/dL) 159 H 164 H 260 H (75-99) mg/dL 04/12/21 Range/Units 06:48 POC Glucose (mg/dL) 164 H (75-99) mg/dL Assessment and Plan Plan: assessment: #1. Coronary artery disease, status post three-vessel coronary artery bypass grafting surgery, postoperative day #5 #2. Postoperative atelectasis, expected outcome #3. Postoperative ventilator management, routine, successfully weaned and extubated on 04/08/2021 #4. History of underlying coronary artery disease #5. History of ischemic cardiomyopathy and LV dysfunction #6. Tobacco dependence syndrome #7. Dyslipidemia #8. Acute kidney injury, possibly related to urinary retention #9. Postoperative acute blood loss anemia, expected outcome of sternotomy and urine are artery bypass grafting surgery Plan: Encouraging deep breathing and coughing, today's chest x-ray has been reviewed showing bilateral pleural effusions and atelectasis Mild edema in his bilateral lower extremities We'll defer on the diuretics to the CT surgery Otherwise vital signs have been stable Generally weak but tolerating ambulation with assistance Today's labs have been reviewed GI and DVT prophylaxis per CT surgery We'll continue to follow his clinical course I performed a history & physical examination of the patient and discussed their management with my nurse practitioner, Kristina Macias. I reviewed the nurse practitioner's note and agree with the documented findings and plan of care. Lung sounds are positive for diminished breath sounds throughout the lung lea. The findings and the impression was discussed with the patient. I attest to the documentation by the nurse practitioner. Time with Patient: Less than 30
[2021-04-12] MEDS: METOPROLOL TARTRATE 50 MG TAB PO SCH ×2 (09:17→20:36)
[2021-04-12] MEDS: ASPIRIN 325 MG TAB PO SCH (09:17)
[2021-04-12] MEDS: TAMSULOSIN 0.4 MG CAP.ER.24H PO SCH (09:17)
[2021-04-12] MEDS: EZETIMIBE 10 MG TAB PO SCH (09:17)
[2021-04-12] MEDS: CLOPIDOGREL 75 MG TAB PO SCH (09:17)
[2021-04-12 09:34] LABS: HCT 24.5 % (39.0-53.0); HGB 8.4 gm/dL (13.0-17.5); MCH 31.4 pg (25.0-35.0); MCHC 34.3 g/dL (31.0-37.0); Mean Platelet Volume 8.6; Platelet Count 226 k/uL (150-450); RBC 2.67 m/uL (4.30-5.90); RDW 13.5 % (11.5-15.5); WBC 7.2 k/uL (3.8-10.6)
[2021-04-12 09:36] LABS: MCV 91.4 fL (80.0-100.0)
[2021-04-12 10:23] LABS: Potassium 4.9 mmol/L (3.5-5.1)
[2021-04-12] MEDS ORDERED: FUROSEMIDE 10 MG/ML 2 ML VIAL IV ONE (10:46)
--- NOTE | 2021-04-12 11:53 | P.PN ---
Subjective Progress Note Date: 04/12/21 HISTORY OF PRESENT ILLNESS: Patient examined this morning. He is sitting up in the chair. Patient denies chest pain or pressure. He currently denies shortness of breath. Patient has been up ambulate in the hallway today with physical therapy. Telemetry reveals sinus mechanism. PHYSICAL EXAM: VITAL SIGNS: Reviewed. GENERAL: Well-developed in no acute distress. NECK: Supple. No JVD or thyromegaly LUNGS: Respirations even and unlabored. Lungs essentially clear to auscultation bilaterally. HEART: Regular rate and rhythm. S1 and S2 heard. EXTREMITIES: Normal range of motion. No clubbing or cyanosis. Peripheral pulses intact. No lower extremity edema ASSESSMENT: Coronary artery disease with previous PCI Status post CABG 3 Hypertension Hyperlipidemia Diabetes COPD Nicotine dependence PLAN: Continue postoperative management per cardiothoracic surgery Increase activity as tolerated Encourage use of incentive spirometer Continue current cardiac medications Continue telemetry monitoring Patient is currently stable from a cardiac standpoint Further recommendations pending patient's course Nurse practitioner note has been reviewed by physician. Signing provider agrees with the documented findings, assessment, and plan of care. Objective - Vital Signs Vital signs: Vital Signs Temp 98.5 F 04/12/21 04:00 Pulse 84 04/12/21 11:46 Resp 16 04/12/21 08:00 BP 181/77 04/12/21 08:00 Pulse Ox 95 04/12/21 08:00 Intake & Output 04/11/21 04/12/21 04/12/21 18:59 06:59 18:59 Intake Total 790 250 Output Total 925 600 Balance -135 -350 Weight 98.4 kg Intake: Oral 790 250 Output: Urine 925 600 Other: Voiding Method Indwelling Catheter Indwelling Catheter Indwelling Catheter ABP, PAP, CO, CI - Last Documented Arterial Blood Pressure 149/58 Pulmonary Artery Pressure 36/8 Cardiac Output 7.7 Cardiac Index 3.6 - Labs CBC & Chem 7: 04/12/21 08:40 04/12/21 08:40 Labs: Abnormal Lab Results - Last 24 Hours (Table) 04/11/21 04/11/21 04/12/21 Range/Units 16:56 20:06 06:48 RBC (4.30-5.90) m/uL Hgb (13.0-17.5) gm/dL Hct (39.0-53.0) % Chloride (98-107) mmol/L Carbon Dioxide (22-30) mmol/L BUN (9-20) mg/dL Glucose (74-99) mg/dL POC Glucose (mg/dL) 164 H 260 H 164 H (75-99) mg/dL 04/12/21 04/12/21 Range/Units 08:40 08:40 RBC 2.67 L (4.30-5.90) m/uL Hgb 8.4 L (13.0-17.5) gm/dL Hct 24.5 L (39.0-53.0) % Chloride 109 H (98-107) mmol/L Carbon Dioxide 19 L (22-30) mmol/L BUN 26 H (9-20) mg/dL Glucose 187 H (74-99) mg/dL POC Glucose (mg/dL) (75-99) mg/dL
[2021-04-12 12:02] LABS: Glucose,Whole Blood 160 mg/dL (75-99)
[2021-04-12] MEDS: lisinopriL 5 MG TAB PO SCH (12:30)
--- NOTE | 2021-04-12 12:45 | PN ---
PROGRESS NOTE DATE OF SERVICE: 04/12/2021 This 75-year-old gentleman who was admitted after CAD, CABG is improving significantly. No chest pain. No palpitations. No fever. PHYSICAL EXAMINATION: Pulse is 94, blood pressure 181/87, respiration 16. CHEST: Clear to auscultation. ABDOMEN: Soft. NERVOUS SYSTEM: No focal deficit. LABS: Reviewed. ASSESSMENT: 1. Coronary artery disease, status post coronary artery bypass grafting. 2. Hypertension. 3. Hyperlipidemia. 4. Diabetes mellitus, type 2. RECOMMENDATIONS AND DISCUSSION: I recommend to continue current medications, continue with the monitoring, symptomatic treatment. Continue DVT prophylaxis, incentive spirometry. Monitor blood sugars closely. MMODL / IJN: [id number] /
[2021-04-12 16:37] LABS: Glucose,Whole Blood 161 mg/dL (75-99)
[2021-04-12 20:22] LABS: Glucose,Whole Blood 178 mg/dL (75-99)
[2021-04-12] MEDS: SENNOSIDES-DOCUSATE SODIUM 1 EACH TAB PO SCH (20:30)
[2021-04-12] MEDS: ATORVASTATIN 80 MG TAB PO SCH (20:36)
[2021-04-13] MEDS: HEPARIN SODIUM,PORCINE/PF 5,000 UNIT/0.5 ML SYRINGE SQ SCH ×2 (01:14→08:54)
[2021-04-13] MEDS ORDERED: METOPROLOL TARTRATE 5 MG/5 ML VIAL IVP SCH (03:00)
[2021-04-13 06:13] LABS: Glucose,Whole Blood 198 mg/dL (75-99)
[2021-04-13] MEDS: FERROUS SULFATE 325 MG TAB PO SCH (06:35)
[2021-04-13] MEDS: INSULIN ASPART (NovoLOG) 100 UNIT/ML VIAL SQ SCH ×2 (06:35→12:34)
[2021-04-13] MEDS: PANTOPRAZOLE 40 MG TABLET PO SCH (06:35)
[2021-04-13] MEDS: ASCORBIC ACID 500 MG TAB PO SCH (06:35)
[2021-04-13] MEDS: INSULIN DETEMIR (LEVEMIR) 100 UNIT/ML SYR SQ SCH (06:35)
--- NOTE | 2021-04-13 08:03 | P.PN ---
Subjective Progress Note Date: 04/13/21 Principal diagnosis: Coronary artery disease. Previous medical history of coronary artery disease with previous myocardial infarction and stenting, hypertension, hyperlipidemia, nip-ayigmpq-pqtsksodo diabetes, ischemic cardiomyopathy, moderate COPD, and current tobacco dependence. Vaccinated and boosted against Covid POD #6 coronary artery bypass grafting 3 vessels, left internal mammary artery to the left anterior descending artery, reverse saphenous vein graft to the ob tuse marginal artery, reverse saphenous vein graft to posterior descending artery, endoscopic harvesting of the right greater saphenous vein, ligation of the left atrial appendage using a 35 mm AtriClip, epi-aortic ultrasound and intraoperative transesophageal echocardiogram Postoperative acute blood loss anemia and thrombocytopenia, expected given cardiopulmonary bypass pump and hemodilution Acute urinary retention, expected as patient has experienced in the past after surgery The patient was seen and examined this morning sitting up in a recliner on the cardiac stepdown unit in no acute distress. Complains of lack of sleep, wants to go home. Remains in sinus rhythm, hemodynamically stable. Did have an episode of tachycardia last night which responded to lopressor. States post surgical chest discomfort controlled with current medication regimen, complains of difficulty breathing at times, especially taking deep breaths. He has ambulated with assistance in the hallway. Actively using incentive spirometer. He was seen by urology with recommendations to discontinue Bundy catheter prior to discharge, may reinsert if PVR greater than 300, patient did void but still had 600 mL residual so bundy was reinserted. Patient is very angry about having to go home with bundy catheter. Needs constant encouragement Objective - Vital Signs Vital signs: Vital Signs Temp 98.8 F 04/13/21 04:00 Pulse 110 H 04/13/21 04:00 Resp 20 04/13/21 04:00 BP 132/77 04/13/21 04:00 Pulse Ox 95 04/13/21 04:00 Intake & Output 04/12/21 04/13/21 04/13/21 18:59 06:59 18:59 Intake Total 240 240 Output Total 500 Balance 240 -260 Weight 97.8 kg Intake: Oral 240 240 Output: Urine 500 Other: Voiding Method Indwelling Catheter Indwelling Catheter # Voids 1 ABP, PAP, CO, CI - Last Documented Arterial Blood Pressure 149/58 Pulmonary Artery Pressure 36/8 Cardiac Output 7.7 Cardiac Index 3.6 - Exam CONSTITUTIONAL: Appears comfortable, cooperative, no acute distress RESPIRATORY: Lungs sounds diminished bilaterally. Respirations even, nonlabored. Currently on room air with oxygen saturation in the mid 90s. Able to achieve 1500 mL on incentive spirometry. Strong productive cough. CARDIOVASCULAR: S1, S2 present. Regular rate and rhythm, sinus rhythm on telemetry. Sternum stable. Palpable peripheral pulses bilaterally. Trace generalized edema present. No calf pain or tenderness noted. Heart hugger in place with patient demonstrating appropriate use. Antiembolism stockings, SCDs present. GASTROINTESTINAL: Abdomen soft, nontender, nondistended. Active bowel sounds present 4 quadrants. Tolerating diet. Positive bowel movement GENITOURINARY: Bundy present draining clear, yellow urine INTEGUMENTARY: Skin is warm and dry with evidence of good perfusion. Anterior chest incision well approximated and covered with dry intact dressing. Right lower extremity EVH site well approximated without redness or drainage. NEUROLOGIC: Cranial nerves II through XII intact MUSKULOSKELETAL: Able to move all extremities, strength equal bilaterally PSYCHIATRIC: Alert and oriented to person place and time, flat affect, intact judgment and insight, needs much encouragement - Allied health notes Allied health notes reviewed: nursing - Labs CBC & Chem 7: 04/12/21 08:40 04/12/21 08:40 Labs: Abnormal Lab Results - Last 24 Hours (Table) 04/12/21 04/12/21 04/12/21 Range/Units 08:40 08:40 11:52 RBC 2.67 L (4.30-5.90) m/uL Hgb 8.4 L (13.0-17.5) gm/dL Hct 24.5 L (39.0-53.0) % Chloride 109 H (98-107) mmol/L Carbon Dioxide 19 L (22-30) mmol/L BUN 26 H (9-20) mg/dL Glucose 187 H (74-99) mg/dL POC Glucose (mg/dL) 160 H (75-99) mg/dL 04/12/21 04/12/21 04/13/21 Range/Units 16:36 20:12 06:08 RBC (4.30-5.90) m/uL Hgb (13.0-17.5) gm/dL Hct (39.0-53.0) % Chloride (98-107) mmol/L Carbon Dioxide (22-30) mmol/L BUN (9-20) mg/dL Glucose (74-99) mg/dL POC Glucose (mg/dL) 161 H 178 H 198 H (75-99) mg/dL - Imaging and Cardiology Chest x-ray: image reviewed Assessment and Plan Assessment: 1. Coronary artery disease with previous myocardial infarction and stenting, status post three-vessel CABG 2. Hypertension 3. Hyperlipidemia, treated, cholesterol 99, LDL 33 4. Wye-buwiszr-vbytzcdvf diabetes, preoperative hemoglobin A1c 7.9% 5. Ischemic cardiomyopathy, preoperative EF 50-55% 6. Moderate COPD with preoperative FEV1 59% of predicted 7. Current tobacco dependence, recent cessation one week ago 8. Vaccinated and boosted against Covid 9. Postoperative acute blood loss anemia and thrombocytopenia 10. Urinary retention requiring re-insertion of bundy, pt admits to history of Plan: 1. Continue aspirin, plavix, statin, beta wang therapy. Will increase beta wang therapy as tolerated, increased to 75 mg twice daily today. Continue lisinopril for afterload reduction 2. Increase activity, ambulate as tolerated. PT/OT/cardiac rehab following 3. Wean oxygen as tolerated. Encourage incentive spirometry 10 times every hour while awake. Bronchodilators per pulmonology 4. Encourage continued smoking cessation 5. Will monitor daily labs and CXRs. Electrolyte replacement per protocol. Will give IV lasix today 5. GI/DVT prophylaxis 6. Pain control with current medication regimen. 7. Insulin management per internal medicine. Patient needs tight blood sugar control to promote healing, prevent infection 9. Continue Flomax. Continue bundy upon discharge per urology recommendations 10. Strict accurate I/O. Daily weights 11. Discharge planning in progress. Anticipate DC to home w/ home care this afternoon 12. More recommendations to follow Time with Patient: Greater than 30
[2021-04-13] MEDS: IPRATROPIUM-ALBUTEROL 3 ML NEB INHALATION SCH ×2 (08:13→11:50)
[2021-04-13] MEDS: ASPIRIN 325 MG TAB PO SCH (08:54)
[2021-04-13] MEDS: CLOPIDOGREL 75 MG TAB PO SCH (08:54)
[2021-04-13] MEDS: EZETIMIBE 10 MG TAB PO SCH (08:54)
[2021-04-13] MEDS: TAMSULOSIN 0.4 MG CAP.ER.24H PO SCH (08:54)
[2021-04-13] MEDS ORDERED: METOPROLOL TARTRATE 25 MG TAB PO SCH (09:00)
--- NOTE | 2021-04-13 09:09 | XR ---
EXAMINATION TYPE: XR chest 2V DATE OF EXAM: 04/13/2021 COMPARISON: 04/12/2021 TECHNIQUE: PA and lateral views submitted. HISTORY: Post cardiac surgery FINDINGS: Heart is enlarged and there are diffuse interstitial pattern small bilateral effusions. Postoperative change is seen and there is hyperinflation suggestive of COPD. Correlate for previous coronary arter y stenting. Arthropathy of the shoulders. No pneumothorax. IMPRESSION: 1. Stable x-ray correlate for mild CHF otherwise consider interstitial pneumonitis.
--- NOTE | 2021-04-13 09:43 | P.ARTDOP ---
Arterial Doppler Imaging left radial artery: Reason for study: Preop CABG Date of study: 03/31/2021 On imaging the left radial artery is 3.1 x 3.4 proximally, 2.6 x 3.1 mm mid, and 2.8 x 3.1 mm distally. Impression: The left radial artery meet size criteria for use.
--- NOTE | 2021-04-13 09:46 | P.PN ---
Subjective Progress Note Date: 04/13/21 On 04/12/2021 patient is seen in follow-up on selective care unit. Patient is status post three-vessel coronary artery bypass grafting, and today is postoperative day #5. Patient is currently on 2 L of oxygen, he is ambulating with physical therapy, he is weak, he is slow to ambulate, he is requiring 2 person assist and supplemental oxygen to ambulate. But so far tolerating activity well. Today's chest x-ray has been reviewed showing bilateral effusions with associated atelectasis. He has a loose congested cough, not producing much phlegm, he is working with incentive spirometer, all of his chest tubes and lines have been discontinued. Parker catheter has been discontinued. Today's labs are still pending. Yesterday's labs have been reviewed, white blood cell, 6.6, hemoglobin 7.9, sodium was 135, respiratory electrolytes were unremarkable, renal profile is stable with BUN of 34 and creatinine of 1.32. he was seen by urology services for urinary retention and she has been started on Flomax. On 04/13/2021 patient seen in follow-up on selective care unit, today is postoperative day #6, status post three-vessel coronary artery bypass grafting surgery, patient is currently on room air, breathing comfortably, room air pulse ox is 96%, vital signs have been stable overnight, has had no acute events overnight, his been tolerating ambulation in the room and in the hallway. Today's chest x-ray showing diffuse interstitial pattern. Patient received a dose of Lasix yesterday per CT surgery, is in -485 ML at fluid balance over the last 24 hours. Today's labs are still pending. Yesterday's labs have been reviewed, white blood cell count 7.2 hemoglobin is 8.4 his renal function has improved in the urine was down to 26 and creatinine was down to 1.02, sodium is 137, potassium is 4.9, chloride is 109, CO2 is 19. Patient is working on incentive spirometer. Tolerating oral intake. His Parker was reinserted last night for high postvoid residual of 600 mL. Urology swallowing, patient has been started on Flomax. Objective - Vital Signs Vital signs: Vital Signs Temp 98.9 F 04/13/21 07:50 Pulse 90 04/13/21 08:24 Resp 16 04/13/21 08:24 BP 157/68 04/13/21 07:50 Pulse Ox 96 04/13/21 08:14 Intake & Output 04/12/21 04/13/21 04/13/21 18:59 06:59 18:59 Intake Total 240 240 Output Total 500 Balance 240 -260 Weight 97.8 kg Intake: Oral 240 240 Output: Urine 500 Other: Voiding Method Indwelling Catheter Indwelling Catheter # Voids 1 ABP, PAP, CO, CI - Last Documented Arterial Blood Pressure 149/58 Pulmonary Artery Pressure 36/8 Cardiac Output 7.7 Cardiac Index 3.6 - Exam GENERAL EXAM: Alert, active, . Pleasant, 75-year-old white male, on room air oxygen with a pulse ox 96%, short of breath with conversation and exertion, just recovering after his ambulation comfortable in no apparent distress. HEAD: Normocephalic/atraumatic. EYES: Normal reaction of pupils, equal size. Conjunctiva pink, sclera white. NOSE: Clear with pink turbinates. THROAT: No erythema or exudates. NECK: No masses, no JVD, no thyroid enlargement, no adenopathy. CHEST: No chest wall deformity. Symmetrical expansion. midsternal incision is clean dry and intact, chest tube sites are clean dry and intact LUNGS: Equal air entry with no crackles, wheeze, rhonchi or dullness. CVS: Regular rate and rhythm, normal S1 and S2, no gallops, no murmurs, no rubs ABDOMEN: Soft, nontender. No hepatosplenomegaly, normal bowel sounds, no guarding or rigidity. EXTREMITIES: No clubbing, 1+ pitting leyla bilateral lower extremities, no cyanosis, 2+ pulses and upper and lower extremities. MUSCULOSKELETAL: Muscle strength and tone normal. SPINE: No scoliosis or deformity SKIN: No rashes CENTRAL NERVOUS SYSTEM: Alert and oriented -3. No focal deficits, tone is normal in all 4 extremities. PSYCHIATRIC: Alert and oriented -3. Appropriate affect. Intact judgment and insight. - Labs CBC & Chem 7: 04/12/21 08:40 04/12/21 08:40 Labs: Abnormal Lab Results - Last 24 Hours (Table) 04/12/21 04/12/21 04/12/21 Range/Units 08:40 11:52 16:36 Chloride 109 H (98-107) mmol/L Carbon Dioxide 19 L (22-30) mmol/L BUN 26 H (9-20) mg/dL Glucose 187 H (74-99) mg/dL POC Glucose (mg/dL) 160 H 161 H (75-99) mg/dL 04/12/21 04/13/21 Range/Units 20:12 06:08 Chloride (98-107) mmol/L Carbon Dioxide (22-30) mmol/L BUN (9-20) mg/dL Glucose (74-99) mg/dL POC Glucose (mg/dL) 178 H 198 H (75-99) mg/dL Assessment and Plan Plan: assessment: #1. Coronary artery disease, status post three-vessel coronary artery bypass grafting surgery, postoperative day #6 #2. Postoperative atelectasis, expected outcome #3. Postoperative ventilator management, routine, successfully weaned and extubated on 04/08/2021 #4. History of underlying coronary artery disease #5. History of ischemic cardiomyopathy and LV dysfunction #6. Tobacco dependence syndrome #7. Dyslipidemia #8. Acute kidney injury, possibly related to urinary retention #9. Postoperative acute blood loss anemia, expected outcome of sternotomy and urine are artery bypass grafting surgery Plan: today's chest x-ray has been reviewed showing interstitial pattern, Patient received a dose of Lasix yesterday Breathing comfortably, Maintaining negative net fluid balance Hemodynamically stable, in sinus mechanism Parker was reinserted for high postvoid residual Stable vitals signs overall We'll continue to follow his clinical course along with CT surgery I performed a history & physical examination of the patient and discussed their management with my nurse practitioner, Kristina Macias. I reviewed the nurse practitioner's note and agree with the documented findings and plan of care. Lung sounds are positive for diminished breath sounds throughout the lung lea. The findings and the impression was discussed with the patient. I attest to the documentation by the nurse practitioner. I have personally seen and examined the patient, performed the documentation and the assessment and plan as written. Number of minutes spent on the visit: [10] Time with Patient: Less than 30
[2021-04-13] MEDS ORDERED: SENNOSIDES-DOCUSATE SODIUM 1 EACH TAB PO PRN (10:08)
[2021-04-13 11:22] LABS: HCT 25.7 % (39.0-53.0); HGB 8.5 gm/dL (13.0-17.5); MCH 30.8 pg (25.0-35.0); MCHC 33.2 g/dL (31.0-37.0); MCV 92.7 fL (80.0-100.0); Mean Platelet Volume 7.8; Platelet Count 264 k/uL (150-450); RBC 2.77 m/uL (4.30-5.90); RDW 13.9 % (11.5-15.5); WBC 8.7 k/uL (3.8-10.6)
[2021-04-13 12:00] LABS: Glucose,Whole Blood 155 mg/dL (75-99)
[2021-04-13 12:02] LABS: Calcium 8.7 mg/dL (8.4-10.2); Potassium 4.6 mmol/L (3.5-5.1)
--- NOTE | 2021-04-13 12:07 | P.PN ---
Subjective Progress Note Date: 04/13/21 HISTORY OF PRESENT ILLNESS: 04/12/2021 Patient examined this morning. He is sitting up in the chair. Patient denies chest pain or pressure. He currently denies shortness of breath. Patient has been up ambulate in the hallway today with physical therapy. Telemetry reveals sinus mechanism. 04/13/2021 Patient examined this morning. He is sitting in the chair. Patient denies chest pain or pressure. He currently denies shortness of breath. Patient had an episode of tachycardia overnight. EKG reviewed by Dr. Summers reveals atrial flutter with a heart rate in the 130s. Patient remains in sinus rhythm this morning. His beta wang was increased this morning per cardiothoracic surgery. PHYSICAL EXAM: VITAL SIGNS: Reviewed. GENERAL: Well-developed in no acute distress. NECK: Supple. No JVD or thyromegaly LUNGS: Respirations even and unlabored. Lungs essentially clear to auscultation bilaterally. HEART: Regular rate and rhythm. S1 and S2 heard. EXTREMITIES: Normal range of motion. No clubbing or cyanosis. Peripheral pulses intact. No lower extremity edema ASSESSMENT: Coronary artery disease with previous PCI Status post CABG 3 Postoperative paroxysmal typical atrial flutter with RVR, currently maintaining sinus mechanism Hypertension Hyperlipidemia Diabetes COPD Nicotine dependence PLAN: Continue postoperative management per cardiothoracic surgery Increase activity as tolerated Encourage use of incentive spirometer Continue current cardiac medications Continue telemetry monitoring Patient is currently stable from a cardiac standpoint Further recommendations pending patient's course Nurse practitioner note has been reviewed by physician. Signing provider agrees with the documented findings, assessment, and plan of care. Objective - Vital Signs Vital signs: Vital Signs Temp 98.9 F 04/13/21 07:50 Pulse 90 04/13/21 08:24 Resp 16 04/13/21 08:24 BP 157/68 04/13/21 07:50 Pulse Ox 96 04/13/21 08:14 Intake & Output 04/12/21 04/13/21 04/13/21 18:59 06:59 18:59 Intake Total 240 240 Output Total 500 500 Balance 240 -260 -500 Weight 97.8 kg Intake: Oral 240 240 Output: Urine 500 500 Other: Voiding Method Indwelling Catheter Indwelling Catheter # Voids 1 ABP, PAP, CO, CI - Last Documented Arterial Blood Pressure 149/58 Pulmonary Artery Pressure 36/8 Cardiac Output 7.7 Cardiac Index 3.6 - Labs CBC & Chem 7: 04/13/21 10:46 04/13/21 10:46 Labs: Abnormal Lab Results - Last 24 Hours (Table) 04/12/21 04/12/21 04/13/21 Range/Units 16:36 20:12 06:08 RBC (4.30-5.90) m/uL Hgb (13.0-17.5) gm/dL Hct (39.0-53.0) % Sodium (137-145) mmol/L BUN (9-20) mg/dL Glucose (74-99) mg/dL POC Glucose (mg/dL) 161 H 178 H 198 H (75-99) mg/dL 04/13/21 04/13/21 04/13/21 Range/Units 10:46 10:46 11:58 RBC 2.77 L (4.30-5.90) m/uL Hgb 8.5 L (13.0-17.5) gm/dL Hct 25.7 L (39.0-53.0) % Sodium 135 L (137-145) mmol/L BUN 22 H (9-20) mg/dL Glucose 179 H (74-99) mg/dL POC Glucose (mg/dL) 155 H (75-99) mg/dL
[2021-04-13] MEDS: lisinopriL 5 MG TAB PO SCH (12:34)
[2021-04-13 13:50] VITALS: BP 118/64; PULSE 65; RESP 18; TEMP 98.5
--- NOTE | 2021-04-13 14:44 | P.DS ---
Providers Date of admission: 04/07/21 05:35 Expected date of discharge: 04/13/21 Attending physician: Elmo Valdes Consults: 04/07/21 13:09 Consult Physician Routine Consulting Provider: Chay Calvert Consult Reason/Comments: Drawing Frame Tender Consult: post cardiac surgery Do you want consulting provider notified?: Yes Consult Physician Routine Consulting Provider: Lala Jordan Consult Reason/Comments: Egg Processing Supervisor Consult: post cardiac surgery Do you want consulting provider notified?: Yes Consult Physician Routine Consulting Provider: Bassam Gonzales Consult Reason/Comments: hafsa Yusuf ([facility]) patient Do you want consulting provider notified?: Yes 04/11/21 08:07 Consult Physician Routine Consulting Provider: León Cortez Consult Reason/Comments: urine retension Do you want consulting provider notified?: Yes Primary care physician: [facility] Course: FINAL DIAGNOSIS: 1. Coronary artery disease with previous myocardial infarction and stenting 2. Hypertension 3. Hyperlipidemia, treated, cholesterol 99, LDL 33 4. Jrl-gokryrb-sagzbmwdy diabetes, preoperative hemoglobin A1c 7.9% 5. History of ischemic cardiomyopathy 6. Moderate COPD with preoperative FEV1 59% of predicted 7. Current tobacco dependence, recent cessation approximately 1 week ago 8. Vaccinated and boosted against Covid 9. Postoperative acute blood loss anemia and some cytopenia, expected 10. Acute urinary retention requiring reinsertion of Parker catheter, history of the same 11. Brief episode of atrial fibrillation PRINCIPAL PROCEDURE: 1. Coronary artery bypass graft 3 vessels, left internal mammary artery to the left anterior descending artery, reverse saphenous vein graft to the obtuse marginal artery, reverse saphenous vein graft to posterior descending artery 2. Endoscopic harvesting of the right greater saphenous vein 3. Ligation of the left atrial appendage using a 35 mm AtriClip 4. Epi-aortic ultrasound and intraoperative transesophageal echocardiogram HISTORY OF PRESENT ILLNESS: This is a 75-year-old gentleman he follows on an outpatient basis with nurse practitioner Jemima Yusuf. He presented to Dr. Chu with complaints of increasing dyspnea on exertion and paroxysmal nocturnal dyspnea. He denied any chest pain. According to the patient and his for approximately the last year and a half he had noticed increased shortness of breath mostly at night requiring him to get out of bed and sit up in a recliner to sleep. He underwent stress testing in January 2021 demonstrating a fixed inferior and inferior lateral defect with minimal cheryl- infarct ischemia and reduced ejection fraction. There was concern for progression of coronary artery disease and he was recommended to undergo heart c atheterization which demonstrated 100% stenosis to the right coronary artery, circumflex stenosis 85%, mid LAD stenosis 75%. The patient was referred to Dr. Valdes from cardiothoracic surgery. He was recommended to undergo coronary artery bypass surgery. The usual perioperative course was discussed in detail with the patient and his family, all risks and benefits were explained, all questions were answered, and consent was obtained to proceed with surgery. The patient was scheduled for elective surgery at the earliest possible date. HOSPITAL COURSE: The patient was brought to the hospital on 04/07/21, taken to the preoperative area, prepared in the usual fashion, and subsequently taken to the operating room where Dr. Valdes performed three-vessel CABG. Upon completion of surgery the patient was transferred to the cardiovascular intensive care unit where he was recovered and monitored hemodynamically. He was extubated, all lines, tubes, and drips were discontinued when appropriate, and he was transferred to 3 S. cardiac stepdown unit for further monitoring and rehabilitation. His oxygen was titrated down, he continued to work with physical and occupational therapy, he was tolerating oral diet, his pain was controlled, and he was ready to be discharged to home with residential home custodial care on postoperative day #6. He did have acute urinary retention requiring reinsertion of Parker catheter to be followed up outpatient with urology. He received written and verbal instruction regarding his medications, activity restrictions, signs and symptoms requiring physician notification, and follow-up appointments. Patient Condition at Discharge: Stable Plan - Discharge Summary Discharge Rx Participant: No New Discharge Prescriptions: New Pantoprazole [Protonix] 40 mg PO AC-BRKFST #30 tab Sennosides-Docusate Sodium [Senokot-S] 2 each PO HS PRN tab PRN Reason: Constipation Acetaminophen Tab [Tylenol] 650 mg PO Q4HR PRN tab PRN Reason: Fever And/ Or Pain lisinopriL [Zestril] 5 mg PO DAILY@1200 #30 tab Furosemide [Lasix] 20 mg PO DAILY #5 tab Tamsulosin [Flomax] 0.4 mg PO PC-BRKFST #30 cap Clopidogrel [Plavix] 75 mg PO DAILY #30 tab Continue Atorvastatin [Lipitor] 80 mg PO HS Aspirin [Adult Low Dose Aspirin EC] 81 mg PO DAILY metFORMIN HCL [Glucophage] 1,000 mg PO BID #0 Ezetimibe [Zetia] 10 mg PO DAILY Albuterol Inhaler [Ventolin Hfa Inhaler] 2 puff INHALATION RT-Q6H PRN PRN Reason: Shortness Of Breath Ipratropium Nebulized [Atrovent Nebulized 0.2 MG/ML] 0.5 mg INHALATION QID Changed Metoprolol Tartrate [Lopressor] 75 mg PO BID #120 tab Discontinued Nitroglycerin Sl Tabs [Nitrostat] 0.4 mg SUBLINGUAL Q5M PRN #25 tab PRN Reason: Chest Pain lisinopriL 20 mg PO BID Mupirocin [Mupirocin 2%] 1 applic NASAL BID #1 tub Discharge Medication List Aspirin [Adult Low Dose Aspirin EC] 81 mg PO DAILY 03/26/18 [History] Atorvastatin [Lipitor] 80 mg PO HS 03/26/18 [History] metFORMIN HCL [Glucophage] 1,000 mg PO BID #0 03/28/18 [Rx] Albuterol Inhaler [Ventolin Hfa Inhaler] 2 puff INHALATION RT-Q6H PRN 06/30/19 [History] Ezetimibe [Zetia] 10 mg PO DAILY 06/30/19 [History] Ipratropium Nebulized [Atrovent Nebulized 0.2 MG/ML] 0.5 mg INHALATION QID 03/29/21 [History] Acetaminophen Tab [Tylenol] 650 mg PO Q4HR PRN tab 04/13/21 [Rx] Clopidogrel [Plavix] 75 mg PO DAILY #30 tab 04/13/21 [Rx] Furosemide [Lasix] 20 mg PO DAILY #5 tab 04/13/21 [Rx] Metoprolol Tartrate [Lopressor] 75 mg PO BID #120 tab 04/13/21 [Rx] Pantoprazole [Protonix] 40 mg PO AC-BRKFST #30 tab 04/13/21 [Rx] Sennosides-Docusate Sodium [Senokot-S] 2 each PO HS PRN tab 04/13/21 [Rx] Tamsulosin [Flomax] 0.4 mg PO PC-BRKFST #30 cap 04/13/21 [Rx] lisinopriL [Zestril] 5 mg PO DAILY@1200 #30 tab 04/13/21 [Rx] Follow up Appointment(s)/Referral(s): Barbie Cruz NPC [Nurse Practitioner] - 04/19/21 10:00 am (You will be seen in the surgeon's office behind the hospital in [facility], [address] Phone number is . Come to the office after your urology appointment please) Modesto Chu MD [STAFF PHYSICIAN] - 04/29/21 3:30 pm (At the [facility] (at the north end in front of [place])) Jemima Yusuf NPC [REFERRING] - 04/28/21 3:00 pm Rehab Chan GUTIERREZ,Cardiac [NON-STAFF] - 4 Weeks (You will be called in 4-6 weeks for evaluation for cardiac rehab) León Cortez MD [STAFF PHYSICIAN] - 04/19/21 9:00 am Doris Murphy NPC [Nurse Practitioner] - 05/05/21 3:15 pm Elmo Valdes MD [STAFF PHYSICIAN] - 05/02/21 10:00 am [facility] [NON-STAFF] - 1-2 Days (Should come out day after discharge, then 2-3 times per week for 4 weeks) Ambulatory/Diagnostic Orders: Complete Blood Count w/diff [LAB.AMB] Time Frame: 3 Days, Location: None Selected Comprehensive Metabolic Panel [LAB.AMB] Time Frame: 3 Days, Location: None Selected Activity/Diet/Wound Care/Special Instructions: DISCHARGE INSTRUCTIONS: 1. No driving for 4 weeks, or until physician gives their ok. 2. The patient should sleep in their own bed, no medical bed needed. 3. Stairs are not an issue. If the bedroom is upstairs, it is advised that the patient go up at night and down in the morning for the first week. Go slowly, using handrail and take 1 step at a time. 4. BERT hose are to be worn for 30 days or until physician discontinues. 5. Heart hugger is to be worn 100% of the time until physician discontinues.(except when showering) 6. No lifting, pushing, or pulling more than 10 pounds for 12 weeks. The physician will advise of any restriction changes. 7. The patient is expected to continue the prescribed walking program. 8. Continue pain control per as needed orders. 9. Continue with incentive spirometry and splinting/heart hugger until otherwise directed by the physician. 10. Must shower daily using liquid antibacterial soap and a separate white washcloth for each individual incision. 11. Routine sternal incision care. No powders, lotions, ointments on incisions. No dressings are necessary on incisions unless they are draining. Dermabond tape is to remain on sternal incision until surgeon follow-up. 12. Please call surgeon/SPRINKLING SYSTEM INSTALLER for temp greater than 101 F or purulent drainage from incisions. 13. You should weigh yourself every morning, record and bring with you to your follow up appointments 14. All prescriptions given by surgeon for 30 days. Refills need to be filled through long filler cigar roller machine/primary care physician. 15. A Red armband has been placed on the patient. It should be worn for 30 days post surgery and will be removed by the cardiac surgeons. If an ER visit is necessary, please make sure the number on the Red armband is called. 16. You have been referred to and are expected to begin Cardiac Rehab in approximately 4-6 weeks. HOME HEALTH SERVICES TO PROVIDE: RN SKILLED HOME CARE SERVICES FOR POST-OP SURGICAL PATIENTS WITH THE FOLLOWING: Coronary Artery Bypass Surgery (CABG), Mitral Valve Replacement/Repair ( MVR), Aortic Valve Replacement/Repair (AVR) RN TO CONTINUE EDUCATION FROM ``ROAD TO A HEALTH HEART PATIENT EDUCATION MANUAL (GIVEN TO PATIENT IN THE HOSPITAL) MEDICATION RECONCILIATION WITH EDUCATION NEEDED ON FIRST HOME VISIT EMPHASIZE IMPORTANCE OF WEARING BREAST SUPPORT/HEART HUGGER ENCOURAGE USE OF INCENTIVE SPIROMETER 10 X EVERY HOUR WHILE AWAKE ENCOURAGE UTILIZATION OF LOWER EXTREMITY COMPRESSION STOCKINGS/BERT HOSE and ELEVATE LEGS ABOVE LEVEL OF HEART WHILE AT REST. ENCOURAGE AMBULATION 3-5x/day INCREASING TOLERATES, WHILE AVOIDING EXTREMES IN TEMPERATURE FREQUENCY: RN TO OPEN THE PATIENT WITHIN 24 HOURS OF DISCHARGE FROM THE HOSPITAL WITH TELEHEALTH INSTALLED AT [facility], RN TO VISIT 2-3 X A WEEK FOR 4 WEEKS ESTABLISHED BY PATIENT NEEDS. LABORATORY: CBC, CMP TO BE DRAWN ON THE THIRD DAY HOME, (RAN STAT) FAX RESULTS TO [phone]. TELEHEALTH PARAMETERS: WEIGHT: NOTIFY MD OF WEIGHT GAIN OF 2 LBS IN 24 HOURS OR 5 LBS IN ONE WEEK HR: NOTIFY MD OF HR <55 BPM OR HR>100 BPM BP: NOTIFY MD IF BP <90/55 OR BP>140/100 O2 SAT: NOTIFY MD IF PO2<93% ON ROOM AIR SEND TELEHEALTH REPORT TO DIRECTOR OF PUPIL PERSONNEL PROGRAM AND CARDIOVASCULAR SURGEON THE FIRST WEEK OF CARE AND THEN BI-WEEKLY. PLEASE ADDITIONALLY COMMUNICATE ANY ABNORMALS AND NEW FINDINGS TO THE SURGEONS OFFICE. Discharge Disposition: HOME WITH HOME HEALTH SERVICES
--- NOTE | 2021-04-13 20:47 | P.PN ---
Progress Note - Text Progress Note Date: 04/13/21 Hospital course: Patient status post coronary bypass. April 13: Feeling much better. Did walk up in the hallway. Breathing stable. Had a bowel movement. Oral intake good. No chest pain. On examination: VITAL SIGNS: [98.5, 65, 18, 118/64, 97% room air] GENERAL APPEARANCE: Sitting up in a chair, comfortable HEENT: Normal external appearance of nose and ear. Oral cavity normal EYES: Pupils equal. Conjunctiva normal. NECK: JVD not raised. Mass not palpable. RESPIRATORY: Respiratory effort normal. Lungs decreased breath sounds. CARDIOVASCULAR: First and second sounds normal. No edema. ABDOMEN: Soft. Liver and spleen not palpable. No tenderness. No mass palpable. PSYCHIATRY: Alert and oriented x3. Mood and affect normal. INVESTIGATIONS, reviewed in the clinical context: White count 8.7 hemoglobin 8.5 platelets 264 sodium 135 potassium 4.6 creatinine 1.02 Preop hemoglobin: 13.6 Assessment and plan: -Status post CABG -CAD Aspirin, Lipitor, Lopressor, Plavix -Acute postprocedure blood loss anemia expected from surgery Follow H&H -COPD in a smoker Atrovent nebulizer 4 times a day Ventolin HFA when necessary -Chronic nicotine dependence, cigarette smoker Advised against smoking -Diabetes mellitus type 2, on oral hypoglycemic Glucophage thousand milligrams twice a day -Hyperlipidemia Lipitor 80 mg daily at bedtime -Essential hypertension Lopressor 75 mg twice a day Zestril 5 mg by mouth daily -BPH Flomax 0.4 mg Continue current medication treatment plan. Care discussed with the patient. To follow-up with PCP upon discharge.
== END 2021-04-13 15:08 | disposition home health service (06) | DRG 236 ==
LOC: 2ORMAIN 05:35 → EDSTATUS 08:00 → 2SICU 13:02 → 3SCARD 04-11 15:46
PROVIDERS: ADMIT Surgery; ATTEND Surgery
PROC: B24BZZ4 Ultrasonography of Heart with Aorta, Transesophageal (ICD-10-PCS; principal; 2021-04-07 08:00)
PROC: 02100Z9 Bypass Coronary Artery, One Artery from Left Internal Mammary, Open Approach (ICD-10-PCS; principal; 2021-04-07 08:00)
PROC: 06BP4ZZ Excision of Right Saphenous Vein, Percutaneous Endoscopic Approach (ICD-10-PCS; principal; 2021-04-07 08:00)
PROC: 02L70CK Occlusion of Left Atrial Appendage with Extraluminal Device, Open Approach (ICD-10-PCS; principal; 2021-04-07 08:00)
PROC: 021109W Bypass Coronary Artery, Two Arteries from Aorta with Autologous Venous Tissue, Open Approach (ICD-10-PCS; principal; 2021-04-07 08:00)
PROC: 5A1221Z Performance of Cardiac Output, Continuous (ICD-10-PCS; principal; 2021-04-07 08:00)
PROC: B34JZZZ Ultrasonography of Left Upper Extremity Arteries (ICD-10-PCS; 2021-04-07 08:00)
DX: I25.10 Atherosclerotic heart disease of native coronary artery without angina pectoris (principal); T82.855A Stenosis of coronary artery stent, initial encounter; J98.11 Atelectasis; D62 Acute posthemorrhagic anemia; N17.9 Acute kidney failure, unspecified; I48.3 Typical atrial flutter; J93.9 Pneumothorax, unspecified; I11.9 Hypertensive heart disease without heart failure; I25.82 Chronic total occlusion of coronary artery; E11.9 Type 2 diabetes mellitus without complications; I25.5 Ischemic cardiomyopathy; J44.9 Chronic obstructive pulmonary disease, unspecified; Z20.822 Contact with and (suspected) exposure to COVID-19; E78.5 Hyperlipidemia, unspecified; E78.00 Pure hypercholesterolemia, unspecified; I08.1 Rheumatic disorders of both mitral and tricuspid valves; I25.2 Old myocardial infarction; N40.1 Benign prostatic hyperplasia with lower urinary tract symptoms; R33.8 Other retention of urine; F17.210 Nicotine dependence, cigarettes, uncomplicated; Z71.6 Tobacco abuse counseling; Z79.82 Long term (current) use of aspirin; Z79.84 Long term (current) use of oral hypoglycemic drugs; Z79.899 Other long term (current) drug therapy; Z95.5 Presence of coronary angioplasty implant and graft; Z90.49 Acquired absence of other specified parts of digestive tract; Z87.19 Personal history of other diseases of the digestive system; Z96.651 Presence of right artificial knee joint; Z98.890 Other specified postprocedural states; Z88.5 Allergy status to narcotic agent; Y83.1 Surgical operation with implant of artificial internal device as the cause of abnormal reaction of the patient, or of later complication, without mention of misadventure at the time of the procedure; Z82.49 Family history of ischemic heart disease and other diseases of the circulatory system; Z83.3 Family history of diabetes mellitus; Z82.0 Family history of epilepsy and other diseases of the nervous system; D69.6 Thrombocytopenia, unspecified
CPT/HCPCS: 71045; 71046; 80048; 80053; 80061; 80074; 82330; 82805; 83036; 83735; 84443; 85025; 85027; 85520; 85610; 85730; 86850; 86891; 86900; 86901; 86920; 87635; 94002; 94003; 94640; 94760

== ENCOUNTER → 2021-11-18 | Outpatient (CLI) | payer MEDICARE ==
[2021-11-18 15:40] LABS: Basophils % (A) 0 %; Eosinophils # (A) 0.4 k/uL (0-0.7); Eosinophils % (A) 6 %; HCT 30.7 % (39.0-53.0); HGB 10.2 gm/dL (13.0-17.5); Hypochromasia Slight; Lymphocytes # (A) 0.6 k/uL (1.0-4.8); Lymphocytes % (A) 10 %; MCH 30.2 pg (25.0-35.0); MCHC 33.3 g/dL (31.0-37.0); MCV 90.5 fL (80.0-100.0); Mean Platelet Volume 7.1; Monocytes # (A) 0.4 k/uL (0-1.0); Monocytes % (A) 7 %; Neutrophils # (A) 4.8 k/uL (1.3-7.7); Neutrophils % (A) 76 %; Platelet Count 245 k/uL (150-450); RDW 13.1 % (11.5-15.5); WBC 6.3 k/uL (3.8-10.6)
[2021-11-18 15:56] LABS: ALT 27 U/L (4-49); AST 22 U/L (17-59); African American GFR (CKD) 77 (>60 ml/min/1.73 sqM); Albumin 3.8 g/dL (3.5-5.0); Albumin/Globulin Ratio 1.7; Alkaline Phosphatase 72 U/L (38-126); Anion Gap 15 mmol/L; Blood Urea Nitrogen 12 mg/dL (9-20); Calcium 9.4 mg/dL (8.4-10.2); Carbon Dioxide 23 mmol/L (22-30); Chloride 100 mmol/L (98-107); Creatine Kinase 50 U/L (55-170); Globulin 2.3 g/dL; Glucose 135 mg/dL (74-99); Non-African American GFR(CKD) 67 (>60 ml/min/1.73 sqM); Potassium 4.6 mmol/L (3.5-5.1); Sodium 138 mmol/L (137-145); Total Bilirubin 0.4 mg/dL (0.2-1.3); Total Protein 6.1 g/dL (6.3-8.2)
--- NOTE | 2021-11-18 16:40 | CT ---
EXAMINATION TYPE: CT angio chest DATE OF EXAM: 11/18/2021 COMPARISON: Outside chest x-ray from earlier today HISTORY: SOB CT DLP: 482.7 mGycm. Automated Exposure Control for Dose Reduction was Utilized. CONTRAST: CTA scan of the thorax is performed with IV Contrast, patient injected with 77 mL of Isovue 370, pulm onary embolism protocol. MIP Images are created on CT scanner and reviewed. FINDINGS: LUNGS: Slightly suboptimal as demonstrated by respiratory motion compromised. Mild underlying emphyse matous change felt present. Increased opacities and intralobular septal thickening in the periphery o f both lungs is present. No pleural effusion or pneumothorax noted. No suspicious focal consolidation . MEDIASTINUM: There is suboptimal study with most dense contrast in SVC. Some contrast in the thoraci c aorta without aneurysm or dissection. No central pulmonary embolism. Suboptimal evaluation of segme ntal and subsegmental branches due to poor bolus and heterogeneity in the periphery. Cardiomegaly is redemonstrated. Overlying sternal wires and mediastinal clips from CABG procedure are redemonstrated. Prominent lymph nodes in the bilateral hilar region along with the peritracheal region anterior to t he aortic arch are identified. Somewhat small size thyroid gland noted. OTHER: Cholecystectomy clips. Slight scoliotic curvature. Mild multilevel spurring in the spine. IMPRESSION: 1. Suboptimal study without central pulmonary embolism, cannot exclude smaller peripheral segmental a nd subsegmental PE on this study. 2. Mild emphysematous change with mild to moderate interstitial edema bilaterally. There is cardiomeg osiris. Correlate for CHF exacerbation.
== END | disposition home or self-care (01) ==
LOC: RADCTMAIN 15:00
PROVIDERS: ATTEND Internal Medicine Critical Care Medicine
DX: J43.9 Emphysema, unspecified (principal)
CPT/HCPCS: 83880; 80053; 84443; 82533; 82550; 85025; 71275; 36415; Q9967

== ENCOUNTER → 2024-06-06 | Outpatient (CLI) | payer MEDICARE ==
[2024-06-06 11:14] LABS: African American GFR (CKD) 85 (>60 ml/min/1.73 sqM); Blood Urea Nitrogen 15 mg/dL (9-20); Non-African American GFR(CKD) 73 (>60 ml/min/1.73 sqM)
--- NOTE | 2024-06-06 12:00 | CT ---
EXAMINATION TYPE: CT chest w con CT DLP: 486 mGycm, Automated exposure control for dose reduction was used. DATE OF EXAM: 06/06/2024 11:46 AM COMPARISON: Chest radiograph 06/02/2024, CTA chest 11/18/2021 CLINICAL INDICATION:Male, 78 years old with history of J18.9 PNEUMONIA, UNSPECIFIED ORGANISM; PHH, Pn eumonia, unspecified organism, spot on lung. TECHNIQUE: Multiple axial images were obtained through the chest following the administration of 100 cc of Isovue 300. . Coronal and sagittal reformats reviewed. FINDINGS: LUNGS/ PLEURA: Patchy consolidative opacity within the right lower lobe. Mild centrilobular emphysema tous changes. Left lower lobe 4 mm pulmonary nodule which is not definitively visualized on prior CT (series 4, image 42). Stable right upper lobe 6.6 mm solid pulmonary nodule dating back to 2021 exam inferior to be benign due to stability (series 3, image 18). No pleural effusion or pneumothorax. AIRWAY: Patent and unremarkable.. HEART: Cardiomegaly is demonstrated.Left atrial appendage occlusion device.. No pericardial effusion. CABG changes. Coronary artery calcifications and/or stents. MEDIASTINUM: Enlarged subcarinal lymph node measuring 1.7 cm short axis. Enlarged precarinal 1.1 cm s hort axis lymph node. Enlarged right hilar lymph node measuring 1.1 cm short axis. Enlarged left porter r lymph node measuring up to 1.3 cm short axis. VASCULATURE: No aortic aneurysm. Mild atherosclerotic calcification of the aorta and its branches. N o visualized central pulmonary embolism. MUSCULOSKELETAL: No acute osseous abnormalities. Sternotomy wires. SOFT TISSUES/LYMPH NODES: Mild bilateral gynecomastia. LOWER NECK: No significant findings. UPPER ABDOMEN: Gallbladder is surgically absent. Left renal superior pole exophytic 1.7 cm cyst. No f ollow-up recommended. IMPRESSION: 1. Patchy right lower lobe consolidative opacities most consistent with pneumonia. 2. Enlarged mediastinal and bilateral hilar lymph nodes which are likely reactive to #1. 3. New left lower lobe 4 mm pulmonary nodule with stable right upper lobe 6.6 mm pulmonary nodule jamison ing back to 2021. According to Fleischner's criteria, in a low-risk patient no follow up is recommend ed. In a high-risk patient consider optional CT chest in 12 months. 4. Cardiomegaly post-CABG changes. [facility], , 06/06/2024 11:58 AM
== END | disposition home or self-care (01) ==
LOC: RADCTMAIN 09:57
PROVIDERS: ATTEND Internal Medicine Critical Care Medicine
DX: J18.9 Pneumonia, unspecified organism (principal); I51.7 Cardiomegaly; R91.1 Solitary pulmonary nodule; Z95.1 Presence of aortocoronary bypass graft
CPT/HCPCS: 82565; 84520; 71260; 36415; Q9967

== ENCOUNTER → 2024-06-26 | Outpatient (CLI) | payer MEDICARE ==
--- NOTE | 2024-06-28 12:13 | PE ---
EXAMINATION TYPE: PET CT fusion skull to thigh DATE OF EXAM: 06/26/2024 CLINICAL INDICATION:Male, 78 years old with history of R91.8 right lung nodule; TECHNIQUE: Following the intravenous administration of 10.7 mCi of F-18 FDG, whole body images are performed from the skull base to the Mid thigh. Images are reviewed on the computer in the coronal, axial, and sagittal planes. Reconstructed rotating images are created on independent workstation and reviewed on the computer. A non-contrast CT is performed in conjunction with the PET scan. Glucose level 102 mg/dL CT DLP: 1240 mGycm, Automated exposure control for dose reduction was used. COMPARISON: CT 06/06/2024 11/18/2021, PET/CT None, MRI: None FINDINGS: Mediastinal SUV mean is 2.2. Hepatic parenchyma SUV mean is 2.9. SKULL BASE AND NECK: Suspicious uptake identified examples include: * Right low neck lymph node max 4.5. Measuring 5 mm in short axis. * Symmetrical uptake within the palatine tonsils bilaterally likely physiologic. CHEST, MEDIASTINUM, AND HILAR REGION: Suspicious uptake identified examples include: Scattered mediastinal lymph nodes with FDG activity. * Prevascular max SUV 5.3 measuring 11 mm. * Right paratracheal max SUV 5.5 measuring 11 mm * Right perihilar max SUV 6.6. Difficult to measure without IV contrast. * Left pulmonary hilum max SUV 4.5. Difficult to measure without IV contrast. * Subcarinal max SUV 6.5 measuring 11 mm. * Consolidation changes right lower lobe superior segment max SUV 15.5.r area measures roughly 60 x 25 mm previously 64 x 30 mm on 06/06/2024. ABDOMEN AND PELVIS: Tiny nodular uptake within the left adrenal gland max SUV 2.7. Underlying early metastatic disease no t excluded. MUSCULOSKELETAL STRUCTURES: No suspicious radiotracer activity. Degenerative uptake at the facet joints of L5-S1. OTHER CT: * Bilaterally aphakia. * Carotid bifurcation atherosclerosis. * Coronary atherosclerosis. * Mild cardiomegaly. * Mild emphysema. * Sternotomy wires. * Bilateral gynecomastia changes. * The gallbladder is surgically absent. IMPRESSION: 1. Right lower lobe superior segment FDG avid consolidation with FDG avid lymph nodes in the mediast inum and right low neck. Findings concerning for malignancy until proven otherwise. Correlate for sig ns and symptoms of infection consolidation changes may be stopped slightly smaller compared to 025. Today 60 x 25 mm previously 64 x 30 mm on 06/06/2024. 2. Mild nodular uptake within the left adrenal which is indeterminate Underlying early metastatic di sease in the setting of malignancy not excluded.. [facility], , 06/28/2024 12:11 PM
== END | disposition home or self-care (01) ==
LOC: RADPETMAIN 15:20
PROVIDERS: ATTEND Internal Medicine Critical Care Medicine
DX: R91.8 Other nonspecific abnormal finding of lung field (principal)
CPT/HCPCS: 78815; A9552